=== PATIENT | male | born 1960 | race Caucasian/White ===

== ENCOUNTER → 2017-12-24 11:09 | Outpatient (CLI) | payer OTHER, SELFPAY ==
[2017-12-24 15:48] LABS: ALB/GLOB Ratio 0.9 RATIO (0.9-2.4); AST(SGOT) 39 U/L (15-37); Alanine Aminotransfer ALT/SGPT 42 U/L (16-61); Albumin, Serum 3.6 g/dL (3.2-5.0); Alkaline Phosphatase 76 U/L (45-117); Anion Gap 11 (5-15); BUN 11 mg/dL (7-18); BUN/Creat Ratio 10.6 RATIO (10-20); Chloride 104 mmol/L (98-107); Cholesterol 101 mg/dL (200); Creatinine, Serum 1.04 mg/dL (0.70-1.30); EST Glomerular Filtration Rate 78 mL/min (>60); Est Glom Filt Rate - Afr Amer 95 mL/min (>60); Globulin 4.1 g/dL (2.2-4.2); Glucose 52 mg/dL (74-106); High Density Lipoprotein 30 mg/dL; Potassium 4.1 mmol/L (3.5-5.1); Protein, Total 7.7 g/dL (6.4-8.2); Sodium Level 141 mmol/L (136-145); Thyroid Stim Hormone (TSH) 1.99 uIU/mL (0.358-3.74); Triglycerides 139 mg/dL; Very Low Density Lipoprotein 28 mg/dL (5-40)
== END ==
PROVIDERS: Family Provider Family Medicine; PCP Family Medicine; Visit Provider Family Medicine
DX: E11.8 Type 2 diabetes mellitus with unspecified complications (principal)
CPT/HCPCS: 36415; 80053; 80061; 84443

== ENCOUNTER 2018-03-19 08:58 | Day surgery (SDC) | payer OTHER, SELFPAY ==
[2018-03-19] VITALS (8 sets, daily range): BP systolic 121–147; BP diastolic 60–63; PULSE 75–79; RESP 16–18; TEMP 36.3–36.6; O2SAT 94–97; BMI 43.9
[2018-03-19 09:40] LABS: Bedside Glucose 178 mg/dL (70-110)
[2018-03-19] MEDS: Bupivacaine Mpf 0.5% 30 ML VIAL (11:24)
[2018-03-19] MEDS: Cefazolin 2 GM in 0.9% Normal Saline 100 ML IV (11:26)
--- NOTE | 2018-03-19 12:11 | DCINST_ITS ---
Discharge Diet: No Restrictions - leave dressing on until seen in postop clinic , do not get incision wet- if it does, remove and replace, call with concerns Discharge Activity: May Not Drive May shower in (days): 1 Ice area for (Minutes): 20 - Every hour while awake. Weight Bearing Status: Weight bearing as tolerated Keep extremity elevated above heart level: Operative Extremity Call your doctor if your incision/area has: Continuous Slow Oozing, Sudden Increased Bleeding, Increased Pain/ Swelling, Increased Redness, Foul Smelling Discharge Call your doctor if you observe: Fever of 101 or Higher, Coldness, Increased Pain, Numbness or Tingling, Change in Color, Calf discomfort Allergies/Adverse Reactions: Allergies No Known Allergies Allergy (Verified 03/12/18 11:27) Medications to take at Discharge Colchicine 0.6 mg PO TID 12/17/16 Gabapentin 400 mg PO BID 12/17/16 Liraglutide [Victoza] 1.8 mg SQ DAILY 12/17/16 Metoprolol Tartrate 25 mg PO BID 12/17/16 Insulin Aspart [Novolog Flexpen] 22 units SQ TIDCM 03/12/18 Insulin Glargine [Lantus SoloStar Pen] 80 units SQ BID 03/12/18 Metformin HCl [Glucophage] 850 mg PO BIDCM 03/12/18 Acetaminophen/Codeine #3 [Tylenol #3 Tablet] 1 - 2 tablet PO Q6H PRN PRN #30 tablet 03/19/18 Cilostazol [Pletal] 100 mg PO BIDAC 03/19/18 Indomethacin [Indocin] 50 mg PO TIDCM 03/19/18 Tadalafil [Cialis] 20 mg PO DAILY PRN 03/19/18 The following prescriptions were given: Acetaminophen/Codeine #3 [Tylenol #3 Tablet] 1 - 2 tablet PO Q6H PRN PRN #30 tablet PRN Reason: Pain Primary Care Physician: Dennis Schwartz MD [Primary Care Provider] - Test Results: Test results from this visit will be discussed in further detail at your follow- up appointment, if applicable. Please Follow Up With: Mellisa Hernandez, - [phone]
--- NOTE | 2018-03-19 12:13 | OP.PCM_ITS ---
Report of Operation Date of Procedure: 03/19/18 Pre-Operative Diagnosis: right carpal tunnel syndrome Post-Operative Diagnosis: same Surgery/Procedure Performed:: right carpal tunnel release Type of Anesthesia:: Susan Tatum Anesthesiologist: Kingston Lyons Estimated Blood Loss (mL): none Fluids Replaced: 600cc Description of Procedure: Preoperative note Patient is a 58 year old patient with nerve conduction study confirming carpal tunnel syndrome. Patient failed conservative treatment for his carpal tunnel elected proceed with right carpal tunnel release. Risks benefits and alternatives surgery discussed with patient. Risks including but not limited to blood loss, blood clot, infection, neurovascular injury, failure procedure, loss of life and loss of limb. Patient is aware like proceed with right carpal tunnel release. Operative note Patient seen and examined preoperative holding area. right hand was marked. History and physical and consent reviewed. Patient was brought to the operating room placed supine on the operating table. Sign in, anesthesia, antibiotics were administered. right upper extremity was prepped and draped after Susan block was initiated. All bony prominences well-padded SCDs placed on bilateral lower extremities. We marked out our incisions for our carpal tunnel release at the intersection of Jose's line in the fourth ray flexed. We extended about a centimeter and a half. Timeout was performed. We then checked ensure that the Susan block was working with pickups which it was not so we performed a local block of 15cc 1% lidocaine. We then used a 15 blade to make a skin incision. We then dissected down tenotomies to the level of the transverse carpal ligament. We then used a new 15 blade cut through the transverse carpal ligament down to the level of the median nerve. We then further released the median nerve the combination of the 15 blade and tenotomies protecting the nerve at all times. The nerve was grayish in color and adherent to the transverse carpal ligament volarly. We released the transverse carpal ligament distally to the fat pad and then proximally under standard technique. We then palpated to ensure that we released all of the transverse carpal ligament which we did. We irrigated the incision with copious amounts of sterile saline. All bleeders were coagulated. The incision was closed with interrupted 4-0 nylon stitches. Tourniquet was deflated for total working time of 14 minutes. Patient tolerated procedure well there were no complications. Patient transferred to recovery room in stable condition. Postoperative note Hospital pharmacy has prescription Leave dressing clean dry and intact Follow-up in 2 weeks Call with concerns This note was generated with [employer] dictation software. It may contain incorrect words, spelling, and punctuation that were not noted in checking the note before signing
== END 2018-03-19 13:28 | disposition home or self-care (01) ==
LOC: SDC 08:58 → AC 09:00
PROVIDERS: Family Provider Family Medicine; PCP Family Medicine; Visit Provider Orthopaedic Surgery
PROC: (CPT 64721; principal; 2018-03-19 10:15)
DX: G56.01 Carpal tunnel syndrome, right upper limb (principal); E11.9 Type 2 diabetes mellitus without complications; E78.00 Pure hypercholesterolemia, unspecified; G47.30 Sleep apnea, unspecified; K21.9 Gastro-esophageal reflux disease without esophagitis; Z79.82 Long term (current) use of aspirin; Z79.4 Long term (current) use of insulin; Z79.899 Other long term (current) drug therapy
CPT/HCPCS: 64721; 82962; J7120

== ENCOUNTER 2018-06-25 07:51 | Day surgery (SDC) | payer OTHER, SELFPAY ==
[2018-06-25 08:10] VITALS: BP 128/61; PULSE 82; RESP 16; TEMP 36.1; O2SAT 96; BMI 45.1
[2018-06-25 09:10] LABS: Bedside Glucose 188 mg/dL (70-110)
[2018-06-25] MEDS: Cefazolin 2 GM in 0.9% Normal Saline 100 ML IV (09:35)
--- NOTE | 2018-06-25 09:49 | OP.PCM_ITS ---
Report of Operation Date of Procedure: 06/25/18 Pre-Operative Diagnosis: left carpal tunnel syndrome, left 4th trigger finger Post-Operative Diagnosis: same Surgery/Procedure Performed:: left carpal tunnel release, left fourth finger trigger finger release Type of Anesthesia:: Susan Tatum, Local Anesthesiologist: Tiomthy Cain Estimated Blood Loss (mL): none Fluids Replaced: 700cc Description of Procedure: Preoperative note Patient is a 58 year old patient with nerve conduction study confirming carpal tunnel syndrome. Patient failed conservative treatment for her carpal tunnel elected proceed with left carpal tunnel release. Risks benefits and alternatives surgery discussed with patient. Risks including but not limited to blood loss, blood clot, infection, neurovascular injury, failure procedure, loss of life and loss of limb. Patient is aware like proceed with left carpal tunnel release. Operative note Patient seen and examined preoperative holding area. Left hand was marked. History and physical and consent reviewed. Patient was brought to the operating room placed supine on the operating table. Sign in, anesthesia, antibiotics were administered. Left upper extremity was prepped and draped after Abrams block was initiated. All bony prominences well-padded SCDs placed on bilateral lower extremities. We marked out our incisions for our carpal tunnel release at the intersection of Jose's line in the fourth ray flexed. We extended about a centimeter and a half. Timeout was performed. We then checked ensure that the Abrams block was working with pickups which it was not so we had to insufflate both the carpal tunnel incision and the trigger finger release sites with combination of about 25 cc of combined mixture of ropivacaine and lidocaine. We then used a 15 blade to make a skin incision. We then dissected down tenotomy syllable of the transverse carpal ligament. We then used a new 15 blade cut through the transverse carpal ligament down to the level of the median nerve. We then further released the median nerve the combination of the 15 blade and tenotomies. The nerve was grayish in color and adherent to the transverse carpal ligament volarly. We released the transverse carpal ligament distally to the fat pad and then proximally under standard technique. We then palpated to ensure that we released all of the transverse carpal ligament which we did. We then moved to our trigger release of the left fourth. Incision was about a centimeter over top of the A1 rodo we dissected down with first manner and skin incision with a 15 blade dissect down to 9 to the level of the A1 rodo with a release A1 rodo with a combination of a 15 blade and tenotomies. We then brought the tendon out of the incision were able to flex and extend with no further catching. We then irrigated both incisions closed with no with the skin with 4-0 nylon sterile dressings were applied. We irrigated the incision with copious amounts of sterile saline. All bleeders were coagulated. The incision was closed with interrupted 4-0 nylon stitches. Tourniquet was deflated for total working time of 14 minutes. Patient tolerated procedure well there were no complications. Patient transferred to recovery room in stable condition. Postoperative note Hospital pharmacy has prescription Leave dressing clean dry and intact Follow-up in 2 weeks Call with concerns This note was generated with [employer] dictation software. It may contain incorrect words, spelling, and punctuation that were not noted in checking the note before signing.
--- NOTE | 2018-06-25 09:49 | DCINST_ITS ---
Discharge Diet: No Restrictions - leave dressings in place, keep incision clean and dry but if get dirty/soiled my change dressing, follow up in 2 weeks for dressing removal and suture removal, call with concerns Discharge Activity: May Not Drive May shower in (days): 1 Ice area for (Minutes): 20 - Every hour while awake. Weight Bearing Status: Weight bearing as tolerated Keep extremity elevated above heart level: Operative Extremity Call your doctor if your incision/area has: Continuous Slow Oozing, Sudden Increased Bleeding, Increased Pain/ Swelling, Increased Redness, Foul Smelling Discharge Call your doctor if you observe: Fever of 101 or Higher, Coldness, Increased Pain, Numbness or Tingling, Change in Color, Calf discomfort Allergies/Adverse Reactions: Allergies No Known Allergies Allergy (Verified 06/18/18 09:23) Medications to take at Discharge Colchicine 0.6 mg PO TID 12/17/16 Gabapentin 400 mg PO BID 12/17/16 Liraglutide [Victoza] 1.8 mg SQ DAILY 12/17/16 Metoprolol Tartrate 25 mg PO BID 12/17/16 Insulin Aspart [Novolog Flexpen] 18 units SQ TIDCM 03/12/18 Insulin Glargine [Lantus SoloStar Pen] 85 units SQ BID 03/12/18 Metformin HCl [Glucophage] 850 mg PO BIDCM 03/12/18 Cilostazol [Pletal] 100 mg PO BIDAC 03/19/18 Tadalafil [Cialis] 20 mg PO DAILY PRN 03/19/18 Indomethacin [Indocin] 50 mg PO TIDCM 06/18/18 Acetaminophen/Codeine #3 [Tylenol #3 Tablet] 1 - 2 tablet PO Q6H PRN PRN #30 tablet 06/25/18 The following prescriptions were given: Acetaminophen/Codeine #3 [Tylenol #3 Tablet] 1 - 2 tablet PO Q6H PRN PRN #30 tablet PRN Reason: Pain Primary Care Physician: Dennis Schwartz MD [Primary Care Provider] - Test Results: Test results from this visit will be discussed in further detail at your follow- up appointment, if applicable. Please Follow Up With: Mellisa Hernandez, - [phone]
[2018-06-25] MEDS: Ropivacaine 0.5% 30 ML Vial (10:15)
[2018-06-25] MEDS: Mupirocin Ointment 22gm Tube 1 APPLIC (10:34)
[2018-06-25 10:48] VITALS: BP 115/51; BP 128/61; PULSE 80; RESP 16; TEMP 35.9; O2SAT 97
[2018-06-25 10:53] VITALS: BP 104/82; BP 128/61; PULSE 83; RESP 16; O2SAT 96
[2018-06-25 10:58] VITALS: BP 100/53; BP 128/61; PULSE 78; RESP 16; O2SAT 96
[2018-06-25 11:01] VITALS: BP 100/78; BP 128/61; PULSE 80; RESP 16; TEMP 36.1; O2SAT 97
[2018-06-25 11:25] VITALS: BP 128/61
== END 2018-06-25 11:47 | disposition home or self-care (01) ==
LOC: SDC 07:52 → AC 07:53
PROVIDERS: Family Provider Family Medicine; PCP Family Medicine; Referring Provider Orthopaedic Surgery; Visit Provider Orthopaedic Surgery
PROC: (CPT 64721; principal; 2018-06-25 09:15)
DX: G56.02 Carpal tunnel syndrome, left upper limb (principal); M65.342 Trigger finger, left ring finger; E11.9 Type 2 diabetes mellitus without complications; E78.00 Pure hypercholesterolemia, unspecified; G25.81 Restless legs syndrome; G47.30 Sleep apnea, unspecified; K21.9 Gastro-esophageal reflux disease without esophagitis; Z79.4 Long term (current) use of insulin; Z79.899 Other long term (current) drug therapy
CPT/HCPCS: 26055; 64721; 82962; J7120; J2405

== ENCOUNTER → 2018-06-26 11:06 | Outpatient (CLI) | payer OTHER, SELFPAY ==
[2018-06-26 13:27] LABS: AST(SGOT) 22 U/L (15-37); Alanine Aminotransfer ALT/SGPT 40 U/L (16-61); Albumin, Serum 3.3 g/dL (3.2-5.0); Alkaline Phosphatase 78 U/L (45-117); Anion Gap 9 (5-15); BUN 12 mg/dL (7-18); BUN/Creat Ratio 12.5 RATIO (10-20); Calcium,Total 8.2 mg/dL (8.5-10.1); Chloride 102 mmol/L (98-107); Cholesterol 99 mg/dL (200); Creatinine, Serum 0.96 mg/dL (0.70-1.30); EST Glomerular Filtration Rate 86 mL/min (>60); Est Glom Filt Rate - Afr Amer 104 mL/min (>60); Globulin 3.4 g/dL (2.2-4.2); Glucose 200 mg/dL (74-106); High Density Lipoprotein 29 mg/dL; Potassium 4.6 mmol/L (3.5-5.1); Protein, Total 6.7 g/dL (6.4-8.2); Sodium Level 140 mmol/L (136-145); Triglycerides 122 mg/dL; Uric Acid 5.8 mg/dL (3.5-7.2); Very Low Density Lipoprotein 24 mg/dL (5-40)
== END ==
PROVIDERS: Family Provider Family Medicine; PCP Family Medicine; Visit Provider Family Medicine
DX: E11.8 Type 2 diabetes mellitus with unspecified complications (principal); M10.9 Gout, unspecified
CPT/HCPCS: 36415; 80053; 80061; 84550

== ENCOUNTER → 2018-10-20 15:07 | Outpatient (CLI) | payer OTHER, SELFPAY ==
--- NOTE | 2018-10-20 08:15 | LES_PTH ---
PATIENT: RAJESH FLORES [facility] U#:[id number] AGE/SX: 65/M ROOM: RE10/20/[address]: Dr. Drew Schwartz MD : 1960 BED: DIS: SPEC #: [id number] RECD: 10/20/18 13:48 STATUS: XANDER ANAND #: [id number] ELLE: 10/20/18 08:[address]: Drew Schwartz DEPT: SURGICAL PATHOLOGY RECD BY: Matilde Nazario Tissues: Skin of forearm, NOS Procedures: Surgery Specimen Level IV HEADER OPERATION: Shave biopsy PRE-OP DIAGNOSIS: Left forearm, rule out melanoma TISSUE SUBMITTED: Shave biopsy MICROSCOPIC DIAGNOSIS Left forearm lesion, shave biopsy: Actinic keratosis, hypertrophic type with focal verrucous features. Negative for melanocytic lesion. SJ:damien 10/21/18 COMMENT Clinical correlation and appropriate follow up are necessary. MICROSCOPIC DESCRIPTION Slides are reviewed. GROSS DESCRIPTION Received in fixative is one container labeled with the patient's name and designated shave biopsy. The specimen consists of a shave biopsy of ryan-white skin measuring 0.6 x 0.6 x 0.1 cm. The specimen is inked and submitted entirely in one cassette. It will be serially sectioned at the time of embedding. / SJ:rg 10/20/18 TC:5 [facility]: [id number]
== END ==
PROVIDERS: Family Provider Family Medicine; PCP Family Medicine; Referring Provider Family Medicine; Visit Provider Family Medicine
DX: L57.0 Actinic keratosis (principal)
CPT/HCPCS: 88305

== ENCOUNTER 2019-02-13 10:23 | Day surgery (SDC) | payer OTHER, SELFPAY ==
[2019-02-02 11:20] VITALS: BMI 45.1
--- NOTE | 2019-02-02 12:42 | HP_ITS ---
Intake Vital Signs 02/02/19 Body Mass Index (BMI) 45.1 02/02/19 Height 6 ft 3 in 02/02/19 Weight: 350 lb 6 oz 02/02/19 Body Mass Index (BMI) 43.7 02/02/19 Blood Pressure 172/93 H 02/02/19 Blood Pressure Location Rt brachial 02/02/19 Blood Pressure Position Sitting 02/02/19 Respiratory Rate 20 H 02/02/19 Pulse Rate 98 02/02/19 Pulse Ox 97 Intake Visit Reasons: Cscope Consult Chief Complaint: discuss colonoscopy Counter Waitress/Waiter Required: No Is patient in pain?: No Allergies No Known Allergies Allergy (Verified 02/02/19 11:14) Medications Colchicine 0.6 mg PO TID 12/17/16 [History Confirmed 02/02/19] Gabapentin 400 mg PO BID 12/17/16 [History Confirmed 02/02/19] Liraglutide [Victoza] 1.8 mg SQ DAILY 12/17/16 [History Confirmed 02/02/19] Metoprolol Tartrate 25 mg PO BID 12/17/16 [History Confirmed 02/02/19] Insulin Aspart [Novolog Flexpen] 18 units SQ TIDCM 03/12/18 [History Confirmed 02/02/19] Insulin Glargine [Lantus SoloStar Pen] 85 units SQ BID 03/12/18 [History Confirmed 02/02/19] metFORMIN HCl [Glucophage] 850 mg PO BIDCM 03/12/18 [History Confirmed 02/02/19] Cilostazol [Pletal] 100 mg PO BIDAC 03/19/18 [History Confirmed 02/02/19] Acetaminophen/Codeine #3 [Tylenol #3 Tablet] 1 - 2 tab PO Q6H PRN PRN #30 tab 06/25/18 [Rx Confirmed 02/02/19] aspirin 81 mg tablet,delayed release 81 mg PO DAILY 02/02/19 [History Confirmed 02/02/19] bupropion HCl XL 150 mg 24 hr tablet, extended release 150 mg PO QAM 02/02/19 [History Confirmed 02/02/19] cilostazol 100 mg tablet 100 mg PO BID 02/02/19 [History Confirmed 02/02/19] lisinopril 10 mg tablet 10 mg PO DAILY 02/02/19 [History Confirmed 02/02/19] pravastatin 40 mg tablet 40 mg PO DAILY 02/02/19 [History Confirmed 02/02/19] [facility] Medical History Hyperglycemia (Acute) MARK ANTHONY (obstructive sleep apnea) (Chronic) DM type 1 (diabetes mellitus, type 1) (Chronic) Morbid obesity (Chronic) Hyperlipidemia (Chronic) Benign essential hypertension (Chronic) Diabetes (Acute) Surgical History History of amputation of right great toe (Acute) History of carpal tunnel surgery (Acute) History of cholecystectomy (Acute) History of colonoscopy (Acute ~2011) Family History Father High cholesterol Sister High cholesterol Sister High cholesterol Social History Smoking Status: Never smoker HPI HPI HPI: RAJESH FLORES, is a 59 M who presents to the office today for HPI HPI Surgical H&P: Yes HPI: RAJESH FLORES, is a 59 M who presents to the office today for evaluation for colonoscopy. Patient had a colonoscopy in 2011 and at that time the endoscopist reported that he saw a small polyp with them was unable to locate and remove it. There were no recommendations when to repeat colonoscopy. He is not having any blood in his stool. He has no abdominal pain or family history of colon cancer. ROS General General: Yes weight change; no appetite, fatigue, colon cancer, breast cancer or weakness HEENT HEENT: No difficulty swallowing, eye injury, eye surgery, swollen glands or hoarseness Endo Endocrine: Yes diabetes mellitus; no thyroid disease, thyroid cancer, Hair loss, heat intolerance or cold intolerance Cardio Cardiovascular: No murmur, pacemaker, heart disease, atrial fibrillation, high blood pressure, heart attack, heart stent, palpitations, shortness of breat with exertion or chest pain Psych Psychiatric: No depression, anxiety or hearing voices Resp Respiratory: No shortness of breath, Yes sleep apnea, No cough, No COPD, No asthma, No emphysema, No wheezing Gastro Gastrointestinal: No abdominal pain, No nausea or vomiting, No diarrhea, No constipation, No blood in stool, No acid reflux, No hemorrhoids, No ulcers, Yes gallbladder problem, No black,tarry stools Dickson Hematologic: No blood thinners, No blood disorders, No bleeding, No anemia, No blood clots Neuro Neurologic: No weakness Exam Const General: cooperative Orientation: alert, oriented x3 Resp Effort & Inspection: normal respiratory effort Auscultation: clear to auscultation bilaterally Cardio Rate: regular rate Rhythm: regular rhythm Heart Sounds: no murmurs GI Inspection: non-distended Palpation: soft, nontender Assessment & Plan Problems 1. missed polyp Plan Patient had colonoscopy 2011 but a polyp was missed at that time. It was left behind and unable to be relocated and removed. Normal recommendations in this situation would you repeat a colonoscopy in 1 year. Patient has not had a colonoscopy since then. I recommend repeating colonoscopy. I explained endoscopy in detail to the patient. I explained the risks including but not limited to stroke or heart attack with anesthesia, perforation of the GI tract, bleeding, infection. I explained that any of these could necessitate further emergency surgery. The patient understands and all questions were answered sufficiently. The patient wishes to proceed with procedure. Ralph Casarez MD Pager: [facility] [address] [place] [address], [address] [place] [address] Office: Coding Level of Care Code Off vis,new,level 3 Diagnoses missed polyp 02/02/19 1242 <Electronically signed by Ralph coats MD> Date _ Ralph Casarez MD I have re-examined the patient. There are no clinical changes since date of exam.
[2019-02-13 10:37] VITALS: BP 136/66; PULSE 74; RESP 16; TEMP 35.5; O2SAT 99; BMI 42.9
[2019-02-13 10:51] LABS: Bedside Glucose 116 mg/dL (70-110)
--- NOTE | 2019-02-13 11:30 | COLBX_PTH ---
PATIENT: RAJESH FLORES LOC: [facility] U#:[id number] AGE/SX: 59/M ROOM: RE02/13/[address]: Dr. Ralph Casarez MD : 1960 BED: DIS: 02/13/2019 SPEC #: [id number] RECD: 02/13/19 12:20 STATUS: XANDER ANAND #: [id number] ELLE: 02/13/19 11:[address]: Ralph Casarez DEPT: SURGICAL PATHOLOGY RECD BY: Jael Padron ENTERED: 02/13/19 13:27 SP TYPE: COLON BX OTHR DR: Dr. Drew Schwartz MD Tissues: Transverse colon Procedures: Surgery Specimen Level IV HEADER OPERATION: Colonoscopy (MAC) PRE-OP DIAGNOSIS: Missed polyp from 2012 TISSUE SUBMITTED: Transverse colon polyp MICROSCOPIC DIAGNOSIS Transverse colon polyp, biopsy: Fragments of tubular adenoma. Fragments of fecal material. SJ:damien 02/16/19 MICROSCOPIC DESCRIPTION Slides are reviewed. GROSS DESCRIPTION Received in fixative is one container labeled with the patient's name and designated transverse colon polyp. The specimen consists of multiple irregular fragments of reddish-brown fecal material and possible scant soft tissue that in aggregate measure 1.5 x 0.8 x 0.3 cm. The specimen is totally submitted in one cassette. / CE:damien 02/13/19 TC:1 CPT: 33293
[2019-02-13 12:06] VITALS: BP 115/63; BP 136/66; PULSE 78; RESP 18; TEMP 36.2; O2SAT 97
[2019-02-13 12:10] VITALS: BP 112/50; BP 136/66; PULSE 75; RESP 18; O2SAT 98
[2019-02-13 12:15] VITALS: BP 121/53; BP 136/66; PULSE 75; RESP 18; O2SAT 97
[2019-02-13 12:20] VITALS: BP 129/61; BP 136/66; PULSE 75; RESP 20; TEMP 37.1; O2SAT 96
[2019-02-13 12:40] VITALS: BP 136/66
--- NOTE | 2019-02-18 10:44 | OP.ENDO_ITS ---
02/18/2019 Dennis Schwartz [address] [place] [address] Re : Colonoscopy procedure for Toni Cano Dear Dr. Schwartz This procedure was performed on Wednesday, February 13, 2019. My impressions and recommendations are as follows: Impressions : - One polyp in the transverse colon, removed with a hot snare. Resected and retrieved. Clip was placed. - The examination was otherwise normal on direct and retroflexion views. Recommendations : - Discharge patient to home. - Resume previous diet. - Continue present medications. - Await pathology results. - Repeat colonoscopy in 1 year because the bowel preparation was poor. My findings are described in the full procedure note, which is enclosed. If I can be of further assistance, please feel free to contact me at Doctor phone number(s): , Work: . Sincerely, Ralph Casarez MD 02/13/2019 12:03:11 PM This report has been signed electronically.
== END 2019-02-13 12:42 | disposition home or self-care (01) ==
LOC: EN 10:23 → AC 10:25
PROVIDERS: Family Provider Family Medicine; PCP Family Medicine; Referring Provider Family Medicine; Visit Provider Surgery
PROC: 0DJD8ZZ Inspection of Lower Intestinal Tract, Via Natural or Artificial Opening Endoscopic (ICD-10-PCS; CPT 45378; principal; 2019-02-13 11:25)
DX: Z12.11 Encounter for screening for malignant neoplasm of colon (principal); D12.3 Benign neoplasm of transverse colon; E10.9 Type 1 diabetes mellitus without complications; I10 Essential (primary) hypertension; E78.5 Hyperlipidemia, unspecified; G47.33 Obstructive sleep apnea (adult) (pediatric); E66.01 Morbid (severe) obesity due to excess calories; F32.9 Major depressive disorder, single episode, unspecified; Z79.82 Long term (current) use of aspirin; Z79.4 Long term (current) use of insulin; Z79.899 Other long term (current) drug therapy; Z89.411 Acquired absence of right great toe; Z90.49 Acquired absence of other specified parts of digestive tract
CPT/HCPCS: 45385; 82962; 88305; J7120

== ENCOUNTER → 2019-04-16 10:25 | Outpatient (CLI) | payer OTHER, SELFPAY ==
[2019-04-16 12:26] LABS: Hemoglobin 12.3 g/dL (13.0-16.5); Mean Corp Hgb Conc 33.2 g/dL (32-36); Mean Corpuscular Hgb 29.9 pg (27.0-32.0); Mean Platelet Vol. 9.9 fl (6.2-12.0); Platelet Count 262 K/mm3 (150-450); RBC Distribution Width CV 13.8 % (11.6-14.6); Red Blood Count 4.11 M/mm3 (4.6-6.2)
[2019-04-16 12:29] LABS: Erythrocyte Sedimentation Rate 33 mm/hr (0-20)
[2019-04-16 12:51] LABS: ALB/GLOB Ratio 0.9 RATIO (0.9-2.4); AST(SGOT) 24 U/L (15-37); Alanine Aminotransfer ALT/SGPT 35 U/L (16-61); Albumin, Serum 3.4 g/dL (3.2-5.0); Alkaline Phosphatase 74 U/L (45-117); Anion Gap 8 (5-15); BUN 13 mg/dL (7-18); BUN/Creat Ratio 11.8 RATIO (10-20); Calcium,Total 8.9 mg/dL (8.5-10.1); Chloride 103 mmol/L (98-107); Cholesterol 117 mg/dL (200); EST Glomerular Filtration Rate 73 mL/min (>60); Est Glom Filt Rate - Afr Amer 88 mL/min (>60); Globulin 3.9 g/dL (2.2-4.2); Glucose 246 mg/dL (74-106); High Density Lipoprotein 25 mg/dL; Magnesium 1.6 mg/dL (1.6-2.6); Potassium 4.4 mmol/L (3.5-5.1); Protein, Total 7.3 g/dL (6.4-8.2); Sodium Level 137 mmol/L (136-145); Thyroid Stim Hormone (TSH) 2.27 uIU/mL (0.358-3.74); Triglycerides 320 mg/dL; Very Low Density Lipoprotein 64 mg/dL (5-40)
== END ==
LOC: MFPLAB 10:25
PROVIDERS: Family Provider Family Medicine; PCP Family Medicine; Referring Provider Family Medicine; Visit Provider Family Medicine
DX: Z00.00 Encounter for general adult medical examination without abnormal findings (principal); E11.8 Type 2 diabetes mellitus with unspecified complications; R42 Dizziness and giddiness
CPT/HCPCS: 36415; 80053; 80061; 83735; 84403; 84443; 85027; 85652

== ENCOUNTER → 2020-03-08 11:00 | Outpatient (CLI) | payer OTHER, SELFPAY ==
--- NOTE | 2020-03-08 | LES_PTH ---
PATIENT: RAJESH FLORES [facility] U#:[id number] AGE/SX: 65/M ROOM: RE03/08/[address]: Dr. Drew Schwartz MD : 1960 BED: DIS: SPEC #: [id number] RECD: 03/09/20 17:48 STATUS: XANDER ANAND #: [id number] ELLE: 03/08/20 00:[address]: Drew Schwartz DEPT: SURGICAL PATHOLOGY RECD BY: Terry Patton Tissues: Skin of leg, NOS Procedures: Surgery Specimen Level IV HEADER OPERATION: Excision PRE-OP DIAGNOSIS: Right leg, rule out SCC TISSUE SUBMITTED: Excision right leg MICROSCOPIC DIAGNOSIS Skin lesion of right leg, biopsy: Consistent with dermatofibroma. See comment. AM:damien 03/11/20 COMMENT Immunohistochemistry ([id number]) supports the above diagnosis. Case has been reviewed in consultation with Dr. Rene who concurs with the above diagnosis. IDC:SJ MICROSCOPIC DESCRIPTION Slides are reviewed. GROSS DESCRIPTION Received in fixative is one container labeled with the patient's name and designated right leg. The specimen consists of an ellipse of light ryan excised skin measuring 1.5 x 1 x 0.3 cm. The specimen is inked, serially sectioned and totally submitted in one cassette. / AM:damien 03/10/20 TC:1 CPT: 58133
--- NOTE | 2020-03-08 | IMM_PTH ---
PATIENT: RAJESH FLORES [facility] U#:[id number] AGE/SX: 65/M ROOM: RE03/08/[address]: Dr. Drew Schwartz MD : 1960 BED: DIS: SPEC #: [id number] RECD: 03/11/20 12:23 STATUS: XANDER REQ #: [id number] ELLE: 03/08/20 00:[address]: Drew Schwartz DEPT: IMMUNOHISTOCHEMISTRY RECD BY: Matilde Nazario Tissues: Skin of leg, NOS Procedures: CD34 (add) CK5-6 (add) Vimentin (add) SMM (add) Pankeratin (initial) MELAN-A (add) P40 (add) S-100 (add) PHYSICIAN & INSTITUTION [place] [id number] SPECIMEN INFORMATION: Tissue Source: Right leg Clinical Info: Rule out SCC Specimen Number: [id number] CPT code: 63306, 28764 x7 METHODOLOGY: Deparaffinized sections of prefer/formalin-fixed tissue or PAP/DQ stained slides are incubated with monoclonal/polyclonal antibodies/oligonucleotide probes. Localization is made via biotin free immunoperoxidase method. Appropriate controls are performed and reacted as expected. Results on target cell population are indicated in the following table: RESULTS: ANTIBODY / CLONE RESULT AE1-3 (AE1/AE3/PCK26) negative Vimentin (V9) positive CD34 (QBEnd-10) negative Myosin (simms1) negative Melan A (A103) negative S-100 (4C4.9) negative CK5-6 (D5 & 1684) negative P40 (BC28) negative These tests were developed and their performance characteristics determined by [facility]. They may not have been cleared or approved by the U.S. Food and Drug Administration. The FDA has determined that such clearance or approval is not necessary. The above immunohistochemical/dualISH markers are ordered and reviewed by the Pathologist. INTERPRETATION: Right leg, excision: Consistent with dermatofibroma. AM:damien 03/14/20
== END ==
PROVIDERS: PCP Family Medicine; Referring Provider Family Medicine; Visit Provider Family Medicine
DX: L98.8 Other specified disorders of the skin and subcutaneous tissue (principal)
CPT/HCPCS: 88305; 88341; 88342

== ENCOUNTER 2020-05-12 22:14 | Emergency (ER) | payer OTHER, SELFPAY ==
[2020-05-12 22:14] VITALS: BP 133/71; PULSE 86; RESP 22; TEMP 36.4; O2SAT 95; BMI 43.7
[2020-05-12 22:30] VITALS: BP 136/56; PULSE 80; RESP 15; O2SAT 96
--- NOTE | 2020-05-12 22:59 | US_ITS ---
STUDY: VENOUS DOPPLER ULTRASOUND - RIGHT LOWER EXTREMITY REASON FOR EXAM: Male, 60 years old. RT FOOT SWELLING/ PAIN TECHNIQUE: Ultrasound evaluation of the deep vein system to include cortes-scale imaging and compression was performed. Cortes-scale imaging and Doppler sonographic evaluation, including duplex spectral analysis and qualitative color flow sonography, was performed. COMPARISON: None. FINDINGS: Common Femoral Vein: Normal compression, spontaneity and augmentation. Normal color Doppler. Common Femoral Vein/Greater Saphenous Junction: Normal compression. Femoral Proximal: Normal compression. Femoral Middle: Normal compression, spontaneity and augmentation. Normal color Doppler. Femoral Distal: Normal compression. Popliteal Vein: Normal compression, spontaneity and augmentation. Normal color Doppler. Posterior Tibial Vein: Normal compression. Peroneal Vein: Normal compression. US/Venous Duplex Imag/Limited/Uni IMPRESSION: Normal venous Doppler ultrasound of the lower extremity as on submitted images. Electronically Signed: Donna Stephenson MD at 23:52 EDT , Service support ,
--- NOTE | 2020-05-12 23:05 | ED.VIS.GEN ---
History of Present Illness Chief Complaint: Cellulitis Informant: Patient Narrative: Patient is a 60-year-old male with a past medical history of diabetes who presents to the emergency department for right foot swelling and leg pain. Initially noticed the swelling 1 week ago. The third and fourth toe have started to turn red which he just noticed today. He denies any systemic symptoms including any fever/chills or nausea/vomiting. The pain goes all the way up to his knee. He feels like it is more swollen. Denies any history of DVT/PE. 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 He denies any chest pain or shortness of breath. He does have a history of right great toe amputation previously from an infection due to his diabetes. States he has not been following his blood sugars over the past couple of days. He is supposed to be on insulin for this. States he has been compliant at least with his insulin. No abdominal pain or nausea/vomiting. Past Medical History - Allergies and Home Meds Allergies/Adverse Reactions: Allergies No Known Allergies Allergy (Verified 05/12/20 22:17) Primary Care Physician: Dennis Schwartz MD [Primary Care Provider] - 2 Days for wound check Isaak Alegria DPM [STAFF PHYSICIAN] - As soon as possible Prior records reviewed: Yes Past Medical History: - - Diabetes Surgical History: mentioned that he had a stress test at heart catheter he then, time but he thinks Smoking Status: Never smoker - Family History Maternal Family History: Family History (Last Reviewed 02/02/19 @ 11:14 by Alberta Phillips) Father High cholesterol Sister High cholesterol Sister High cholesterol Family History: Reports: No pertinent history Review of Systems All systems negative except as indicated General: Denies: Chills, Fever, Sweats Eyes: Denies: Visual changes - bilaterally, Diplopia ENT: Denies: Rhinorrhea, Sore throat Cardiovascular: Denies: Chest pain, Palpitations Respiratory: Denies: Dyspnea, Cough, Dyspnea on exertion Gastrointestinal: Denies: Abdominal pain, Nausea, Vomiting, Diarrhea Genitourinary: Denies: Dysuria, Hematuria, Frequency Musculoskeletal: Reports: Swelling, Extremity Pain. Denies: Back pain Skin: Reports: Rash. Denies: Abscess, Wounds Neurological: Denies: Headache, Weakness, Numbness Physical Exam Vital Signs/Narrative: Vital Signs Temp Pulse Resp BP Pulse Ox 09/24/20 22:30 80 15 136/56 H 96 05/12/20 22:14 97.6 F L 86 22 H 133/71 H 95 General: Well nourished, Well developed, No Acute Distress Head: Normocephalic, Atraumatic Eyes: Perrl, EOMI ENT: Moist mucous membranes, No rhinorrhea Neck: Supple, Nontender Cardiovascular: Regular rate, Regular rhythm, No murmurs Respiratory: No distress, CTA bilaterally, Chest nontender Abdomen: Soft, Nontender, Nondistended, Normal bowel sounds Back: Nontender, Normal Inspection Extremities: Nontender, No edema, Edema - Nonpitting edema from right foot up to the knee. Previous right great toe amputation., Calf Tenderness - Right-sided Skin: - - Right third and fourth toe are swollen, erythematous and mildly tender to palpation. Neurovascularly intact. Small ulceration between toes. No crepitus. . Negative for: Trauma Neurological: Alert, Oriented x3, Cranial nerves II-XII grossly intact, Normal Strength, Normal Sensation Psychological: Normal affect, Normal Mood Diagnostic/Tx/Re-eval - Medical Decision Making Patient presents to the emerge department for right leg swelling and pain. He is concerned about infection of the toes. He did previously require amputation. He has not been following his blood sugar lately. Will check a [id number] glucose. Will obtain a Doppler of the right lower extremity to evaluate for DVT. Fortunately patient's ultrasound did not show any evidence of DVT. We will treat this as a cellulitis. He is not septic. Vital signs within normal limits. Does not appear in any acute distress. Patient given first dose of antibiotic here in the ED. Will send home with a prescription for Bactrim and Keflex. I did give him a referral for podiatry for close follow-up. The small ulceration between toes was dressed with antibiotic ointment and gauze. Warning signs and symptoms for which to return to the ED are reviewed with him including develop any systemic symptoms or streaking up the leg. Patient understands and is agreeable this plan. He is discharged home in stable condition. ED Disposition - Plan for ED Patient: Disposition: Home or Assisted Living Diagnosis: Cellulitis of foot Instructions: Cellulitis Prescriptions: Smz/Tmp Ds [Bactrim Ds] 2 tab PO BID 10 Days #40 tab Transmission Status: Pending to [facility] Cephalexin [Keflex] 500 mg PO 4X/DAY 10 Days #40 cap Transmission Status: Pending to [facility] Referrals: Isaak Alegria DPM [STAFF PHYSICIAN] - As soon as possible Dennis Schwartz MD [Primary Care Provider] - 2 Days for wound check
[2020-05-12 23:40] LABS: Bedside Glucose 149 mg/dL (70-110)
[2020-05-12] MEDS: Smz/Tmp Ds Tablet 2 TABLET PO (23:48)
[2020-05-12] MEDS: Cephalexin 250 MG Capsule 500 MG PO (23:48)
[2020-05-12 23:53] VITALS: BP 130/60; PULSE 87; RESP 16; O2SAT 97
--- NOTE | 2020-05-13 00:26 | ED.VIS.GEN ---
History of Present Illness Chief Complaint: Cellulitis Informant: Patient Past Medical History - Allergies and Home Meds Allergies/Adverse Reactions: Allergies No Known Allergies Allergy (Verified 05/12/20 22:17) Primary Care Physician: Dennis Schwartz MD [Primary Care Provider] - 2 Days for wound check Isaak Alegria DPM [STAFF PHYSICIAN] - As soon as possible Surgical History: mentioned that he had a stress test at heart catheter he then, time but he thinks Smoking Status: Never smoker - Family History Maternal Family History: Family History (Last Reviewed 02/02/19 @ 11:14 by Alberta Phillips) Father High cholesterol Sister High cholesterol Sister High cholesterol Family History: Reports: No pertinent history Physical Exam Vital Signs/Narrative: Vital Signs Temp Pulse Resp BP Pulse Ox 05/12/20 23:53 87 16 130/60 H 97 05/12/20 22:30 80 15 136/56 H 96 05/12/20 22:14 97.6 F L 86 22 H 133/71 H 95 ED Disposition - Plan for ED Patient: Disposition: Home or Assisted Living Diagnosis: Cellulitis of foot Instructions: Cellulitis Prescriptions: Smz/Tmp Ds [Bactrim Ds] 2 tab PO BID 10 Days #40 tab Transmission Status: Received by [facility] Smz/Tmp Ds [Bactrim Ds] 2 tab PO BID 10 Days #40 tab Prescription Printed Cephalexin [Keflex] 500 mg PO 4X/DAY 10 Days #40 cap Transmission Status: Received by [facility] Cephalexin [Keflex] 500 mg PO Q6 #40 cap Prescription Printed Referrals: Dennis Schwartz MD [Primary Care Provider] - 2 Days for wound check Isaak Alegria DPM [STAFF PHYSICIAN] - As soon as possible
== END 2020-05-13 00:30 | disposition home or self-care (01) ==
LOC: ED 05-13 00:18
PROVIDERS: Emergency Provider Emergency Medicine; PCP Family Medicine
DX: L03.115 Cellulitis of right lower limb (principal); E11.621 Type 2 diabetes mellitus with foot ulcer; L97.519 Non-pressure chronic ulcer of other part of right foot with unspecified severity; M79.89 Other specified soft tissue disorders; M79.604 Pain in right leg; Z79.4 Long term (current) use of insulin; Z79.82 Long term (current) use of aspirin; Z79.899 Other long term (current) drug therapy; Z89.411 Acquired absence of right great toe
CPT/HCPCS: 82962; 93971; 99283

== ENCOUNTER → 2020-06-14 15:53 | Outpatient (CLI) | payer OTHER, SELFPAY ==
--- NOTE | 2020-06-14 15:57 | RAD_ITS ---
HISTORY: 4th digit redness and ulcer ADDITIONAL HISTORY: None provided. EXAMINATION/TECHNIQUE: XR Foot Min 3 Views Right Number of images including paperwork: 3 COMPARISON: None FINDINGS: BONES: Amputation of the first ray at the MTP joint level. Hammertoe deformities. Lucencies are noted involving the head of the proximal phalanx of the fourth toe and base of the middle phalanx. On the lateral view, there is the suggestion of some dorsal displacement, evaluation limited by overlapping. Calcaneal enthesophyte. JOINTS: No subluxation. SOFT TISSUES: No distinct foreign body. Soft tissue swelling. Vascular calcifications. RAD/Foot min 3 Views IMPRESSION: Lucencies involving the fourth toe proximal phalanx and middle phalanx concerning for osteomyelitis given the clinical history. Possible displaced fracture of the fourth toe proximal phalanx. Correlation with clinical findings is needed. MRI could further evaluate if clinically warranted. at 2328 Reported and signed by: Carina Luque MD Electronically Signed: Carina Luque MD at 23:28 EDT Tel , Service support ,
[2020-06-14 17:58] LABS: Absolute Lymphocyte Count 3.12 X10^3/uL (0.83-4.51); Absolute Neutrophil Count 4.6 X10^3/uL (2.0-7.7); Basophil# 0.06 X10^3/uL; Basophil% 0.7 % (0-1); Eosinophil# 0.68 X10^3/uL; Eosinophils% 7.4 % (0-5); Hematocrit 37.3 % (40-54); Lymphocyte # 3.12 X10^3/ul (4.0); Lymphocyte % 34.1 % (19-41); Mean Corp Hgb Conc 32.2 g/dL (32-36); Mean Corpuscular Hgb 29.1 pg (27.0-32.0); Mean Corpuscular Volume 90.3 fL (80-94); Mean Platelet Vol. 10.4 fl (6.2-12.0); Monocyte% 7.7 % (0-10); NRBC Flagged by Analyzer 0 % (0-5); Neutrophil # 4.55 X10^3/uL (2.7-7.7); Neutrophil % 49.7 % (47-70); Platelet Count 266 K/mm3 (150-450); RBC Distribution Width CV 14.6 % (11.6-14.6); RBC Distribution Width SD 47.7 fl (35.1-43.9); Red Blood Count 4.13 M/mm3 (4.6-6.2); White Blood Count 9.2 K/mm3 (4.4-11.0)
[2020-06-14 18:08] LABS: Erythrocyte Sedimentation Rate 30 mm/hr (0-20)
[2020-06-14 18:12] LABS: Vitamin B12 430 pg/mL (211-911)
[2020-06-14 18:26] LABS: ALB/GLOB Ratio 0.8 RATIO (0.9-2.4); AST(SGOT) 27 U/L (15-37); Alanine Aminotransfer ALT/SGPT 40 U/L (16-61); Albumin, Serum 3.4 g/dL (3.2-5.0); Alkaline Phosphatase 75 U/L (45-117); Anion Gap 8 (5-15); BUN 12 mg/dL (7-18); BUN/Creat Ratio 12.6 RATIO (10-20); Calcium,Total 8.8 mg/dL (8.5-10.1); Chloride 102 mmol/L (98-107); Cholesterol 122 mg/dL (200); Creatinine, Serum 0.95 mg/dL (0.70-1.30); EST Glomerular Filtration Rate 86 mL/min (>60); Est Glom Filt Rate - Afr Amer 104 mL/min (>60); Globulin 4.2 g/dL (2.2-4.2); Glucose 174 mg/dL (74-106); High Density Lipoprotein 35 mg/dL; PSA,Total - Annual Screen 0.22 ng/mL (0.00-4.00); Potassium 4.1 mmol/L (3.5-5.1); Protein, Total 7.6 g/dL (6.4-8.2); Sodium Level 137 mmol/L (136-145); Thyroid Stim Hormone (TSH) 3.03 uIU/mL (0.358-3.74); Triglycerides 189 mg/dL; Very Low Density Lipoprotein 38 mg/dL (5-40)
== END ==
LOC: MTLAB 15:56
PROVIDERS: PCP Family Medicine; Referring Provider Family Medicine; Visit Provider Family Medicine
DX: E11.621 Type 2 diabetes mellitus with foot ulcer (principal); E11.8 Type 2 diabetes mellitus with unspecified complications; D53.9 Nutritional anemia, unspecified; Z12.5 Encounter for screening for malignant neoplasm of prostate
CPT/HCPCS: 36415; 73630; 80053; 80061; 82607; 84153; 84403; 84443; 85025; 85652; 86140; G0103

== ENCOUNTER 2020-06-16 11:02 | Inpatient (IN) | payer OTHER, SELFPAY ==
[2020-06-16] VITALS (8 sets, daily range): BP systolic 132–169; BP diastolic 49–71; PULSE 68–80; RESP 16–18; TEMP 36.2–36.7; O2SAT 95–97; BMI 44.9; BMI 44.3; BMI 44.0
--- NOTE | 2020-06-16 11:31 | ED.DCSUM_ITS ---
History of Present Illness Chief Complaint: Wound Informant: Patient Onset: Month(s) - 1 Narrative: Patient sent in here by PCP with outpatient x-ray concerning for osteomyelitis of the right fourth toe. He states he had infection started about a month ago, stated was seen in the ED for right leg pain. Ultrasound was negative he was placed on antibiotics for 10 days reports pain and redness improved however within 24 hours symptoms return. He follow-up with his PCP with outpatient imagings 2 days ago. Denies fevers. States lab work also was drawn. Due to x- ray findings he was sent to the ED. He states he had a right great toe amputation in 2011, however the surgeon currently does not come here. 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 States there has been intermittent drainage with ulceration to the toe. He states his glucose normally around 140 with his di abetes history, he has neuropathy. He is on insulin. Denies any allergies. Review of x-ray imaging from 2 days ago of the foot noted concerns for osteomyelitis of the fourth toe with possible fracture. Prior similar symptoms: Yes Past Medical History - Allergies and Home Meds Allergies/Adverse Reactions: Allergies No Known Allergies Allergy (Verified 06/16/20 11:03) Primary Care Physician: Dennis Schwartz MD [Primary Care Provider] - Surgical History: mentioned that he had a stress test at heart catheter he then, time but he thinks Smoking Status: Never smoker - Family History Maternal Family History: Family History (Last Reviewed 02/02/19 @ 11:14 by Alberta Phillips) Father High cholesterol Sister High cholesterol Sister High cholesterol Family History: Reports: No pertinent history Review of Systems General: Denies: Chills, Fever, Sweats Eyes: Denies: Visual changes - bilaterally, Diplopia ENT: Denies: Rhinorrhea, Sore throat Cardiovascular: Denies: Chest pain, Palpitations Respiratory: Denies: Dyspnea, Cough, Dyspnea on exertion Gastrointestinal: Denies: Abdominal pain, Nausea, Vomiting, Diarrhea, Melena, Hematochezia Genitourinary: Denies: Dysuria, Hematuria, Frequency Musculoskeletal: Denies: Back pain, Extremity Pain Skin: Reports: Wounds. Denies: Rash Neurological: Denies: Headache, Weakness, Numbness Physical Exam Vital Signs/Narrative: Vital Signs Temp Pulse Resp BP Pulse Ox 06/16/20 11:06 97.1 F L 80 17 169/71 H 97 06/16/20 11:03 97.1 F L 78 16 169/71 H 97 Inital Vital Signs reviewed: Yes General: Well nourished, Well developed, No Acute Distress Head: Normocephalic, Atraumatic Eyes: Perrl, EOMI ENT: Moist mucous membranes, No rhinorrhea Neck: Supple, Nontender Cardiovascular: Regular rate, Regular rhythm, No murmurs Respiratory: No distress, CTA bilaterally, Chest nontender Abdomen: Soft, Nontender, Nondistended, Normal bowel sounds Back: Nontender, Normal Inspection Extremities: - - Right lower extremity: Swelling of the distal foot and fourth toe with erythema there is a 2 cm ulceration lateral aspect of the proximal toe with clear drainage. There is redness to the distal aspect of the dorsal foot, there is no streaking. Skin: - - See above Neurological: Alert, Oriented x3, Cranial nerves II-XII grossly intact, Normal Strength Psychological: Normal affect, Normal Mood Diagnostic/Tx/Re-eval Abnormal Lab Results 06/16/20 06/16/20 11:40 11:40 WBC 7.4 RBC 4.01 L Hgb 11.6 L Hct 36.0 L MCV 89.8 MCH 28.9 MCHC 32.2 RDW Std Deviation 46.9 H RDW Coeff of Eyal 14.5 Plt Count 253 MPV 10.1 Immature Gran % (Auto) 0.400 Neut % (Auto) 56.3 Lymph % (Auto) 27.9 [place] % (Auto) 7.0 Eos % (Auto) 7.7 H Baso % (Auto) 0.7 Absolute Neuts (auto) 4.2 Absolute Lymphs (auto) 2.06 Nucleated RBC % 0 ESR 33 H Sodium 137 Potassium 4.3 Chloride 103 Carbon Dioxide 28.0 Anion Gap 6 BUN 14 Creatinine 1.04 Estim Creat Clear Calc 91.41 Est GFR (MDRD) Af Amer 94 Est GFR (MDRD) Non-Af 78 BUN/Creatinine Ratio 13.5 Glucose 210 H Calcium 8.6 C-React Prot Ext Range 14.10 H - Medical Decision Making Patient with osteomyelitis concerns of his right fourth toe from x-ray. Labs and cultures obtained. Elevated inflammatory markers. Started on Zosyn and vancomycin. Discussed with hospitalist Dr. Mesa for admission. ED Disposition - Plan for ED Patient: Disposition: Acute Care Hospital [facility] Diagnosis: Osteomyelitis of fourth toe of right foot, History of diabetes mellitus Referrals: Dennis Schwartz MD [Primary Care Provider] -
[2020-06-16 12:09] LABS: Erythrocyte Sedimentation Rate 33 mm/hr (0-20)
[2020-06-16 12:10] LABS: Absolute Lymphocyte Count 2.06 X10^3/uL (0.83-4.51); Absolute Neutrophil Count 4.2 X10^3/uL (2.0-7.7); Basophil# 0.05 X10^3/uL; Basophil% 0.7 % (0-1); Eosinophil# 0.57 X10^3/uL; Eosinophils% 7.7 % (0-5); Hemoglobin 11.6 g/dL (13.0-16.5); Lymphocyte # 2.06 X10^3/ul (4.0); Lymphocyte % 27.9 % (19-41); Mean Corp Hgb Conc 32.2 g/dL (32-36); Mean Corpuscular Hgb 28.9 pg (27.0-32.0); Mean Corpuscular Volume 89.8 fL (80-94); Mean Platelet Vol. 10.1 fl (6.2-12.0); Monocyte# 0.52 X10^3/uL; NRBC Flagged by Analyzer 0 % (0-5); Neutrophil # 4.15 X10^3/uL (2.7-7.7); Neutrophil % 56.3 % (47-70); Platelet Count 253 K/mm3 (150-450); RBC Distribution Width CV 14.5 % (11.6-14.6); RBC Distribution Width SD 46.9 fl (35.1-43.9); Red Blood Count 4.01 M/mm3 (4.6-6.2); White Blood Count 7.4 K/mm3 (4.4-11.0)
[2020-06-16 12:12] LABS: Anion Gap 6 (5-15); BUN 14 mg/dL (7-18); BUN/Creat Ratio 13.5 RATIO (10-20); Calcium,Total 8.6 mg/dL (8.5-10.1); Chloride 103 mmol/L (98-107); Creatinine, Serum 1.04 mg/dL (0.70-1.30); EST Glomerular Filtration Rate 78 mL/min (>60); Est Glom Filt Rate - Afr Amer 94 mL/min (>60); Estimated Creatinine Clearance 91.41 ml/min; Glucose 210 mg/dL (74-106); Potassium 4.3 mmol/L (3.5-5.1); Sodium Level 137 mmol/L (136-145)
--- NOTE | 2020-06-16 13:03 | ED.RN ---
rt foot area of redness outlined
--- NOTE | 2020-06-16 14:48 | HP.PCM_ITS ---
Problem List (1) Osteomyelitis of fourth toe of right foot Status: Acute (2) History of diabetes mellitus Status: Chronic (3) missed polyp Status: Chronic (4) Hyperglycemia Status: Chronic (5) Hyponatremia Status: Chronic (6) Headache Status: Chronic Qualifiers: Headache type: unspecified Headache chronicity pattern: acute headache Intractability: intractable (7) MARK ANTHONY (obstructive sleep apnea) Status: Chronic (8) DM type 1 (diabetes mellitus, type 1) Status: Chronic (9) Morbid obesity Status: Chronic (10) Hyperlipidemia Status: Chronic (11) Benign essential hypertension Status: Chronic History of Present Illness Date of Admission: 06/16/20 Chief Complaint: foot infection. The patient is a 60 year old M presents with a wound on his her right fourth toe. Is been present for about a month and just progressively getting bigger. Patient is also had redness in the the distal part of his foot as well. Has been on antibiotics which seemed to help but then got worse when there was or discontinued. An x-ray of his foot that showed osteomyelitis of the left fourth toe advised to come to the emergency room. In the emergency room, patient had elevated CRP. Patient received vancomycin and Pipracil and/tazobactam and the hospital service was contacted for admission. Patient has had a history of amputation of his right great toe back in 2012. [] Past Medical History Past Medical History (Chronic Problems): Chronic Problems (Last Updated 04/01/18 @ 13:12 by Johnny Davis) History of diabetes mellitus (Chronic) missed polyp (Chronic) Hyperglycemia (Chronic) Hyponatremia (Chronic) Headache (Chronic) MARK ANTHONY (obstructive sleep apnea) (Chronic) DM type 1 (diabetes mellitus, type 1) (Chronic) Morbid obesity (Chronic) Hyperlipidemia (Chronic) Benign essential hypertension (Chronic) Medical History: Medical History (Last Reviewed 06/16/20 @ 14:[address] Kingston Mesa, DO) Hyperglycemia (Acute) R73.9 MARK ANTHONY (obstructive sleep apnea) (Chronic) G47.33 DM type 1 (diabetes mellitus, type 1) (Chronic) Morbid obesity (Chronic) E66.01 Hyperlipidemia (Chronic) E78.5 Benign essential hypertension (Chronic) I10 Diabetes E11.9 Allergies No Known Allergies Allergy (Verified 06/16/20 11:03) Home Medications: Ambulatory Orders Medication Instructions Recorded Gabapentin 400 mg PO BID 12/17/16 Metoprolol Tartrate 25 mg PO BID 12/17/16 Insulin Aspart [Novolog Flexpen] 18 units SQ TIDCM 03/12/18 Insulin Glargine [Lantus SoloStar 85 units SQ BID 03/12/18 Pen] metFORMIN HCl [Glucophage] 850 mg PO BIDCM 03/12/18 aspirin 81 mg tablet,delayed 81 mg PO DAILY 02/02/19 release cilostazol 100 mg tablet 100 mg PO BID 02/02/19 lisinopril 10 mg tablet 10 mg PO DAILY 02/02/19 pravastatin 40 mg tablet 40 mg PO DAILY 02/02/19 Dulaglutide [Trulicity] 1.5 mg SQ QWEEK 05/12/20 Surgical History: Surgical History (Last Reviewed 06/16/20 @ 14:[address] Kingston Mesa DO) History of amputation of right great toe Z89.411 History of carpal tunnel surgery Z98.890 History of cholecystectomy Z90.49 History of colonoscopy Onset Date: ~2011 Z98.890 Surgical History: mentioned that he had a stress test at heart catheter he then, time but he thinks Smoking Status: Never smoker - *Family History Maternal Family History: Family History (Last Reviewed 06/16/20 @ 14:[address] Kingston Mesa DO) Father High cholesterol Sister High cholesterol Sister High cholesterol History Items: No pertinent history Review of Systems Constitutional: Denies: Anorexia, Chills, Fever, Night Sweats Eyes: Denies: Blurred vision, Double vision HEENT: Denies: Head Aches, Sinus Congestion, Sinus Drainage Cardiovascular: Denies: Chest Pain, Palpitations Respiratory: Denies: Cough, Shortness of breath at rest, Sputum production Gastrointestinal: Denies: Abdominal Pain, Nausea, Vomiting Genitourinary: Denies: Dysuria Musculoskeletal: Denies: Joint Pain, Joint Tenderness Skin: Reports: Rash, Wounds Psychiatric: Denies: Anxiety, Depression Hematologic/ Lymphatic: Denies: Easy Bruising, Easy Bleeding, Hx of blood clot Comment: All review of systems were negative except as mentioned above in the history of present illness and the other review of systems. VTE Information - Inpt Only VTE Present on Admission: No VTE Mechan Device Prophylaxis: None VTE Pharm Prophylaxis ordered?: Yes Patient Problems: Active and Suspected Problems (Last Updated 04/01/18 @ 13:12 by Johnny Ignacio Osteomyelitis of fourth toe of right foot (Acute) - Physical Exam Vitals/I&O's: Vital Signs Temp Pulse Resp BP Pulse Ox 36.6 C 68 18 141/61 H 95 06/16/20 12:23 06/16/20 13:38 06/16/20 13:38 06/16/20 13:38 06/16/20 13:38 Oxygen Delivery Method Room Air Weight: 163.2 kg Body Mass Index (BMI) 44.9 Finger Stick Blood Glucose 149 General: Alert, Cooperative, No apparent distress HEENT: Atraumatic, Normocephalic Oral: Moist Mucosa, No Gingival or Mucosal Lesions/ Ulcerations Neck: No Nodes, Thyroid Normal Size and Texture Lungs: Clear to auscultation, Normal air movement, No rhonchi, No wheeze, No rales Cardiovascular: Regular rate, Regular Rhythm, Normal S1, Normal S2, No murmurs Abdomen: Bowel Sounds Present, Soft, Non Tender, Non-Distended, No Hepato- splenomegaly Extremities: No edema, No Calf Tenderness Skin: - - ulcer on lateral side of right 4th toe Psych/Mental Status: Normal Affect, Appropriate Laboratory Results 06/16/20 11:40: WBC 7.4, RBC 4.01 L, Hgb 11.6 L, Hct 36.0 L, MCV 89.8, MCH 28.9, MCHC 32.2, RDW Std Deviation 46.9 H, RDW Coeff of Eyal 14.5, Plt Count 253, MPV 10.1, Immature Gran % (Auto) 0.400, Neut % (Auto) 56.3, Lymph % (Auto) 27.9, [place] % (Auto) 7.0, Eos % (Auto) 7.7 H, Baso % (Auto) 0.7, Absolute Neuts (auto) 4.2, Absolute Lymphs (auto) 2.06, Nucleated RBC % 0, ESR 33 H 06/16/20 11:40: Sodium 137, Potassium 4.3, Chloride 103, Carbon Dioxide 28.0, Anion Gap 6, BUN 14, Creatinine 1.04, Estim Creat Clear Calc 91.41, Est GFR (MDRD) Af Amer 94, Est GFR (MDRD) Non-Af 78, BUN/Creatinine Ratio 13.5, Glucose 210 H, Calcium 8.6, C-React Prot Ext Range 14.10 H 06/16/20 11:40: Blood Type A POSITIVE, Antibody Screen NEGATIVE Assessment/Plan All Active Problems (Last Updated 04/01/18 @ 13:12 by Johnny Davis) Osteomyelitis of fourth toe of right foot (Acute) 1. right 4th toe osteomyelitis * Type II diabetic with neuropathy. This is been a ongoing infection for least past month. Patient has ulceration on the lateral aspect of his right fourth toe but also visualization of osteomyelitis. Also mentioned possibility of a displaced fracture of the fourth toe the proximal phalanx. * Continue with prospective antibiotics and de-escalate based on culture results. * Will consult podiatry and have discussed with Dr. Salcedo who will see the patient on the floor and make determination if any other imaging, such as an MRI, would be necessary. * Eventually will need to consult infectious disease for long-term antibiotics but will hold off on for now until we have further clarification in regards to surgical measures and final culture results. 2. Diabetes mellitus type 2 * Continue with home medications but also had sliding scale insulin. May need to cut back to be a basal insulin on day of surgery. 3. HTN: * stable * continue with lisinopril 4. VTE prophylaxis: LMWH 5. ACP: patient wishes to be full code. Inpatient E&M: 15695 Init Hosp L2
--- NOTE | 2020-06-16 15:32 | CON.PCM_ITS ---
Problem List (1) Ulcer of right foot with necrosis of bone Status: Acute (2) Osteomyelitis of fourth toe of right foot Status: Suspected (3) Hammertoe of right foot Status: Acute (4) Cellulitis of right foot Status: Acute (5) DM type 1 (diabetes mellitus, type 1) Status: Chronic Reason for Consult Date of Consultation: 06/16/20 Reason for Consultation: right foot infection History of Present Illness: The patient is a 60 year old diabetic pleasant male was seen bedside this afternoon for right foot ulcer with infection. He reports the onset has been present for at least 1 month. He admits he is difficulty seeing his foot and it may have been there for an extended period of time. He noticed drainage. He was initially seen by his primary care physician who started him on oral antibiotics which was not successful in eradicating his infection he was advised to go to the emergency room. He denies fever, chill, nausea, vomiting, loss of appetite. He has mild foot pain. He has red streaking to the top of his foot and he denies recent injuries. He relates he does have occasional cramps in his legs however it is not on a consistent basis while walking. He has blood flow studies of the lower extremities on file at [facility] from 2011 when he denies updating it since that time. He relates he has altered sensation which she does not fully feel his feet or toes. He has a prior hallux amputation on the right foot. Past Medical History Past Medical History (Chronic Problems): Chronic Problems (Last Reviewed 06/16/20 @ 14:[address] Kingston Mesa DO) History of diabetes mellitus (Chronic) missed polyp (Chronic) Hyperglycemia (Chronic) Hyponatremia (Chronic) Headache (Chronic) MARK ANTHONY (obstructive sleep apnea) (Chronic) DM type 1 (diabetes mellitus, type 1) (Chronic) Morbid obesity (Chronic) Hyperlipidemia (Chronic) Benign essential hypertension (Chronic) Medical History: Medical History (Last Reviewed 06/16/20 @ 14:[address] Kingston Mesa DO) Hyperglycemia (Chronic) R73.9 MARK ANTHONY (obstructive sleep apnea) (Chronic) G47.33 DM type 1 (diabetes mellitus, type 1) (Chronic) Morbid obesity (Chronic) E66.01 Hyperlipidemia (Chronic) E78.5 Benign essential hypertension (Chronic) I10 Diabetes E11.9 Allergies No Known Allergies Allergy (Verified 06/16/20 11:03) Home Medications: Ambulatory Orders Medication Instructions Recorded Gabapentin 400 mg PO BID 12/17/16 Metoprolol Tartrate 25 mg PO BID 12/17/16 Insulin Aspart [Novolog Flexpen] 18 units SQ TIDCM 03/12/18 Insulin Glargine [Lantus SoloStar 85 units SQ BID 03/12/18 Pen] metFORMIN HCl [Glucophage] 850 mg PO BIDCM 03/12/18 aspirin 81 mg tablet,delayed 81 mg PO DAILY 02/02/19 release cilostazol 100 mg tablet 100 mg PO BID 02/02/19 lisinopril 10 mg tablet 10 mg PO DAILY 02/02/19 pravastatin 40 mg tablet 40 mg PO DAILY 02/02/19 Dulaglutide [Trulicity] 1.5 mg SQ QWEEK 05/12/20 Surgical History: Surgical History (Last Reviewed 06/16/20 @ 14:[address] Kingston Mesa DO) History of amputation of right great toe Z89.411 History of carpal tunnel surgery Z98.890 History of cholecystectomy Z90.49 History of colonoscopy Onset Date: ~2011 Z98.890 Surgical History: mentioned that he had a stress test at heart catheter he then, time but he thinks Smoking Status: Never smoker - *Family History Maternal Family History: Family History (Last Reviewed 06/16/20 @ 14:[address] Kingston Mesa DO) Father High cholesterol Sister High cholesterol Sister High cholesterol History Items: No pertinent history Review of Systems Constitutional: Denies: Chills, Fever, Fatigue HEENT: Denies: Sore Throat Respiratory: Denies: Cough Gastrointestinal: Denies: Nausea, Vomiting Musculoskeletal: Reports: Foot Pain. Denies: Leg Pain Skin: Reports: Skin Changes, Wounds Neurological: Reports: Numbness Hematologic/ Lymphatic: Denies: Easy Bruising, Easy Bleeding, Hx of blood clot Patient Problems: Active and Suspected Problems (Last Reviewed 06/16/20 @ 14:[address] Kingston Mesa DO) Osteomyelitis of fourth toe of right foot (Suspected) Ulcer of right foot with necrosis of bone (Acute) Hammertoe of right foot (Acute) Cellulitis of right foot (Acute) - Physical Exam Vitals/I&O's: Vital Signs Temp Pulse Resp BP Pulse Ox 98.1 F 71 18 150/67 H 97 06/16/20 14:50 06/16/20 14:50 06/16/20 14:50 06/16/20 14:50 06/16/20 14:50 Oxygen Delivery Method Room Air Weight: 160.798 kg Body Mass Index (BMI) 44.3 Finger Stick Blood Glucose 149 General: Alert, Oriented x3, Cooperative HEENT: Atraumatic Extremities: No cyanosis, Capillary Refill Less than 3 Seconds - all digits bilateral, No Calf Tenderness, Diminished Peripheral Pulses - 1/4 right dp and left dp, non palpable pt bilateral, Edema - mild bilateral lower extremities, Tenderness - Tenderness with ulcer manipulation right fourth toe. No crepitus, bogginess or fluctuance on palpation to the right foot or toes. The compartments of the right lower extremity remain soft. There is no laxity to the digits, metatarsophalangeal joints or midfoot of the right lower extremity. Skin: Ulcer/ Wound - Ulcer to lateral fourth right toe measures 0.8 x 0.8 x 0.3 cm with granular base and centrally exposed firm proximal phalanx bone. No purulence on expression or odor. There is edema to this toe and adjacent erythema that extends to the dorsal midfoot (Marked), - - His skin is atrophic and hairless bilateral lower extremities. There is no open lesion or signs of infection or necrosis on the left foot. Musculoskeletal: Muscle Wasting, - - Intrinsic minus foot bilateral. Dorsal contraction of lesser toes are noticed and reducible. There is also varus rotation of the fifth toe and this abuts the fourth toe, right lower extremity. Neurological: - - Lack of normal epicritic sensation consistent with neuropathy status. Psych/Mental Status: Normal Affect, Appropriate Laboratory Results 06/16/20 11:40: WBC 7.4, RBC 4.01 L, Hgb 11.6 L, Hct 36.0 L, MCV 89.8, MCH 28.9, MCHC 32.2, RDW Std Deviation 46.9 H, RDW Coeff of Eyal 14.5, Plt Count 253, MPV 10.1, Immature Gran % (Auto) 0.400, Neut % (Auto) 56.3, Lymph % (Auto) 27.9, [place] % (Auto) 7.0, Eos % (Auto) 7.7 H, Baso % (Auto) 0.7, Absolute Neuts (auto) 4.2, Absolute Lymphs (auto) 2.06, Nucleated RBC % 0, ESR 33 H 06/16/20 11:40: Sodium 137, Potassium 4.3, Chloride 103, Carbon Dioxide 28.0, Anion Gap 6, BUN 14, Creatinine 1.04, Estim Creat Clear Calc 91.41, Est GFR (MDRD) Af Amer 94, Est GFR (MDRD) Non-Af 78, BUN/Creatinine Ratio 13.5, Glucose 210 H, Calcium 8.6, C-React Prot Ext Range 14.10 H 06/16/20 11:40: Blood Type A POSITIVE, Antibody Screen NEGATIVE Current Medications Acetaminophen (Acetaminophen 325 Mg Tablet) 650 mg PO Q6H PRN PRN PRN Reason: Pain Score 1-10/Temp > 100.7 F Aspirin (Aspirin E.C. 81 Mg Tablet) [facility] Dextrose (Dextrose 50%-Water 25 Gm/50 Ml Disp.Syrin) 0 gm IV X1 PRN; Protocol PRN Reason: Hypoglycemia Enoxaparin Sodium (Enoxaparin 40 Mg/0.4 Ml Syringe) 40 mg SC DAILY [facility] Gabapentin (Gab[facility] 400 Mg Capsule) [facility] Glucagon (Glucagon 1 Mg/Ml Syringe) 1 mg IM .X1 PRN PRN Reason: Hypoglycemia Sodium Chloride () 250 mls @ 15 mls/hr IV .[id number] PRN PRN Reason: Saline Flush Sodium Chloride () 250 mls @ 15 mls/hr IV .[id number] PRN PRN Reason: Additional IVPB Infusion Piperacillin Sod/Tazobactam (Sod 3.375 gm/ Sodium Chloride) 50 mls @ 12.5 mls/hr IV Q8 [facility] Vancomycin IV Pharmacy to Dose (1 ea/ Sodium Chloride) 500 mls @ 250 mls/hr IV X1 PRN; Protocol PRN Reason: Rx to Dose Insulin Glargine (Insulin Glargine 100 Units/Ml Pen) 85 units SC BID [facility] Insulin Human Lispro (Insulin Lispro 100 Unit/Ml Insuln.Pen) 0 unit SC TIDAC [facility]; Protocol Lisinopril (Lisinopril 10 Mg Tablet) 10 mg PO DAILY [facility] Metformin HCl (Metformin Hcl 850 Mg Tablet) [facility] Metoprolol Tartrate (Metoprolol Tartrate 25 Mg Tablet) 25 mg PO BID [facility] Non-Formulary Medication (Cilostazol) 100 mg PO BID [facility] Non-Formulary Medication (Dulaglutide) 1.5 mg SQ QWEEK [facility] Non-Formulary Medication (Insulin Aspart [Novolog Flexpen]) 18 units SQ TIDCM [facility] Ondansetron HCl (Ondansetron 4 Mg/2 Ml Vial) 4 mg IV Q8H PRN PRN PRN Reason: NAUSEA/VOMITING Oxycodone HCl (Oxycodone 5 Mg Tablet) 5 mg PO Q4H PRN PRN PRN Reason: Pain Score 4-5 Oxycodone HCl (Oxycodone 5 Mg Tablet) 10 mg PO Q4H PRN PRN PRN Reason: Pain Score 6-10 Pravastatin Sodium (Pravastatin 40 Mg Tablet) 40 mg PO HS [facility] Sodium Chloride (0.9% Saline Lock 10 Ml Syringe) 10 - 40 ml IV UD PRN PRN Reason: SALINE FLUSH Assessment/Plan All Active Problems (Last Reviewed 06/16/20 @ 14:[address] Kingston Mesa, ) Ulcer of right foot with necrosis of bone (Acute) Hammertoe of right foot (Acute) Cellulitis of right foot (Acute) osteomyelitis of 4th right toe suspected hammer toes, right cellulitis right lower extremity diabetes I reviewed and discussed his case. Vitals are stable and he is afebrile. Labs reviewed with white blood cell count 7.4, ESR 33, C-reactive protein 14.1, normal kidney function. Blood cultures are pending. Aerobic and anaerobic wound culture was obtained and the results are pending. It appears his ulcer has exposed bone and I suspect osteomyelitis due to the rarefraction of the adjacent bones (proximal and middle phalanges) noted on plain radiographic films. Discussed medical versus surgical management for potential toe osteomyelitis pending MRI response. We discussed amputation of the toe versus arthroplasty if the MRI is negative or localized just adjacent to the ulcer site. Prior noninvasive vascular study is compared fairly normal in 2011. Given his current ulcer status, vascular calcifications are seen on plain x-rays, and intermittent cramping, I do recommend an updated noninvasive vascular study. This was ordered. Pending these results surgery will be considered this Saturday or Saturday. Infectious disease consultation is planned once there is additional information noted. He continues on vancomycin and Zosyn at this time for broad-spectrum initial coverage. I will confirm the time of his MRI and vascular studies to see if it is appropriate to make him prophylactically n.p.o. this evening. He understands he is at risk for continued limb loss and we discussed the benefits and risks of oral versus IV antibiotics, arthroplasty, amputation in combination with his comorbidities. Additionally, subcutaneous excisional debridement was performed with a 15 blade scalpel after verbal consent was obtained to excise devitalized cutaneous tissue, biofilm, slough, and fibrous tissue. Pressure was applied to maintain hemostasis. A Betadine wet-to-dry dressing with gauze and Kerlix was applied. Surgical shoe was ordered and he was advised to maintain a heel weightbearing status to the right lower extremity. Thank you for the consultation and please not hesitate to call if you have any questions. Annabelle Salcedo DPM, [facility] [phone]
--- NOTE | 2020-06-16 15:57 | ART_ITS ---
Reason For Study: Ulcer Procedure A bilateral lower extremity continuous wave Doppler with analog waveform analysis,segmental pressures,and ankle brachial indexes without exercise. Left Segmental Pressures Left brachial= 141mmHg. Left posterior tibial artery = >254mmHg. Left dorsalis pedis artery = >254mmHg. Left digit = 102 mmHg. The left dorsalis pedis waveforms are triphasic. The left posterior tibial artery waveforms are triphasic. Right Segmental Pressures Right brachial= 138mmHg. Right posterior tibial artery = >254mmHg. Right dorsalis pedis artery = >254mmHg. Right digit = 95 mmHg. The right dorsalis pedis waveforms are triphasic. The right posterior tibial artery waveforms are triphasic. Indices The right ankle brachial index by the dorsalis pedis is NC. The right ankle brachial index by the posterior tibial artery is NC. The right digital-brachial index is 0.67. The left ankle brachial index by the dorsalis pedis is NC. The left ankle brachial index by the posterior tibial artery is NC. The left digital-brachial index is 0.72. Interpretation Summary Triphasic Doppler waveforms are noted at ankle level bilaterally. Pulse-volume recordings are satisfactory at all levels bilaterally, including low-thigh, calf, ankle, and digital levels. Resting ankle-brachial indices could not be determined on either side due to the non-compressibility of the vasculature at ankle level. The right digital-brachial index is mildly diminished. The left digital-brachial index is normal. There is evidence of arterial calcification at ankle level bilaterally. Arterial flow appears normal at ankle level bilaterally, as well as at digital level on the left. There is evidence of mild impairment of arterial flow at digital level on the right. Ordering Physician: Annabelle Salcedo Referring Physician: Drew Schwartz MD Performed By: Kendra Medley RVT and Student
--- NOTE | 2020-06-16 15:58 | MRI_ITS ---
STUDY: MRI RIGHT FOREFOOT REASON FOR EXAM: Male, 60 years old. osteomyelitis right foot, attn rt 4th toe TECHNIQUE: Standardized fat and water weighted pulse sequences were obtained in all 3 orthogonal planes. Incomplete fat suppression is seen in several of the bony structures of the foot. COMPARISON: Right foot x-ray dated May 20172019 MRI of the right foot dated April 02, 2012. FINDINGS: Stable amputation site distal to the first metatarsal head. A displaced pathologic fracture of the head neck junction of the fourth proximal phalanx is present secondary to abnormal marrow infiltration and cortical erosion from osteomyelitis. Some nonenhancing soft tissue is present at the site of fracture and infection compatible with hematoma. No abscesses are present. No significant enhancement is seen in the fourth proximal phalanx fracture fragments the surrounding soft tissues mildly enhance due to infection/cellulitis. Diffuse edema is also present in the middle phalanx of the fourth digit compatible with osteomyelitis. Minimal cortical edema is seen at the plantar surface of the distal phalanges of the fourth toe. Otherwise no demonstrated focal or suspicious enhancement in the remaining osseous structures. Mild subcutaneous edema is present over the dorsum of the foot. Normal talonavicular articulation. Normal calcaneocuboid articulation. Normal navicular-cuneiform articulations. Normal intercuneiform articulations. Normal tibialis anterior tendon. Normal extensor hallucis longus tendon. Normal extensor digitorum longus tendons. Normal peroneus longus tendon and distal insertion. Normal peroneus brevis tendon and distal insertion. There is diffuse atrophy of the intrinsic muscles of the foot consistent with a peripheral neuropathy. MRI/Lower Ext No Joint W/WO Cont IMPRESSION: 1. Osteomyelitis of the fourth proximal and middle phalanges 2. Pathologic fracture of the head neck junction of the fourth proximal phalanx due to osteomyelitis 3. Cortical edema on the plantar surface of the distal phalanx of the fourth toe. 4. No visualized soft tissue abscess Electronically Signed: Simone Baeza MD at 19:29 EDT , Service support ,
--- NOTE | 2020-06-16 16:06 | PCM.RX.CS ---
Consult Pharmacy has been consulted to manage selected antiobiotic: Vancomycin Type of Consult: New start Suspected Infection: Osteomyelitis Prior Doses of Antibiotics Received/Current Regimen: 1, 2 GRAM IN ED 06/16/20 AT 1300 Labs: Sodium 137 mmol/L (136-145) 06/16/20 11:40 Potassium 4.3 mmol/L (3.5-5.1) 06/16/20 11:40 Chloride 103 mmol/L (98-107) 06/16/20 11:40 Carbon Dioxide 28.0 mmol/L (21.0-32.0) 06/16/20 11:40 Anion Gap 6 (5-15) 06/16/20 11:40 BUN 14 mg/dL (7-18) 06/16/20 11:40 Creatinine 1.04 mg/dL (0.70-1.30) 06/16/20 11:40 Est GFR (MDRD) Af Amer 94 mL/min (>60) 06/16/20 11:40 Est GFR (MDRD) Non-Af 78 mL/min (>60) 06/16/20 11:40 BUN/Creatinine Ratio 13.5 RATIO (-) 06/16/20 11:40 Glucose 210 mg/dL (74-106) H 06/16/20 11:40 Weight used for dosin kg Estimated Creatinine Clearance: 91.4 Goal Trough: 15-20 mcg/mL - 1250MG IVPB Q8H TO START 06/16/20 AT 2100. TROUGH LEVEL ORDERED PRIOR TO 4TH TOTAL DOSE Pharmacy Plan for Drug Dosing: Pharmacy Service will continue to monitor and adjust dosing as required. Follow-Up Labs: Trough Vancomycin - PRIOR TO 4TH DOSE = 06/07/20 AT 1230
[2020-06-16] MEDS: Gabapentin 400 MG Capsule PO (16:29)
[2020-06-16] MEDS: oxyCODONE 5 MG Tablet PO (16:29)
[2020-06-16 17:16] LABS: Bedside Glucose 95 mg/dL (70-110)
[2020-06-16 18:46] LABS: Bedside Glucose 95 mg/dL (70-110)
[2020-06-16] MEDS: Pravastatin 40 MG Tablet PO (22:15)
[2020-06-16] MEDS: Cilostazol 50 MG Tablet 100 MG PO (22:15)
[2020-06-16] MEDS: Metoprolol Tartrate 25 MG Tablet PO (22:19)
[2020-06-17] VITALS (14 sets, daily range): BP systolic 107–160; BP diastolic 48–90; PULSE 66–79; RESP 12–18; TEMP 36.4–37.2; O2SAT 93–97; BMI 44.0
[2020-06-17 00:20] LABS: Bedside Glucose 195 mg/dL (70-110)
[2020-06-17] MEDS: oxyCODONE 5 MG Tablet PO (02:39)
[2020-06-17 06:55] LABS: Bedside Glucose 126 mg/dL (70-110)
[2020-06-17 07:19] LABS: Absolute Lymphocyte Count 1.91 X10^3/uL (0.83-4.51); Absolute Neutrophil Count 4.8 X10^3/uL (2.0-7.7); Basophil# 0.05 X10^3/uL; Basophil% 0.6 % (0-1); Eosinophil# 0.61 X10^3/uL; Eosinophils% 7.6 % (0-5); Hematocrit 34.3 % (40-54); Lymphocyte # 1.91 X10^3/ul (4.0); Lymphocyte % 23.8 % (19-41); Mean Corp Hgb Conc 32.1 g/dL (32-36); Mean Corpuscular Hgb 29.3 pg (27.0-32.0); Mean Corpuscular Volume 91.2 fL (80-94); Mean Platelet Vol. 9.5 fl (6.2-12.0); Monocyte# 0.62 X10^3/uL; Monocyte% 7.7 % (0-10); NRBC Flagged by Analyzer 0 % (0-5); Neutrophil # 4.79 X10^3/uL (2.7-7.7); Neutrophil % 59.8 % (47-70); Platelet Count 238 K/mm3 (150-450); RBC Distribution Width SD 49.5 fl (35.1-43.9); Red Blood Count 3.76 M/mm3 (4.6-6.2)
[2020-06-17 07:22] LABS: Partial Thromboplast Time 27.4 Seconds (24.1-36.2)
[2020-06-17 07:26] LABS: International Normalized Ratio 1.1; Prothrombin Time (Protime)PT. 13.3 SECONDS (11.7-14.9)
[2020-06-17 07:32] LABS: Anion Gap 6 (5-15); BUN 13 mg/dL (7-18); BUN/Creat Ratio 13.3 RATIO (10-20); Calcium,Total 8.3 mg/dL (8.5-10.1); Chloride 105 mmol/L (98-107); Creatinine, Serum 0.98 mg/dL (0.70-1.30); EST Glomerular Filtration Rate 83 mL/min (>60); Est Glom Filt Rate - Afr Amer 100 mL/min (>60); Glucose 138 mg/dL (74-106); Potassium 3.9 mmol/L (3.5-5.1); Sodium Level 139 mmol/L (136-145)
[2020-06-17 09:22] LABS: Vancomycin, Trough Level 12.7 ug/mL (5.0-15.0)
--- NOTE | 2020-06-17 09:23 | PN_ITS ---
Patient Problems: Active and Suspected Problems (Last Reviewed 06/16/20 @ 14:[address] Kingston Mesa, DO) Osteomyelitis of fourth toe of right foot (Suspected) Ulcer of right foot with necrosis of bone (Acute) Hammertoe of right foot (Acute) Cellulitis of right foot (Acute) Reason for Visit: osteomyelitis Subjective: No new events. Right foot wrapped. Vitals/I&O's: Vital Signs Temp Pulse Resp BP Pulse Ox 36.4 C L 66 18 131/53 H 97 06/17/20 02:15 06/17/20 02:15 06/17/20 02:15 06/17/20 02:15 06/17/20 02:15 Oxygen Delivery Method CPAP Weight: 160.79 kg Body Mass Index (BMI) 44.0 Finger Stick Blood Glucose 149 Intake and Output for Last 24 Hours 06/15/20 06/16/20 06/17/20 23:59 23:59 23:59 Intake Total 915 / 915 325 / 325 Balance 915 / 915 325 / 325 General: Alert, No apparent distress HEENT: Atraumatic, Normocephalic Oral: Moist Mucosa, No Gingival or Mucosal Lesions/ Ulcerations Neck: No Nodes, Thyroid Normal Size and Texture Lungs: Clear to auscultation, Normal air movement, No rhonchi, No wheeze, No rales Cardiovascular: Regular rate, Regular Rhythm, Normal S1, Normal S2, No murmurs Abdomen: Bowel Sounds Present, Soft, Non Tender, Non-Distended, Obese Extremities: No edema, No Calf Tenderness Skin: No rashes, No breakdown Psych/Mental Status: Normal Affect, Appropriate Microbiology Past 72 Hours 06/16/20 22:47 Interface Orders - Final Laboratory Results 06/16/20 11:40: WBC 7.4, RBC 4.01 L, Hgb 11.6 L, Hct 36.0 L, MCV 89.8, MCH 28.9, MCHC 32.2, RDW Std Deviation 46.9 H, RDW Coeff of Eyal 14.5, Plt Count 253, MPV 10.1, Immature Gran % (Auto) 0.400, Neut % (Auto) 56.3, Lymph % (Auto) 27.9, Josephine % (Auto) 7.0, Eos % (Auto) 7.7 H, Baso % (Auto) 0.7, Absolute Neuts (auto) 4.2, Absolute Lymphs (auto) 2.06, Nucleated RBC % 0, ESR 33 H 06/16/20 11:40: Sodium 137, Potassium 4.3, Chloride 103, Carbon Dioxide 28.0, Anion Gap 6, BUN 14, Creatinine 1.04, Estim Creat Clear Calc 91.41, Est GFR (MDRD) Af Amer 94, Est GFR (MDRD) Non-Af 78, BUN/Creatinine Ratio 13.5, Glucose 210 H, Calcium 8.6, C-React Prot Ext Range 14.10 H 06/16/20 11:40: Blood Type A POSITIVE, Antibody Screen NEGATIVE 06/16/20 16:19: POC Glucose 95 06/16/20 18:38: POC Glucose 95 06/16/20 22:24: POC Glucose 195 H 06/17/20 06:45: WBC 8.0, RBC 3.76 L, Hgb 11.0 L, Hct 34.3 L, MCV 91.2, MCH 29.3, MCHC 32.1, RDW Std Deviation 49.5 H, RDW Coeff of Eyal 15.0 H, Plt Count 238, MPV 9.5, Immature Gran % (Auto) 0.500, Neut % (Auto) 59.8, Lymph % (Auto) 23.8, Josephine % (Auto) 7.7, Eos % (Auto) 7.6 H, Baso % (Auto) 0.6, Absolute Neuts (auto) 4.8, Absolute Lymphs (auto) 1.91, Nucleated RBC % 0 06/17/20 06:45: Sodium 139, Potassium 3.9, Chloride 105, Carbon Dioxide 28.0, Anion Gap 6, BUN 13, Creatinine 0.98, Estim Creat Clear Calc 97.00, Est GFR (MDRD) Af Amer 100, Est GFR (MDRD) Non-Af 83, BUN/Creatinine Ratio 13.3, Glucose 138 H, Calcium 8.3 L 06/17/20 06:45: Vancomycin Trough 12.7 06/17/20 06:45: PT 13.3, INR 1.1, APTT 27.4 06/17/20 06:50: POC Glucose 126 H Current Medications Acetaminophen (Acetaminophen 325 Mg Tablet) 650 mg PO Q6H PRN PRN PRN Reason: Pain Score 1-10/Temp > 100.7 F Aspirin (Aspirin E.C. 81 Mg Tablet) [facility] Cilostazol (Cilostazol 50 Mg Tablet) 100 mg PO BID [facility] Last Admin: 06/16/20 22:15 Dose: 100 mg Documented by: Dextrose (Dextrose 50%-Water 25 Gm/50 Ml Disp.Syrin) 0 gm IV X1 PRN; Protocol PRN Reason: Hypoglycemia Enoxaparin Sodium (Enoxaparin 40 Mg/0.4 Ml Syringe) 40 mg SC DAILY [facility] Gabapentin (Gabapentin 400 Mg Capsule) [facility] Last Admin: 06/16/20 16:29 Dose: 400 mg Documented by: Glucagon (Glucagon 1 Mg/Ml Syringe) 1 mg IM .X1 PRN PRN Reason: Hypoglycemia Sodium Chloride () 250 mls @ 15 mls/hr IV .[id number] PRN PRN Reason: Saline Flush Sodium Chloride () 250 mls @ 15 mls/hr IV .[id number] PRN PRN Reason: Additional IVPB Infusion Piperacillin Sod/Tazobactam (Sod 3.375 gm/ Sodium Chloride) 50 mls @ 12.5 mls/hr IV Q8 [facility] Last Admin: 06/17/20 06:43 Dose: 12.5 mls/hr Documented by: Vancomycin IV Pharmacy to Dose (1 ea/ Sodium Chloride) 500 mls @ 250 mls/hr IV PRN PRN; Protocol PRN Reason: Rx to Dose Vancomycin HCl 1,250 mg/ (Sodium Chloride) 275 mls @ 167 mls/hr IV Q8H [facility] Last Infusion: 06/17/20 06:22 Dose: Infused Documented by: Insulin Glargine (Insulin Glargine 100 Units/Ml Pen) 50 units SC DAILY [facility] Last Admin: 06/16/20 22:26 Dose: 50 u Documented by: Insulin Human Lispro (Insulin Lispro 100 Unit/Ml Insuln.Pen) 18 unit SC TIDCM [facility] Last Admin: 06/16/20 18:39 Dose: Not Given Documented by: Insulin Human Lispro (Insulin Lispro 100 Unit/Ml Insuln.Pen) 0 unit SC TIDAC [facility]; Protocol Last Admin: 06/17/20 06:50 Dose: Not Given Documented by: Lisinopril (Lisinopril 10 Mg Tablet) 10 mg PO DAILY [facility] Metoprolol Tartrate (Metoprolol Tartrate 25 Mg Tablet) 25 mg PO BID [facility] Last Admin: 06/16/20 22:19 Dose: 25 mg Documented by: Nutritional Formula (Lactose Free) (Glucerna Shake 120 Ml Liquid) 120 ml PO 4X/DAY [facility] Last Admin: 06/16/20 22:14 Dose: Not Given Documented by: Ondansetron HCl (Ondansetron 4 Mg/2 Ml Vial) 4 mg IV Q8H PRN PRN PRN Reason: NAUSEA/VOMITING Oxycodone HCl (Oxycodone 5 Mg Tablet) 5 mg PO Q4H PRN PRN PRN Reason: Pain Score 4-5 Last Admin: 06/17/20 02:39 Dose: 5 mg Documented by: Oxycodone HCl (Oxycodone 5 Mg Tablet) 10 mg PO Q4H PRN PRN PRN Reason: Pain Score 6-10 Pravastatin Sodium (Pravastatin 40 Mg Tablet) 40 mg PO HS [facility] Last Admin: 06/16/20 22:15 Dose: 40 mg Documented by: Sodium Chloride (0.9% Saline Lock 10 Ml Syringe) 10 - 40 ml IV UD PRN PRN Reason: SALINE FLUSH Medical Necessity - Tobacco Use Smoking Status: Never smoker Assessment/Plan All Active Problems (Last Reviewed 06/16/20 @ 14:[address] Kingston Mesa, DO) Ulcer of right foot with necrosis of bone (Acute) Hammertoe of right foot (Acute) Cellulitis of right foot (Acute) 1. right 4th toe osteomyelitis * Type II diabetic with neuropathy. This is been a ongoing infection for least past month. Patient has ulceration on the lateral aspect of his right fourth toe but also visualization of osteomyelitis. Also mentioned possibility of a displaced fracture of the fourth toe the proximal phalanx. * Continue with prospective antibiotics and de-escalate based on culture results. * MRI confirms osteomyelitis with a pathologic fxr * DW Dr. Dickinson, plan is for surgery this afternoon. 2. Diabetes mellitus type 2 * Continue with home medications but also had sliding scale insulin. Agree with cutting dose of insulin glargine for surgery today. Likely can resume regular dosing on . 3. HTN: * stable * continue with lisinopril 4. VTE prophylaxis: LMWH 5. ACP: patient wishes to be full code. Inpatient E&M: 42855 Subs Hosp L2
--- NOTE | 2020-06-17 10:25 | CASEMGMT ---
RN CM Face to Face with patient for initial transition planning/care coordination assessment. RN CM introduced self and role at [facility]. Patient lying in bed, alert and oriented. Patient willing to participate in assessment and is able to answer all questions appropriately. Care providers, pharmacy, and demographics verified. Patient wishes to discharge home, denies need for home health at this time, will monitor for need for HHC and IV ATBs. Patient states he has no further needs or concerns at this time. CM to follow for discharge planning needs that may arise. PCP: Efren Specialists: none Preferred Pharmacy: [facility] Insurance: [employer] Prescription Benefit: yes Living Will/HPOA: yes LNOK: , currently ; children Living Arrangements: Patient lives alone in a first floor apartment with no steps to enter. Patient states he is independent at home. Patient think he can complete own wound care to foot but also has 11 children that could help. Transportation:self, family DME/HHC: patient states he has cpap machine. No previous HHC. Disposition Plan: Patient to discharge home with family support and follow-up plans in place. Kendra VITAL, RN, CM
[2020-06-17] MEDS: Aspirin E.C. 81 MG Tablet PO (10:46)
[2020-06-17] MEDS: Gabapentin 400 MG Capsule PO ×2 (10:47→19:30)
[2020-06-17] MEDS: Lisinopril 10 MG Tablet PO (10:49)
[2020-06-17] MEDS: Metoprolol Tartrate 25 MG Tablet PO ×2 (11:03→21:30)
[2020-06-17 12:36] LABS: Bedside Glucose 143 mg/dL (70-110)
[2020-06-17 14:00] LABS: Bedside Glucose 150 mg/dL (70-110)
--- NOTE | 2020-06-17 16:08 | RAD_ITS ---
STUDY: X-RAY - RIGHT FOOT CLINICAL: Male, 60 years old. AMPUTATION 4TH TOE TECHNIQUE: AP and lateral view(s) of the foot. Dose area product: 0.32 cGycm2 COMPARISON: 06/14/2020 FINDINGS: Fluoroscopic guidance for amputation of the fourth digit. Surgically absent first digit noted. RAD/Foot 2 Views IMPRESSION: Fluoroscopic guidance for fourth digit amputation. Electronically Signed: Frandy Sarmiento MD (Brooks) at 16:40 EDT , Service support ,
[2020-06-17] MEDS: 0.9% Normal Saline 1,000 ML 100 ML IV (16:15)
--- NOTE | 2020-06-17 16:15 | AMP_PTH ---
PATIENT: RAJESH FLORES LOC: [facility] U#:[id number] AGE/SX: 60/M ROOM: [facility]320 RE06/16/[address]: Dr. Levar Jimenez MD : 1960 BED: 1 DIS: 06/21/2020 SPEC #: [id number] RECD: 06/19/20 10:31 STATUS: XANDER REHarman #: [id number] ELLE: 06/17/20 16:[address]: Annabelle Salcedo DEPT: SURGICAL PATHOLOGY RECD BY: Jael Padron ENTERED: 06/20/20 08:22 SP TYPE: Amputation OTHR DR: MD Dr. Levar Dennis MD Dr. Eric Jopperi, DO Dr. Robert Leininger, MD Tissues: Toe, NOS Procedures: Decalcification bone/plaque Surgery Specimen Level IV HEADER OPERATION: Amputation fourth toe PRE-OP DIAGNOSIS: Ulcer of right foot with necrosis of bone; osteomyelitis of fourth toe of right foot TISSUE SUBMITTED: Right foot fourth toe MICROSCOPIC DIAGNOSIS Right fourth toe, amputation: Skin and soft tissue with ulceration and associated acute and chronic inflammation, granulation and hyperkeratosis. Bone with acute and chronic osteomyelitis. AM:damien 06/23/20 COMMENT Case has been reviewed in consultation with Dr. Rene who concurs with the above diagnosis. IDC:RUBI MICROSCOPIC DESCRIPTION Slides are reviewed. GROSS DESCRIPTION Received in fixative is one container labeled with the patient's name and designated right fourth toe. The specimen consists of a portion of toe measuring 3.9 x 2 x 2 cm. A focal hemorrhagic, ulcerated area noted close to the resection margin of the skin. The nail appears to be unremarkable. Chemical Etch Operator sections are submitted in two cassettes as follows: 1 - ulcerated area, 2 - bone after decalcification. / RUBI:damien 06/20/20 TC:2 More section of the toe with underlying bone is submitted in cassette #3. AM:damien 06/23/20 CPT: 62113, 60439
[2020-06-17] MEDS: Bupivacaine Mpf 0.5% 30 ML VIAL (16:40)
--- NOTE | 2020-06-17 17:33 | PCM.OPRPT ---
Problem List (1) Ulcer of right foot with necrosis of bone Status: Acute (2) Osteomyelitis of fourth toe of right foot Status: Suspected (3) Hammertoe of right foot Status: Acute (4) Cellulitis of right foot Status: Acute (5) DM type 1 (diabetes mellitus, type 1) Status: Chronic Report of Operation Date of Procedure: 06/17/20 Pre-Operative Diagnosis: Osteomyelitis with chronic ulcer to right fourth toe Post-Operative Diagnosis: Osteomyelitis with chronic ulcer to right fourth toe Surgery/Procedure Performed:: Fourth toe amputation, right foot Description of Surgical Findings:: Hemostasis: Well-padded pneumatic right ankle tourniquet, 250 mmHg Materials: 2-0 nylon Complications: None Specimens were sent The patient tolerated the procedure anesthesia well. He was transported to the PACU with vital signs stable vascular status intact to his foot of the right lower extremity. Intraoperative x-rays were obtained prior to leaving demonstrating adequate amputation performed. No acute injuries were noted. Postoperative orders were entered electronically. I will continue to follow him closely while in house. 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 Right fourth toe sent to microbiology for aerobic, anaerobic, acid-fast, fungal Estimated Blood Loss (mL): 150 mL Description of Procedure: Indications: This 60-year-old male with significant past medical history of diabetes, hypertension, obesity, sleep apnea has been treated for right fourth toe ulcer with an onset estimated at about 1 month. Recently it has progressed with increased swelling, discomfort, and redness in which he was admitted for this condition. He was admitted for IV antibiotics and his x-rays demonstrated some osteolysis and rarefraction of the middle and proximal phalanges of the right fourth toe. There is no soft tissue emphysema, foreign body, or other acute injuries seen radiographically. His dorsal contraction varus rotation of the fifth toe firmly abuts the fourth toe creating pressure. There is exposed bone in the ulcer site. MRI confirms pathological fractures and destruction of the proximal and middle phalanges of this toe consistent with osteomyelitis. He does have a full-thickness skin discontinuity to the proximal right fourth toe that does probe to bone and there was serous and purulence on expression upon initial examination. The erythema and soft tissue envelope have streaking extending to the dorsal midfoot. He is afebrile and does not have leukocytosis. Infectious disease will be asked to be in consultation with additional information is present. He was started on vancomycin and Zosyn for empiric coverage. We discussed conservative versus surgical options for treatment of this condition. The amputation will fully remove the nidus of infection and address his toe deformity. He elects to proceed with this at this time. Noninvasive vascular studies were reviewed with triphasic waveforms to the ankle level and his arterial calcifications are noted. It is noted he does have noncompressible vessels. I recommend an outpatient follow-up with vascular specialist. He continues on aspirin and pletal at this time. Given he has infected status and there are no signs of critical acute limb ischemia, I recommend proceeding forward with this nonelective surgery. The indications, planned procedure, possible benefits, risk, complications, and anticipated healing time management were discussed in detail the patient. He understands and elects to proceed with surgery. He understands risks and complications include but are not limited to following: pain, swelling, scarring, continued infection, continued delayed or nonhealing, deformity progression, transfer lesions or ulcers, blood clot, allergic reaction, chronic pain, need for revisional surgery, need for further surgery, loss of additional limb, function, or life. He also understands he is seeking care and surgical intervention during time of coronavirus pandemic and there is an inherent risk with being in a medical facility. He understands the benefits of proceeding forward with medical and surgical management outweigh the risks at this time and all of the recommended precautions are being followed very closely at this facility. No guarantees were made. I answered all his questions. The surgical consent and limb were signed. Procedure in detail: The patient was transported to the operating room via cart and placed on the operating table in supine position. Final verification of patient, surgery, and limb designation was performed via the time out procedure. It is noted he was already on IV antibiotics prior to surgery while on the medical floor; to continue. A well-padded pneumatic right ankle tourniquet was placed. I administered the preoperative injection as noted. MAC anesthesia was initiated by the anesthesia team. The right lower extremity was prepped and draped in the usual aseptic manner. Local anesthesia was administered by the podiatry team. [place]ell exsanguination was performed and the tourniquet was inflated at this time. Attention was first directed to the fourth toe and surgery began in the following manner: A fishmouth incision was made over the right fourth dorsal toe down to bone and the remaining distal toe was disarticulated at the proximal interphalangeal joint level. Copious saline irrigation was performed. Additional dissection was performed to disarticulate this toe at the fourth metatarsophalangeal joint level. This was performed and additional tissue was removed from the table. All of the soft tissue and bone was sent to both microbiology and pathology for further testing. the removed tissue included all abnormal tissue as identified on the MRI. Irrigation was performed again with normal saline. At this time new clean instrumentation, gloves, and immediate adjacent draping was switched to avoid contamination. It is noted there was no purulence, necrosis, or odor at this time. The tissues appeared vital at this level. The fourth metatarsal head articular surface was also firm and intact. The soft tissue was remodeled and debulked to allow a non tension closure. The skin was reapproximated utilizing vertical mattress and simple suture technique with no touch technique to gently jenny the skin edges with 2-0 nylon. The tourniquet was deflated and no pulsatile bleeding was noted. Electrocauterization was performed and pressure was applied to maintain hemostasis. Capillary fill time was brisk to both the amputaion flaps and all other toes of the right foot. Intraoperative fluoroscopy was utilized to confirm adequate amputation resection was performed. There were no acute injuries or foreign bodies identified. A postoperative dressing was applied including Betadine soaked Adaptic, gauze, Kerlix, and a 4 inch Alli wrap to his right leg in a gentle manner. After procedure: The patient tolerated the procedure and anesthesia well. He was transported to the PACU with vital signs stable and vascular status intact to the right lower extremity. He will continue on IV antibiotics until additional cultures are processed. Intraoperative microbiology and pathology specimens were sent including the fourth toe specimen. To keep the dressing clean, dry, and intact. To elevate and ice for pain and inflammation management. I was advised to try to maintain a non weightbearing status however it is ok to heel weight-bear for transfers. To use assistive device only if needed. I will continue to monitor him closely while in house. Infectious disease is also on consultation and input is appreciated. Medical management per primary team is greatly appreciated. He will be transported back to the PACU upon continued stability. Annabelle Salcedo DPM, [facility] [place] Grafts/Implants Used: none - Complications none - Admit VTE Documentation VTE Present on Admission: No VTE Mechan Device Prophylaxis: SCD's VTE Pharm Prophylaxis ordered?: Yes
[2020-06-17 19:30] LABS: Bedside Glucose 91 mg/dL (70-110)
[2020-06-17 21:12] LABS: Vancomycin, Trough Level 15.4 ug/mL (5.0-15.0)
--- NOTE | 2020-06-17 21:26 | PCM.RX.CS ---
Consult Pharmacy has been consulted to manage selected antiobiotic: Vancomycin Type of Consult: Follow-up Suspected Infection: Osteomyelitis Prior Doses of Antibiotics Received/Current Regimen: Medications Vancomycin HCl 1,250 mg/ (Sodium Chloride) 275 mls @ 167 mls/hr IV Q8H NABILA Last Admin: 06/17/20 16:15 Dose: Infused Labs: Sodium 139 mmol/L (136-145) 06/17/20 06:45 Potassium 3.9 mmol/L (3.5-5.1) 06/17/20 06:45 Chloride 105 mmol/L (98-107) 06/17/20 06:45 Carbon Dioxide 28.0 mmol/L (21.0-32.0) 06/17/20 06:45 Anion Gap 6 (5-15) 06/17/20 06:45 BUN 13 mg/dL (7-18) 06/17/20 06:45 Creatinine 0.98 mg/dL (0.70-1.30) 06/17/20 06:45 Est GFR (MDRD) Af Amer 100 mL/min (>60) 06/17/20 06:45 Est GFR (MDRD) Non-Af 83 mL/min (>60) 06/17/20 06:45 BUN/Creatinine Ratio 13.3 RATIO (-20) 06/17/20 06:45 Glucose 138 mg/dL (74-106) H 06/17/20 06:45 Vancomycin Trough 15.4 ug/mL (5.0-15.0) H 06/17/20 20:24 Microbiology: Microbiology 06/16/20 16:35 Wound - Toe Gram Stain - Final 06/16/20 16:35 Wound - Toe Wound Culture - Preliminary Gram positive organism 06/17/20 10:15 Mucosa - Nose - Final 06/16/20 22:47 Interface Orders - Final Weight used for dosin kg Estimated Creatinine Clearance: 97 Goal Trough: 15-20 mcg/mL Pharmacy Plan for Drug Dosing: Trough level of 15.4 was within target range of 15-20. Will continue same dosing and repeat trough draw 06/19/20. Pharmacy Service will continue to monitor and adjust dosing as required. Follow-Up Labs: Trough Vancomycin Labs to be done on [date and time ordered]: 06/19/20 @2030
[2020-06-17] MEDS: Pravastatin 40 MG Tablet PO (21:30)
[2020-06-17] MEDS: Cilostazol 50 MG Tablet 100 MG PO (21:31)
[2020-06-17] MEDS: oxyCODONE 5 MG Tablet 10 MG PO (21:39)
[2020-06-17 21:40] LABS: Bedside Glucose 169 mg/dL (70-110)
[2020-06-18] VITALS (7 sets, daily range): BP systolic 115–151; BP diastolic 54–63; PULSE 75–82; RESP 17–18; TEMP 36.4–37.3; O2SAT 93–95
[2020-06-18 08:05] LABS: Bedside Glucose 210 mg/dL (70-110)
[2020-06-18 09:09] LABS: Absolute Lymphocyte Count 1.86 X10^3/uL (0.83-4.51); Absolute Neutrophil Count 4.3 X10^3/uL (2.0-7.7); Basophil# 0.05 X10^3/uL; Basophil% 0.7 % (0-1); Eosinophil# 0.43 X10^3/uL; Eosinophils% 5.9 % (0-5); Hematocrit 33.2 % (40-54); Hemoglobin 10.4 g/dL (13.0-16.5); Lymphocyte # 1.86 X10^3/ul (4.0); Lymphocyte % 25.6 % (19-41); Mean Corp Hgb Conc 31.3 g/dL (32-36); Mean Corpuscular Hgb 28.7 pg (27.0-32.0); Mean Corpuscular Volume 91.7 fL (80-94); Mean Platelet Vol. 9.6 fl (6.2-12.0); Monocyte# 0.62 X10^3/uL; Monocyte% 8.5 % (0-10); NRBC Flagged by Analyzer 0 % (0-5); Neutrophil # 4.28 X10^3/uL (2.7-7.7); Platelet Count 213 K/mm3 (150-450); RBC Distribution Width CV 14.9 % (11.6-14.6); RBC Distribution Width SD 50.4 fl (35.1-43.9); Red Blood Count 3.62 M/mm3 (4.6-6.2); White Blood Count 7.3 K/mm3 (4.4-11.0)
[2020-06-18] MEDS: Gabapentin 400 MG Capsule PO ×2 (09:16→17:31)
[2020-06-18] MEDS: Aspirin E.C. 81 MG Tablet PO (09:16)
[2020-06-18] MEDS: Insulin Lispro 100 UNIT/ML INSULN.PEN 18 UNIT SC ×3 (09:17→17:30)
[2020-06-18] MEDS: Insulin Lispro 100 UNIT/ML INSULN.PEN SC ×3 (09:17→17:31)
[2020-06-18] MEDS: Cilostazol 50 MG Tablet 100 MG PO ×2 (09:20→21:28)
[2020-06-18] MEDS: Metoprolol Tartrate 25 MG Tablet PO ×2 (09:20→21:26)
[2020-06-18] MEDS: Lisinopril 10 MG Tablet PO (09:20)
--- NOTE | 2020-06-18 09:29 | PCM.PROGNOTE ---
Patient Problems: Active and Suspected Problems (Last Reviewed 06/16/20 @ 14:[address] Kingston Mesa, DO) Osteomyelitis of fourth toe of right foot (Suspected) Ulcer of right foot with necrosis of bone (Acute) Hammertoe of right foot (Acute) Cellulitis of right foot (Acute) Subjective: This 60-year-old male with comorbidities was seen bedside postoperative day #1 right fourth toe amputation for treatment of osteomyelitis with ulceration. He denies fever, chills, nausea, vomiting, chest pain, shortness of breath, calf pain. He has mild intermittent pain to the surgical site only. - Physical Exam Vitals/I&O's: Vital Signs Temp Pulse Resp BP Pulse Ox 97.7 F L 76 18 128/59 H 95 06/18/20 09:07 06/18/20 09:20 06/18/20 09:07 06/18/20 09:07 06/18/20 09:07 Oxygen Delivery Method Room Air Weight: 160.79 kg Body Mass Index (BMI) 44.0 Finger Stick Blood Glucose 149 Intake and Output for Last 24 Hours 06/16/20 06/17/20 06/18/20 23:59 23:59 23:59 Intake Total 915 / 915 1600 / 1600 325 / 325 Output Total 1300 / 1300 Balance 915 / 915 1600 / 1050 -975 / -975 General: Alert, Oriented x3, Cooperative HEENT: Atraumatic Extremities: No cyanosis, Capillary Refill Less than 3 Seconds, No Calf Tenderness - Negative Miky and James sign bilateral lower extremities, Diminished Peripheral Pulses, - - Active range of motion remaining digits right foot Skin: Incision - Well aligned and coapted with nylon suture. Only mild hematogenous drainage noted on the dressing. His erythema and edema have completely resolved to his forefoot. There is no purulence, necrosis eschar or infection residing. Musculoskeletal: No Tenderness to Palpation of Joints or Extremities, Muscle Wasting, - - Healed hallux amputation, right. Recent fourth toe amputation, stable right Neurological: - - Lack of normal epicritic sensation to light touch is consistent with neuropathy status Psych/Mental Status: Normal Affect, Appropriate Microbiology Past 72 Hours 06/16/20 16:35 Wound - Toe Gram Stain - Final 06/16/20 16:35 Wound - Toe Wound Culture - Preliminary Staphylococcus epidermidis Gram positive organism 06/17/20 10:15 Mucosa - Nose - Final 06/16/20 22:47 Interface Orders - Final Laboratory Results 06/17/20 12:20: POC Glucose 143 H 06/17/20 13:56: POC Glucose 150 H 06/17/20 19:18: POC Glucose 91 06/17/20 20:24: Vancomycin Trough 15.4 H 06/17/20 21:33: POC Glucose 169 H 06/18/20 07:59: POC Glucose 210 H 06/18/20 08:40: WBC 7.3, RBC 3.62 L, Hgb 10.4 L, Hct 33.2 L, MCV 91.7, MCH 28.7, MCHC 31.3 L, RDW Std Deviation 50.4 H, RDW Coeff of Eyal 14.9 H, Plt Count 213, MPV 9.6, Immature Gran % (Auto) 0.300, Neut % (Auto) 59.0, Lymph % (Auto) 25.6, Williams % (Auto) 8.5, Eos % (Auto) 5.9 H, Baso % (Auto) 0.7, Absolute Neuts (auto) 4.3, Absolute Lymphs (auto) 1.86, Nucleated RBC % 0 06/18/20 08:40: Sodium Pending, Potassium Pending, Chloride Pending, Carbon Dioxide Pending, Anion Gap Pending, BUN Pending, Creatinine Pending, Est GFR (MDRD) Af Amer Pending, Est GFR (MDRD) Non-Af Pending, BUN/Creatinine Ratio Pending, Glucose Pending, Calcium Pending Current Medications Acetaminophen (Acetaminophen 325 Mg Tablet) 650 mg PO Q6H PRN PRN PRN Reason: Pain Score 1-10/Temp > 100.7 F Aspirin (Aspirin E.C. 81 Mg Tablet) [facility] Last Admin: 06/18/20 09:16 Dose: 81 mg Documented by: Cilostazol (Cilostazol 50 Mg Tablet) 100 mg PO BID [facility] Last Admin: 06/18/20 09:20 Dose: 100 mg Documented by: Dextrose (Dextrose 50%-Water 25 Gm/50 Ml Disp.Syrin) 0 gm IV X1 PRN; Protocol PRN Reason: Hypoglycemia Gabapentin (Gabapentin 400 Mg Capsule) [facility] Last Admin: 06/18/20 09:16 Dose: 400 mg Documented by: Glucagon (Glucagon 1 Mg/Ml Syringe) 1 mg IM .X1 PRN PRN Reason: Hypoglycemia Sodium Chloride () 250 mls @ 15 mls/hr IV .[id number] PRN PRN Reason: Saline Flush Sodium Chloride () 250 mls @ 15 mls/hr IV .[id number] PRN PRN Reason: Additional IVPB Infusion Piperacillin Sod/Tazobactam (Sod 3.375 gm/ Sodium Chloride) 50 mls @ 12.5 mls/hr IV Q8 [facility] Last Admin: 06/18/20 06:49 Dose: 12.5 mls/hr Documented by: Vancomycin IV Pharmacy to Dose (1 ea/ Sodium Chloride) 500 mls @ 250 mls/hr IV PRN PRN; Protocol PRN Reason: Rx to Dose Vancomycin HCl 1,250 mg/ (Sodium Chloride) 275 mls @ 167 mls/hr IV Q8H [facility] Last Infusion: 06/18/20 06:36 Dose: Infused Documented by: Insulin Glargine (Insulin Glargine 100 Units/Ml Pen) 50 units SC DAILY [facility] Last Admin: 06/18/20 09:18 Dose: 50 u Documented by: Insulin Human Lispro (Insulin Lispro 100 Unit/Ml Insuln.Pen) 18 unit SC TIDCM [facility] Last Admin: 06/18/20 09:17 Dose: 18 u Documented by: Insulin Human Lispro (Insulin Lispro 100 Unit/Ml Insuln.Pen) 0 unit SC TIDAC [facility]; Protocol Last Admin: 06/18/20 09:17 Dose: 2 u Documented by: Lisinopril (Lisinopril 10 Mg Tablet) 10 mg PO DAILY [facility] Last Admin: 06/18/20 09:20 Dose: 10 mg Documented by: Metoprolol Tartrate (Metoprolol Tartrate 25 Mg Tablet) 25 mg PO BID [facility] Last Admin: 06/18/20 09:20 Dose: 25 mg Documented by: Nutritional Formula (Nutritional Supplement (Rei) Packet) [facility] Last Admin: 06/18/20 09:16 Dose: 1 packet Documented by: Ondansetron HCl (Ondansetron 4 Mg/2 Ml Vial) 4 mg IV Q8H PRN PRN PRN Reason: NAUSEA/VOMITING Oxycodone HCl (Oxycodone 5 Mg Tablet) 5 mg PO Q4H PRN PRN PRN Reason: Pain Score 4-5 Last Admin: 06/17/20 02:39 Dose: 5 mg Documented by: Oxycodone HCl (Oxycodone 5 Mg Tablet) 10 mg PO Q4H PRN PRN PRN Reason: Pain Score 6-10 Last Admin: 06/17/20 21:39 Dose: 10 mg Documented by: Pravastatin Sodium (Pravastatin 40 Mg Tablet) 40 mg PO HS NABILA Last Admin: 06/17/20 21:30 Dose: 40 mg Documented by: Sodium Chloride (0.9% Saline Lock 10 Ml Syringe) 10 - 40 ml IV UD PRN PRN Reason: SALINE FLUSH Medical Necessity - Tobacco Use Smoking Status: Never smoker Assessment/Plan All Active Problems (Last Reviewed 06/16/20 @ 14:[address] Kingston Mesa, DO) Ulcer of right foot with necrosis of bone (Acute) Hammertoe of right foot (Acute) Cellulitis of right foot (Acute) POD #1 right fourth toe amputation secondary to osteomyelitis hammer toes, right cellulitis right lower extremity resolved diabetes I reviewed and discussed his case. Vitals are stable and he is afebrile. Labs reviewed with white blood cell count 7.3 Blood cultures are pending without growth so far. Aerobic and anaerobic wound culture was obtained and the results are pending from preop operative and intraoperative. He no longer has erythema or edema and his cellulitis is resolving very well since surgery. Infectious disease consultation is planned once there is additional information noted. He continues on vancomycin and Zosyn at this time for broad-spectrum initial coverage. His dressing changes morning with reapplication of Betadine soaked gauze, Kerlix, and Alli wrap gently applied. Keep clean and intact. To continue nonweightbearing right lower extremity with surgical shoe in place. To heel weight-bear for transfers. I recommend PT and to use assistive device if needed. To follow-up with vascular specialist referral in the outpatient setting. Once we get some preliminary culture results that are still pending and note continued clinical resolution of infection signs it would be appropriate to consider soft tissue antibiotic coverage for 10 to 14 days unless recommended otherwise by the medicine team. At that time it is okay to discharge from podiatry standpoint. Please do not hesitate to call if you have any questions. Annabelle Salcedo DPM, FACFAS [facility] [phone]
[2020-06-18 09:34] LABS: Anion Gap 4 (5-15); BUN 16 mg/dL (7-18); BUN/Creat Ratio 14.7 RATIO (10-20); Calcium,Total 8.3 mg/dL (8.5-10.1); Chloride 106 mmol/L (98-107); Creatinine, Serum 1.09 mg/dL (0.70-1.30); EST Glomerular Filtration Rate 74 mL/min (>60); Est Glom Filt Rate - Afr Amer 89 mL/min (>60); Estimated Creatinine Clearance 87.21 ml/min; Glucose 221 mg/dL (74-106); Potassium 4.2 mmol/L (3.5-5.1); Sodium Level 137 mmol/L (136-145)
[2020-06-18] MEDS: Enoxaparin 40 MG/0.4 ML Syringe SC (11:30)
[2020-06-18 12:50] LABS: Bedside Glucose 240 mg/dL (70-110)
--- NOTE | 2020-06-18 15:30 | PN_ITS ---
Patient Problems: Active and Suspected Problems (Last Reviewed 06/16/20 @ 14:[address] Kingston Mesa, DO) Osteomyelitis of fourth toe of right foot (Suspected) Ulcer of right foot with necrosis of bone (Acute) Hammertoe of right foot (Acute) Cellulitis of right foot (Acute) Reason for Visit: OM Subjective: No pain currently. Vitals/I&O's: Vital Signs Temp Pulse Resp BP Pulse Ox 37.3 C 79 18 115/54 L 95 06/18/20 14:07 06/18/20 14:07 06/18/20 14:07 06/18/20 14:07 06/18/20 14:07 Oxygen Delivery Method Room Air Weight: 160.79 kg Body Mass Index (BMI) 44.0 Finger Stick Blood Glucose 149 Intake and Output for Last 24 Hours 06/16/20 06/17/20 06/18/20 23:59 23:59 23:59 Intake Total 915 / 915 1600 / 1600 395 / 395 Output Total 1300 / 1300 Balance 915 / 915 1600 / 1050 -905 / -905 General: Alert, No apparent distress HEENT: Atraumatic, Normocephalic Extremities: - - right foot bandaged, did not remove. Microbiology Past 72 Hours 06/17/20 17:00 Amputation - Toe Gram Stain - Final 06/17/20 17:00 Amputation - Toe Wound Culture - Preliminary No growth-Final to follow 06/16/20 16:35 Wound - Toe Gram Stain - Final 06/16/20 16:35 Wound - Toe Wound Culture - Preliminary Staphylococcus epidermidis Yeast Like Organism 06/16/20 11:45 Blood Culture (Wb) - Right Forearm Blood Culture - Preliminary No growth in 48 hours. 06/16/20 11:40 Blood Culture (Wb) - Left Forearm Blood Culture - Preliminary No growth in 48 hours. 06/17/20 10:15 Mucosa - Nose - Final 06/16/20 22:47 Interface Orders - Final Laboratory Results 06/17/20 19:18: POC Glucose 91 06/17/20 20:24: Vancomycin Trough 15.4 H 06/17/20 21:33: POC Glucose 169 H 06/18/20 07:59: POC Glucose 210 H 06/18/20 08:40: WBC 7.3, RBC 3.62 L, Hgb 10.4 L, Hct 33.2 L, MCV 91.7, MCH 28.7, MCHC 31.3 L, RDW Std Deviation 50.4 H, RDW Coeff of Eyal 14.9 H, Plt Count 213, MPV 9.6, Immature Gran % (Auto) 0.300, Neut % (Auto) 59.0, Lymph % (Auto) 25.6, [place] % (Auto) 8.5, Eos % (Auto) 5.9 H, Baso % (Auto) 0.7, Absolute Neuts (auto) 4.3, Absolute Lymphs (auto) 1.86, Nucleated RBC % 0 06/18/20 08:40: Sodium 137, Potassium 4.2, Chloride 106, Carbon Dioxide 27.0, Anion Gap 4 L, BUN 16, Creatinine 1.09, Estim Creat Clear Calc 87.21, Est GFR (MDRD) Af Amer 89, Est GFR (MDRD) Non-Af 74, BUN/Creatinine Ratio 14.7, Glucose 221 H, Calcium 8.3 L 06/18/20 12:43: POC Glucose 240 H Current Medications Acetaminophen (Acetaminophen 325 Mg Tablet) 650 mg PO Q6H PRN PRN PRN Reason: Pain Score 1-10/Temp > 100.7 F Aspirin (Aspirin E.C. 81 Mg Tablet) [facility] Last Admin: 06/18/20 09:16 Dose: 81 mg Documented by: Cilostazol (Cilostazol 50 Mg Tablet) 100 mg PO BID [facility] Last Admin: 06/18/20 09:20 Dose: 100 mg Documented by: Dextrose (Dextrose 50%-Water 25 Gm/50 Ml Disp.Syrin) 0 gm IV X1 PRN; Protocol PRN Reason: Hypoglycemia Enoxaparin Sodium (Enoxaparin 40 Mg/0.4 Ml Syringe) 40 mg SC DAILY [facility] Last Admin: 06/18/20 11:30 Dose: 40 mg Documented by: Gabapentin (Gabapentin 400 Mg Capsule) [facility] Last Admin: 06/18/20 09:16 Dose: 400 mg Documented by: Glucagon (Glucagon 1 Mg/Ml Syringe) 1 mg IM .X1 PRN PRN Reason: Hypoglycemia Sodium Chloride () 250 mls @ 15 mls/hr IV .[id number] PRN PRN Reason: Saline Flush Last Infusion: 06/18/20 12:48 Dose: 0 mls/hr Documented by: Sodium Chloride () 250 mls @ 15 mls/hr IV .[id number] PRN PRN Reason: Additional IVPB Infusion Piperacillin Sod/Tazobactam (Sod 3.375 gm/ Sodium Chloride) 50 mls @ 12.5 mls/hr IV Q8 [facility] Last Infusion: 06/18/20 10:49 Dose: Infused Documented by: Vancomycin IV Pharmacy to Dose (1 ea/ Sodium Chloride) 500 mls @ 250 mls/hr IV PRN PRN; Protocol PRN Reason: Rx to Dose Vancomycin HCl 1,250 mg/ (Sodium Chloride) 275 mls @ 167 mls/hr IV Q8H [facility] Last Admin: 06/18/20 12:47 Dose: 167 mls/hr Documented by: Insulin Glargine (Insulin Glargine 100 Units/Ml Pen) 50 units SC DAILY [facility] Last Admin: 06/18/20 09:18 Dose: 50 u Documented by: Insulin Human Lispro (Insulin Lispro 100 Unit/Ml Insuln.Pen) 18 unit SC TIDCM [facility] Last Admin: 06/18/20 12:45 Dose: 18 u Documented by: Insulin Human Lispro (Insulin Lispro 100 Unit/Ml Insuln.Pen) 0 unit SC TIDAC [facility]; Protocol Last Admin: 06/18/20 12:45 Dose: 3 u Documented by: Lisinopril (Lisinopril 10 Mg Tablet) 10 mg PO DAILY [facility] Last Admin: 06/18/20 09:20 Dose: 10 mg Documented by: Metoprolol Tartrate (Metoprolol Tartrate 25 Mg Tablet) 25 mg PO BID [facility] Last Admin: 06/18/20 09:20 Dose: 25 mg Documented by: Nutritional Formula (Nutritional Supplement (Rei) Packet) 1 packet PO BIDCM [facility] Last Admin: 06/18/20 09:16 Dose: 1 packet Documented by: Ondansetron HCl (Ondansetron 4 Mg/2 Ml Vial) 4 mg IV Q8H PRN PRN PRN Reason: NAUSEA/VOMITING Oxycodone HCl (Oxycodone 5 Mg Tablet) 5 mg PO Q4H PRN PRN PRN Reason: Pain Score 4-5 Last Admin: 06/17/20 02:39 Dose: 5 mg Documented by: Oxycodone HCl (Oxycodone 5 Mg Tablet) 10 mg PO Q4H PRN PRN PRN Reason: Pain Score 6-10 Last Admin: 06/17/20 21:39 Dose: 10 mg Documented by: Pravastatin Sodium (Pravastatin 40 Mg Tablet) 40 mg PO HS [facility] Last Admin: 06/17/20 21:30 Dose: 40 mg Documented by: Sodium Chloride (0.9% Saline Lock 10 Ml Syringe) 10 - 40 ml IV UD PRN PRN Reason: SALINE FLUSH STROKE Vital Signs/Narrative: Vital Signs Temp Pulse Resp BP Pulse Ox 06/18/20 14:07 37.3 C 79 18 115/54 L 95 Medical Necessity - Tobacco Use Smoking Status: Never smoker Assessment/Plan All Active Problems (Last Reviewed 06/16/20 @ 14:[address] Kingston Mesa, DO) Ulcer of right foot with necrosis of bone (Acute) Hammertoe of right foot (Acute) Cellulitis of right foot (Acute) 1. right 4th toe osteomyelitis * Type II diabetic with neuropathy. This is been a ongoing infection for least past month. Patient has ulceration on the lateral aspect of his right fourth toe but also visualization of osteomyelitis. Also mentioned possibility of a displaced fracture of the fourth toe the proximal phalanx. * Continue with prospective antibiotics and de-escalate based on culture results. * MRI confirms osteomyelitis with a pathologic fxr * s/p amputation on 06/17 * await on final culture results and then consult ID for long-term recommendations. 2. Diabetes mellitus type 2 * Resume normal glargine dosing. 3. HTN: * stable * continue with lisinopril 4. VTE prophylaxis: LMWH 5. ACP: patient wishes to be full code. Inpatient E&M: 37874 Subs Hosp L1
[2020-06-18] MEDS: oxyCODONE 5 MG Tablet PO ×2 (17:39→23:27)
[2020-06-18 21:11] LABS: Bedside Glucose 199 mg/dL (70-110)
[2020-06-18] MEDS: Pravastatin 40 MG Tablet PO (21:29)
[2020-06-18 21:55] LABS: Bedside Glucose 186 mg/dL (70-110)
[2020-06-19] VITALS (7 sets, daily range): BP systolic 136–160; BP diastolic 48–78; PULSE 61–90; RESP 16–18; TEMP 36.4–36.7; O2SAT 96–97
[2020-06-19] MEDS: Insulin Lispro 100 UNIT/ML INSULN.PEN SC ×3 (06:51→16:53)
[2020-06-19 07:01] LABS: Bedside Glucose 241 mg/dL (70-110)
[2020-06-19] MEDS: Gabapentin 400 MG Capsule PO ×2 (08:47→16:54)
[2020-06-19] MEDS: Insulin Lispro 100 UNIT/ML INSULN.PEN 18 UNIT SC ×3 (08:47→16:52)
[2020-06-19] MEDS: Aspirin E.C. 81 MG Tablet PO (08:47)
--- NOTE | 2020-06-19 09:32 | PN_ITS ---
Patient Problems: Active and Suspected Problems (Last Reviewed 06/16/20 @ 14:[address] Kingston Mesa, DO) Osteomyelitis of fourth toe of right foot (Suspected) Ulcer of right foot with necrosis of bone (Acute) Hammertoe of right foot (Acute) Cellulitis of right foot (Acute) Reason for Visit: osteomyelitis Subjective: No events. Feeling well. Vitals/I&O's: Vital Signs Temp Pulse Resp BP Pulse Ox 36.4 C L 90 18 140/57 H 96 06/19/20 08:44 06/19/20 08:45 06/19/20 08:44 06/19/20 08:44 06/19/20 08:44 Oxygen Delivery Method Room Air Weight: 160.79 kg Body Mass Index (BMI) 44.0 Finger Stick Blood Glucose 149 Intake and Output for Last 24 Hours 06/17/20 06/18/20 06/19/20 23:59 23:59 22:59 Intake Total 1600 / 1600 1883.50 / 1883.50 1388.00 / 1388.00 Output Total 1300 / 1300 Balance 1600 / 1050 583.50 / 583.50 1388.00 / 1388.00 General: Alert, No apparent distress HEENT: Atraumatic, Normocephalic Oral: Moist Mucosa, No Gingival or Mucosal Lesions/ Ulcerations Lungs: Clear to auscultation, Normal air movement, No rhonchi, No wheeze, No rales Cardiovascular: Regular rate, Regular Rhythm, Normal S1, Normal S2, No murmurs Abdomen: Bowel Sounds Present, Soft, Non Tender, Non-Distended, No Hepato- splenomegaly Extremities: No edema, No Calf Tenderness Microbiology Past 72 Hours 06/17/20 17:00 Amputation - Toe Gram Stain - Final 06/17/20 17:00 Amputation - Toe Wound Culture - Preliminary No growth-Final to follow 06/16/20 16:35 Wound - Toe Gram Stain - Final 06/16/20 16:35 Wound - Toe Wound Culture - Preliminary Staphylococcus epidermidis Yeast Like Organism 06/16/20 11:45 Blood Culture (Wb) - Right Forearm Blood Culture - Preliminary No growth in 48 hours. 06/16/20 11:40 Blood Culture (Wb) - Left Forearm Blood Culture - Preliminary No growth in 48 hours. 06/17/20 10:15 Mucosa - Nose - Final 06/16/20 22:47 Interface Orders - Final Laboratory Results 06/18/20 12:43: POC Glucose 240 H 06/18/20 17:28: POC Glucose 199 H 06/18/20 21:15: POC Glucose 186 H 06/19/20 06:49: POC Glucose 241 H Current Medications Acetaminophen (Acetaminophen 325 Mg Tablet) 650 mg PO Q6H PRN PRN PRN Reason: Pain Score 1-10/Temp > 100.7 F Aspirin (Aspirin E.C. 81 Mg Tablet) [facility] Last Admin: 06/19/20 08:47 Dose: 81 mg Documented by: Cilostazol (Cilostazol 50 Mg Tablet) 100 mg PO BID [facility] Last Admin: 06/18/20 21:28 Dose: 100 mg Documented by: Dextrose (Dextrose 50%-Water 25 Gm/50 Ml Disp.Syrin) 0 gm IV X1 PRN; Protocol PRN Reason: Hypoglycemia Enoxaparin Sodium (Enoxaparin 40 Mg/0.4 Ml Syringe) 40 mg SC DAILY [facility] Last Admin: 06/18/20 11:30 Dose: 40 mg Documented by: Gabapentin (Gabapentin 400 Mg Capsule) [facility] Last Admin: 06/19/20 08:47 Dose: 400 mg Documented by: Glucagon (Glucagon 1 Mg/Ml Syringe) 1 mg IM .X1 PRN PRN Reason: Hypoglycemia Sodium Chloride () 250 mls @ 15 mls/hr IV .[id number] PRN PRN Reason: Saline Flush Last Infusion: 06/19/20 06:50 Dose: 0 mls/hr Documented by: Sodium Chloride () 250 mls @ 15 mls/hr IV .[id number] PRN PRN Reason: Additional IVPB Infusion Piperacillin Sod/Tazobactam (Sod 3.375 gm/ Sodium Chloride) 50 mls @ 12.5 mls/hr IV Q8 [facility] Last Admin: 06/19/20 06:50 Dose: 12.5 mls/hr Documented by: Vancomycin IV Pharmacy to Dose (1 ea/ Sodium Chloride) 500 mls @ 250 mls/hr IV PRN PRN; Protocol PRN Reason: Rx to Dose Vancomycin HCl 1,250 mg/ (Sodium Chloride) 275 mls @ 167 mls/hr IV Q8H [facility] Last Infusion: 11/01/20 06:41 Dose: Infused Documented by: Insulin Glargine (Insulin Glargine 100 Units/Ml Pen) 85 units SC 1100,2200 [facility] Last Admin: 06/18/20 21:25 Dose: 85 u Documented by: Insulin Human Lispro (Insulin Lispro 100 Unit/Ml Insuln.Pen) 18 unit SC TIDCM [facility] Last Admin: 06/19/20 08:47 Dose: 18 u Documented by: Insulin Human Lispro (Insulin Lispro 100 Unit/Ml Insuln.Pen) 0 unit SC TIDAC [facility]; Protocol Last Admin: 06/19/20 06:51 Dose: 3 u Documented by: Lisinopril (Lisinopril 10 Mg Tablet) 10 mg PO DAILY [facility] Last Admin: 06/18/20 09:20 Dose: 10 mg Documented by: Metoprolol Tartrate (Metoprolol Tartrate 25 Mg Tablet) 25 mg PO BID [facility] Last Admin: 06/18/20 21:26 Dose: 25 mg Documented by: Nutritional Formula (Nutritional Supplement (Rei) Packet) [facility] Last Admin: 06/19/20 08:47 Dose: 1 packet Documented by: Ondansetron HCl (Ondansetron 4 Mg/2 Ml Vial) 4 mg IV Q8H PRN PRN PRN Reason: NAUSEA/VOMITING Oxycodone HCl (Oxycodone 5 Mg Tablet) 5 mg PO Q4H PRN PRN PRN Reason: Pain Score 4-5 Last Admin: 06/18/20 23:27 Dose: 5 mg Documented by: Oxycodone HCl (Oxycodone 5 Mg Tablet) 10 mg PO Q4H PRN PRN PRN Reason: Pain Score 6-10 Last Admin: 06/17/20 21:39 Dose: 10 mg Documented by: Pravastatin Sodium (Pravastatin 40 Mg Tablet) 40 mg PO [facility] Last Admin: 06/18/20 21:29 Dose: 40 mg Documented by: Sodium Chloride (0.9% Saline Lock 10 Ml Syringe) 10 - 40 ml IV UD PRN PRN Reason: SALINE FLUSH STROKE Vital Signs/Narrative: Vital Signs Temp Pulse Resp BP Pulse Ox 06/19/20 08:45 90 06/19/20 08:44 36.4 C L 79 18 140/57 H 96 Medical Necessity - Tobacco Use Smoking Status: Never smoker Assessment/Plan All Active Problems (Last Reviewed 06/16/20 @ 14:[address] Kingston Mesa, DO) Ulcer of right foot with necrosis of bone (Acute) Hammertoe of right foot (Acute) Cellulitis of right foot (Acute) 1. right 4th toe osteomyelitis * Type II diabetic with neuropathy. This is been a ongoing infection for least past month. Patient has ulceration on the lateral aspect of his right fourth toe but also visualization of osteomyelitis. Also mentioned possibility of a displaced fracture of the fourth toe the proximal phalanx. * Continue with prospective antibiotics and de-escalate based on culture results. * MRI confirms osteomyelitis with a pathologic fxr * s/p amputation on 06/17 and margins appeared clean * initial wound culture should S. epidermidis. Still awaiting on additional wound cultues * continue with vanc and pip/tazo 2. Diabetes mellitus type 2 * Resume normal glargine dosing. 3. HTN: * stable * continue with lisinopril 4. VTE prophylaxis: LMWH 5. ACP: patient wishes to be full code. Inpatient E&M: 10472 Subs Hosp L2
--- NOTE | 2020-06-19 09:55 | PN_ITS ---
Patient Problems: Active and Suspected Problems (Last Reviewed 06/16/20 @ 14:[address] Kingston Mesa, DO) Osteomyelitis of fourth toe of right foot (Suspected) Ulcer of right foot with necrosis of bone (Acute) Hammertoe of right foot (Acute) Cellulitis of right foot (Acute) Subjective: This 60-year-old male with comorbidities was seen bedside postoperative day #2 right fourth toe amputation for treatment of osteomyelitis with ulceration. He denies fever, chills, nausea, vomiting, chest pain, shortness of breath, calf pain. He denies foot pain. - Physical Exam Vitals/I&O's: Vital Signs Temp Pulse Resp BP Pulse Ox 97.5 F L 90 18 140/57 H 96 06/19/20 08:44 06/19/20 08:45 06/19/20 08:44 06/19/20 08:44 06/19/20 08:44 Oxygen Delivery Method Room Air Weight: 160.79 kg Body Mass Index (BMI) 44.0 Finger Stick Blood Glucose 149 Intake and Output for Last 24 Hours 06/17/20 06/18/20 06/19/20 23:59 23:59 22:59 Intake Total 1600 / 1600 1883.50 / 1883.50 1388.00 / 1388.00 Output Total 1300 / 1300 Balance 1600 / 1050 583.50 / 583.50 1388.00 / 1388.00 General: Alert, Oriented x3, Cooperative HEENT: Atraumatic Extremities: No cyanosis, Capillary Refill Less than 3 Seconds - remaining digits right foot, No Calf Tenderness - negative garfield and parry signs, Diminished Peripheral Pulses, Edema - mild right foot and leg Skin: Incision - well aligned and coapted 4th toe amputation site without purulence or necrosis. erythema is resolved. there is some moisutre/maceration to distal 1/3 of the incision site at the location of the 5th digit contact point. no bogginess or fluctuance on palpation Musculoskeletal: No Tenderness to Palpation of Joints or Extremities, Muscle Wasting, - - 4th toe amputation Neurological: - - lack of normal epicritic sensation via light touch Psych/Mental Status: Normal Affect, Appropriate Microbiology Past 72 Hours 06/17/20 17:00 Amputation - Toe Gram Stain - Final 06/17/20 17:00 Amputation - Toe Wound Culture - Preliminary No growth-Final to follow 06/16/20 16:35 Wound - Toe Gram Stain - Final 06/16/20 16:35 Wound - Toe Wound Culture - Preliminary Staphylococcus epidermidis Yeast Like Organism 06/16/20 11:45 Blood Culture (Wb) - Right Forearm Blood Culture - Preliminary No growth in 48 hours. 06/16/20 11:40 Blood Culture (Wb) - Left Forearm Blood Culture - Preliminary No growth in 48 hours. 06/17/20 10:15 Mucosa - Nose - Final 06/16/20 22:47 Interface Orders - Final Laboratory Results 06/18/20 12:43: POC Glucose 240 H 06/18/20 17:28: POC Glucose 199 H 06/18/20 21:15: POC Glucose 186 H 06/19/20 06:49: POC Glucose 241 H Current Medications Acetaminophen (Acetaminophen 325 Mg Tablet) 650 mg PO Q6H PRN PRN PRN Reason: Pain Score 1-10/Temp > 100.7 F Aspirin (Aspirin E.C. 81 Mg Tablet) [facility] Admin: 06/19/20 08:47 Dose: 81 mg Documented by: Cilostazol (Cilostazol 50 Mg Tablet) 100 mg PO BID [facility] Last Admin: 06/18/20 21:28 Dose: 100 mg Documented by: Dextrose (Dextrose 50%-Water 25 Gm/50 Ml Disp.Syrin) 0 gm IV X1 PRN; Protocol PRN Reason: Hypoglycemia Enoxaparin Sodium (Enoxaparin 40 Mg/0.4 Ml Syringe) 40 mg SC DAILY [facility] Last Admin: 06/18/20 11:30 Dose: 40 mg Documented by: Gabapentin (Gabapentin 400 Mg Capsule) [facility] Last Admin: 06/19/20 08:47 Dose: 400 mg Documented by: Glucagon (Glucagon 1 Mg/Ml Syringe) 1 mg IM .X1 PRN PRN Reason: Hypoglycemia Sodium Chloride () 250 mls @ 15 mls/hr IV .[id number] PRN PRN Reason: Saline Flush Last Infusion: 06/19/20 06:50 Dose: 0 mls/hr Documented by: Sodium Chloride () 250 mls @ 15 mls/hr IV .[id number] PRN PRN Reason: Additional IVPB Infusion Piperacillin Sod/Tazobactam (Sod 3.375 gm/ Sodium Chloride) 50 mls @ 12.5 mls/hr IV Q8 [facility] Last Admin: 06/19/20 06:50 Dose: 12.5 mls/hr Documented by: Vancomycin IV Pharmacy to Dose (1 ea/ Sodium Chloride) 500 mls @ 250 mls/hr IV PRN PRN; Protocol PRN Reason: Rx to Dose Vancomycin HCl 1,250 mg/ (Sodium Chloride) 275 mls @ 167 mls/hr IV Q8H [facility] Last Infusion: 06/19/20 06:41 Dose: Infused Documented by: Insulin Glargine (Insulin Glargine 100 Units/Ml Pen) 85 units SC 1100,2200 [facility] Last Admin: 06/18/20 21:25 Dose: 85 u Documented by: Insulin Human Lispro (Insulin Lispro 100 Unit/Ml Insuln.Pen) 18 unit SC TIDCM [facility] Last Admin: 06/19/20 08:47 Dose: 18 u Documented by: Insulin Human Lispro (Insulin Lispro 100 Unit/Ml Insuln.Pen) 0 unit SC TIDAC [facility]; Protocol Last Admin: 06/19/20 06:51 Dose: 3 u Documented by: Lisinopril (Lisinopril 10 Mg Tablet) 10 mg PO DAILY [facility] Last Admin: 06/18/20 09:20 Dose: 10 mg Documented by: Metoprolol Tartrate (Metoprolol Tartrate 25 Mg Tablet) 25 mg PO BID [facility] Last Admin: 06/18/20 21:26 Dose: 25 mg Documented by: Nutritional Formula (Nutritional Supplement (Rei) Packet) [facility] Last Admin: 06/19/20 08:47 Dose: 1 packet Documented by: Ondansetron HCl (Ondansetron 4 Mg/2 Ml Vial) 4 mg IV Q8H PRN PRN PRN Reason: NAUSEA/VOMITING Oxycodone HCl (Oxycodone 5 Mg Tablet) 5 mg PO Q4H PRN PRN PRN Reason: Pain Score 4-5 Last Admin: 06/18/20 23:27 Dose: 5 mg Documented by: Oxycodone HCl (Oxycodone 5 Mg Tablet) 10 mg PO Q4H PRN PRN PRN Reason: Pain Score 6-10 Last Admin: 06/17/20 21:39 Dose: 10 mg Documented by: Pravastatin Sodium (Pravastatin 40 Mg Tablet) 40 mg PO [facility] Last Admin: 06/18/20 21:29 Dose: 40 mg Documented by: Sodium Chloride (0.9% Saline Lock 10 Ml Syringe) 10 - 40 ml IV UD PRN PRN Reason: SALINE FLUSH Medical Necessity - Tobacco Use Smoking Status: Never smoker Assessment/Plan All Active Problems (Last Reviewed 06/16/20 @ 14:[address] Kingston Mesa, DO) Ulcer of right foot with necrosis of bone (Acute) Hammertoe of right foot (Acute) Cellulitis of right foot (Acute) POD #2 right fourth toe amputation secondary to osteomyelitis hammer toes, right cellulitis right lower extremity resolved diabetes I reviewed and discussed his case. Vitals are stable and he is afebrile. Blood cultures no growth. Aerobic and anaerobic wound culture was obtained and the results are pending from preop; so far with staph epidermidis and yeast. Intra operative cultures pending including micro and path. The resection was performed at the metatarsal phalangeal joint level and was clinically clean without purulence or necrosis. He no longer has erythema or edema and his cellulitis is resolving very well since surgery. He is on vanco/zosyn at this time. I recommend soft tissue envelope coverage. He will see ID tomorrow as well for antibiotic recommendations. His dressing changes morning with reapplication of Betadine soaked gauze, Kerlix, and Alli wrap gently applied. Keep clean and intact. To continue nonweightbearing right lower extremity with surgical shoe in place. To heel weight-bear for transfers. I recommend PT and to use assistive device if needed. To follow-up with vascular specialist referral in the outpatient setting. He appears stable and d/c can be considered from a surgical standpoint. Follow up with Dr. Salcedo at [facility] within 2 to 3 days of discharge. Please do not hesitate to call if you have any questions. Annabelle Salcedo DPM, [facility] [phone]
[2020-06-19] MEDS: Enoxaparin 40 MG/0.4 ML Syringe SC (10:09)
[2020-06-19] MEDS: Metoprolol Tartrate 25 MG Tablet PO ×2 (10:09→21:25)
[2020-06-19] MEDS: Cilostazol 50 MG Tablet 100 MG PO ×2 (10:09→21:25)
[2020-06-19] MEDS: Lisinopril 10 MG Tablet PO (10:09)
--- NOTE | 2020-06-19 10:38 | DCINST_ITS ---
Discharge Activity: May Shower - with shower bag Weight Bearing Status: No weight bearing - Keep weight off of surgical right foot. Ok to heel weightbear for transfers. Use assistive device. Keep extremity elevated above heart level: Right Leg Call your doctor if your incision/area has: Continuous Slow Oozing, Sudden Increased Bleeding, Increased Pain/ Swelling, Increased Redness, Foul Smelling Discharge, Swelling at the incision site Call your doctor if you observe: Fever of 101 or Higher, Calf discomfort, Uncontrolled pain Cleanse incision/area with: Keep Dressing Clean & Dry Allergies/Adverse Reactions: Allergies No Known Allergies Allergy (Verified 06/16/20 11:03) Medications to take at Discharge Gabapentin 400 mg PO BID 12/17/16 Metoprolol Tartrate 25 mg PO BID 12/17/16 Insulin Aspart [Novolog Flexpen] 18 units SQ TIDCM 03/12/18 Insulin Glargine [Lantus SoloStar Pen] 85 units SQ BID 03/12/18 metFORMIN HCl [Glucophage] 850 mg PO BIDCM 03/12/18 aspirin 81 mg tablet,delayed release 81 mg PO DAILY 02/02/19 cilostazol 100 mg tablet 100 mg PO BID 02/02/19 lisinopril 10 mg tablet 10 mg PO DAILY 02/02/19 pravastatin 40 mg tablet 40 mg PO DAILY 02/02/19 Dulaglutide [Trulicity] 1.5 mg SQ QWEEK 05/12/20 Primary Care Physician: Dennis Schwartz MD [Primary Care Provider] - Test Results: Test results from this visit will be discussed in further detail at your follow- up appointment, if applicable. Please Follow Up With: Annabelle Salcedo DPM When: [facility] 2-3 days. Call [phone]. Please Follow Up With: Tylor Knott MD - vascular specialist When: 2 weeks, . A referral will also be sent. Proposed Discharge Date: 06/20/20
[2020-06-19 12:56] LABS: Bedside Glucose 272 mg/dL (70-110)
[2020-06-19 17:10] LABS: Bedside Glucose 195 mg/dL (70-110)
[2020-06-19] MEDS: 0.9% Saline Lock 10 ML Syringe IV (21:16)
[2020-06-19] MEDS: Pravastatin 40 MG Tablet PO (21:25)
[2020-06-19 21:44] LABS: Vancomycin, Trough Level 17.6 ug/mL (5.0-15.0)
[2020-06-19 21:56] LABS: Bedside Glucose 270 mg/dL (70-110)
--- NOTE | 2020-06-19 22:11 | PCM.RX.CS ---
Consult Pharmacy has been consulted to manage selected antiobiotic: Vancomycin Type of Consult: Follow-up Suspected Infection: Osteomyelitis Prior Doses of Antibiotics Received/Current Regimen: Medications Vancomycin HCl 1,250 mg/ (Sodium Chloride) 275 mls @ 167 mls/hr IV Q8H [facility]ABILA Last Admin: 06/19/20 21:15 Dose: 167 mls/hr Labs: Sodium 137 mmol/L (136-145) 06/18/20 08:40 Potassium 4.2 mmol/L (3.5-5.1) 06/18/20 08:40 Chloride 106 mmol/L (98-107) 06/18/20 08:40 Carbon Dioxide 27.0 mmol/L (21.0-32.0) 06/18/20 08:40 Anion Gap 4 (5-15) L 06/18/20 08:40 BUN 16 mg/dL (7-18) 06/18/20 08:40 Creatinine 1.09 mg/dL (0.70-1.30) 06/18/20 08:40 Est GFR (MDRD) Af Amer 89 mL/min (>60) 06/18/20 08:40 Est GFR (MDRD) Non-Af 74 mL/min (>60) 06/18/20 08:40 BUN/Creatinine Ratio 14.7 RATIO (-20) 06/18/20 08:40 Glucose 221 mg/dL (74-106) H 06/18/20 08:40 Vancomycin Trough 17.6 ug/mL (5.0-15.0) H 06/19/20 20:34 Microbiology: Microbiology 06/17/20 17:00 Amputation - Toe Gram Stain - Final 06/17/20 17:00 Amputation - Toe Wound Culture - Preliminary No growth-Final to follow 06/16/20 16:35 Wound - Toe Gram Stain - Final 06/16/20 16:35 Wound - Toe Wound Culture - Preliminary Staphylococcus epidermidis Yeast Like Organism Gram Positive Cocci 06/16/20 11:45 Blood Culture (Wb) - Right Forearm Blood Culture - Preliminary No growth in 48 hours. 06/16/20 11:40 Blood Culture (Wb) - Left Forearm Blood Culture - Preliminary No growth in 48 hours. 06/17/20 10:15 Mucosa - Nose - Final 06/16/20 22:47 Interface Orders - Final Weight used for dosin kg Estimated Creatinine Clearance: 87 Goal Trough: 15-20 mcg/mL Pharmacy Plan for Drug Dosing: Vancomycin trough level was 17.6, within target range. Will continue current dosing and re-draw trough in four days. Pharmacy Service will continue to monitor and adjust dosing as required. Follow-Up Labs: Trough Vancomycin Labs to be done on [date and time ordered]: 06/23/20 @4671
[2020-06-19] MEDS: oxyCODONE 5 MG Tablet PO (23:11)
[2020-06-20] VITALS (7 sets, daily range): BP systolic 125–154; BP diastolic 46–62; PULSE 77–81; RESP 17–18; TEMP 36.3–36.6; O2SAT 95–96
[2020-06-20 07:10] LABS: Bedside Glucose 245 mg/dL (70-110)
--- NOTE | 2020-06-20 08:37 | PCM.PN.HOSP ---
Patient Problems: Active and Suspected Problems (Last Reviewed 06/16/20 @ 14:[address] Kingston Mesa, DO) Osteomyelitis of fourth toe of right foot (Suspected) Ulcer of right foot with necrosis of bone (Acute) Hammertoe of right foot (Acute) Cellulitis of right foot (Acute) Reason for Visit: Right fourth toe osteomyelitis Subjective: Patient is a 60-year-old male with past medical history is known for diabetes mellitus type 2, hypertension admitted with right fourth toe osteomyelitis Objective: GENERAL: cooperative HEENT: Atraumatic; EYES; Anicteric, Normal Conjunctiva NECK; supple, normal thyroid, RESPIRATORY: Diminished to auscultation CARDIOVASCULAR: Regular S1 S2, GI: soft, normoactive bowel sounds, : No Renal angle tenderness; EXTREMITIES: Right foot in surgical dressing MUSCULOSKELETAL: no muscle waisting NEURO: Awake; no lateralizing signs. SKIN: No Rash PSYCH; Flat affect Vitals/I&O's: Vital Signs Temp Pulse Resp BP Pulse Ox 97.4 F L 80 18 141/48 H 96 06/20/20 08:32 06/20/20 08:32 06/20/20 08:32 06/20/20 08:32 06/20/20 08:32 Oxygen Delivery Method Room Air Weight: 160.79 kg Body Mass Index (BMI) 44.0 Finger Stick Blood Glucose 149 Intake and Output for Last 24 Hours 06/19/20 06/19/20 06/20/20 00:59 23:59 23:59 Intake Total 1025 / 1025 Output Total Balance 1025 / 1025 Microbiology Past 72 Hours 06/17/20 17:00 Amputation - Toe Gram Stain - Final 06/17/20 17:00 Amputation - Toe Wound Culture - Preliminary No growth-Final to follow 06/16/20 16:35 Wound - Toe Gram Stain - Final 06/16/20 16:35 Wound - Toe Wound Culture - Preliminary Staphylococcus epidermidis Yeast Like Organism Gram Positive Cocci 06/16/20 11:45 Blood Culture (Wb) - Right Forearm Blood Culture - Preliminary No growth in 48 hours. 06/16/20 11:40 Blood Culture (Wb) - Left Forearm Blood Culture - Preliminary No growth in 48 hours. 06/17/20 10:15 Mucosa - Nose - Final Laboratory Results 06/19/20 12:40: POC Glucose 272 H 06/19/20 16:50: POC Glucose 195 H 06/19/20 20:34: Vancomycin Trough 17.6 H 06/19/20 21:23: POC Glucose 270 H 06/20/20 07:07: POC Glucose 245 H Current Medications Acetaminophen (Acetaminophen 325 Mg Tablet) 650 mg PO Q6H PRN PRN PRN Reason: Pain Score 1-10/Temp > 100.7 F Aspirin (Aspirin E.C. 81 Mg Tablet) [facility] Last Admin: 06/19/20 08:47 Dose: 81 mg Documented by: Cilostazol (Cilostazol 50 Mg Tablet) 100 mg PO BID [facility] Last Admin: 06/19/20 21:25 Dose: 100 mg Documented by: Dextrose (Dextrose 50%-Water 25 Gm/50 Ml Disp.Syrin) 0 gm IV X1 PRN; Protocol PRN Reason: Hypoglycemia Enoxaparin Sodium (Enoxaparin 40 Mg/0.4 Ml Syringe) 40 mg SC DAILY [facility] Last Admin: 06/19/20 10:09 Dose: 40 mg Documented by: Gabapentin (Gabapentin 400 Mg Capsule) [facility] Last Admin: 06/19/20 16:54 Dose: 400 mg Documented by: Glucagon (Glucagon 1 Mg/Ml Syringe) 1 mg IM .X1 PRN PRN Reason: Hypoglycemia Sodium Chloride () 250 mls @ 15 mls/hr IV .[id number] PRN PRN Reason: Saline Flush Last Infusion: 06/19/20 14:45 Dose: 0 mls/hr Documented by: Sodium Chloride () 250 mls @ 15 mls/hr IV .[id number] PRN PRN Reason: Additional IVPB Infusion Piperacillin Sod/Tazobactam (Sod 3.375 gm/ Sodium Chloride) 50 mls @ 12.5 mls/hr IV Q8 [facility] Last Admin: 06/20/20 06:52 Dose: 12.5 mls/hr Documented by: Vancomycin IV Pharmacy to Dose (1 ea/ Sodium Chloride) 500 mls @ 250 mls/hr IV PRN PRN; Protocol PRN Reason: Rx to Dose Vancomycin HCl 1,250 mg/ (Sodium Chloride) 275 mls @ 167 mls/hr IV Q8H [facility] Last Infusion: 06/20/20 06:30 Dose: Infused Documented by: Insulin Glargine (Insulin Glargine 100 Units/Ml Pen) 85 units SC 1100,2200 [facility] Last Admin: 06/19/20 21:24 Dose: 85 u Documented by: Insulin Human Lispro (Insulin Lispro 100 Unit/Ml Insuln.Pen) 18 unit SC TIDCM [facility] Last Admin: 06/19/20 16:52 Dose: 18 u Documented by: Insulin Human Lispro (Insulin Lispro 100 Unit/Ml Insuln.Pen) 0 unit SC TIDAC [facility]; Protocol Last Admin: 06/19/20 16:53 Dose: 2 u Documented by: Lisinopril (Lisinopril 10 Mg Tablet) 10 mg PO DAILY [facility] Last Admin: 06/19/20 10:09 Dose: 10 mg Documented by: Metoprolol Tartrate (Metoprolol Tartrate 25 Mg Tablet) 25 mg PO BID [facility] Last Admin: 06/19/20 21:25 Dose: 25 mg Documented by: Nutritional Formula (Nutritional Supplement (Rei) Packet) [facility] Last Admin: 06/19/20 16:53 Dose: 1 packet Documented by: Ondansetron HCl (Ondansetron 4 Mg/2 Ml Vial) 4 mg IV Q8H PRN PRN PRN Reason: NAUSEA/VOMITING Oxycodone HCl (Oxycodone 5 Mg Tablet) 5 mg PO Q4H PRN PRN PRN Reason: Pain Score 4-5 Last Admin: 06/19/20 23:11 Dose: 5 mg Documented by: Oxycodone HCl (Oxycodone 5 Mg Tablet) 10 mg PO Q4H PRN PRN PRN Reason: Pain Score 6-10 Last Admin: 06/17/20 21:39 Dose: 10 mg Documented by: Pravastatin Sodium (Pravastatin 40 Mg Tablet) 40 mg PO [facility] Last Admin: 06/19/20 21:25 Dose: 40 mg Documented by: Sodium Chloride (0.9% Saline Lock 10 Ml Syringe) 10 - 40 ml IV UD PRN PRN Reason: SALINE FLUSH Last Admin: 06/19/20 21:16 Dose: 10 ml Documented by: STROKE Vital Signs/Narrative: Vital Signs Temp Pulse Resp BP Pulse Ox 06/20/20 08:32 97.4 F L 80 18 141/48 H 96 Medical Necessity - Tobacco Use Smoking Status: Never smoker Assessment/Plan All Active Problems (Last Reviewed 06/16/20 @ 14:[address] Kingston Mesa, DO) Other specified peripheral vascular diseases (Acute) Type 2 diabetes mellitus with diabetic polyneuropathy (Acute) Ulcer of right foot with necrosis of bone (Acute) Hammertoe of right foot (Acute) Cellulitis of right foot (Acute) Patient is a 60-year-old male with past medical history is known for diabetes mellitus type 2, hypertension admitted with right fourth toe osteomyelitis 1. Right fourth toe osteomyelitis -patient underwent amputation on 06/17/2020. Wound cultures prior to surgery positive for staph epididymis. Cultures obtained from surgery results still pending. Patient remains on Vanco and Zosyn consult placed infectious disease -Patient wound cultures positive for coagulase negative staph aureus. Patient on Zosyn and vancomycin. Vancomycin discontinued. Final antibiotic therapy deferred to infectious disease 2. Diabetes mellitus type 2 ?With complications including diabetic neuropathy. Did continue home regimen in addition to Accu-Cheks before meals and at bedtime with sliding scale coverage 3. Hypertension - Blood pressure controlled, home medications continued with dose adjustment as needed 4. Morbid obesity with BMI of 44.1 ?Weight loss advised 5. Diabetic polyneuropathy ?Patient is on gabapentin did continue 6. Dyslipidemia -Patient is on statin therapy, continued at home dose 7. DVT prophylaxis ?Lovenox Inpatient E&M: 75162 Subs Hosp L2
[2020-06-20] MEDS: Gabapentin 400 MG Capsule PO ×2 (08:41→17:58)
[2020-06-20] MEDS: Aspirin E.C. 81 MG Tablet PO (08:41)
[2020-06-20] MEDS: Insulin Lispro 100 UNIT/ML INSULN.PEN SC ×3 (08:56→16:32)
[2020-06-20] MEDS: Insulin Lispro 100 UNIT/ML INSULN.PEN 18 UNIT SC ×3 (08:56→16:31)
[2020-06-20] MEDS: Cilostazol 50 MG Tablet 100 MG PO ×2 (10:06→21:46)
[2020-06-20] MEDS: Metoprolol Tartrate 25 MG Tablet PO ×2 (10:06→21:47)
[2020-06-20] MEDS: Enoxaparin 40 MG/0.4 ML Syringe SC (10:06)
[2020-06-20] MEDS: Lisinopril 10 MG Tablet PO (10:06)
[2020-06-20 11:45] LABS: Bedside Glucose 295 mg/dL (70-110)
--- NOTE | 2020-06-20 13:24 | PCM.HP.ID ---
Problem List (1) Osteomyelitis of fourth toe of right foot Status: Suspected Reason for Consult: osteo Consulted by: Dr. Mesa History of Present Illness: The patient is a 60 year old M with DM neuropathy, presented with one month of progressive R 4th toe pain, redness, swelling, and purulent drainage. No fever or chills. Came here, had MRI done, taken to OR for toe amputation 06/[address] Salcedo. On vanc/zosyn, feeling better. Full ROS performed and neg except as noted above. - Medical History Past Medical History (Chronic Problems): Chronic Problems (Last Reviewed 06/16/20 @ 14:[address] Kingston Mesa, DO) History of diabetes mellitus (Chronic) missed polyp (Chronic) Hyperglycemia (Chronic) Hyponatremia (Chronic) Headache (Chronic) MARK ANTHONY (obstructive sleep apnea) (Chronic) DM type 1 (diabetes mellitus, type 1) (Chronic) Morbid obesity (Chronic) Hyperlipidemia (Chronic) Benign essential hypertension (Chronic) Allergies/Adverse Reactions: Allergies No Known Allergies Allergy (Verified 06/16/20 11:03) Home Medications: Ambulatory Orders Medication Instructions Recorded Gabapentin 400 mg PO BID 12/17/16 Metoprolol Tartrate 25 mg PO BID 12/17/16 Insulin Aspart [Novolog Flexpen] 18 units SQ TIDCM 03/12/18 Insulin Glargine [Lantus SoloStar 85 units SQ BID 03/12/18 Pen] metFORMIN HCl [Glucophage] 850 mg PO BIDCM 03/12/18 aspirin 81 mg tablet,delayed 81 mg PO DAILY 02/02/19 release cilostazol 100 mg tablet 100 mg PO BID 02/02/19 lisinopril 10 mg tablet 10 mg PO DAILY 02/02/19 pravastatin 40 mg tablet 40 mg PO DAILY 02/02/19 Dulaglutide [Trulicity] 1.5 mg SQ QWEEK 05/12/20 Amoxicillin/Potassium Clav 1 ea PO BID #20 tab 06/20/20 [Augmentin 875-125 Tablet] Linezolid 600 mg PO BID #20 tab 06/20/20 Vital Signs Temp Pulse Resp BP Pulse Ox 97.4 F L 79 18 150/46 H 96 06/20/20 08:32 06/20/20 10:06 06/20/20 08:32 06/20/20 10:06 06/20/20 08:32 Oxygen Delivery Method Room Air Weight: 160.79 kg Body Mass Index (BMI) 44.0 Finger Stick Blood Glucose 149 Microbiology Past 72 Hours 06/16/20 16:35 Gram Stain - Final Wound - Toe Wound Culture - Preliminary Staphylococcus epidermidis Yeast Like Organism Gram Positive Cocci 06/17/20 17:00 Gram Stain - Final Amputation - Toe Wound Culture - Preliminary Coag Negative Staph 06/16/20 11:45 Blood Culture - Preliminary Blood Culture (Wb) - Right Forearm No growth in 48 hours. 06/16/20 11:40 Blood Culture - Preliminary Blood Culture (Wb) - Left Forearm No growth in 48 hours. 06/17/20 10:15 - Final Mucosa - Nose Laboratory Tests Past 24 Hrs 06/19/20 20:34 Vancomycin Trough 17.6 H - Other Studies Radiology: [] reviewed Other Studies: [] Route of nutrition/ use of supplements: [] Nutritional Intake: [] IV Site: [] Mcgee Catheter: [] - Physical Exam General: Alert, Oriented x3, Cooperative, No apparent distress HEENT: Atraumatic, PERRLA, EOMI Neck: Supple, No Nodes Lungs: Clear to auscultation, Normal air movement Cardiovascular: Regular rate, Regular Rhythm Abdomen: Soft, Non Tender, Non-Distended, Obese Extremities: No edema Skin: Incision - R foot wrapped IV Site: Peripheral, without redness Musculoskeletal: No Tenderness to Palpation of Joints or Extremities Neurological: Cranial nerves II-XII grossly intact - Assessment/Plan Antibiotics: [] Assessment/Plan: [] Active and Suspected Problems (Last Reviewed 06/16/20 @ 14:[address] Kingston Mesa, DO) Osteomyelitis of fourth toe of right foot (Suspected) Ulcer of right foot with necrosis of bone (Acute) Hammertoe of right foot (Acute) Cellulitis of right foot (Acute) R 4th toe osteo with DM neuropathy - now s/p toe amp by Dr. Salcedo 06/17/20. Clearance cx with very rare CoNS. Wound cx with MRSE, GPC, and yeast. Ok for d/c home on 10 more days of linezolid and augmentin, wrote rx, will follow path results. Will follow, thank you, d/w case management assistant
[2020-06-20 16:40] LABS: Bedside Glucose 173 mg/dL (70-110)
--- NOTE | 2020-06-20 17:34 | PCM.PROGNOTE ---
Patient Problems: Active and Suspected Problems (Last Reviewed 06/16/20 @ 14:[address] Kingston Mesa, DO) Osteomyelitis of fourth toe of right foot (Suspected) Ulcer of right foot with necrosis of bone (Acute) Hammertoe of right foot (Acute) Cellulitis of right foot (Acute) Subjective: Patient seen and examined bedside. No new complaints. Patient is postoperative day #3 right fourth toe amputation for treatment of osteomyelitis with ulceration. He denies fever, chills, nausea, vomiting, chest pain, shortness of breath, calf pain. He denies foot pain. - Physical Exam Vitals/I&O's: Vital Signs Temp Pulse Resp BP Pulse Ox 97.9 F 81 18 125/62 H 96 06/20/20 14:35 06/20/20 14:35 06/20/20 14:35 06/20/20 14:35 06/20/20 14:35 Oxygen Delivery Method Room Air Weight: 160.79 kg Body Mass Index (BMI) 44.0 Finger Stick Blood Glucose 149 Intake and Output for Last 24 Hours 06/19/20 06/19/20 06/20/20 00:59 23:59 23:59 Intake Total 1350 / 1350 Output Total Balance 1350 / 1350 General: Alert, Oriented x3 HEENT: Atraumatic Extremities: No clubbing, No cyanosis, Capillary Refill Less than 3 Seconds - to remaining right digits, No Calf Tenderness, Diminished Peripheral Pulses, Edema - right lower extremity Skin: Incision - well aligned and coapted 4th toe amputation site without purulence or necrosis. mild erythema dorsal incision. there is some moisutre/maceration to distal 1/3 of the incision site at the location of the 5th digit contact point. no bogginess or fluctuance on palpation Musculoskeletal: No Tenderness to Palpation of Joints or Extremities, Muscle Wasting, - - right 4th toe amputation Neurological: - - lack of normal epicritic sensation via light touch Psych/Mental Status: Normal Affect, Appropriate, Alert and oriented to time, place, person, mood and affect Microbiology Past 72 Hours 06/16/20 16:35 Wound - Toe Gram Stain - Final 06/16/20 16:35 Wound - Toe Wound Culture - Preliminary Staphylococcus epidermidis Yeast, not Mel albicans Gram Positive Cocci 06/16/20 16:35 Wound - Toe Anaerobic Culture - Preliminary Checking for anaerobes, further studies to follow. 06/17/20 17:00 Amputation - Toe Gram Stain - Final 06/17/20 17:00 Amputation - Toe Wound Culture - Preliminary Coag Negative Staph 06/17/20 17:00 Amputation - Toe Anaerobic Culture - Final No anaerobic bacteria isolated. 06/16/20 11:45 Blood Culture (Wb) - Right Forearm Blood Culture - Preliminary No growth in 48 hours. 06/16/20 11:40 Blood Culture (Wb) - Left Forearm Blood Culture - Preliminary No growth in 48 hours. Laboratory Results 06/19/20 20:34: Vancomycin Trough 17.6 H 06/19/20 21:23: POC Glucose 270 H 06/20/20 07:07: POC Glucose 245 H 06/20/20 10:53: POC Glucose 295 H 06/20/20 16:26: POC Glucose 173 H Current Medications Acetaminophen (Acetaminophen 325 Mg Tablet) 650 mg PO Q6H PRN PRN PRN Reason: Pain Score 1-10/Temp > 100.7 F Aspirin (Aspirin E.C. 81 Mg Tablet) [facility] Last Admin: 06/20/20 08:41 Dose: 81 mg Documented by: Cilostazol (Cilostazol 50 Mg Tablet) 100 mg PO BID [facility] Last Admin: 06/20/20 10:06 Dose: 100 mg Documented by: Dextrose (Dextrose 50%-Water 25 Gm/50 Ml Disp.Syrin) 0 gm IV X1 PRN; Protocol PRN Reason: Hypoglycemia Enoxaparin Sodium (Enoxaparin 40 Mg/0.4 Ml Syringe) 40 mg SC DAILY [facility] Last Admin: 06/20/20 10:06 Dose: 40 mg Documented by: Gabapentin (Gabapentin 400 Mg Capsule) [facility] Last Admin: 06/20/20 08:41 Dose: 400 mg Documented by: Glucagon (Glucagon 1 Mg/Ml Syringe) 1 mg IM .X1 PRN PRN Reason: Hypoglycemia Sodium Chloride () 250 mls @ 15 mls/hr IV .[id number] PRN PRN Reason: Saline Flush Last Infusion: 06/19/20 14:45 Dose: 0 mls/hr Documented by: Sodium Chloride () 250 mls @ 15 mls/hr IV .[id number] PRN PRN Reason: Additional IVPB Infusion Piperacillin Sod/Tazobactam (Sod 3.375 gm/ Sodium Chloride) 50 mls @ 12.5 mls/hr IV Q8 [facility] Last Admin: 06/20/20 14:31 Dose: 12.5 mls/hr Documented by: Insulin Glargine (Insulin Glargine 100 Units/Ml Pen) 85 units SC 1100,2200 [facility] Last Admin: 06/20/20 11:36 Dose: 85 u Documented by: Insulin Human Lispro (Insulin Lispro 100 Unit/Ml Insuln.Pen) 18 unit SC TIDCM [facility] Last Admin: 06/20/20 16:31 Dose: 18 u Documented by: Insulin Human Lispro (Insulin Lispro 100 Unit/Ml Insuln.Pen) 0 unit SC TIDAC [facility]; Protocol Last Admin: 06/20/20 16:32 Dose: 1 u Documented by: Lisinopril (Lisinopril 10 Mg Tablet) 10 mg PO DAILY [facility] Last Admin: 06/20/20 10:06 Dose: 10 mg Documented by: Metoprolol Tartrate (Metoprolol Tartrate 25 Mg Tablet) 25 mg PO BID [facility] Last Admin: 06/20/20 10:06 Dose: 25 mg Documented by: Nutritional Formula (Nutritional Supplement (Rei) Packet) [facility] Last Admin: 06/20/20 16:31 Dose: 1 packet Documented by: Ondansetron HCl (Ondansetron 4 Mg/2 Ml Vial) 4 mg IV Q8H PRN PRN PRN Reason: NAUSEA/VOMITING Oxycodone HCl (Oxycodone 5 Mg Tablet) 5 mg PO Q4H PRN PRN PRN Reason: Pain Score 4-5 Last Admin: 06/19/20 23:11 Dose: 5 mg Documented by: Oxycodone HCl (Oxycodone 5 Mg Tablet) 10 mg PO Q4H PRN PRN PRN Reason: Pain Score 6-10 Last Admin: 06/17/20 21:39 Dose: 10 mg Documented by: Pravastatin Sodium (Pravastatin 40 Mg Tablet) 40 mg PO [facility] Last Admin: 06/19/20 21:25 Dose: 40 mg Documented by: Sodium Chloride (0.9% Saline Lock 10 Ml Syringe) 10 - 40 ml IV UD PRN PRN Reason: SALINE FLUSH Last Admin: 06/19/20 21:16 Dose: 10 ml Documented by: Medical Necessity - Tobacco Use Smoking Status: Never smoker Assessment/Plan All Active Problems (Last Reviewed 06/16/20 @ 14:[address] Kingston Mesa, DO) Other specified peripheral vascular diseases (Acute) Type 2 diabetes mellitus with diabetic polyneuropathy (Acute) Ulcer of right foot with necrosis of bone (Acute) Hammertoe of right foot (Acute) Cellulitis of right foot (Acute) POD #3 right fourth toe amputation secondary to osteomyelitis hammer toes, right cellulitis right lower extremity resolved diabetes I reviewed and discussed his case. Vitals are stable and he is afebrile. Blood cultures no growth. Aerobic and anaerobic wound culture was obtained and the results are pending from preop; so far with staph epidermidis and yeast and gram pos cocci. Intra operative cultures pending including micro and path but coag neg staph growing so far. The resection was performed at the metatarsal phalangeal joint level and was clinically clean without purulence or necrosis. Follow ID recs for abx His dressing changed with reapplication of gauze, Kerlix, and Alli wrap gently applied. Keep clean and intact. To continue nonweightbearing right lower extremity with surgical shoe in place. To heel weight-bear for transfers. I recommend PT and to use assistive device if needed. To follow-up with vascular specialist referral in the outpatient setting. He appears stable and d/c can be considered from a surgical standpoint. Follow up with Dr. Salcedo at [facility] within 2 to 3 days of discharge. Please do not hesitate to call if you have any questions.
[2020-06-20 21:45] LABS: Bedside Glucose 219 mg/dL (70-110)
[2020-06-20] MEDS: oxyCODONE 5 MG Tablet PO (21:45)
[2020-06-20] MEDS: Pravastatin 40 MG Tablet PO (21:47)
[2020-06-21 02:28] VITALS: BP 143/61; PULSE 77; RESP 17; TEMP 36.6; O2SAT 97
[2020-06-21 07:31] LABS: Bedside Glucose 211 mg/dL (70-110)
--- NOTE | 2020-06-21 07:37 | DCINST_ITS ---
- Discharge Diagnoses Current Active Problems: Current Active and Chronic Problems (Last Reviewed 06/16/20 @ 14:[address] Kingston Mesa, DO) History of diabetes mellitus (Chronic) Ulcer of right foot with necrosis of bone (Acute) Hammertoe of right foot (Acute) Cellulitis of right foot (Acute) missed polyp (Chronic) Hyperglycemia (Chronic) Hyponatremia (Chronic) Headache (Chronic) MARK ANTHONY (obstructive sleep apnea) (Chronic) DM type 1 (diabetes mellitus, type 1) (Chronic) Morbid obesity (Chronic) Hyperlipidemia (Chronic) Benign essential hypertension (Chronic) You will use the following diet at home:: Calorie/Carbohydrate Controlled (specify 1200, 1400, etc) - 1800 Discharge Activity: May Shower - with shower bag Weight Bearing Status: No weight bearing - Keep weight off of surgical right foot. Ok to heel weightbear for transfers. Use assistive device. Keep extremity elevated above heart level: Right Leg Call your doctor if your incision/area has: Continuous Slow Oozing, Sudden Increased Bleeding, Increased Pain/ Swelling, Increased Redness, Foul Smelling Discharge, Swelling at the incision site Call your doctor if you observe: Fever of 101 or Higher, Calf discomfort, Uncontrolled pain Cleanse incision/area with: Keep Dressing Clean & Dry Allergies/Adverse Reactions: Allergies No Known Allergies Allergy (Verified 06/16/20 11:03) Medications to take at Discharge Gabapentin 400 mg PO BID 12/17/16 Metoprolol Tartrate 25 mg PO BID 12/17/16 Insulin Aspart [Novolog Flexpen] 18 units SQ TIDCM 03/12/18 Insulin Glargine [Lantus SoloStar Pen] 85 units SQ BID 03/12/18 metFORMIN HCl [Glucophage] 850 mg PO BIDCM 03/12/18 aspirin 81 mg tablet,delayed release 81 mg PO DAILY 02/02/19 cilostazol 100 mg tablet 100 mg PO BID 02/02/19 lisinopril 10 mg tablet 10 mg PO DAILY 02/02/19 pravastatin 40 mg tablet 40 mg PO DAILY 02/02/19 Dulaglutide [Trulicity] 1.5 mg SQ QWEEK 05/12/20 Amoxicillin/Potassium Clav [Augmentin 875-125 Tablet] 1 ea PO BID #20 tab 06/20/20 Linezolid 600 mg PO BID #20 tab 06/20/20 The following prescriptions were given: Amoxicillin/Potassium Clav [Augmentin 875-125 Tablet] 1 ea PO BID #20 tab Transmission Status: Received by [facility] Linezolid 600 mg PO BID #20 tab Transmission Status: Received by [facility] Primary Care Physician: Dennis Schwartz MD [Primary Care Provider] - Please follow up with your Primary Care Physician in: in 1-2 weeks Test Results: Test results from this visit will be discussed in further detail at your follow- up appointment, if applicable. Please Follow Up With: Annabelle Salcedo DPM When: [facility] 2-3 days. Call [phone]. Please Follow Up With: Tylor Knott MD - vascular specialist When: 2 weeks, . A referral will also be sent. Please Follow Up With: Dave Dorman MD When: in 2 weeks Proposed Discharge Date: 06/21/20
--- NOTE | 2020-06-21 07:38 | DS.PCM_ITS ---
Discharge Date and Diagnosis - Problem List Patient Problems: Active and Suspected Problems (Last Reviewed 06/16/20 @ 14:[address] Kingston Mesa DO) Osteomyelitis of fourth toe of right foot (Suspected) Ulcer of right foot with necrosis of bone (Acute) Hammertoe of right foot (Acute) Cellulitis of right foot (Acute) Date of Admission: 06/16/20 Date of Discharge: 06/21/20 - Primary Discharge Diagnosis Acute Problems: Active Problems (Last Reviewed 06/16/20 @ 14:[address] Kingston Mesa DO) Ulcer of right foot with necrosis of bone (Acute) Hammertoe of right foot (Acute) Cellulitis of right foot (Acute) Suspected Problems: Suspected Problems (Last Reviewed 06/16/20 @ 14:[address] Kingston Mesa DO) Osteomyelitis of fourth toe of right foot (Suspected) - Secondary Discharge Diagnosis Chronic Problems: Chronic Problems (Last Reviewed 06/16/20 @ 14:[address] Kingston Mesa DO) History of diabetes mellitus (Chronic) missed polyp (Chronic) Hyperglycemia (Chronic) Hyponatremia (Chronic) Headache (Chronic) MARK ANTHONY (obstructive sleep apnea) (Chronic) DM type 1 (diabetes mellitus, type 1) (Chronic) Morbid obesity (Chronic) Hyperlipidemia (Chronic) Benign essential hypertension (Chronic) Hospital Course and Treatment Imaging Results: Clinical Impression(s) from Imaging Studies Lower Extremity MRI 06/16/20 15:58 IMPRESSION: 1. Osteomyelitis of the fourth proximal and middle phalanges 2. Pathologic fracture of the head neck junction of the fourth proximal phalanx due to osteomyelitis 3. Cortical edema on the plantar surface of the distal phalanx of the fourth toe. 4. No visualized soft tissue abscess Electronically Signed: Simone Baeza MD at 19:29 EDT , Service support , Foot X-Ray 06/17/20 16:08 IMPRESSION: Fluoroscopic guidance for fourth digit amputation. Electronically Signed: Frandy Sarmiento MD ([place]) at 16:40 EDT , Service support , Microbiology 06/16/20 16:35 Wound - Toe Gram Stain - Final 06/16/20 16:35 Wound - Toe Wound Culture - Preliminary Staphylococcus epidermidis Yeast, not Mel albicans Gram Positive Cocci 06/16/20 16:35 Wound - Toe Anaerobic Culture - Preliminary Checking for anaerobes, further studies to follow. 06/17/20 17:00 Amputation - Toe Gram Stain - Final 06/17/20 17:00 Amputation - Toe Wound Culture - Preliminary Coag Negative Staph 06/17/20 17:00 Amputation - Toe Anaerobic Culture - Final No anaerobic bacteria isolated. 06/16/20 11:45 Blood Culture (Wb) - Right Forearm Blood Culture - Preliminary No growth in 48 hours. 06/16/20 11:40 Blood Culture (Wb) - Left Forearm Blood Culture - Preliminary No growth in 48 hours. 06/17/20 10:15 Mucosa - Nose - Final 06/16/20 22:47 Interface Orders - Final Operations: None Summary of Care Provided: Patient is a 60-year-old male with past medical history is known for diabetes mellitus type 2, hypertension admitted with right fourth toe osteomyelitis 1. Right fourth toe osteomyelitis -patient underwent amputation on 06/17/2020. Wound cultures prior to surgery positive for staph epididymis. Cultures obtained from surgery results still pending. Patient remains on Vanco and Zosyn consult placed infectious disease -Patient wound cultures positive for coagulase negative staph aureus. Patient on Zosyn and vancomycin. Vancomycin discontinued. Final antibiotic therapy deferred to infectious disease -06/21/2020. Patient was discharged home with 10 more days of linezolid and Au gmentin as recommended by infectious disease Dr. Dorman 2. Diabetes mellitus type 2 ?With complications including diabetic neuropathy. Did continue home regimen in addition to Accu-Cheks before meals and at bedtime with sliding scale coverage 3. Hypertension - Blood pressure controlled, home medications continued with dose adjustment as needed 4. Morbid obesity with BMI of 44.1 ?Weight loss advised 5. Diabetic polyneuropathy ?Patient is on gabapentin did continue 6. Dyslipidemia -Patient is on statin therapy, continued at home dose 7. DVT prophylaxis ?Lovenox Patient Problems: Active and Suspected Problems (Last Reviewed 06/16/20 @ 14:[address] Kingston Mesa, DO) Osteomyelitis of fourth toe of right foot (Suspected) Ulcer of right foot with necrosis of bone (Acute) Hammertoe of right foot (Acute) Cellulitis of right foot (Acute) Objective: GENERAL: cooperative HEENT: Atraumatic; EYES; Anicteric, Normal Conjunctiva NECK; supple, normal thyroid, RESPIRATORY: Diminished to auscultation CARDIOVASCULAR: Regular S1 S2, GI: soft, normoactive bowel sounds, : No Renal angle tenderness; EXTREMITIES: Right foot in surgical dressing MUSCULOSKELETAL: no muscle waisting NEURO: Awake; no lateralizing signs. SKIN: No Rash PSYCH; Flat affect - Physical Exam Vitals/I&O's: Vital Signs Temp Pulse Resp BP Pulse Ox 97.8 F 77 17 143/61 H 97 06/21/20 02:28 06/21/20 02:28 06/21/20 02:28 06/21/20 02:28 06/21/20 02:28 Oxygen Delivery Method Room Air Weight: 160.79 kg Body Mass Index (BMI) 44.0 Finger Stick Blood Glucose 149 Intake and Output for Last 24 Hours 06/19/20 06/20/20 06/21/20 23:59 23:59 23:59 Intake Total 1849 602.75 / 602.75 Balance 1849 602.75 / 602.75 Microbiology Past 72 Hours 06/16/20 16:35 Wound - Toe Gram Stain - Final 06/16/20 16:35 Wound - Toe Wound Culture - Preliminary Staphylococcus epidermidis Yeast, not Mel albicans Gram Positive Cocci 06/16/20 16:35 Wound - Toe Anaerobic Culture - Preliminary Checking for anaerobes, further studies to follow. 06/17/20 17:00 Amputation - Toe Gram Stain - Final 06/17/20 17:00 Amputation - Toe Wound Culture - Preliminary Coag Negative Staph 06/17/20 17:00 Amputation - Toe Anaerobic Culture - Final No anaerobic bacteria isolated. 06/16/20 11:45 Blood Culture (Wb) - Right Forearm Blood Culture - Preliminary No growth in 48 hours. 06/16/20 11:40 Blood Culture (Wb) - Left Forearm Blood Culture - Preliminary No growth in 48 hours. Laboratory Results 06/20/20 10:53: POC Glucose 295 H 06/20/20 16:26: POC Glucose 173 H 06/20/20 21:42: POC Glucose 219 H 06/21/20 07:27: POC Glucose 211 H Current Medications Acetaminophen (Acetaminophen 325 Mg Tablet) 650 mg PO Q6H PRN PRN PRN Reason: Pain Score 1-10/Temp > 100.7 F Aspirin (Aspirin E.C. 81 Mg Tablet) [facility] Last Admin: 06/20/20 08:41 Dose: 81 mg Documented by: Cilostazol (Cilostazol 50 Mg Tablet) 100 mg PO BID [facility] Last Admin: 06/20/20 21:46 Dose: 100 mg Documented by: Dextrose (Dextrose 50%-Water 25 Gm/50 Ml Disp.Syrin) 0 gm IV X1 PRN; Protocol PRN Reason: Hypoglycemia Enoxaparin Sodium (Enoxaparin 40 Mg/0.4 Ml Syringe) 40 mg SC DAILY [facility] Last Admin: 06/20/20 10:06 Dose: 40 mg Documented by: Gabapentin (Gabapentin 400 Mg Capsule) [facility] Last Admin: 06/20/20 17:58 Dose: 400 mg Documented by: Glucagon (Glucagon 1 Mg/Ml Syringe) 1 mg IM .X1 PRN PRN Reason: Hypoglycemia Sodium Chloride () 250 mls @ 15 mls/hr IV .[id number] PRN PRN Reason: Saline Flush Last Infusion: 06/21/20 05:18 Dose: 0 mls/hr Documented by: Sodium Chloride () 250 mls @ 15 mls/hr IV .[id number] PRN PRN Reason: Additional IVPB Infusion Piperacillin Sod/Tazobactam (Sod 3.375 gm/ Sodium Chloride) 50 mls @ 12.5 ml s/hr IV Q8 [facility] Last Admin: 06/21/20 05:18 Dose: 12.5 mls/hr Documented by: Insulin Glargine (Insulin Glargine 100 Units/Ml Pen) 85 units SC 1100,2200 [facility] Last Admin: 06/20/20 21:46 Dose: 85 u Documented by: Insulin Human Lispro (Insulin Lispro 100 Unit/Ml Insuln.Pen) 18 unit SC TIDCM [facility] Last Admin: 06/20/20 16:31 Dose: 18 u Documented by: Insulin Human Lispro (Insulin Lispro 100 Unit/Ml Insuln.Pen) 0 unit SC TIDAC [facility]; Protocol Last Admin: 06/20/20 16:32 Dose: 1 u Documented by: Lisinopril (Lisinopril 10 Mg Tablet) 10 mg PO DAILY [facility] Last Admin: 06/20/20 10:06 Dose: 10 mg Documented by: Metoprolol Tartrate (Metoprolol Tartrate 25 Mg Tablet) 25 mg PO BID [facility] Last Admin: 06/20/20 21:47 Dose: 25 mg Documented by: Nutritional Formula (Nutritional Supplement (Rei) Packet) [facility] Last Admin: 06/20/20 16:31 Dose: 1 packet Documented by: Ondansetron HCl (Ondansetron 4 Mg/2 Ml Vial) 4 mg IV Q8H PRN PRN PRN Reason: NAUSEA/VOMITING Oxycodone HCl (Oxycodone 5 Mg Tablet) 5 mg PO Q4H PRN PRN PRN Reason: Pain Score 4-5 Last Admin: 06/20/20 21:45 Dose: 5 mg Documented by: Oxycodone HCl (Oxycodone 5 Mg Tablet) 10 mg PO Q4H PRN PRN PRN Reason: Pain Score 6-10 Last Admin: 06/17/20 21:39 Dose: 10 mg Documented by: Pravastatin Sodium (Pravastatin 40 Mg Tablet) 40 mg PO [facility] Last Admin: 06/20/20 21:47 Dose: 40 mg Documented by: Sodium Chloride (0.9% Saline Lock 10 Ml Syringe) 10 - 40 ml IV UD PRN PRN Reason: SALINE FLUSH Last Admin: 06/19/20 21:16 Dose: 10 ml Documented by: Discharge Diet: 1800 Calorie Control Diet Discharge Activity: May Shower - with shower bag Weight Bearing Status: No weight bearing - Keep weight off of surgical right foot. Ok to heel weightbear for transfers. Use assistive device. Keep extremity elevated above heart level: Right Leg Call your doctor if your incision/area has: Continuous Slow Oozing, Sudden Increased Bleeding, Increased Pain/ Swelling, Increased Redness, Foul Smelling Discharge, Swelling at the incision site Call your doctor if you observe: Fever of 101 or Higher, Calf discomfort, Uncontrolled pain Cleanse incision/area with: Keep Dressing Clean & Dry Home Medications: Medications to take at Discharge Gabapentin 400 mg PO BID 12/17/16 Metoprolol Tartrate 25 mg PO BID 12/17/16 Insulin Aspart [Novolog Flexpen] 18 units SQ TIDCM 03/12/18 Insulin Glargine [Lantus SoloStar Pen] 85 units SQ BID 03/12/18 metFORMIN HCl [Glucophage] 850 mg PO BIDCM 03/12/18 aspirin 81 mg tablet,delayed release 81 mg PO DAILY 02/02/19 cilostazol 100 mg tablet 100 mg PO BID 02/02/19 lisinopril 10 mg tablet 10 mg PO DAILY 02/02/19 pravastatin 40 mg tablet 40 mg PO DAILY 02/02/19 Dulaglutide [Trulicity] 1.5 mg SQ QWEEK 05/12/20 Amoxicillin/Potassium Clav [Augmentin 875-125 Tablet] 1 ea PO BID #20 tab 06/20/20 Linezolid 600 mg PO BID #20 tab 06/20/20 Following Prescriptions Were Given to Patient: Amoxicillin/Potassium Clav [Augmentin 875-125 Tablet] 1 ea PO BID #20 tab Transmission Status: Received by [facility] Linezolid 600 mg PO BID #20 tab Transmission Status: Received by [facility] Primary Care Physician: Dennis Schwartz MD [Primary Care Provider] - Please follow up with your Primary Care Physician in: in 1-2 weeks Please Follow Up With: Annabelle Salcedo DPM When: [facility] 2-3 days. Call [phone]. Please Follow Up With: Tylor Knott MD - vascular specialist When: 2 weeks, . A referral will also be sent. Please Follow Up With: Dave Dorman MD When: in 2 weeks Disposition: Home Minutes spent on discharge:: 45 Patient Condition:: Stable Medical Necessity - Tobacco Use Smoking Status: Never smoker Meaningful Use Info Meaningful Use Diagnoses (Choose all that apply): None applicable Inpatient E&M: 21776 Disch Hosp
[2020-06-21 07:56] VITALS: BP 139/61; PULSE 71; RESP 18; TEMP 36.7; O2SAT 95
[2020-06-21] MEDS: Insulin Lispro 100 UNIT/ML INSULN.PEN 18 UNIT SC (07:59)
[2020-06-21] MEDS: Insulin Lispro 100 UNIT/ML INSULN.PEN SC (08:00)
[2020-06-21] MEDS: Gabapentin 400 MG Capsule PO (08:01)
[2020-06-21] MEDS: Enoxaparin 40 MG/0.4 ML Syringe SC (08:01)
[2020-06-21 08:02] VITALS: PULSE 71
[2020-06-21] MEDS: Aspirin E.C. 81 MG Tablet PO (08:02)
[2020-06-21] MEDS: Metoprolol Tartrate 25 MG Tablet PO (08:02)
[2020-06-21] MEDS: Lisinopril 10 MG Tablet PO (08:02)
[2020-06-21] MEDS: Cilostazol 50 MG Tablet 100 MG PO (08:03)
--- NOTE | 2020-06-22 13:55 | CASEMGMT ---
DENG CLEVELAND Discharge Follow-up Phone Call: RONNY: Dk Strata: 3 Call Date: 06/22/20 Discharge Date: 06/21/20 Time of Call: [id number] Duration: Admitting Diagnosis: Right 4th toe osteomyelitis DENG CLEVELAND completed follow-up phone call after recent hospitalization. Patient states he is doing well. Patient had no questions or concerns regarding discharge instructions. Patient was able to fill prescriptions without any issues. Patient had follow-up appts scheduled prior to discharge. Patient had no further questions or concerns at this time.
== END 2020-06-21 11:26 | disposition home or self-care (01) | DRG 504 ==
LOC: ED 12:25 → MS3 15:06
PROVIDERS: Anesthesiology; Hospitalist; Podiatrist; Emergency Provider Emergency Medicine; PCP Family Medicine; Visit Provider Internal Medicine
PROC: 0Y6V0Z0 Detachment at Right 4th Toe, Complete, Open Approach (ICD-10-PCS; principal; 2020-06-17 16:00)
DX: M86.171 Other acute osteomyelitis, right ankle and foot (principal); E87.1 Hypo-osmolality and hyponatremia; Z68.41 Body mass index [BMI] 40.0-44.9, adult; M84.40XA Pathological fracture, unspecified site, initial encounter for fracture; B95.7 Other staphylococcus as the cause of diseases classified elsewhere; L03.115 Cellulitis of right lower limb; L97.514 Non-pressure chronic ulcer of other part of right foot with necrosis of bone; E66.01 Morbid (severe) obesity due to excess calories; E10.42 Type 1 diabetes mellitus with diabetic polyneuropathy; E10.621 Type 1 diabetes mellitus with foot ulcer; E10.65 Type 1 diabetes mellitus with hyperglycemia; E10.69 Type 1 diabetes mellitus with other specified complication; E78.5 Hyperlipidemia, unspecified; I10 Essential (primary) hypertension; G47.33 Obstructive sleep apnea (adult) (pediatric); Z89.411 Acquired absence of right great toe; Z79.4 Long term (current) use of insulin; Z79.02 Long term (current) use of antithrombotics/antiplatelets; Z79.82 Long term (current) use of aspirin; Z90.49 Acquired absence of other specified parts of digestive tract
CPT/HCPCS: 36415; 73620; 73720; 76000; 80048; 80202; 82962; 85025; 85610; 85652; 85730; 86140; 86850; 86900; 86901; 87015; 87040; 87070; 87075; 87077; 87102; 87116; 87186; 87205; 87206; 87426; 88305; 88311; 93005; 93923; 97161; 97802; 99284; A9575; J7030; J7040; J7050; A4216; J2405

== ENCOUNTER → 2021-03-15 12:18 | Outpatient (CLI) | payer OTHER, SELFPAY ==
[2020-06-17 13:51] VITALS: BMI 44.0
[2021-03-15 15:24] LABS: Vitamin B12 306 pg/mL (211-911)
[2021-03-15 15:31] LABS: ALB/GLOB Ratio 0.8 RATIO (0.9-2.4); AST(SGOT) 30 U/L (15-37); Alanine Aminotransfer ALT/SGPT 36 U/L (16-61); Albumin, Serum 3.2 g/dL (3.2-5.0); Alkaline Phosphatase 72 U/L (45-117); Anion Gap 5 (5-15); BUN 13 mg/dL (7-18); BUN/Creat Ratio 12.7 RATIO (10-20); Calcium,Total 8.2 mg/dL (8.5-10.1); Chloride 102 mmol/L (98-107); Cholesterol 105 mg/dL (200); Creatinine, Serum 1.02 mg/dL (0.70-1.30); EST Glomerular Filtration Rate 79 mL/min (>60); Est Glom Filt Rate - Afr Amer 96 mL/min (>60); Globulin 3.8 g/dL (2.2-4.2); Glucose 227 mg/dL (74-106); High Density Lipoprotein 29 mg/dL; Potassium 4.6 mmol/L (3.5-5.1); Sodium Level 135 mmol/L (136-145); Thyroid Stim Hormone (TSH) 2.34 uIU/mL (0.358-3.74); Triglycerides 119 mg/dL; Very Low Density Lipoprotein 24 mg/dL (5-40)
== END ==
PROVIDERS: PCP Family Medicine; Referring Provider Family Medicine; Visit Provider Family Medicine
DX: E11.8 Type 2 diabetes mellitus with unspecified complications (principal)
CPT/HCPCS: 36415; 80053; 80061; 82607; 84443

== ENCOUNTER → 2022-01-30 | Outpatient (CLI) | payer OTHER, SELFPAY ==
[2022-01-30 13:07] LABS: Vitamin B12 356 pg/mL (211-911)
[2022-01-30 13:27] LABS: ALB/GLOB Ratio 0.8 RATIO (0.9-2.4); AST(SGOT) 20 U/L (15-37); Alanine Aminotransfer ALT/SGPT 29 U/L (16-61); Albumin, Serum 3.2 g/dL (3.2-5.0); Alkaline Phosphatase 77 U/L (45-117); Anion Gap 7 (5-15); BUN 10 mg/dL (7-18); BUN/Creat Ratio 9.8 RATIO (10-20); Calcium,Total 8.6 mg/dL (8.5-10.1); Chloride 102 mmol/L (98-107); Cholesterol 109 mg/dL (200); Creatinine, Serum 1.02 mg/dL (0.70-1.30); EST Glomerular Filtration Rate 79 mL/min (>60); Est Glom Filt Rate - Afr Amer 96 mL/min (>60); Globulin 3.9 g/dL (2.2-4.2); Glucose 249 mg/dL (74-106); High Density Lipoprotein 33 mg/dL; Potassium 3.8 mmol/L (3.5-5.1); Protein, Total 7.1 g/dL (6.4-8.2); Sodium Level 137 mmol/L (136-145); Thyroid Stim Hormone (TSH) 1.67 uIU/mL (0.358-3.74); Triglycerides 106 mg/dL; Very Low Density Lipoprotein 21 mg/dL (5-40)
== END | disposition home or self-care (01) ==
LOC: MFPLAB 11:00
PROVIDERS: PCP Family Medicine; Referring Provider Family Medicine; Visit Provider Family Medicine
DX: E11.8 Type 2 diabetes mellitus with unspecified complications (principal)
CPT/HCPCS: 36415; 80053; 80061; 82607; 84403; 84443

== ENCOUNTER → 2023-02-26 | Outpatient (CLI) | payer OTHER, SELFPAY ==
[2023-02-26 17:47] LABS: Vitamin B12 722 pg/mL (211-911)
[2023-02-26 18:07] LABS: ALB/GLOB Ratio 0.8 RATIO (0.9-2.4); AST(SGOT) 19 U/L (15-37); Alanine Aminotransfer ALT/SGPT 25 U/L (16-61); Albumin, Serum 3.3 g/dL (3.2-5.0); Alkaline Phosphatase 72 U/L (45-117); Anion Gap 5 (5-15); BUN 12 mg/dL (7-18); BUN/Creat Ratio 12.4 RATIO (10-20); Calcium,Total 8.5 mg/dL (8.5-10.1); Chloride 105 mmol/L (98-107); Cholesterol 105 mg/dL (200); Creatinine, Serum 0.97 mg/dL (0.70-1.30); EST Glomerular Filtration Rate 83 mL/min (>60); Est Glom Filt Rate - Afr Amer 101 mL/min (>60); Globulin 4.2 g/dL (2.2-4.2); Glucose 99 mg/dL (74-106); High Density Lipoprotein 33 mg/dL; Potassium 4.4 mmol/L (3.5-5.1); Protein, Total 7.5 g/dL (6.4-8.2); Sodium Level 138 mmol/L (136-145); Thyroid Stim Hormone (TSH) 2.44 uIU/mL (0.358-3.74); Triglycerides 110 mg/dL; Very Low Density Lipoprotein 22 mg/dL (5-40)
== END | disposition home or self-care (01) ==
PROVIDERS: PCP Family Medicine; Visit Provider Family Medicine
DX: E11.8 Type 2 diabetes mellitus with unspecified complications (principal)
CPT/HCPCS: 36415; 80053; 80061; 82607; 84403; 84443

== ENCOUNTER 2023-10-09 14:23 | Emergency (ER) | payer OTHER, SELFPAY ==
[2023-10-09 14:24] VITALS: BP 201/90; PULSE 77; RESP 26; TEMP 36.7; O2SAT 97; BMI 46.3
--- NOTE | 2023-10-09 14:55 | RAD_ITS ---
STUDY: X-RAY - RIGHT SHOULDER REASON FOR EXAM: Male, 63 years old. pain TECHNIQUE: 2 view(s) of the shoulder. COMPARISON: None. FINDINGS: There is complete anterior inferior dislocation of the humeral head relative to the glenoid. Normal acromioclavicular joint. Normal acromion. Normal humeral head and visualized proximal humerus. The soft tissue structures are unremarkable. There is no demonstrated fracture. Normal visualized pulmonary apex. RAD/Shoulder min 2 Views IMPRESSION: Complete anterior inferior dislocation of the humeral head with no displaced fracture seen. Electronically Signed: Gerard Su MD at 16:48 EST ,
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
[2023-10-09] MEDS: HYDROcodone Bitartrate/Apap 5/325 Tablet PO (15:09)
[2023-10-09] MEDS: Ketorolac 15 MG/ML Vial IM (15:09)
--- NOTE | 2023-10-09 15:25 | RAD_ITS ---
STUDY: X-RAY - RIGHT ELBOW REASON FOR EXAM: Male, 63 years old. Pain following injury. TECHNIQUE: 2 view(s) of the elbow. COMPARISON: None. FINDINGS: Comminuted oblique fracture of the distal humeral metaphysis. Normal radiocapitellar and ulnotrochlear articulations. Soft tissue swelling. RAD/Elbow min 3 Views IMPRESSION: Comminuted fracture of the distal humeral metaphysis with overlying soft tissue swelling. Electronically Signed: Pepe Dong MD at 15:49 EST ,
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
[2023-10-09] MEDS: Ondansetron 4 MG/2 ML Vial IV (16:07)
[2023-10-09] MEDS: Morphine 4 MG/ML Syringe IV ×2 (16:08→17:31)
[2023-10-09 16:18] LABS: Absolute Lymphocyte Count 2.19 X10^3/uL (0.83-4.51); Absolute Neutrophil Count 11.8 X10^3/uL (2.0-7.7); Basophil# 0.07 X10^3/uL; Basophil% 0.4 % (0-1); Eosinophil# 0.73 X10^3/uL; Eosinophils% 4.6 % (0-5); Hematocrit 35.9 % (40-54); Hemoglobin 11.7 g/dL (13.0-16.5); Lymphocyte # 2.19 X10^3/ul (0.83-4.51); Lymphocyte % 13.8 % (19-41); Mean Corp Hgb Conc 32.6 g/dL (32-36); Mean Corpuscular Hgb 28.7 pg (27.0-32.0); Mean Corpuscular Volume 88.2 fL (80-94); Mean Platelet Vol. 9.1 fl (6.2-12.0); Monocyte# 0.93 X10^3/uL; Monocyte% 5.9 % (0-10); NRBC Flagged by Analyzer 0 % (0-5); Neutrophil # 11.78 X10^3/uL (2.7-7.7); Neutrophil % 74.1 % (47-70); Platelet Count 264 K/mm3 (150-450); RBC Distribution Width CV 14.5 % (11.6-14.6); RBC Distribution Width SD 46.4 fl (35.1-43.9); Red Blood Count 4.07 M/mm3 (4.6-6.2); White Blood Count 15.9 K/mm3 (4.4-11.0)
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
[2023-10-09 16:34] LABS: ALB/GLOB Ratio 0.8 RATIO (0.9-2.4); AST(SGOT) 42 U/L (15-37); Alanine Aminotransfer ALT/SGPT 43 U/L (16-61); Albumin, Serum 3.3 g/dL (3.2-5.0); Alkaline Phosphatase 83 U/L (45-117); Anion Gap 6 (5-15); BUN 14 mg/dL (7-18); BUN/Creat Ratio 13.2 RATIO (10-20); Chloride 105 mmol/L (98-107); Creatinine, Serum 1.06 mg/dL (0.70-1.30); EST Glomerular Filtration Rate 75 mL/min (>60); Est Glom Filt Rate - Afr Amer 91 mL/min (>60); Estimated Creatinine Clearance 117.29 ml/min; Globulin 3.9 g/dL (2.2-4.2); Glucose 134 mg/dL (74-106); Protein, Total 7.2 g/dL (6.4-8.2); Sodium Level 137 mmol/L (136-145)
--- NOTE | 2023-10-09 16:38 | RAD_ITS ---
STUDY: X-RAY - RIGHT HUMERUS REASON FOR EXAM: Male, 63 years old. pain TECHNIQUE: 2 view(s) of the humerus. COMPARISON: None. FINDINGS: Limited by patient size. Comminuted markedly displaced spiral fractures of the distal humerus. Dislocation of the glenohumeral joint. Proximal shaft is unremarkable. No gross dislocations of the elbow articulations. RAD/Humerus min 2 Views IMPRESSION: Limited by patient''s size. Comminuted displaced fractures of the distal humerus. Glenohumeral dislocation. Electronically Signed: Gerard Su MD at 17:20 EST ,
[2023-10-09] MEDS: 0.9% Normal Saline (1000mL) 1,000 ML 999 ML IV (17:09)
[2023-10-09 18:23] VITALS: BP 156/67; PULSE 85; RESP 21; O2SAT 100
[2023-10-09] MEDS: HYDROmorphone 0.5 MG/0.5 ML SYRINGE IV ×2 (18:31→19:50)
--- NOTE | 2023-10-09 19:23 | ED.RN ---
PT ACCEPTED AT [facility] ED TO ED DR. LARKIN ETA 60-14 @[id number].
[2023-10-09 20:18] VITALS: PULSE 77; RESP 19; O2SAT 100
[2023-10-09 20:19] VITALS: BP 156/67; PULSE 77; RESP 21; TEMP 36.3; O2SAT 97
== END 2023-10-09 20:11 | disposition short-term general hospital (02) ==
PROVIDERS: Emergency Provider Student in an Organized Health Care Education/Training Program; PCP Family Medicine; Visit Provider Student in an Organized Health Care Education/Training Program
DX: S42.421A Displaced comminuted supracondylar fracture without intercondylar fracture of right humerus, initial encounter for closed fracture (principal); S43.014A Anterior dislocation of right humerus, initial encounter; S09.90XA Unspecified injury of head, initial encounter; S16.1XXA Strain of muscle, fascia and tendon at neck level, initial encounter; V43.62XA Car passenger injured in collision with other type car in traffic accident, initial encounter
CPT/HCPCS: 29105; 70450; 71260; 72125; 73030; 73060; 73080; 74177; 80053; 85025; 96361; 96372; 96374; 96375; 96376; 99285; J7030; Q9967; A4216; J2405

== ENCOUNTER 2023-11-29 19:54 | Inpatient (IN) | payer OTHER, SELFPAY ==
[2023-11-29 19:59] VITALS: BP 121/46; PULSE 114; PULSE 115; RESP 15; RESP 16; TEMP 37.6; O2SAT 83; O2SAT 96; BMI 45.4
--- NOTE | 2023-11-29 20:16 | EKG12_ITS ---
Test Reason : DYSRHYTHMIA Blood Pressure : / mmHG Vent. Rate : 114 BPM Atrial Rate : 114 BPM P-R Int : 148 ms QRS Dur : 068 ms QT Int : 318 ms P-R-T Axes : 051 024 065 degrees QTc Int : 438 ms Sinus tachycardia Otherwise normal ECG Confirmed by Jethro Weaver ([id number]), fan mail editor JUS TERRAZAS ([id number]) on 12/02/2023 6:38:00 AM Referred By: Confirmed By:Jethro Weaver
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
[2023-11-29] MEDS: 0.9% Normal Saline (1000mL) 1,000 ML 1000 ML IV (21:04)
[2023-11-29] MEDS: Ondansetron 4 MG/2 ML Vial IV (21:04)
[2023-11-29 21:13] VITALS: BP 118/70; PULSE 111; RESP 20; TEMP 38.7; O2SAT 96
[2023-11-29 21:30] LABS: Absolute Lymphocyte Count 0.69 X10^3/uL (0.83-4.51); Absolute Neutrophil Count 7.4 X10^3/uL (2.0-7.7); Basophil# 0.01 X10^3/uL; Basophil% 0.1 % (0-1); Eosinophil# 0.01 X10^3/uL; Eosinophils% 0.1 % (0-5); Hemoglobin 8.7 g/dL (13.0-16.5); Lymphocyte # 0.69 X10^3/ul (0.83-4.51); Lymphocyte % 7.8 % (19-41); Mean Corp Hgb Conc 31.1 g/dL (32-36); Mean Corpuscular Hgb 27.4 pg (27.0-32.0); Mean Corpuscular Volume 88.3 fL (80-94); Mean Platelet Vol. 9.1 fl (6.2-12.0); Monocyte# 0.79 X10^3/uL; Monocyte% 8.9 % (0-10); NRBC Flagged by Analyzer 0 % (0-5); Neutrophil # 7.36 X10^3/uL (2.7-7.7); Neutrophil % 82.7 % (47-70); Platelet Count 268 K/mm3 (150-450); RBC Distribution Width CV 15.2 % (11.6-14.6); RBC Distribution Width SD 49.3 fl (35.1-43.9); Red Blood Count 3.17 M/mm3 (4.6-6.2); White Blood Count 8.9 K/mm3 (4.4-11.0)
--- NOTE | 2023-11-29 21:40 | RAD_ITS ---
STUDY: X-RAY - RIGHT SHOULDER REASON FOR EXAM: Male, 63 years old. pain TECHNIQUE: 3 view(s) of the shoulder. COMPARISON: 10/09/2023 FINDINGS: There is mild degenerative arthrosis of the glenohumeral articulation. There is degenerative arthrosis of the acromioclavicular joint without inferior osseous spur formation. Normal acromion. Normal humeral head and visualized proximal humerus. The soft tissue structures are unremarkable. Normal visualized pulmonary apex. RAD/Shoulder min 2 Views IMPRESSION: No acute fracture or dislocation. Mild glenohumeral and acromioclavicular joint arthrosis. Electronically Signed: Calvin Saenz MD at 22:20 EDT ,
--- NOTE | 2023-11-29 21:40 | RAD_ITS ---
STUDY: X-RAY - RIGHT HUMERUS REASON FOR EXAM: Male, 63 years old. pain TECHNIQUE: 2 view(s) of the humerus. COMPARISON: 10/09/2023 FINDINGS: Interval open reduction internal fixation of comminuted fracture of the distal shaft and metaphysis of the humerus with medial and lateral plates and screws. There is no demonstrated fracture or osseous destructive process. There is no demonstrated soft tissue abnormality. RAD/Humerus min 2 Views IMPRESSION: Interval open reduction internal fixation of fracture of the distal humerus with plates and screws. No new fracture. Electronically Signed: Calvin Saenz MD at 22:19 EDT ,
--- NOTE | 2023-11-29 21:40 | RAD_ITS ---
STUDY: X-RAY CHEST REASON FOR EXAM: Male, 63 years old. hypoxia TECHNIQUE: Single AP portable view of the chest. COMPARISON: 12/17/2016 FINDINGS: The lungs are clear and expanded. There is no demonstrated pleural abnormality. Normal size heart. Normal mediastinum and john. Normal visualized pulmonary arteries. Normal visualized aortic arch and descending thoracic aorta. Normal visualized thoracic spine. Normal visualized ribs, clavicles, and shoulders. There is no demonstrated abnormality of the visualized soft tissue structures of the upper abdomen. RAD/Chest 1 View (Portable) IMPRESSION: Normal x-ray examination of the chest. Electronically Signed: Calvin Saenz MD at 22:16 EDT ,
[2023-11-29 21:46] LABS: Anion Gap 5 (5-15); BUN 17 mg/dL (7-18); BUN/Creat Ratio 13.9 RATIO (10-20); Calcium,Total 8.4 mg/dL (8.5-10.1); Chloride 104 mmol/L (98-107); Creatinine, Serum 1.22 mg/dL (0.70-1.30); EST Glomerular Filtration Rate 64 mL/min (>60); Est Glom Filt Rate - Afr Amer 77 mL/min (>60); Glucose 107 mg/dL (74-106); Potassium 4.6 mmol/L (3.5-5.1); Sodium Level 135 mmol/L (136-145); Troponin-I HS 30 pg/mL (3.0-78.0)
[2023-11-29 22:00] VITALS: BP 115/62; PULSE 112; RESP 17; TEMP 38.8; O2SAT 96
[2023-11-29] MEDS: Acetaminophen 500 MG Tablet 1000 MG PO (22:03)
--- NOTE | 2023-11-29 22:48 | CT_ITS ---
EXAM: CT ANGIOGRAPHY CHEST WITHOUT AND WITH INTRAVENOUS CONTRAST CLINICAL INDICATION: hypoxia, fever TECHNIQUE: Helically acquired angiography images were obtained of the chest without and with intravenous contrast. This CT exam was performed using one or more of the following dose reduction techniques: automated exposure control, adjustment of the mA and/or kV according to patient size, and/or use of iterative reconstruction technique. MIP reconstructed images were created and reviewed. CONTRAST: IV 100mL [id number] RADIATION DOSE: CTDIvol = 16.22 mGy, DLP = 600.41 mGy-cm COMPARISON: CT chest abdomen and pelvis 10/09/2023 FINDINGS: PULMONARY ARTERIES: Unremarkable. Normal in caliber. No evidence of pulmonary embolism. AORTA: Unremarkable. Normal in caliber. No evidence of dissection. GREAT VESSELS OF AORTIC ARCH: Unremarkable. Normal in caliber. No evidence of dissection. LUNGS AND PLEURAL SPACES: Bibasilar dependent atelectasis. No mass. No pleural effusion or thickening. No pneumothorax. HEART: Coronary artery calcifications. Heart size is normal. No pericardial effusion. MEDIASTINUM: Unremarkable. No mediastinal or hilar adenopathy. Esophagus is unremarkable. No hiatal hernia. THYROID: Unremarkable. No thyroid lesions. BONES/JOINTS: Degenerative changes of the spine. No suspicious lytic or blastic abnormality. LIVER: Hepatomegaly. CT/CTA Chest W/WO Contrast IMPRESSION: 1. No pulmonary embolism or other acute abnormality identified. 2. Coronary artery calcifications. Electronically Signed: Santiago Hampton MD at 0:09 EDT ,
[2023-11-29 23:00] VITALS: BP 115/62; PULSE 112; RESP 18; TEMP 38.3; O2SAT 97
[2023-11-29] MEDS: Ibuprofen 600 MG Tablet PO (23:09)
[2023-11-29 23:13] LABS: Lactic Acid 1.2 mmol/L (0.4-1.9)
[2023-11-30] VITALS (14 sets, daily range): BP systolic 110–190; BP diastolic 49–69; PULSE 101–129; RESP 16–23; TEMP 36.7–39.3; O2SAT 86–99; BMI 43.2
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
--- NOTE | 2023-11-30 01:48 | ECHOCS_ITS ---
Reason For Study: SYNCOPE/ POSITIVE BLOOD CULTURES Procedure This was a 2D Doppler, Color Flow transthoracic echocardiogram. The study was technically difficult. Patient was scanned in supine position during reflux assessment. Contrast injection was performed. Exam performed portable in patient room. Left Ventricle Normal LV size. Moderate concentric left ventricular hypertrophy. Left ventricular systolic function is normal. The estimated ejection fraction is 55 %. No regional wall motion abnormalities noted. Right Ventricle Normal RV size. Normal systolic function. Atria Normal left atrium. Normal right atrium. Mitral Valve Normal mitral valve. Tricuspid Valve Normal tricuspid valve. Aortic Valve Trisinus/trileaflet aortic valve. Pulmonic Valve Normal pulmonic valve. Great Vessels Normal aortic root. The pulmonary artery is normal size. Normal inferior vena cava. Pericardium/Pleural No pericardial effusion. Medication Diluted definity 2ml given slow IV push to enhance endocardial definition. MMode/2D Measurements & Calculations LVIDd: 5.4 cm IVSd: 1.4 cm LVOT diam: 2.0 cm LVIDs: 2.5 cm LVPWd: 1.3 cm RVDd: 4.3 cm FS: 52.6 % LVOT area: 3.1 cm2 Ao root diam: 2.9 cm LAV(MOD-bp): 81.3 ml LVAd ap4: 33.3 cm2 LAV(MOD-bp) Indexed: 29.4 ml/m2 LVLd ap4: 8.4 cm LAV(MOD-sp2): 85.7 ml EDV(MOD-sp4): 105.3 ml LAV(MOD-sp4): 72.2 ml EDV(sp4-el): 111.5 ml LVAs ap4: 20.1 cm2 LVLs ap4: 6.7 cm ESV(MOD-sp4): 46.9 ml ESV(sp4-el): 51.0 ml EF(MOD-sp4): 55.5 % EF(sp4-el): 54.3 % LVAd ap2: 31.0 cm2 SV(MOD-sp4): 58.4 ml SV(MOD-sp2): 53.5 ml LVLd ap2: 7.9 cm EDV(MOD-sp2): 96.4 ml EDV(sp2-el): 102.8 ml LVAs ap2: 19.0 cm2 LVLs ap2: 6.7 cm ESV(MOD-sp2): 42.9 ml ESV(sp2-el): 45.5 ml EF(MOD-sp2): 55.5 % SV(sp4-el): 60.6 ml LA dimension(2D): 4.7 cm LA A4 area: 24.6 cm2 RA A4 area: 18.5 cm2 TAPSE: 2.0 cm Time Measurements MV dec time: 0.28 sec Doppler Measurements & Calculations MV E max elias: 128.0 cm/sec Lat Peak E' Elias: 9.8 cm/sec Med Peak E' Elias: 9.0 cm/sec MV A max elias: 114.5 cm/sec E/E' lat: 13.1 E/E' med: 14.3 MV E/A: 1.1 Ao V2 max: 136.8 cm/sec LV V1 max: 115.0 cm/sec MV dec slope: 465.5 cm/sec2 Ao max P.5 mmHg LV V1 max P.3 mmHg Ao V2 mean: 104.2 cm/sec LV V1 mean P.3 mmHg Ao mean P.7 mmHg LV V1 mean: 86.8 cm/sec Ao V2 VTI: 28.6 cm LV V1 VTI: 25.8 cm AV (velocity ratio): 0.90 ENRIKE(I,D): 2.8 cm2 ENRIKE(V,D): 2.6 cm2 SV(LVOT): 80.7 ml PA V2 max: 101.5 cm/sec PA max PG (full): 2.3 mmHg ECHO/Echo Complete W/ Contrast Interpretation Summary Normal LV size. Left ventricular systolic function is normal. Moderate concentric left ventricular hypertrophy. The estimated ejection fraction is 55 %. Contrast injection was performed. Ordering Physician: Levar Huff Referring Physician: Drew Schwartz MD Performed By: Tammy Reilly RDCS
[2023-11-30] MEDS: 0.9% Normal Saline (1000mL) 1,000 ML 125 ML IV (02:19)
[2023-11-30] MEDS: Morphine 2 MG/ML Syringe IV ×2 (02:20→21:13)
[2023-11-30] MEDS: 0.9% Saline Lock 10 ML Syringe IV (02:20)
[2023-11-30] MEDS: Pantoprazole Sodium 40 MG in 0.9% Normal Saline (100mL MB+) 100 ML 330 MG IV ×2 (02:27→09:23)
[2023-11-30] MEDS: proMETHazine 25 MG/ML Syringe IM ×3 (03:27→20:06)
[2023-11-30 05:00] LABS: Absolute Lymphocyte Count 0.62 X10^3/uL (0.83-4.51); Absolute Neutrophil Count 7.4 X10^3/uL (2.0-7.7); Basophil# 0.02 X10^3/uL; Basophil% 0.2 % (0-1); Hematocrit 26.9 % (40-54); Hemoglobin 8.3 g/dL (13.0-16.5); Lymphocyte # 0.62 X10^3/ul (0.83-4.51); Mean Corp Hgb Conc 30.9 g/dL (32-36); Mean Corpuscular Hgb 27.4 pg (27.0-32.0); Mean Corpuscular Volume 88.8 fL (80-94); Monocyte# 0.88 X10^3/uL; Monocyte% 9.9 % (0-10); NRBC Flagged by Analyzer 0 % (0-5); Neutrophil # 7.35 X10^3/uL (2.7-7.7); Neutrophil % 82.3 % (47-70); Platelet Count 230 K/mm3 (150-450); RBC Distribution Width CV 15.5 % (11.6-14.6); RBC Distribution Width SD 50.3 fl (35.1-43.9); Red Blood Count 3.03 M/mm3 (4.6-6.2); White Blood Count 8.9 K/mm3 (4.4-11.0)
[2023-11-30 05:37] LABS: ALB/GLOB Ratio 0.7 RATIO (0.9-2.4); AST(SGOT) 15 U/L (15-37); Alanine Aminotransfer ALT/SGPT 16 U/L (16-61); Albumin, Serum 2.6 g/dL (3.2-5.0); Alkaline Phosphatase 71 U/L (45-117); Anion Gap 7 (5-15); BUN 18 mg/dL (7-18); Calcium,Total 7.8 mg/dL (8.5-10.1); Chloride 105 mmol/L (98-107); EST Glomerular Filtration Rate 65 mL/min (>60); Est Glom Filt Rate - Afr Amer 79 mL/min (>60); Estimated Creatinine Clearance 102.39 ml/min; Globulin 3.9 g/dL (2.2-4.2); Glucose 88 mg/dL (74-106); Magnesium 1.7 mg/dL (1.6-2.6); Phosphorus 3.4 mg/dL (2.5-4.9); Potassium 4.2 mmol/L (3.5-5.1); Protein, Total 6.5 g/dL (6.4-8.2); Sodium Level 135 mmol/L (136-145)
[2023-11-30 06:35] LABS: Bedside Glucose 80 mg/dL (74-106)
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
[2023-11-30 08:06] LABS: Hemoglobin A1c 6.6 % (3.8-5.6)
--- NOTE | 2023-11-30 08:06 | CPS ---
Pt remains on own CPAP with 2 lpm bleed in. SMI held at this time
[2023-11-30] MEDS: Dextrose 50%-Water 25 GM/50 ML DISP.SYRIN IV (09:34)
[2023-11-30 10:00] LABS: Prealbumin 13.6 mg/dL (20.0-40.0)
--- NOTE | 2023-11-30 11:10 | CPS ---
Attempted to do SMI and Pep with pt but, pt was nauseated. Rx held
[2023-11-30] MEDS: Ondansetron 4 MG/2 ML Vial 8 MG IV (13:22)
[2023-11-30] MEDS: Metoprolol Tartrate 5 MG/5 ML Vial IV (13:23)
[2023-11-30] MEDS: Enoxaparin 40 MG/0.4 ML Syringe SC ×2 (13:28→21:13)
--- NOTE | 2023-11-30 14:05 | CASEMGMT ---
RN CM Assessment: Face to Face with pt for initial transition planning/care coordination assessment. RN CM introduced self and role at [facility], pt voices understanding and consents to assessment. Pt is A&O x4, resting in bed, and answers all questions appropriately at this time. Care providers, pharmacy, and demographics verified/updated. Admitting Dx: viral gastroenteritis with SIRS, hypoxia PCP: Tiffany Ly Specialists: None Preferred Pharmacy: [facility] Insurance: [employer] Prescription Benefit: yes LNOK: Spouse Pat Living Arrangements: Pt lives at home with spouse. Home is single story with 2 steps to enter. Pt is independent with IADLs and ADLs at baseline. Employed. Transportation: Pt drives self and denies concerns with transportation. DME: CPAP, cane. Pt reports he does not have oxygen at home. HHC/SNF: No history Pt states no concerns with going home at time of dc. Pt states no further concerns/needs. CM to follow. Advised pt to ask CM if any further question/concerns/needs arise, voices understanding. Pt Goal: Home Plan: Home with no needs Rhona WITT, RN, CCM
[2023-11-30] MEDS: Acetaminophen 325 MG Tablet 650 MG PO ×2 (14:27→22:44)
[2023-11-30] MEDS: traMADol 50 MG Tablet PO (14:28)
--- NOTE | 2023-11-30 15:13 | CPS ---
Attempted to do smi with pt but, pt was unavailable after multiple attempts
[2023-11-30 17:02] LABS: Bedside Glucose 109 mg/dL (74-106)
[2023-11-30 17:02] LABS: Bedside Glucose 66 mg/dL (74-106)
[2023-11-30 17:02] LABS: Bedside Glucose 119 mg/dL (74-106)
[2023-11-30 17:02] LABS: Bedside Glucose 105 mg/dL (74-106)
[2023-11-30] MEDS: Pramipexole Di-HCl 0.5 MG Tablet PO (21:12)
[2023-11-30] MEDS: Pravastatin 40 MG Tablet PO (21:12)
[2023-11-30] MEDS: Gabapentin 400 MG Capsule PO (21:13)
[2023-11-30] MEDS: Metoprolol Tartrate 25 MG Tablet PO (21:13)
[2023-11-30 21:57] LABS: Bedside Glucose 141 mg/dL (74-106)
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
--- NOTE | 2023-11-30 23:13 | CT_ITS ---
STUDY: CT RIGHT SHOULDER WITHOUT CONTRAST REASON FOR EXAM: Male, 63 years old. Right shoulder pain. Swelling RADIATION DOSAGE (If Supplied By Facility): CTDIvol = ( 60.22 ) mGy, DLP = ( 1704.29 ) mGycm TECHNIQUE: Thin section transaxial imaging of the right shoulder was obtained, with sagittal and coronal reconstructed images. Individualized dose optimization techniques were used for this CT. COMPARISON: None. FINDINGS: Chip fractures of the anterior inferior aspect of the limited process and of the coracoid process are noted. There is Hill-Sachs deformity of the humerus head suggesting prior anterior dislocation. There is no abnormal bone erosion to suggest osteomyelitis or septic arthritis . CT/Extremity Upper WITH Contrast IMPRESSION: Reduced dislocation of the right shoulder. Chip fractures of the anterior inferior glenoid fossa and of the coracoid process of the scapula. Hill-Sachs deformity of the humerus head Electronically Signed: Ricco Raza MD at 6:12 EDT ,
--- NOTE | 2023-11-30 23:18 | CT_ITS ---
INDICATION: Sepsis of unknown origin. EXAMINATION: CT ABDOMEN AND PELVIS WITHOUT CONTRAST - CT Abdomen And Pelvis W/O Contrast Injection TECHNIQUE: Helically acquired images were obtained of the abdomen and pelvis without oral or IV contrast. A radiation dose optimization technique was used for this scan. IV Contrast dosage and agent: None. Oral contrast: None. RADIATION DOSAGE (If Supplied By Facility): CTDIvol = ( 24.18 ) mGy, DLP = ( 2206.10 ) mGycm COMPARISON: CT Abdomen/PelvisNov 2011 4:29pm FINDINGS: LOWER CHEST: Lung bases are clear. No cardiomegaly or pericardial effusion. LIVER: Homogeneous. No focal mass. No intra- or extrahepatic biliary ductal dilation. PANCREAS: No focal cystic or solid mass. SPLEEN: Normal size without focal cystic or solid mass. ADRENAL GLANDS: No nodules. KIDNEYS AND URETERS: Normal renal size and position. No hydronephrosis. PERITONEUM: No ascites or free air. No other fluid collection. BOWEL: No evidence of acute appendicitis. No stomach or bowel distension. No focal inflammatory change. LYMPH NODES: No enlarged mesenteric or retroperitoneal lymph nodes. VESSELS: Aorta is non-dilated. URINARY BLADDER: Unremarkable. REPRODUCTIVE ORGANS: No pelvic masses. ABDOMINAL WALL: No discrete abdominal or pelvic wall hernia. BONES: There is acute/subacute compression fracture of T12 with 20% decreased height of vertebral body. There is no retropulsion of the posterior wall. CT/Abdomen/Pelvis without Cont IMPRESSION: There is acute/subacute compression fracture of T12 with 20% decreased height of vertebral body. There is no retropulsion of the posterior wall. Electronically Signed: Ricco Raza MD at 6:36 EDT ,
[2023-11-30] MEDS: Piperacil/Tazobactam 3.375 GM in 0.9% Normal Saline (50mL MB+) 50 ML IV (23:59)
[2023-12-01] VITALS (16 sets, daily range): BP systolic 116–170; BP diastolic 49–76; PULSE 93–125; RESP 16–20; TEMP 36.8–38.8; O2SAT 72–96; BMI 43.0
[2023-12-01] MEDS: Insulin Lispro 100 UNIT/ML INSULN.PEN SC ×4 (00:29→21:40)
[2023-12-01 00:45] LABS: Mucous, Urine 0 SEEN /hpf (<or=2+); Squamous Epithelial Cells - UA 0 SEEN /hpf (0-5)
[2023-12-01 00:52] LABS: Color, Urine Yellow (Yellow); Glucose, Dipstick Normal (Normal); Ketone-Dipstick 50 mg/dl (Negative); Leukocyte Esterase-Dipstick 500 /ul (Negative); Nitrite-Dipstick Positive (Negative); Occult Blood-Urine 150 /ul (Negative); Protein-Dipstick 100 mg/dl (Negative); Specific Gravity, Urine 1.015 (1.002-1.030); Urine Bilirubin Dipstick Negative (Negative); Urine Clarity Clear (Clear); Urine Urobilinogen Normal (Normal)
[2023-12-01 01:03] LABS: Bacteria 3+ /hpf (None Seen); Red Blood Cells-Urine 0-5 SEEN /hpf (0-5); Renal Epithelial Cells 0-5 SEEN /hpf (0-5); White Blood Cells 25-50 SEEN /hpf (0-5)
[2023-12-01] MEDS: Piperacil/Tazobactam 3.375 GM in 0.9% Normal Saline (50mL MB+) 50 ML IV ×3 (04:55→21:40)
[2023-12-01 05:21] LABS: Bedside Glucose 153 mg/dL (74-106)
[2023-12-01] MEDS: Ondansetron 4 MG/2 ML Vial 8 MG IV (05:56)
[2023-12-01 06:45] LABS: Absolute Lymphocyte Count 1.12 X10^3/uL (0.83-4.51); Absolute Neutrophil Count 7.7 X10^3/uL (2.0-7.7); Basophil# 0.04 X10^3/uL; Basophil% 0.4 % (0-1); Eosinophil# 0.05 X10^3/uL; Eosinophils% 0.5 % (0-5); Hematocrit 32.6 % (40-54); Hemoglobin 9.7 g/dL (13.0-16.5); Lymphocyte # 1.12 X10^3/ul (0.83-4.51); Lymphocyte % 11.3 % (19-41); Mean Corp Hgb Conc 29.8 g/dL (32-36); Mean Corpuscular Hgb 26.9 pg (27.0-32.0); Mean Corpuscular Volume 90.6 fL (80-94); Mean Platelet Vol. 8.9 fl (6.2-12.0); Monocyte# 0.95 X10^3/uL; Monocyte% 9.6 % (0-10); NRBC Flagged by Analyzer 0 % (0-5); Neutrophil % 77.6 % (47-70); Platelet Count 239 K/mm3 (150-450); RBC Distribution Width CV 15.9 % (11.6-14.6); RBC Distribution Width SD 52.9 fl (35.1-43.9); White Blood Count 9.9 K/mm3 (4.4-11.0)
--- NOTE | 2023-12-01 06:47 | PN.HOSP_ITS ---
Hospitalist Note [facility] [address] [place] [address] Extremity Upper WITH Contrast MR#: [id number] Acct: [id number] Name: RAJESH FLORES Rep #: [id number] : 1960 M 63 From: Ricco Raza MD PCP: Dr. Drew Schwartz MD Status: ADM JOHN Study: Extremity Upper WITH Contrast Date of Exam: 11/30/23 Exam# [id number] Ordering Dr: Levar Huff DO STUDY: CT RIGHT SHOULDER WITHOUT CONTRAST REASON FOR EXAM: Male, 63 years old. Right shoulder pain. Swelling RADIATION DOSAGE (If Supplied By Facility): CTDIvol = ( 60.22 ) mGy, DLP = ( 1704.29 ) mGycm TECHNIQUE: Thin section transaxial imaging of the right shoulder was obtained, with sagittal and coronal reconstructed images. Individualized dose optimization techniques were used for this CT. COMPARISON: None. FINDINGS: Chip fractures of the anterior inferior aspect of the limited process and of the coracoid process are noted. There is Hill-Sachs deformity of the humerus head suggesting prior anterior dislocation. There is no abnormal bone erosion to suggest osteomyelitis or septic arthritis . CT/Extremity Upper WITH Contrast IMPRESSION: Reduced dislocation of the right shoulder. Chip fractures of the anterior inferior glenoid fossa and of the coracoid process of the scapula. Hill-Sachs deformity of the humerus head Electronically Signed: Ricco Raza MD at 6:12 EDT Reading Location ID and State: [address] [place] [address] Tel , Service support , CC: Dr. Drew Schwartz MD; Dr. Levar Huff DO ~ Content Management Specialist: Signed -- [facility] [address] [place] [id number] Abdomen/Pelvis without Cont MR#: [id number] Acct: [id number] Name: RAJESH FLORES Rep #: [id number] : 1960 63 From: Ricco Raza MD PCP: Dr. Drew Schwartz MD Status: ADM JOHN Study: Abdomen/Pelvis without Cont Date of Exam: 11/30/23 Exam# [id number] Ordering Dr: Levar Huff DO INDICATION: Sepsis of unknown origin. EXAMINATION: CT ABDOMEN AND PELVIS WITHOUT CONTRAST - CT Abdomen And Pelvis W/O Contrast Injection TECHNIQUE: Helically acquired images were obtained of the abdomen and pelvis without oral or IV contrast. A radiation dose optimization technique was used for this scan. IV Contrast dosage and agent: None. Oral contrast: None. RADIATION DOSAGE (If Supplied By Facility): CTDIvol = ( 24.18 ) mGy, DLP = ( 2206.10 ) mGycm COMPARISON: CT Abdomen/PelvisNov 2011 4:29pm FINDINGS: LOWER CHEST: Lung bases are clear. No cardiomegaly or pericardial effusion. LIVER: Homogeneous. No focal mass. No intra- or extrahepatic biliary ductal dilation. PANCREAS: No focal cystic or solid mass. SPLEEN: Normal size without focal cystic or solid mass. ADRENAL GLANDS: No nodules. KIDNEYS AND URETERS: Normal renal size and position. No hydronephrosis. PERITONEUM: No ascites or free air. No other fluid collection. BOWEL: No evidence of acute appendicitis. No stomach or bowel distension. No focal inflammatory change. LYMPH NODES: No enlarged mesenteric or retroperitoneal lymph nodes. VESSELS: Aorta is non-dilated. URINARY BLADDER: Unremarkable. REPRODUCTIVE ORGANS: No pelvic masses. ABDOMINAL WALL: No discrete abdominal or pelvic wall hernia. BONES: There is acute/subacute compression fracture of T12 with 20% decreased height of vertebral body. There is no retropulsion of the posterior wall. CT/Abdomen/Pelvis without Cont IMPRESSION: There is acute/subacute compression fracture of T12 with 20% decreased height of vertebral body. There is no retropulsion of the posterior wall. Electronically Signed: Ricco Raza MD at 6:36 EDT Reading Location ID and State: [facility] / [place] Tel , Service support , CC: Dr. Drew Schwartz MD; Dr. Levar Huff DO ~ Content Management Specialist: Signed
[2023-12-01 07:17] LABS: Anion Gap 7 (5-15); BUN 22 mg/dL (7-18); BUN/Creat Ratio 14.7 RATIO (10-20); Calcium,Total 8.2 mg/dL (8.5-10.1); Chloride 102 mmol/L (98-107); EST Glomerular Filtration Rate 50 mL/min (>60); Est Glom Filt Rate - Afr Amer 61 mL/min (>60); Estimated Creatinine Clearance 81.74 ml/min; Glucose 198 mg/dL (74-106); Potassium 4.4 mmol/L (3.5-5.1); Sodium Level 134 mmol/L (136-145)
--- NOTE | 2023-12-01 08:05 | CPS ---
SMI and Pep held due to nausea
[2023-12-01] MEDS: Enoxaparin 40 MG/0.4 ML Syringe SC ×2 (08:40→21:40)
[2023-12-01] MEDS: proMETHazine 25 MG/ML Syringe IM (08:40)
[2023-12-01] MEDS: Insulin Glargine-YFGN 100 UNIT/ML Pen 40 UNIT SC ×2 (08:43→21:40)
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
[2023-12-01] MEDS: Pantoprazole Sodium 40 MG in 0.9% Normal Saline (100mL MB+) 100 ML 330 MG IV (09:36)
[2023-12-01] MEDS: Metoprolol Tartrate 25 MG Tablet PO ×2 (09:40→21:45)
[2023-12-01] MEDS: Aspirin E.C. 81 MG Tablet PO (09:40)
[2023-12-01 09:41] LABS: Bedside Glucose 198 mg/dL (74-106)
[2023-12-01] MEDS: Gabapentin 400 MG Capsule PO ×2 (09:43→21:39)
--- NOTE | 2023-12-01 10:22 | RAD_ITS ---
STUDY: X-RAY CHEST REASON FOR EXAM: Male, 63 years old. Hypoxia TECHNIQUE: PA and lateral views of the chest. COMPARISON: 11/29/2023 FINDINGS: Poor inspiration with some bibasilar atelectasis. There is no demonstrated pleural abnormality. Normal size heart. Normal mediastinum and john. Normal visualized pulmonary arteries. Normal visualized aortic arch and descending thoracic aorta. Normal visualized thoracic spine. Normal visualized ribs, clavicles, and shoulders. There is no demonstrated abnormality of the visualized soft tissue structures of the upper abdomen. RAD/Chest PA and Lateral IMPRESSION: Poor inspiration with some bibasilar atelectasis. Electronically Signed: Calvin Saenz MD at 11:23 EDT ,
--- NOTE | 2023-12-01 11:12 | CPS ---
Attempted to do SMI and PEP with pt but, pt was on own cpap machine and sleeping
[2023-12-01] MEDS: Insulin Lispro 100 UNIT/ML INSULN.PEN 10 UNIT SC ×2 (13:25→16:26)
[2023-12-01] MEDS: Acetaminophen 325 MG Tablet 650 MG PO ×2 (16:25→22:17)
[2023-12-01 16:32] LABS: Bedside Glucose 247 mg/dL (74-106)
[2023-12-01 16:32] LABS: Bedside Glucose 309 mg/dL (74-106)
[2023-12-01] MEDS: Vancomycin HCl 2,000 MG in 0.9% Normal Saline (500mL Bag) 500 ML 250 MG IV (17:41)
--- NOTE | 2023-12-01 18:02 | PCM.RX.CS ---
Consult Antibiotic Management Pharmacy has been consulted to manage selected antibiotic: Vancomycin Type of Intervention Type of Consult: New start Suspected Infection Suspected Infection: Other (INFECTED SHOULDER) Prior Doses of Antibiotics Prior Doses of Antibiotics Received/Current Regimen: Vancomycin 2000 mg IV x 2 given 12/01/23 @ 1741, patient is also on piperacillin/tazobactam 3.375 grams Q8H Labs Labs: Sodium 134 mmol/L (136-145) L 12/01/23 06:26 Potassium 4.4 mmol/L (3.5-5.1) 12/01/23 06:26 Chloride 102 mmol/L (98-107) 12/01/23 06:26 Carbon Dioxide 25.0 mmol/L (21.0-32.0) 12/01/23 06:26 Anion Gap 7 (5-15) 12/01/23 06:26 BUN 22 mg/dL (7-18) H 12/01/23 06:26 Creatinine 1.50 mg/dL (0.70-1.30) H 12/01/23 06:26 Est GFR (MDRD) Af Amer 61 mL/min (>60) 12/01/23 06:26 Est GFR (MDRD) Non-Af 50 mL/min (>60) L 12/01/23 06:26 BUN/Creatinine Ratio 14.7 RATIO (10-20) 12/01/23 06:26 Glucose 198 mg/dL (74-106) H 12/01/23 06:26 Microbiology Microbiology: Microbiology 11/30/23 15:00 Blood Culture (Wb) - Right Forearm Blood Culture - Preliminary Gram negative miroslava 11/29/23 22:40 Blood Culture (Wb) - No Site/Description Given Blood Culture - Preliminary GNR lactose gizzard skin remover 11/29/23 22:00 Stool Stool Occult Blood (ALFREDO) - Final 11/29/23 21:15 Mucosa - Nose SARS-CoV-2, Influenza & RSV (PCR) - Final Dosing Weight Weight used for dosin kg Estimated Creatinine Clearance Estimated Creatinine Clearance: ~82 Goal Trough Goal Trough: 15-20 mcg/mL Pharmacy Plan for Drug Dosing Pharmacy Plan for Drug Dosin mg IV x 1 followed by 2000 mg IV Q12H Pharmacy Service will continue to monitor and adjust dosing as required. Follow-Up Labs Follow-Up Labs: Trough: Vancomycin Date/Time Labs Ordered Labs to be done on [date and time ordered]: 12/03/23 @ 9347
[2023-12-01] MEDS: Pravastatin 40 MG Tablet PO (21:39)
[2023-12-01] MEDS: Pramipexole Di-HCl 0.5 MG Tablet PO (21:41)
[2023-12-01 22:44] LABS: Bedside Glucose 261 mg/dL (74-106)
[2023-12-01 23:14] LABS: Allen Test Positive; Base Excess -3 mmol/L (-2 to +2); Bicarbonate 19.7 mmol/L (22-26); Blood Gas Specimen Type ART; Comment 19/15 bipap; Mode Not entered; O2 Delivery Device BiPAP; PO2 62 mmHG (75-100); SITE R Radial; SO2 94 % (95-99); Total Carbon Dioxide 21 mmol/L; pCO2 24.9 mmHg (35-45); pH 7.51 (7.35-7.45)
[2023-12-01 23:40] LABS: BNP,B-Type NATRIURETIC PEPTIDE 94.9 pg/mL (0-100)
[2023-12-01 23:57] LABS: Troponin-I HS 173 pg/mL (3.0-78.0)
[2023-12-02] VITALS (11 sets, daily range): BP systolic 100–135; BP diastolic 51–68; PULSE 71–109; RESP 16–27; TEMP 36.4–39.4; O2SAT 94–100; BMI 44.1
[2023-12-02] MEDS: Ketorolac 15 MG/ML Vial IV (00:36)
[2023-12-02] MEDS: Aspirin 81 MG TAB.CHEW PO (00:57)
[2023-12-02] MEDS: Clopidogrel Bisulfate 75 MG Tablet PO (00:57)
[2023-12-02] MEDS: Meropenem 1 GM in 0.9% Normal Saline (100mL MB+) 100 ML IV ×2 (00:58→06:59)
[2023-12-02 01:45] LABS: Troponin-I HS 259 pg/mL (3.0-78.0)
[2023-12-02 02:00] LABS: International Normalized Ratio 1.3
[2023-12-02 02:01] LABS: Partial Thromboplast Time 40.9 Seconds (24.1-36.2)
[2023-12-02] MEDS: Heparin Injection (Vial) 5,000 UNIT/ML VIAL 4000 UNIT IV (02:08)
[2023-12-02] MEDS: HEPARIN/D5w 25,000 UNITS 25,000 UNITS/250 ML IV.SOLN. 10 UNITS CONT INF (02:09)
[2023-12-02] MEDS: Vancomycin HCl 2,000 MG in 0.9% Normal Saline (500mL Bag) 500 ML 250 MG IV (04:29)
[2023-12-02 05:32] LABS: Bedside Glucose 224 mg/dL (74-106)
[2023-12-02 05:55] LABS: Absolute Neutrophil Count 5.5 X10^3/uL (2.0-7.7); Basophil# 0.02 X10^3/uL; Basophil% 0.3 % (0-1); Hematocrit 25.5 % (40-54); Hemoglobin 7.9 g/dL (13.0-16.5); Lymphocyte % 11.2 % (19-41); Mean Corpuscular Hgb 27.5 pg (27.0-32.0); Mean Corpuscular Volume 88.9 fL (80-94); Mean Platelet Vol. 9.4 fl (6.2-12.0); Monocyte# 0.78 X10^3/uL; NRBC Flagged by Analyzer 0 % (0-5); Neutrophil # 5.48 X10^3/uL (2.7-7.7); Neutrophil % 76.9 % (47-70); Platelet Count 192 K/mm3 (150-450); RBC Distribution Width CV 15.8 % (11.6-14.6); RBC Distribution Width SD 51.3 fl (35.1-43.9); Red Blood Count 2.87 M/mm3 (4.6-6.2); White Blood Count 7.1 K/mm3 (4.4-11.0)
[2023-12-02 06:26] LABS: Anion Gap 6 (5-15); BUN 29 mg/dL (7-18); BUN/Creat Ratio 15.9 RATIO (10-20); Calcium,Total 8.1 mg/dL (8.5-10.1); Chloride 102 mmol/L (98-107); Creatinine, Serum 1.82 mg/dL (0.70-1.30); EST Glomerular Filtration Rate 40 mL/min (>60); Est Glom Filt Rate - Afr Amer 49 mL/min (>60); Glucose 258 mg/dL (74-106); Sodium Level 134 mmol/L (136-145)
[2023-12-02 06:40] LABS: Troponin-I HS 215 pg/mL (3.0-78.0)
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
[2023-12-02] MEDS: traMADol 50 MG Tablet PO ×3 (08:07→21:28)
[2023-12-02] MEDS: Acetaminophen 325 MG Tablet 650 MG PO ×3 (08:08→21:27)
[2023-12-02] MEDS: Insulin Glargine-YFGN 100 UNIT/ML Pen 40 UNIT SC ×2 (10:01→21:23)
[2023-12-02] MEDS: Pantoprazole Sodium 40 MG in 0.9% Normal Saline (100mL MB+) 100 ML 330 MG IV (10:02)
[2023-12-02] MEDS: Metoprolol Tartrate 25 MG Tablet PO ×2 (10:02→21:16)
[2023-12-02] MEDS: Gabapentin 400 MG Capsule PO ×2 (10:02→21:20)
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
[2023-12-02] MEDS: Insulin Lispro 100 UNIT/ML INSULN.PEN 10 UNIT SC ×2 (12:02→16:29)
[2023-12-02] MEDS: Insulin Lispro 100 UNIT/ML INSULN.PEN SC ×3 (12:03→21:23)
[2023-12-02] MEDS: Ceftriaxone 1 GM/50 ML BAG IV (12:16)
[2023-12-02 12:24] LABS: Bedside Glucose 239 mg/dL (74-106)
--- NOTE | 2023-12-02 13:46 | CON.PCM.ID_ITS ---
Assessment & Plan Assessment/Plan (1) Bacteremia due to Escherichia coli: PLAN: Likely urinary source. Agree with narrowing to ceftriaxone, will continue. Plan on short course po abx at discharge. CT done, no stone or abscess seen. Will follow, thank you HPI Consult Data Date of Consult: 12/02/23 HPI Narrative Reason for Consultation: bacteremia HPI Narrative: RAJESH FLORES, is a 63 M who presented 11/28 to ED with 2-3 days progressive dizziness, weakness, chest/abd pain, n/v, not feeling well, fever. Recent R shoulder surgery. No dysuria, no flank pain. Came to ED, admitted on vanc/zosyn, now abx narrowed to ceftriaxone. Found to have ecoli uti and bacteremia. Feeling better today, fever improved, no abd pain. Full ROS performed and neg except as noted above. [facility] Medical History Benign essential hypertension Diabetes Hyperglycemia Hyperlipidemia Morbid obesity MARK ANTHONY (obstructive sleep apnea) Home Medications gabapentin 400 mg capsule 400 mg PO BID NEUROPATHY 12/17/16 [History Last Taken 12/17/16] metoprolol tartrate 25 mg tablet 25 mg PO BID HTN 12/17/16 [History Last Taken 12/17/16] insulin aspart U-100 100 unit/mL (3 mL) subcutaneous pen 26 units SQ TIDCM DIABETES 03/12/18 [History Last Taken Unknown] insulin glargine 100 unit/mL (3 mL) subcutaneous pen 85 units SQ BID DIABETES 03/12/18 [History Last Taken 02/13/19 09:30] metformin 850 mg tablet 850 mg PO BIDCM DIABETES 03/12/18 [History Last Taken Unknown] aspirin 81 mg tablet,delayed release (Adult Aspirin Regimen) 81 mg PO DAILY heart health 02/02/19 [History Last Taken 02/09/19] cilostazol 100 mg tablet 100 mg PO BID heart health 02/02/19 [History Last Taken Unknown] lisinopril 10 mg tablet 10 mg PO DAILY HTN 02/02/19 [History Last Taken Unknown] pravastatin 40 mg tablet 40 mg PO DAILY cholesterol 02/02/19 [History Last Taken Unknown] dulaglutide 1.5 mg/0.5 mL subcutaneous pen injector 1.5 mg SQ QWEEK diabetes 05/12/20 [History Last Taken Unknown] linezolid 600 mg tablet 600 mg PO BID #20 tabs 06/20/20 [Rx Last Taken Unknown] ropinirole 1 mg tablet 1 mg PO QHS 11/29/23 [History Last Taken Unknown] tramadol 50 mg tablet 50 mg PO Q6H PRN PRN pain 11/29/23 [History Last Taken Unknown] Allergy/AdvReac Type Severity Reaction Status Date / Time No Known Allergies Allergy Verified 11/30/23 02:14 Family History Father High cholesterol Sister High cholesterol Sister High cholesterol Surgical History History of amputation of right great toe History of carpal tunnel surgery History of cholecystectomy History of colonoscopy (~2011) Social History Smoking Status: Never smoker Physical Exam Const alert, oriented x3 and no apparent distress General Appearance: cooperative HEENT normocephalic and head/scalp atraumatic Eyes PERRL and EOMs intact bilaterally Neck supple and No nodes Resp normal air movement and clear to auscultation bilaterally Cardio regular rate and regular rhythm GI soft to palpation, non-tender and non-distended Extremity General Extremity: edema Skin no rashes or lesions noted Neuro CN's II-XII intact bilaterally Lab / Micro Data Attestation: I reviewed the patient's lab results. 12/02/23 05:31 12/02/23 05:31 Labs: Laboratory Results - last 24 hr 12/01/23 11:38: POC Glucose 247 H 12/01/23 15:52: POC Glucose 309 H 12/01/23 21:38: POC Glucose 261 H 12/01/23 23:17: PT 16.0 H, INR 1.3, APTT 40.9 H, Troponin I High Sens 173 H*, B- Natriuretic Peptide 94.9 12/02/23 01:11: Troponin I High Sens 259 H* 12/02/23 05:13: POC Glucose 224 H 12/02/23 05:31: WBC 7.1, RBC 2.87 L, Hgb 7.9 L, Hct 25.5 L, MCV 88.9, MCH 27.5, MCHC 31.0 L, RDW Std Deviation 51.3 H, RDW Coeff of Eyal 15.8 H, Plt Count 192, MPV 9.4, Immature Gran % (Auto) 0.600, Neut % (Auto) 76.9 H, Lymph % (Auto) 11.2 L, [place] % (Auto) 11.0 H, Eos % (Auto) 0.0, Baso % (Auto) 0.3, Absolute Neuts (auto) 5.5, Absolute Lymphs (auto) 0.80 L, Nucleated RBC % 0, Sodium 134 L, Potassium 4.0, Chloride 102, Carbon Dioxide 26.0, Anion Gap 6, BUN 29 H, Creatinine 1.82 H, Estim Creat Clear Calc 68.30, Est GFR (MDRD) Af Amer 49 L, Est GFR (MDRD) Non-Af 40 L, BUN/Creatinine Ratio 15.9, Glucose 258 H, Calcium 8.1 L, Troponin I High Sens 215 H* 12/02/23 12:00: POC Glucose 239 H Micro: Microbiology 12/01/23 00:35 Urine, Clean Catch Urine Culture - Preliminary Presumptive E. coli 11/30/23 15:00 Blood Culture (Wb) - Right Forearm Blood Culture - Final Gram negative miroslava 11/29/23 22:40 Blood Culture (Wb) - No Site/Description Given Blood Culture - Preliminary Escherichia coli ABG Data ABG results: ABG 12/01/23 23:11 Specimen Type ART Sample Site R Radial pH 7.51 H Bicarbonate Actual 19.7 L Total CO2 21 Base Excess -3 L O2 Saturation 94 L O2 % 8.0 ABG pCO2 24.9 L ABG pO2 62 L Evaristo Test Positive O2 Delivery Device BiPAP Vent Mode Not entered Clinical Comments bipap Imaging Radiology Impression Echocardiogram 11/30/23 01:48 Interpretation Summary Normal LV size. Left ventricular systolic function is normal. Moderate concentric left ventricular hypertrophy. The estimated ejection fraction is 55 %. Contrast injection was performed. Ordering Physician: Levar Huff Referring Physician: Drew Schwartz MD Performed By: Tammy Reilly RDCS
[2023-12-02 16:48] LABS: Bedside Glucose 254 mg/dL (74-106)
[2023-12-02] MEDS: Pramipexole Di-HCl 0.5 MG Tablet PO (21:17)
[2023-12-02] MEDS: Pravastatin 40 MG Tablet PO (21:17)
[2023-12-02 22:42] LABS: Bedside Glucose 277 mg/dL (74-106)
[2023-12-03] VITALS (10 sets, daily range): BP systolic 111–156; BP diastolic 49–64; PULSE 76–92; RESP 16; TEMP 32.1–37.3; O2SAT 94–98; BMI 44.1
[2023-12-03] MEDS: Insulin Lispro 100 UNIT/ML INSULN.PEN SC ×4 (06:32→21:49)
[2023-12-03 06:55] LABS: Bedside Glucose 204 mg/dL (74-106)
[2023-12-03 07:27] LABS: Absolute Lymphocyte Count 1.08 X10^3/uL (0.83-4.51); Absolute Neutrophil Count 5.5 X10^3/uL (2.0-7.7); Basophil# 0.03 X10^3/uL; Basophil% 0.4 % (0-1); Eosinophil# 0.12 X10^3/uL; Eosinophils% 1.6 % (0-5); Hematocrit 26.3 % (40-54); Lymphocyte # 1.08 X10^3/ul (0.83-4.51); Lymphocyte % 14.5 % (19-41); Mean Corp Hgb Conc 30.4 g/dL (32-36); Mean Corpuscular Hgb 26.4 pg (27.0-32.0); Mean Corpuscular Volume 86.8 fL (80-94); Mean Platelet Vol. 9.8 fl (6.2-12.0); Monocyte# 0.69 X10^3/uL; Monocyte% 9.3 % (0-10); NRBC Flagged by Analyzer 0 % (0-5); Neutrophil % 73.8 % (47-70); Platelet Count 183 K/mm3 (150-450); RBC Distribution Width CV 15.9 % (11.6-14.6); RBC Distribution Width SD 50.5 fl (35.1-43.9); Red Blood Count 3.03 M/mm3 (4.6-6.2); White Blood Count 7.5 K/mm3 (4.4-11.0)
[2023-12-03 07:54] LABS: Anion Gap 5 (5-15); BUN 29 mg/dL (7-18); BUN/Creat Ratio 22.5 RATIO (10-20); Chloride 103 mmol/L (98-107); Creatinine, Serum 1.29 mg/dL (0.70-1.30); EST Glomerular Filtration Rate 60 mL/min (>60); Est Glom Filt Rate - Afr Amer 72 mL/min (>60); Estimated Creatinine Clearance 96.32 ml/min; Glucose 214 mg/dL (74-106); Magnesium 2.2 mg/dL (1.6-2.6); Sodium Level 134 mmol/L (136-145)
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
[2023-12-03] MEDS: Insulin Glargine-YFGN 100 UNIT/ML Pen 40 UNIT SC ×2 (08:39→21:52)
[2023-12-03] MEDS: Aspirin 81 MG TAB.CHEW PO (08:39)
[2023-12-03] MEDS: Insulin Lispro 100 UNIT/ML INSULN.PEN 10 UNIT SC ×3 (08:39→16:07)
[2023-12-03] MEDS: Metoprolol Tartrate 25 MG Tablet PO ×2 (08:40→21:44)
[2023-12-03] MEDS: Gabapentin 400 MG Capsule PO ×2 (08:48→21:44)
[2023-12-03] MEDS: Pantoprazole Sodium 40 MG in 0.9% Normal Saline (100mL MB+) 100 ML 330 MG IV (08:48)
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
[2023-12-03] MEDS: Acetaminophen 325 MG Tablet 650 MG PO ×2 (10:05→19:44)
[2023-12-03 10:31] LABS: Vitamin B12 1290 pg/mL (211-911)
[2023-12-03 10:32] LABS: Ferritin 186 ng/mL (26-388); Iron 14 ug/dL (65-175); Iron Binding Capacity,Total 189 ug/dL (250-450); PERCENT IRON SATURATION 7.4 % (15.0-55.0)
[2023-12-03] MEDS: Ceftriaxone 1 GM/50 ML BAG IV (11:08)
--- NOTE | 2023-12-03 11:10 | PCM.PN.ID ---
Physical Exam Narrative Feeling better, no fever, no abd pain Const alert and no apparent distress General Appearance: cooperative Resp normal air movement and clear to auscultation bilaterally Cardio regular rate and regular rhythm GI soft to palpation, non-tender and non-distended Skin no rashes or lesions noted ID ID: Route of nutrition/ use of supplements: [] Nutritional Intake: [] IV Site: [] Mcgee Catheter: []
[2023-12-03] MEDS: traMADol 50 MG Tablet PO ×2 (11:15→19:44)
--- NOTE | 2023-12-03 11:38 | CASEMGMT ---
Therapy notified SW that patient will need long-term facility placement for rehab. SW met with patient. Introduced self and role at [facility]. SW provided patient with a list of long-term facility providers including quality and resource use data and consistent with patient?s preferred geographic region, medical needs, and insurance network were provided from the [employer] Guide. SW explained to patient that he would just need to pick several facilities he would be okay with and SW will take care of contacting the facilities. Patient was hoping to go to [facility] TCU. SW let patient know TCU is full. Patient will review the list and SW will check back. Sandra Hendrix SCALE MECHANIC MORRIS
[2023-12-03 12:17] LABS: Bedside Glucose 230 mg/dL (74-106)
--- NOTE | 2023-12-03 13:22 | CASEMGMT ---
KARON checked back with patient and he reviewed the list, but he would like his to also look at it to help him decide. Patient's is working and will be in after work. Sandra CACERES
--- NOTE | 2023-12-03 14:40 | CASEMGMT ---
Patient's requested KARON. KARON met with patient and his . Their choices are: 1. [facility] 2. [facility] 3. [facility] 4. [facility]. Patient would prefer a private room. Patient and his would also like to know how much out of pocket cost they would incur. KARON called patient's insurance and patient's senior living facility coverage is: Patient has a 30% co-pay. KARON sent a referral to [facility]. KARON also asked [facility] if they had private rooms and if they had any idea how much a 30% co-pay would be for patient. Zenaida at [facility] responded they have a private room tomorrow. Zenaida will also check with insurance. KARON let patient and his know this information. Sandra CACERES
--- NOTE | 2023-12-03 16:02 | CASEMGMT ---
SW has not heard back from [facility] yet. SW updated patient and his letting them know SW will touch base with them tomorrow. Plan: SNF pending accepting facility and pre-cert. Sandra CACERES
[2023-12-03 16:53] LABS: Bedside Glucose 268 mg/dL (74-106)
--- NOTE | 2023-12-03 20:31 | CPS ---
Patient set up with own PAP machine for the night with 5L bleed on CPOX.
[2023-12-03] MEDS: Pramipexole Di-HCl 0.5 MG Tablet PO (21:44)
[2023-12-03] MEDS: Pravastatin 40 MG Tablet PO (21:45)
[2023-12-03 22:30] LABS: Bedside Glucose 260 mg/dL (74-106)
[2023-12-04] VITALS (9 sets, daily range): BP systolic 138–144; BP diastolic 58–75; PULSE 78–90; RESP 16–18; TEMP 36.3–36.6; O2SAT 94–98; BMI 44.1
[2023-12-04] MEDS: Insulin Lispro 100 UNIT/ML INSULN.PEN SC ×4 (06:33→21:28)
[2023-12-04 06:53] LABS: Bedside Glucose 203 mg/dL (74-106)
[2023-12-04 07:40] LABS: Absolute Lymphocyte Count 1.14 X10^3/uL (0.83-4.51); Absolute Neutrophil Count 4.9 X10^3/uL (2.0-7.7); Basophil# 0.04 X10^3/uL; Basophil% 0.6 % (0-1); Eosinophil# 0.37 X10^3/uL; Eosinophils% 5.3 % (0-5); Hematocrit 26.7 % (40-54); Hemoglobin 8.1 g/dL (13.0-16.5); Lymphocyte # 1.14 X10^3/ul (0.83-4.51); Lymphocyte % 16.3 % (19-41); Mean Corp Hgb Conc 30.3 g/dL (32-36); Mean Corpuscular Hgb 26.6 pg (27.0-32.0); Mean Corpuscular Volume 87.5 fL (80-94); Mean Platelet Vol. 9.8 fl (6.2-12.0); Monocyte# 0.55 X10^3/uL; Monocyte% 7.9 % (0-10); NRBC Flagged by Analyzer 0 % (0-5); Neutrophil # 4.85 X10^3/uL (2.7-7.7); Neutrophil % 69.5 % (47-70); Platelet Count 207 K/mm3 (150-450); RBC Distribution Width CV 15.4 % (11.6-14.6); RBC Distribution Width SD 49.5 fl (35.1-43.9); Red Blood Count 3.05 M/mm3 (4.6-6.2)
[2023-12-04 08:02] LABS: Anion Gap 4 (5-15); BUN 24 mg/dL (7-18); BUN/Creat Ratio 22.4 RATIO (10-20); Calcium,Total 8.1 mg/dL (8.5-10.1); Chloride 105 mmol/L (98-107); Creatinine, Serum 1.07 mg/dL (0.70-1.30); EST Glomerular Filtration Rate 74 mL/min (>60); Est Glom Filt Rate - Afr Amer 90 mL/min (>60); Estimated Creatinine Clearance 116.13 ml/min; Glucose 211 mg/dL (74-106); Sodium Level 137 mmol/L (136-145)
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
[2023-12-04] MEDS: Aspirin 81 MG TAB.CHEW PO (09:27)
[2023-12-04] MEDS: Insulin Glargine-YFGN 100 UNIT/ML Pen 40 UNIT SC ×2 (09:28→22:42)
[2023-12-04] MEDS: Insulin Lispro 100 UNIT/ML INSULN.PEN 10 UNIT SC ×3 (09:28→17:03)
[2023-12-04] MEDS: 0.9% Saline Lock 10 ML Syringe IV ×2 (09:32→17:39)
[2023-12-04] MEDS: Metoprolol Tartrate 25 MG Tablet PO ×2 (09:32→21:25)
[2023-12-04] MEDS: Pantoprazole Sodium 40 MG Tablet PO (09:35)
[2023-12-04] MEDS: Gabapentin 400 MG Capsule PO ×2 (09:35→21:25)
[2023-12-04] MEDS: Ceftriaxone 1 GM/50 ML BAG IV (09:37)
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
[2023-12-04 11:55] LABS: Bedside Glucose 227 mg/dL (74-106)
--- NOTE | 2023-12-04 13:25 | CASEMGMT ---
[facility] Acute Rehab does not have any availability. [facility] said no as they are not in network with patient's particular plan (they did show up on insurance website), [facility] and both also said no. KARON spoke with patient's Krystle via phone an let her know that all of the facilities have said no. SW also reviewed patient's therapy notes. Patient is doing better, but still a min assist of 2 and several losses of balance. Krystle asked what to do. KARON reviewed the [facility] list of nursing homes and there are still 3 facilities on the list that have 4 stars [place], [facility], and [facility]. (Pat expressed before she will not send patient to a facility that only gets 2 stars) Krystle was in agreement with KARON sending referrals to those 3 facilities. Krystle said she will talk with SW tomorrow. Sandra Hendrix EQUIPMENT RECORDS SUPERVISOR MORRIS
--- NOTE | 2023-12-04 13:35 | CASEMGMT ---
KARON sent referrals to [facility], [facility], and [facility] via [facility]. Await responses. Sandra Hendrix SECTION LABORER MORRIS
--- NOTE | 2023-12-04 13:55 | CASEMGMT ---
[facility] declined patient. [facility] is reviewing referral. Sandra Hendrix RECREATION SPECIALIST MORRIS
--- NOTE | 2023-12-04 14:40 | CASEMGMT ---
TCU had a bed open up. KARON asked [facility] to review patient. TCU is able to take patient and [facility] will start the pre-cert. KARON called patient's Pat and let her know TCU can take patient pending insurance approval. Pat was ecstatic that patient gets to go to TCU. KARON notified patient as well. Plan: d/c to TCU pending insurance approval. Sandra Hendrix PHOTOGRAPHER HELPER [place]ORRIS
[2023-12-04 17:24] LABS: Bedside Glucose 218 mg/dL (74-106)
[2023-12-04] MEDS: Sodium Ferric Gluconat/Sucrose 250 MG in 0.9% Normal Saline (250mL Bag) 250 ML 135 MG IV (17:50)
[2023-12-04] MEDS: Pravastatin 40 MG Tablet PO (21:25)
[2023-12-04] MEDS: Acetaminophen 325 MG Tablet 650 MG PO (21:25)
[2023-12-04] MEDS: Pramipexole Di-HCl 0.5 MG Tablet PO (21:25)
[2023-12-04 22:20] LABS: Bedside Glucose 286 mg/dL (74-106)
[2023-12-04] MEDS: Temazepam 15 MG Capsule 30 MG PO (22:42)
[2023-12-05 03:37] VITALS: BP 123/62; PULSE 83; RESP 20; TEMP 36.3; O2SAT 97
[2023-12-05 05:41] VITALS: BMI 43.9
[2023-12-05] MEDS: Senna/Docusate Sodium 1 Tablet PO (06:44)
[2023-12-05 08:28] LABS: Absolute Lymphocyte Count 1.55 X10^3/uL (0.83-4.51); Absolute Neutrophil Count 5.7 X10^3/uL (2.0-7.7); Basophil# 0.04 X10^3/uL; Basophil% 0.5 % (0-1); Eosinophil# 0.66 X10^3/uL; Eosinophils% 7.8 % (0-5); Hematocrit 25.7 % (40-54); Hemoglobin 8.3 g/dL (13.0-16.5); Lymphocyte # 1.55 X10^3/ul (0.83-4.51); Lymphocyte % 18.2 % (19-41); Mean Corp Hgb Conc 32.3 g/dL (32-36); Mean Corpuscular Hgb 27.9 pg (27.0-32.0); Mean Corpuscular Volume 86.5 fL (80-94); Mean Platelet Vol. 9.7 fl (6.2-12.0); Monocyte# 0.54 X10^3/uL; Monocyte% 6.3 % (0-10); NRBC Flagged by Analyzer 0 % (0-5); Neutrophil # 5.66 X10^3/uL (2.7-7.7); Neutrophil % 66.5 % (47-70); POSITIVE MORPHOLOGY YES; Platelet Count 230 K/mm3 (150-450); RBC Distribution Width CV 15.6 % (11.6-14.6); RBC Distribution Width SD 49.3 fl (35.1-43.9); Red Blood Count 2.97 M/mm3 (4.6-6.2); White Blood Count 8.5 K/mm3 (4.4-11.0)
[2023-12-05 08:37] LABS: Differential Indicated SCAN CRITERIA MET
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
[2023-12-05 09:04] VITALS: BP 125/62; PULSE 87; RESP 16; TEMP 36.3; O2SAT 95
[2023-12-05 09:05] LABS: Differential Comment SCANNED; Reactive Lymphocyte 1+
[2023-12-05] MEDS: Insulin Lispro 100 UNIT/ML INSULN.PEN 10 UNIT SC ×3 (09:07→16:34)
[2023-12-05] MEDS: Insulin Lispro 100 UNIT/ML INSULN.PEN SC ×3 (09:07→16:34)
[2023-12-05 09:08] VITALS: BP 125/62; PULSE 87
[2023-12-05] MEDS: Aspirin 81 MG TAB.CHEW PO (09:08)
[2023-12-05] MEDS: Metoprolol Tartrate 25 MG Tablet PO (09:08)
[2023-12-05] MEDS: Insulin Glargine-YFGN 100 UNIT/ML Pen 40 UNIT SC (09:08)
[2023-12-05] MEDS: Pantoprazole Sodium 40 MG Tablet PO (09:09)
[2023-12-05] MEDS: Ceftriaxone 1 GM/50 ML BAG IV (09:09)
[2023-12-05] MEDS: Gabapentin 400 MG Capsule PO (09:14)
[2023-12-05 09:32] LABS: Anion Gap 7 (5-15); BUN 18 mg/dL (7-18); BUN/Creat Ratio 17.3 RATIO (10-20); Calcium,Total 8.3 mg/dL (8.5-10.1); Chloride 105 mmol/L (98-107); Creatinine, Serum 1.04 mg/dL (0.70-1.30); EST Glomerular Filtration Rate 77 mL/min (>60); Est Glom Filt Rate - Afr Amer 93 mL/min (>60); Estimated Creatinine Clearance 119.31 ml/min; Glucose 261 mg/dL (74-106); Potassium 3.8 mmol/L (3.5-5.1); Sodium Level 137 mmol/L (136-145)
[2023-12-05] MEDS: Iron Sucrose Complex 200 MG in 0.9% Normal Saline (100mL Bag) 100 ML 220 MG IV (11:50)
[2023-12-05] MEDS: traMADol 50 MG Tablet PO (11:50)
--- NOTE | 2023-12-05 12:24 | CASEMGMT ---
Addendum entered by Sandra Hendrix 12/05/23 13:57: SW spoke with [facility] and it is still a possibility for patient to go to TCU. KARON is also waiting on [facility]. Sandra CACERES Original Note: [facility] has received insurance approval for patient, however there is an issue with insurance not accepting the correct NPI. Insurance is stating they will deny patient's stay if he is not discharged as the hospital is delaying the process. SW reached out to [facility] to see if they would be able to take patient. They will review his referral. KARON called patient's Krystle and let her know this information. KARON explained SW does have a referral out to [facility] and also asked therapy to see patient today to see if he is well enough to go home. SW will be in touch with her. SW notified patient as well. Sandra CACERES
[2023-12-05 13:51] LABS: Bedside Glucose 249 mg/dL (74-106)
[2023-12-05 13:51] LABS: Bedside Glucose 346 mg/dL (74-106)
[2023-12-05 14:26] VITALS: BP 156/65; PULSE 84; RESP 16; TEMP 36.4; O2SAT 97
[2023-12-05 14:27] VITALS: BP 156/65; PULSE 84; RESP 16; TEMP 36.4; O2SAT 97
--- NOTE | 2023-12-05 15:21 | CASEMGMT ---
[facility] accepted patient. However, TCU is still waiting on the official okay to take patient. KARON called patient's Pat and let her know that it is still a possibility that patient can go to TCU. KARON explained the issue seems to have been mostly resolved and TCU is waiting on the official okay from insurance. KARON also let Pat know that [facility] accepted patient if it does not work out with TCU. Pat will be out of town all day tomorrow from 6a to about 6 or 7 in the evening. Sandra Hendrix PROCESS IM[employer]OVEMENT CONSULTANT OFFICE ADMINISTRATION
--- NOTE | 2023-12-05 16:04 | CASEMGMT ---
Patient was approved to go to [facility]. KARON notified physician, RN, patient, and patient's Pat. [facility]ON let [facility] know as well. All in agreement with d/c plan. Plan: d/c to [facility] under skilled level of care. Sandra CACERES
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
[2023-12-05 16:53] LABS: Bedside Glucose 290 mg/dL (74-106)
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
== END 2023-12-05 20:25 | DRG 392 ==
LOC: ED 22:48 → PCU 11-30 01:17
PROVIDERS: Internal Medicine; Physician Assistant; Admitting Provider Internal Medicine; Emergency Provider Emergency Medicine; PCP Family Medicine; Visit Provider Internal Medicine
DX: A08.4 Viral intestinal infection, unspecified (principal); N30.00 Acute cystitis without hematuria; Z68.42 Body mass index [BMI] 45.0-49.9, adult; S42.291A Other displaced fracture of upper end of right humerus, initial encounter for closed fracture; I27.29 Other secondary pulmonary hypertension; D63.8 Anemia in other chronic diseases classified elsewhere; E11.51 Type 2 diabetes mellitus with diabetic peripheral angiopathy without gangrene; D50.9 Iron deficiency anemia, unspecified; B96.20 Unspecified Escherichia coli [E. coli] as the cause of diseases classified elsewhere; E66.01 Morbid (severe) obesity due to excess calories; Z79.4 Long term (current) use of insulin; I10 Essential (primary) hypertension; G25.81 Restless legs syndrome; S40.011A Contusion of right shoulder, initial encounter; M19.90 Unspecified osteoarthritis, unspecified site; E78.5 Hyperlipidemia, unspecified; K58.9 Irritable bowel syndrome, unspecified; S42.131A Displaced fracture of coracoid process, right shoulder, initial encounter for closed fracture; G47.33 Obstructive sleep apnea (adult) (pediatric); W19.XXXA Unspecified fall, initial encounter; S42.141A Displaced fracture of glenoid cavity of scapula, right shoulder, initial encounter for closed fracture; Z79.82 Long term (current) use of aspirin; Z79.84 Long term (current) use of oral hypoglycemic drugs; Z79.899 Other long term (current) drug therapy; Z86.16 Personal history of COVID-19
CPT/HCPCS: 36415; 36600; 71045; 71046; 71275; 73030; 73060; 73201; 74176; 80048; 80053; 81001; 82274; 82607; 82728; 82803; 82962; 83036; 83540; 83550; 83605; 83735; 83880; 84100; 84134; 84443; 84484; 85025; 85610; 85730; 87040; 87077; 87086; 87088; 87186; 87631; 93005; 93306; 94668; 97116; 97162; 97166; 97530; 97535; 97802; 97803; 99285; J1756; J2185; J7030; J7040; J7050; Q9957; Q9967; A4216; C8929; J2405; J2916

== ENCOUNTER 2023-12-05 20:42 | Inpatient (IN) | payer OTHER, SELFPAY ==
[2023-12-05 20:45] VITALS: BP 159/72; PULSE 84; RESP 18; O2SAT 94
--- NOTE | 2023-12-05 21:22 | NURSING ---
per discontinue sliding scale insulin lispro per discharge med list. Order not added to current med list per Dr. Peña
[2023-12-05 21:26] VITALS: PULSE 62; RESP 18; O2SAT 98
[2023-12-05 22:15] VITALS: O2SAT 94
[2023-12-05 22:25] VITALS: BMI 43.5
[2023-12-05 22:26] LABS: Bedside Glucose 282 mg/dL (74-106)
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
--- NOTE | 2023-12-05 22:36 | CPS ---
[2215] Pt.'s home CPAP unit set up in his room at this time. 2L oxygen bleed-in included.
[2023-12-05 22:41] VITALS: BP 153/69; PULSE 86
[2023-12-05] MEDS: Pravastatin 40 MG Tablet PO (22:41)
[2023-12-05] MEDS: Pramipexole Di-HCl 0.5 MG Tablet PO (22:41)
[2023-12-05] MEDS: Metoprolol Tartrate 25 MG Tablet PO (22:41)
[2023-12-05] MEDS: Gabapentin 400 MG Capsule PO (22:42)
[2023-12-05] MEDS: Cilostazol 50 MG Tablet 100 MG PO (22:42)
[2023-12-05] MEDS: Insulin Glargine-YFGN 100 UNIT/ML Pen 85 UNIT SC (22:55)
[2023-12-05] MEDS: Cephalexin 500 MG Capsule PO (23:21)
[2023-12-06] MEDS: traMADol 50 MG Tablet PO (04:33)
[2023-12-06] MEDS: Cephalexin 500 MG Capsule PO ×3 (05:51→17:28)
[2023-12-06 05:52] LABS: Absolute Lymphocyte Count 1.85 X10^3/uL (0.83-4.51); Absolute Neutrophil Count 7.4 X10^3/uL (2.0-7.7); Basophil# 0.05 X10^3/uL; Basophil% 0.5 % (0-1); Eosinophil# 0.83 X10^3/uL; Eosinophils% 7.5 % (0-5); Hematocrit 26.4 % (40-54); Hemoglobin 8.2 g/dL (13.0-16.5); Lymphocyte # 1.85 X10^3/ul (0.83-4.51); Lymphocyte % 16.8 % (19-41); Mean Corp Hgb Conc 31.1 g/dL (32-36); Mean Corpuscular Volume 86.8 fL (80-94); Mean Platelet Vol. 9.8 fl (6.2-12.0); Monocyte# 0.74 X10^3/uL; Monocyte% 6.7 % (0-10); NRBC Flagged by Analyzer 0 % (0-5); Neutrophil # 7.36 X10^3/uL (2.7-7.7); Neutrophil % 66.8 % (47-70); POSITIVE MORPHOLOGY YES; Platelet Count 301 K/mm3 (150-450); RBC Distribution Width CV 15.8 % (11.6-14.6); RBC Distribution Width SD 50.4 fl (35.1-43.9); Red Blood Count 3.04 M/mm3 (4.6-6.2)
[2023-12-06 06:11] LABS: Differential Indicated SCAN CRITERIA MET
[2023-12-06 06:18] LABS: Anion Gap 5 (5-15); BUN 14 mg/dL (7-18); BUN/Creat Ratio 14.9 RATIO (10-20); Calcium,Total 8.5 mg/dL (8.5-10.1); Chloride 105 mmol/L (98-107); Creatinine, Serum 0.94 mg/dL (0.70-1.30); EST Glomerular Filtration Rate 86 mL/min (>60); Est Glom Filt Rate - Afr Amer 105 mL/min (>60); Glucose 268 mg/dL (74-106); Sodium Level 137 mmol/L (136-145)
[2023-12-06 07:19] LABS: Bedside Glucose 227 mg/dL (74-106)
[2023-12-06 07:19] LABS: Atypical Lymphocyte 1+ %; Toxic Granulation 1+
[2023-12-06 09:22] VITALS: BP 129/61; PULSE 87; RESP 16; TEMP 36.3; O2SAT 97
[2023-12-06 09:26] VITALS: PULSE 87
[2023-12-06] MEDS: Aspirin E.C. 81 MG Tablet PO (09:26)
[2023-12-06] MEDS: metFORMIN HCl 850 MG Tablet PO ×2 (09:26→17:28)
[2023-12-06] MEDS: Insulin Lispro 100 UNIT/ML INSULN.PEN 26 UNIT SC ×3 (09:26→17:31)
[2023-12-06] MEDS: Metoprolol Tartrate 25 MG Tablet PO ×2 (09:26→22:07)
[2023-12-06] MEDS: Cilostazol 50 MG Tablet 100 MG PO ×2 (09:27→22:06)
[2023-12-06] MEDS: Menthol/Lanolin/Calamine/Znox 113 GM Tube 1 APPLIC TOPICAL ×2 (09:27→22:11)
[2023-12-06] MEDS: Lisinopril 10 MG Tablet PO (09:27)
[2023-12-06] MEDS: Pantoprazole Sodium 40 MG Tablet PO (09:27)
[2023-12-06] MEDS: Senna/Docusate Sodium 1 Tablet PO ×2 (09:27→22:07)
[2023-12-06] MEDS: Insulin Glargine-YFGN 100 UNIT/ML Pen 85 UNIT SC ×2 (09:29→22:07)
[2023-12-06] MEDS: Ascorbic Acid 500 MG Tablet PO (09:32)
[2023-12-06] MEDS: Iron Polysaccharide Complex 150 MG CAPSULE PO (09:32)
[2023-12-06] MEDS: Gabapentin 400 MG Capsule PO ×2 (09:32→22:06)
[2023-12-06] MEDS: Tuberculin,Purif.prot.deriv. 50 TU/ML Vial 0.1 ML ID (09:33)
--- NOTE | 2023-12-06 09:58 | NURSING ---
pt does not use trulicity, he uses ozempic 1 unit every saturday. will update inpt pharmacy. pt is now on humalog and glargine, along with metformin.
[2023-12-06 10:10] VITALS: O2SAT 94
--- NOTE | 2023-12-06 11:11 | NURSING ---
Hi Lift Operator Note; Activity Asset: Kirstie Muñoz is independent in his choice of daily activities. He will read, watch tv, visit w/family and they will bring items he may need. Welcomes visits from can carrier and therapy dog when available. Staff will remind him of daily activities and respect his right to say no.
[2023-12-06] MEDS: Nystatin Powder 15gm Bottle 1 APPLIC TOPICAL ×2 (11:38→22:11)
[2023-12-06 11:39] LABS: Bedside Glucose 222 mg/dL (74-106)
--- NOTE | 2023-12-06 15:24 | PCM.PN.DRR ---
Documented by User: Susi Lira 12/06/23 15:49 TCU RX Drug Regimen Review Subjective/Objective Subjective/Objective: Subjective: TCU Admission. 63 YOM presented to the ER with dizziness. Hospitalized for urinary tract infection, E. Coli bacteremia, complicated by acute respiratory failure with hypoxia, iron deficiency anemia, NSTEMI, left shoulder pain. Admitted to TCU with debility for strengthening and rehabilitation. Objective: Allergies No Known Allergies Allergy (Verified 11/30/23 02:14) Current Medications Generic Name Dose Route Start Last Admin Trade Name Freq PRN Reason Stop Dose Admin Acetaminophen 1,000 mg 12/05/23 23:10 Acetaminophen 500 Mg Tablet PO Q6H PRN PRN Pain Score 1-5 Albuterol Sulfate 2.5 mg 12/05/23 21:04 Albuterol 2.5 Mg/3 Ml Vial.Neb. INHALATION Q2H PRN PRN SOB &/OR WHEEZING Ascorbic Acid 500 mg 12/06/23 10:00 12/06/23 09:32 Ascorbic Acid 500 Mg Tablet PO 500 mg 1000 NABILA Administration Aspirin 81 mg 12/06/23 10:00 12/06/23 09:26 Aspirin E.C. 81 Mg Tablet PO 81 mg DAILY NABILA Administration Calamine/Phenol 1 applic 12/06/23 10:00 12/06/23 09:27 Menthol/Lanolin/Calamine/Znox 113 Gm Tube TOPICAL 1 applic BID NABILA Administration Protocol Cephalexin 500 mg 12/06/23 00:00 12/06/23 11:37 Cephalexin 500 Mg Capsule PO 12/11/23 00:01 500 mg Q6 NABILA Administration Cilostazol 100 mg 12/05/23 22:00 12/06/23 09:27 Cilostazol 50 Mg Tablet PO 100 mg BID NABILA Administration Gabapentin 400 mg 12/05/23 22:00 12/06/23 09:32 Gabapentin 400 Mg Capsule PO 400 mg BID NABILA Administration Insulin Glargine 85 unit 12/05/23 22:00 12/06/23 09:29 Insulin Glargine-Yfgn 100 Unit/Ml Pen SC 85 unit BID NABILA Administration Insulin Human Lispro 26 unit 12/06/23 08:00 12/06/23 09:27 Insulin Lispro 100 Unit/Ml Insuln.Pen SC 26 units 0800,1200,1700 NABILA Administration Lisinopril 10 mg 12/06/23 10:00 12/06/23 09:27 Lisinopril 10 Mg Tablet PO 10 mg DAILY NABILA Administration Protocol Magnesium Citrate 300 ml 12/05/23 22:59 Magnesium Citrate 300 Ml PO DAILY PRN PRN CONSTIPATION Metformin HCl 850 mg 12/06/23 08:00 12/06/23 09:26 Metformin Hcl 850 Mg Tablet PO 850 mg BIDCM [facility] Administration Metoprolol Tartrate 25 mg 12/05/23 22:00 12/06/23 09:26 Metoprolol Tartrate 25 Mg Tablet PO 25 mg BID [facility] Administration Protocol Nystatin 1 applic 12/06/23 10:00 12/06/23 11:38 Nystatin Powder 15gm Bottle TOPICAL 1 applic BID [facility] Administration Protocol Pantoprazole Sodium 40 mg 12/06/23 10:00 12/06/23 09:27 Pantoprazole Sodium 40 Mg Tablet PO 40 mg DAILY NABILA Administration Polysaccharide Iron Complex 150 mg 12/06/23 10:00 12/06/23 09:32 Iron Polysaccharide Complex 150 Mg Capsule PO 150 mg DAILY NABILA Administration Pramipexole Dihydrochloride 0.5 mg 12/05/23 22:00 12/05/23 22:41 Pramipexole Di-Hcl 0.5 Mg Tablet PO 0.5 mg QHS [facility] Administration Pravastatin Sodium 40 mg 12/06/23 22:00 Pravastatin 40 Mg Tablet PO [facility] Senna/Docusate Sodium 1 tablet 12/06/23 10:00 12/06/23 09:27 Senna/Docusate Sodium 1 Tablet PO 1 tablet BID [facility] Administration Sodium Chloride 10 - 40 ml 12/05/23 22:21 0.9% Saline Lock 10 Ml Syringe IV UD PRN SALINE FLUSH Temazepam 30 mg 12/05/23 21:09 Temazepam 15 Mg Capsule PO QHS PRN PRN Insomnia Tramadol HCl 50 mg 12/05/23 21:09 12/06/23 04:33 Tramadol 50 Mg Tablet PO 50 mg Q6H PRN PRN Administration Pain Score 6-10 Tuberculin PPD 0.1 ml 12/13/23 10:00 Tuberculin,Purif.Prot.Deriv. 50 Tu/Ml Vial ID 12/13/23 10:01 X1 ONE Problem List (Updated 12/05/23 @ 22:[address] Joseph Peña MD) PAOD (peripheral arterial occlusive disease) (Acute) Diabetic polyneuropathy (Acute) Essential (primary) hypertension (Acute) Diabetes (Acute) Iron deficiency anemia (Acute) Urinary tract infection (Acute) Acute respiratory failure with hypoxia (Acute) Debility (Acute) Bacteremia due to Escherichia coli (Acute) Near syncope (Acute) MARK ANTHONY (obstructive sleep apnea) (Chronic) Morbid obesity (Chronic) Hyperlipidemia (Chronic) Vital Signs Temp Pulse Resp BP Pulse Ox O2 Del Method O2 Flow Rate 97.4 F L 87 16 129/61 H 94 Room Air 2 12/06/23 09:22 12/06/23 09:26 12/06/23 09:22 12/06/23 09:22 12/06/23 10:10 12/06/23 10:10 12/05/23 22:15 Oxygen Flow Rate (L/min) 2 Oxygen Delivery Method Room Air Weight: 158.077 kg Body Mass Index (BMI) 43.5 Sodium 137 mmol/L (136-145) 12/06/23 05:19 Potassium 4.0 mmol/L (3.5-5.1) 12/06/23 05:19 Chloride 105 mmol/L (98-107) 12/06/23 05:19 Carbon Dioxide 27.0 mmol/L (21.0-32.0) 12/06/23 05:19 Anion Gap 5 (5-15) 12/06/23 05:19 BUN 14 mg/dL (7-18) 12/06/23 05:19 Creatinine 0.94 mg/dL (0.70-1.30) 12/06/23 05:19 Est GFR (MDRD) Af Amer 105 mL/min (>60) 12/06/23 05:19 Est GFR (MDRD) Non-Af 86 mL/min (>60) 12/06/23 05:19 BUN/Creatinine Ratio 14.9 RATIO (10-20) 12/06/23 05:19 Glucose 268 mg/dL (74-106) H 12/06/23 05:19 Assessment/Plan: 1. Pain: acetaminophen 1000mgPO Q6H PRN pain 1-5 and tramadol 50mg PO Q6H PRN pain 6-10. Resident has had 1 dose of tramadol for pain of 8 in the shoulder. Please continue to monitor for increased pain, PRN usage, constipation, respiratory depression and renal function. 2. Bowel: senna/docusate 1T PO BID and magnesium citrate 300mL PO daily PRN constipation. No PRN doses have been given. Please continue to monitor for constipation and PRN usage. No documented bowel movements at this time. 3. UTI/E coli bacteremia: cephalexin 500mg PO Q6 thru 12/11/23. Please continue to monitor for S/S of infection, diarrhea and renal function. 4. Hypertension: metoprolol tartrate 25mg PO BID and lisinopril 10mg PO daily. Please continue to monitor BP (last 129/61), HR (last 87), potassium (last 4mmol/L), cough and SCtr (last 0.94mg/dL). 5. PAOD: cilostazol 100mg PO BID and aspirin 81mg PO daily. Please continue to monitor hemoglobin (last 8.2g/dL) and S/S of bleeding. 6. Diabetes mellitus II: metformin 850mg PO BIDCM, insulin glargine 85units SC BID and insulin lispro 26units SC TID. Please continue to monitor hemoglobin A1c (last 6.6% 11/30/23), glucose (last 222mg/dL), S/S of hypoglycemia, diarrhea and GFR (last 86mL/min). 7. GERD: pantoprazole 40mg PO daily. Please continue to monitor for S/S of GERD and diarrhea (BEERs medication). 8. Restless leg syndrome: pramipexole 0.5mg PO QHS. Please continue to monitor for S/S of restless syndrome, dizziness and dyskinesia. 9. Hyperlipidemia: pravastatin 40mg PO QHS. Please continue to monitor lipid panel (last 02/16/23), LFTs (last 11/30/23) and muscle pain. 10. Shortness of breath: albuterol nebs 2.5mg inhalation Q2H PRN shortness of breath/wheezing. Please continue to monitor for SOB, wheezing and PRN usage. Resident has not used any doses so far. 11. Iron deficiency anemia: Ferrex 150mg PO DAILYCM and ascorbic acid 500mg PO daily. Please continue to monitor hemoglobin (last 8.2g/dL), constipation, dark stools and iron study (last 12/03/23). Assessment/Plan for indications treated with psychotropic medications: 1. Insomnia: temazepam 30mg PO QHS PRN insomnia. Please see physician note regarding GDR. Resident has not had any PRN doses. Please continue to monitor for confusion, PRN usage and insomnia. 2. Diabetic neuropathy: gabapentin 400mg PO BID. GDR not appropriate at this time as this is being used for neuropathy. Please continue to monitor renal function (dose appropriate), falls/fracures (BEERs medication) and confusion. Medical chart and medication regimen reviewed. The following medication irregularities or issues were identified: None Date Date of Note:: 12/06/23 Documented by User: Dr. Joseph Peña MD 12/06/23 18:32 TCU RX Drug Regimen Review Provider Comments Provider responsibility Provider Comments to Recommendations by Pharmacy: Agree
[2023-12-06 17:30] LABS: Bedside Glucose 155 mg/dL (74-106)
[2023-12-06] MEDS: Acetaminophen 500 MG Tablet 1000 MG PO (17:31)
[2023-12-06 21:42] LABS: Bedside Glucose 179 mg/dL (74-106)
[2023-12-06 22:07] VITALS: BP 153/58; PULSE 85
[2023-12-06] MEDS: Pravastatin 40 MG Tablet PO (22:07)
[2023-12-06] MEDS: Pramipexole Di-HCl 0.5 MG Tablet PO (22:07)
[2023-12-06 22:15] VITALS: O2SAT 97
--- NOTE | 2023-12-06 23:58 | NURSING ---
Resident verbalized during hs med pass he would like [facility] tomorrow am. Denies any abdominal pain, nausea, or vomiting. Reports he is passing flatus.
--- NOTE | 2023-12-07 | NURSING ---
Resident reports his will bring Ozempic in when she visits tomorrow. Order for Ozempic noted under nursing cvommunication. Will report to oncoming nurse.
[2023-12-07] MEDS: Cephalexin 500 MG Capsule PO ×4 (00:35→17:59)
[2023-12-07] MEDS: Acetaminophen 500 MG Tablet 1000 MG PO ×2 (00:36→12:03)
[2023-12-07 05:26] LABS: Hematocrit 25.5 % (40-54); Hemoglobin 7.7 g/dL (13.0-16.5)
[2023-12-07] MEDS: Electrolyte Solution/Peg's 4000 ML 1000 ML PO (05:48)
[2023-12-07 06:51] LABS: Bedside Glucose 138 mg/dL (74-106)
[2023-12-07] MEDS: Insulin Lispro 100 UNIT/ML INSULN.PEN 26 UNIT SC ×2 (08:07→11:56)
[2023-12-07] MEDS: Insulin Glargine-YFGN 100 UNIT/ML Pen 85 UNIT SC ×2 (08:08→22:08)
[2023-12-07] MEDS: Pantoprazole Sodium 40 MG Tablet PO (08:11)
[2023-12-07 08:12] VITALS: BP 124/55; PULSE 72
[2023-12-07] MEDS: Lisinopril 10 MG Tablet PO (08:12)
[2023-12-07] MEDS: Aspirin E.C. 81 MG Tablet PO (08:12)
[2023-12-07] MEDS: Metoprolol Tartrate 25 MG Tablet PO ×2 (08:12→20:33)
[2023-12-07] MEDS: metFORMIN HCl 850 MG Tablet PO ×2 (08:12→17:59)
[2023-12-07] MEDS: Senna/Docusate Sodium 1 Tablet PO ×2 (08:12→20:31)
[2023-12-07] MEDS: Iron Polysaccharide Complex 150 MG CAPSULE PO (08:12)
[2023-12-07] MEDS: Cilostazol 50 MG Tablet 100 MG PO ×2 (08:12→20:31)
[2023-12-07] MEDS: Ascorbic Acid 500 MG Tablet PO (08:13)
[2023-12-07] MEDS: Gabapentin 400 MG Capsule PO ×2 (10:06→20:31)
[2023-12-07] MEDS: SEMAGLUTIDE 1 MG/0.75 ML PEN.INJCTR SQ (10:07)
[2023-12-07] MEDS: Nystatin Powder 15gm Bottle 1 APPLIC TOPICAL ×2 (10:12→20:31)
[2023-12-07] MEDS: Menthol/Lanolin/Calamine/Znox 113 GM Tube 1 APPLIC TOPICAL ×2 (10:13→20:34)
[2023-12-07 11:27] LABS: Bedside Glucose 164 mg/dL (74-106)
--- NOTE | 2023-12-07 13:18 | NURSING ---
Order received from Dr. Peña for Overnight pulse Ox. Pt does not use O2 bleed in with CPAP. Order read back.
[2023-12-07 14:59] VITALS: BP 150/61; PULSE 92; RESP 18; TEMP 35.9; O2SAT 95
[2023-12-07 16:35] LABS: Bedside Glucose 103 mg/dL (74-106)
[2023-12-07] MEDS: 0.9% Saline Lock 10 ML Syringe IV (18:51)
[2023-12-07] MEDS: Sodium Ferric Gluconat 250 MG in 0.9% Normal Saline 250 ML 135 MG IV (18:52)
[2023-12-07] MEDS: Pravastatin 40 MG Tablet PO (20:31)
[2023-12-07] MEDS: Pramipexole Di-HCl 0.5 MG Tablet PO (20:32)
[2023-12-07 20:33] VITALS: BP 148/59; PULSE 87
[2023-12-07 21:21] LABS: Bedside Glucose 108 mg/dL (74-106)
[2023-12-07] MEDS: traMADol 50 MG Tablet PO (22:08)
[2023-12-07 22:23] VITALS: PULSE 88; O2SAT 96
--- NOTE | 2023-12-07 22:28 | CPS ---
[2223] Pt. on home BiPAP unit. 19/15 pressures with no oxygen bleed.
[2023-12-08] MEDS: Cephalexin 500 MG Capsule PO ×4 (00:36→17:50)
[2023-12-08 06:19] LABS: Bedside Glucose 81 mg/dL (74-106)
[2023-12-08 07:21] LABS: Hematocrit 25.7 % (40-54); Hemoglobin 7.9 g/dL (13.0-16.5)
[2023-12-08 08:05] VITALS: O2SAT 93
[2023-12-08 10:11] VITALS: BP 122/57; PULSE 91
[2023-12-08] MEDS: Metoprolol Tartrate 25 MG Tablet PO ×2 (10:11→22:12)
[2023-12-08] MEDS: Senna/Docusate Sodium 1 Tablet PO ×2 (10:11→22:14)
[2023-12-08] MEDS: Pantoprazole Sodium 40 MG Tablet PO (10:11)
[2023-12-08] MEDS: Lisinopril 10 MG Tablet PO (10:11)
[2023-12-08] MEDS: Ascorbic Acid 500 MG Tablet PO (10:11)
[2023-12-08] MEDS: Aspirin E.C. 81 MG Tablet PO (10:11)
[2023-12-08] MEDS: Iron Polysaccharide Complex 150 MG CAPSULE PO (10:11)
[2023-12-08] MEDS: Insulin Glargine-YFGN 100 UNIT/ML Pen 65 UNIT SC ×2 (10:12→22:08)
[2023-12-08] MEDS: Acetaminophen 500 MG Tablet 1000 MG PO ×2 (10:13→20:41)
[2023-12-08] MEDS: Cilostazol 50 MG Tablet 100 MG PO ×2 (10:13→22:14)
[2023-12-08] MEDS: Gabapentin 400 MG Capsule PO ×2 (10:15→22:17)
[2023-12-08] MEDS: metFORMIN HCl 850 MG Tablet PO ×2 (10:16→17:50)
[2023-12-08] MEDS: Nystatin Powder 15gm Bottle 1 APPLIC TOPICAL ×2 (10:17→22:13)
[2023-12-08] MEDS: Menthol/Lanolin/Calamine/Znox 113 GM Tube 1 APPLIC TOPICAL ×2 (10:17→22:06)
[2023-12-08 11:28] LABS: Bedside Glucose 145 mg/dL (74-106)
[2023-12-08] MEDS: Insulin Lispro 100 UNIT/ML INSULN.PEN 20 UNIT SC ×2 (12:09→17:50)
[2023-12-08] MEDS: 0.9% Saline Lock 10 ML Syringe IV ×2 (13:28→20:40)
[2023-12-08 14:42] VITALS: BP 130/60; PULSE 91; RESP 16; TEMP 36.6; O2SAT 95
[2023-12-08 17:05] LABS: Bedside Glucose 134 mg/dL (74-106)
[2023-12-08 20:30] VITALS: PULSE 92
[2023-12-08 21:36] LABS: Bedside Glucose 129 mg/dL (74-106)
[2023-12-08 22:12] VITALS: BP 124/50; PULSE 92
[2023-12-08] MEDS: Pramipexole Di-HCl 0.5 MG Tablet PO (22:13)
[2023-12-08] MEDS: Pravastatin 40 MG Tablet PO (22:14)
[2023-12-08 22:19] VITALS: BP 124/50; PULSE 92
[2023-12-09] VITALS (7 sets, daily range): BP systolic 113–133; BP diastolic 54–59; PULSE 83–97; RESP 16; TEMP 36.6; O2SAT 93–97
[2023-12-09] MEDS: Cephalexin 500 MG Capsule PO ×5 (00:14→23:36)
[2023-12-09 06:36] LABS: Bedside Glucose 78 mg/dL (74-106)
[2023-12-09] MEDS: Insulin Lispro 100 UNIT/ML INSULN.PEN 10 UNIT SC ×3 (08:52→17:38)
[2023-12-09] MEDS: Aspirin E.C. 81 MG Tablet PO (08:53)
[2023-12-09] MEDS: metFORMIN HCl 850 MG Tablet PO ×2 (08:53→17:38)
[2023-12-09] MEDS: Iron Polysaccharide Complex 150 MG CAPSULE PO (08:53)
[2023-12-09] MEDS: Insulin Glargine-YFGN 100 UNIT/ML Pen 30 UNIT SC ×2 (08:53→21:36)
[2023-12-09] MEDS: Metoprolol Tartrate 25 MG Tablet PO ×2 (08:53→21:40)
[2023-12-09] MEDS: Lisinopril 10 MG Tablet PO (08:54)
[2023-12-09] MEDS: Pantoprazole Sodium 40 MG Tablet PO (08:54)
[2023-12-09] MEDS: Senna/Docusate Sodium 1 Tablet PO (08:54)
[2023-12-09] MEDS: Ascorbic Acid 500 MG Tablet PO (08:54)
[2023-12-09] MEDS: Cilostazol 50 MG Tablet 100 MG PO ×2 (08:54→21:39)
[2023-12-09] MEDS: Gabapentin 400 MG Capsule PO ×2 (08:58→21:36)
[2023-12-09] MEDS: Acetaminophen 500 MG Tablet 1000 MG PO (08:59)
[2023-12-09] MEDS: Menthol/Lanolin/Calamine/Znox 113 GM Tube 1 APPLIC TOPICAL ×2 (09:02→21:42)
[2023-12-09] MEDS: Nystatin Powder 15gm Bottle 1 APPLIC TOPICAL ×2 (09:02→21:39)
[2023-12-09] MEDS: 0.9% Saline Lock 10 ML Syringe IV ×2 (10:51→21:41)
[2023-12-09 11:02] LABS: Bedside Glucose 101 mg/dL (74-106)
--- NOTE | 2023-12-09 11:39 | NURSING ---
Addendum entered by Nell Fraga 12/09/23 17:37: dr ivey spoke with kaden, new orders to DC lisinopril and encourage fluids Original Note: At 1045 pt called out after returning from therapy, c/o lightheaded, seeing black spots. pt states he just finished riding bike and doing steps with therapy. just don't feel right vitals WNL. BS 101. pt asked for jello, given and OJ as well. pt states he has been having liquid stools since getting nulytely on Saturday night. Will update dr ivey. pt denies any more issues since eating jello & taking OJ. pt sitting in recliner chair. call light in reach. denies needs.
[2023-12-09 12:02] LABS: Bedside Glucose 106 mg/dL (74-106)
--- NOTE | 2023-12-09 12:21 | NURSING ---
Offered Covid vaccine, VIS provided. Patient refuses at this time.
[2023-12-09 16:52] LABS: Bedside Glucose 130 mg/dL (74-106)
--- NOTE | 2023-12-09 18:10 | CASEMGMT ---
Social Work SW met with patient and , Pat at bedside to complete initial intake assessment. SW introduced self and role. Patient confirmed demographics and contact information. Patient confirmed code status as Full code. Patient and informed SW that the patient does not have a living will or advanced directive. Patient has information for advanced directive provided by PCP, Dr. Drew Schwartz. Patient declined and further information for AD. SW educated patient of [employer] insurance coverage and next review date of 12/18/2023. Patient and , Pat informed SW that the patient would like to discharge prior to NRD. Patient informed SW that he feels physically improved to return home with goal of outpatient therapy at [facility] for continued PT/OT. Patient has a history of participating in outpatient therapy via [facility]. Patient will need referral to [facility]. SW discussed transportation. Patient's and mother will assist with transportation to outpatient therapy. SW will follow to assist with discharge planning. MORRIS Maurer
[2023-12-09] MEDS: Hydrocortisone 2.5% Crm 1 APPLIC TOPICAL (18:30)
[2023-12-09 21:33] LABS: Bedside Glucose 138 mg/dL (74-106)
[2023-12-09] MEDS: Pramipexole Di-HCl 0.5 MG Tablet PO (21:39)
[2023-12-09] MEDS: Pravastatin 40 MG Tablet PO (21:40)
[2023-12-10] MEDS: Hydrocortisone 2.5% Crm 1 APPLIC TOPICAL (03:08)
[2023-12-10] MEDS: Cephalexin 500 MG Capsule PO ×3 (05:20→17:37)
[2023-12-10 06:36] LABS: Bedside Glucose 122 mg/dL (74-106)
[2023-12-10 08:25] VITALS: O2SAT 94
[2023-12-10] MEDS: Cilostazol 50 MG Tablet 100 MG PO ×2 (08:38→21:16)
[2023-12-10] MEDS: Iron Polysaccharide Complex 150 MG CAPSULE PO (08:39)
[2023-12-10] MEDS: Aspirin E.C. 81 MG Tablet PO (08:39)
[2023-12-10] MEDS: Ascorbic Acid 500 MG Tablet PO (08:39)
[2023-12-10] MEDS: metFORMIN HCl 850 MG Tablet PO ×2 (08:39→17:37)
[2023-12-10] MEDS: Insulin Glargine-YFGN 100 UNIT/ML Pen 15 UNIT SC ×2 (08:39→21:15)
[2023-12-10] MEDS: Pantoprazole Sodium 40 MG Tablet PO (08:39)
[2023-12-10] MEDS: Insulin Lispro 100 UNIT/ML INSULN.PEN 10 UNIT SC ×3 (08:40→17:37)
[2023-12-10 08:41] VITALS: BP 132/63; PULSE 96
[2023-12-10] MEDS: Metoprolol Tartrate 25 MG Tablet PO ×2 (08:41→21:15)
[2023-12-10] MEDS: Nystatin Powder 15gm Bottle 1 APPLIC TOPICAL ×2 (08:46→21:22)
[2023-12-10] MEDS: Menthol/Lanolin/Calamine/Znox 113 GM Tube 1 APPLIC TOPICAL ×2 (08:47→21:22)
[2023-12-10] MEDS: Gabapentin 400 MG Capsule PO ×2 (08:48→21:13)
[2023-12-10 11:31] LABS: Bedside Glucose 124 mg/dL (74-106)
[2023-12-10] MEDS: 0.9% Saline Lock 10 ML Syringe IV (12:00)
[2023-12-10 14:54] VITALS: BP 118/59; PULSE 92; RESP 16; TEMP 36.6; O2SAT 95
[2023-12-10 15:26] VITALS: BMI 43.5
[2023-12-10 17:24] LABS: Bedside Glucose 140 mg/dL (74-106)
[2023-12-10 20:45] VITALS: PULSE 93; RESP 16; O2SAT 98
[2023-12-10] MEDS: Acetaminophen 500 MG Tablet 1000 MG PO (21:14)
[2023-12-10] MEDS: Lactobacillis Acidophilus 1 CAP PO (21:14)
[2023-12-10 21:15] VITALS: BP 142/54; PULSE 96
[2023-12-10] MEDS: Pravastatin 40 MG Tablet PO (21:16)
[2023-12-10] MEDS: Pramipexole Di-HCl 0.5 MG Tablet PO (21:16)
[2023-12-10 21:52] LABS: Bedside Glucose 171 mg/dL (74-106)
[2023-12-11] MEDS: Cephalexin 500 MG Capsule PO (00:18)
[2023-12-11 06:11] LABS: Bedside Glucose 165 mg/dL (74-106)
[2023-12-11 08:34] VITALS: BP 151/68; PULSE 94; RESP 16; TEMP 36.1; O2SAT 97
[2023-12-11] MEDS: metFORMIN HCl 850 MG Tablet PO ×2 (08:36→17:37)
[2023-12-11] MEDS: 0.9% Saline Lock 10 ML Syringe IV (08:36)
[2023-12-11 08:37] VITALS: PULSE 94
[2023-12-11] MEDS: Lactobacillis Acidophilus 1 CAP PO ×2 (08:37→22:28)
[2023-12-11] MEDS: Metoprolol Tartrate 25 MG Tablet PO ×2 (08:37→22:26)
[2023-12-11] MEDS: Pantoprazole Sodium 40 MG Tablet PO (08:37)
[2023-12-11] MEDS: Ascorbic Acid 500 MG Tablet PO (08:37)
[2023-12-11] MEDS: Cilostazol 50 MG Tablet 100 MG PO ×2 (08:37→22:26)
[2023-12-11] MEDS: Iron Polysaccharide Complex 150 MG CAPSULE PO (08:37)
[2023-12-11] MEDS: Aspirin E.C. 81 MG Tablet PO (08:37)
[2023-12-11] MEDS: Menthol/Lanolin/Calamine/Znox 113 GM Tube 1 APPLIC TOPICAL ×2 (08:37→22:32)
[2023-12-11] MEDS: Gabapentin 400 MG Capsule PO ×2 (08:38→22:26)
[2023-12-11] MEDS: Nystatin Powder 15gm Bottle 1 APPLIC TOPICAL ×2 (08:38→22:33)
[2023-12-11] MEDS: Insulin Glargine-YFGN 100 UNIT/ML Pen 15 UNIT SC ×2 (08:38→22:29)
[2023-12-11] MEDS: Insulin Lispro 100 UNIT/ML INSULN.PEN 10 UNIT SC ×3 (08:39→17:37)
[2023-12-11 09:26] LABS: Iron 35 ug/dL (65-175); Iron Binding Capacity,Total 260 ug/dL (250-450); PERCENT IRON SATURATION 13.5 % (15.0-55.0)
--- NOTE | 2023-12-11 10:28 | CASEMGMT ---
Social Work IDT met with patient and , Pat at bedside to complete care planning. Discussed patient's progress with therapy (PT/OT), dietary, activities, and nursing. SW educated patient and of [employer] insurance next review date; 12/17. Patient informed care team that he would like to discharge. Therapy informed patient that discharge is appropriate from therapy standpoint. Patient informed team that he would like to resume outpatient therapy at [facility] for PT/OT. Patient's and mother provides transportation for outpatient therapy. SW discussed potential discharge date with patient and . Patient prefers discharge on 12/12/23. KARON discussed discharge with DENG Hsieh, who informed SW that the patient will require an overnight pulse ox. Patient anticipates discharge on 12/13/2023 due to overnight pulse ox. Physician, Dr. Peña notified via [facility] of request for discharge. KARON submitted referral to [facility] for Outpatient therapy PT/OT Discharge: Outpatient Therapy [facility] PT.OT MORRIS Maurer
[2023-12-11 11:13] LABS: Bedside Glucose 169 mg/dL (74-106)
--- NOTE | 2023-12-11 11:22 | NURSING ---
Addendum entered by Мария Colon 12/12/23 11:17: Repeat sleep study show no desaturation events. Patient will not need 02 at home with his CPAP. Original Note: [facility] results patient should qualify for 02 w/ his CPAP. Will repeat trending pulse ox tonight to have it completed w/i 24hrs of DC.
[2023-12-11 11:50] VITALS: PULSE 92; RESP 16; O2SAT 97
--- NOTE | 2023-12-11 16:22 | PCM.DC.SUM ---
Providers Date of Admission: 12/05/23 Primary Care Physician: Dr. Drew Schwartz MD Reason For Visit: GENERALIZED WEAKNESS, SYNCOPE Diagnosis Discharge Diagnosis (1) Debility: Status: Acute Code(s): R53.81 - Other malaise (2) Near syncope: Status: Acute Code(s): R55 - Syncope and collapse (3) Acute respiratory failure with hypoxia: Status: Acute Code(s): J96.01 - Acute respiratory failure with hypoxia (4) Urinary tract infection: Status: Acute Code(s): N39.0 - Urinary tract infection, site not specified (5) Bacteremia due to Escherichia coli: Status: Acute Code(s): R78.81 - Bacteremia; B96.20 - Unspecified Escherichia coli [E. coli] as the cause of diseases classified elsewhere (6) Iron deficiency anemia: Status: Acute Code(s): D50.9 - Iron deficiency anemia, unspecified (7) Diabetes: Status: Acute Code(s): E11.9 - Type 2 diabetes mellitus without complications (8) Essential (primary) hypertension: Status: Acute Code(s): I10 - Essential (primary) hypertension (9) MARK ANTHONY (obstructive sleep apnea): Status: Chronic Code(s): G47.33 - Obstructive sleep apnea (adult) (pediatric) (10) Diabetic polyneuropathy: Status: Acute Code(s): E11.42 - Type 2 diabetes mellitus with diabetic polyneuropathy (11) PAOD (peripheral arterial occlusive disease): Status: Acute Code(s): I77.9 - Disorder of arteries and arterioles, unspecified (12) Hyperlipidemia: Status: Chronic Code(s): E78.5 - Hyperlipidemia, unspecified (13) Morbid obesity: Status: Chronic Code(s): E66.01 - Morbid (severe) obesity due to excess calories Plan 63 year old male with below past medical history hospitalized for urinary tract infection, E. Coli bacteremia, complicated by acute respiratory failure with hypoxia, iron deficiency anemia, NSTEMI, left shoulder pain, admitted to TCU with debility, here for rehabilitation, strengthening, prior to discharge home with . Debility - PT/OT. Pain - Tylenol 1000mg q6 prn pain (1-5), Tramadol 50mg q6 prn pain (6-10). Bowel - senna/colace 1 tablet bid, Magnesium citrate 300ml daily prn. Adult immunization - Administer pneumonia vaccine, covid vaccine, flu vaccine as appropriate. DVT prophylaxis - Hold, anemia. UTI/E. Coli bacteremia - Keflex 500mg q6 x 5 days. Shortness of breath - Albuterol 2.5mg q2h prn. PAOD - Pletal 100mg bid, aspirin 81mg daily. Diabetes Mellitus II - Metformin 850mg bidcm, Trulicity 1.5mg per week, Glargine 85 units bid, Lispro 26 units tid. Diabetic neuropathy - Gabapentin 400mg bid. Hypertension - Metoprolol 25mg bid, Lisinopril 10mg daily. GERD - Pantoprazole 40mg daily. Restless leg syndrome - Mirapex 0.5mg qhs. Hyperlipidemia - Pravastatin 40mg qhs. Insomnia - Temazepam 30mg qhs prn, stable chronic director long term care use, GDR not recommended. Iron deficiency anemia - Hemoglobin 8.2, Ferrex 150mg daily, Vitamin C 500mg daily. Medications at Discharge Home Medications gabapentin 400 mg capsule 400 mg PO BID NEUROPATHY 12/17/16 metoprolol tartrate 25 mg tablet 25 mg PO BID HTN 12/17/16 insulin aspart U-100 100 unit/mL (3 mL) subcutaneous pen 26 units SQ TIDCM DIABETES 03/12/18 insulin glargine 100 unit/mL (3 mL) subcutaneous pen 85 units SQ BID DIABETES 03/12/18 metformin 850 mg tablet 850 mg PO BIDCM DIABETES 03/12/18 aspirin 81 mg tablet,delayed release (Adult Aspirin Regimen) 81 mg PO DAILY [facility] 02/02/19 cilostazol 100 mg tablet 100 mg PO BID [facility] 02/02/19 pravastatin 40 mg tablet 40 mg PO DAILY cholesterol 02/02/19 ropinirole 1 mg tablet 1 mg PO QHS involuntary movements 11/29/23 tramadol 50 mg tablet 50 mg PO Q6H PRN PRN pain 11/29/23 temazepam 15 mg capsule 30 mg (2 x 15 mg) PO HS PRN Insomnia #0 caps 12/05/23 acetaminophen 500 mg tablet 1,000 mg (2 x 500 mg) PO Q6H PRN PRN Pain Score 1-5 #0 tabs 12/11/23 ascorbic acid (vitamin C) 500 mg tablet 500 mg PO 1000 30 days #30 tabs 12/11/23 pantoprazole 40 mg tablet,delayed release 40 mg PO DAILY 30 days #30 tabs 12/11/23 polysaccharide iron complex 150 mg iron capsule (Ferrex) 150 mg PO DAILY 30 days #30 caps 12/11/23 semaglutide 1 mg/dose (4 mg/3 mL) subcutaneous pen injector (Ozempic) 1 mg (0.75 mL) SQ Sa@1000 #0 mL 12/11/23 Hospital Course Operations None Procedures None Summary of Care Provided Minutes Spent on Discharge: 35 Hospital Course: 63 year old male with below past medical history hospitalized for urinary tract infection, E. Coli bacteremia, complicated by acute respiratory failure with hypoxia, iron deficiency anemia, NSTEMI, left shoulder pain, admitted to TCU with debility, here for rehabilitation, strengthening, prior to discharge home with . 12/12/2023 Overnight pulsox to qualify for oxygen bleed in to CPAP at night ([facility]). Discharge home with 12/13/2023, [email or web address] outpatient PT/OT. Physical Exam Const alert General Appearance: cooperative HEENT normocephalic Eyes PERRL and EOMs intact bilaterally Neck supple, no JVD and no carotid bruits Resp normal respiratory effort, normal air movement and clear to auscultation bilaterally Cardio regular rate and regular rhythm GI normal to inspection, nondistended, normoactive bowel sounds, non-tender and non-distended Extremity normal capillary refill General Extremity: Negative for edema Skin no rashes or lesions noted General Skin Exam: no breakdown Psych affect normal Appearance: appropriate Weight / BMI Weight Weight: 158.032 kg Body Mass Index (BMI) 43.5 ABG / Lab / Microbiology Data 12/11/23 05:30 12/06/23 05:19 Laboratory: Laboratory Results - last 24 hr 12/10/23 16:57: POC Glucose 140 H 12/10/23 21:30: POC Glucose 171 H 12/11/23 05:30: Hgb 8.0 L, Hct 26.0 L, Iron 35 L, TIBC 260, Iron Saturation 13.5 L 12/11/23 05:49: POC Glucose 165 H 12/11/23 10:56: POC Glucose 169 H Microbiology: Microbiology 12/11/23 08:00 Stool Enteric Bacteriology - Final 12/10/23 08:20 Stool Clostridioides difficile (PCR) - Final 12/07/23 14:55 Stool Stool Occult Blood (ALFREDO) - Final D/C Instructions Discharge Diet: No restrictions Discharge Activity: Return to Normal Activity, May Shower and Use Walker Weight Bearing Status: Weight bearing as tolerated Call your doctor if you observe: Fever of 101 or Higher, Inability to urinate, Inability to have a bowel movement, Shortness of breath, Dizziness, Fainting spells, Swelling in the ankles, Chest pain and Uncontrolled pain Additional Instructions: Discharge home with 12/13/2023, [facility] outpatient PT/OT. Meaningful Use Info Meaningful Use Meaningful Use Diagnoses (Choose all that apply): None applicable Ischemic Stroke Statin Dosing Therapy Reference: STATIN DOSE THERAPY REFERENCE: * Patients > 75 years receive moderate or high dose statin therapy. * Patients 75 years or YOUNGER should receive HIGH intensity statin dose unless contraindicated. You will be required to document reason for non-treatment if statin daily dose does not meet guidelines. HIGH DOSE STATIN THERAPY DAILY Atorvastatin > than or = to 40 mg Rosuvastatin > than or = to 20 mg Amlodipine + Atorvastatin > than or = to 2.5/40 mg Ezetimibe + Simvastatin 10/80 mg Simvastatin 80mg Discharge Plan Admission Admit Date/Time: 12/05/23 20:42 Primary Reason for Your Visit: Debility. Attending Provider: Joseph Peña Chi Primary Care Provider: Drew Schwartz Instructions Additional Instructions / Restrictions: Discharge home with 12/13/2023, [facility] outpatient PT/OT. Discharge Orders/Prescriptions Prescriptions: New acetaminophen 500 mg Tablet 1,000 mg PO Q6H PRN PRN (Reason: Pain Score 1-5) Qty: 0 0RF ascorbic acid (vitamin C) 500 mg Tablet 500 mg PO 1000 30 Days Qty: 30 0RF pantoprazole 40 mg Tablet,Delayed Release (Dr/Ec) 40 mg PO DAILY 30 Days Qty: 30 0RF polysaccharide iron complex [Ferrex 150] 150 mg iron Capsule 150 mg PO DAILY 30 Days Qty: 30 0RF Ozempic 1 mg/dose (4 mg/3 mL) Pen Injector 1 mg SQ Sa@1000 Qty: 0 0RF Continued cilostazol 100 mg tablet 100 mg PO BID aspirin [Adult Aspirin Regimen] 81 mg tablet,delayed release (DR/EC) 81 mg PO DAILY pravastatin 40 mg tablet 40 mg PO DAILY metoprolol tartrate 25 MG tablet 25 mg PO BID Patient Comments: BLOOD PRESSURE gabapentin 400 MG capsule 400 mg PO BID Patient Comments: NERVE PAIN metformin 850 MG tablet 850 mg PO BIDCM insulin aspart U-100 100 UNITS/ML insulin pen 26 units SQ TIDCM insulin glargine 100 UNITS/ML insulin pen 85 units SQ BID ropinirole 1 mg tablet 1 mg PO QHS tramadol 50 mg tablet 50 mg PO Q6H PRN PRN (Reason: pain) temazepam 15 mg Capsule 30 mg PO HS PRN (Reason: Insomnia) Qty: 0 0RF Discontinued lisinopril 10 mg tablet 10 mg PO DAILY dulaglutide 1.5 MG/0.5 ML pen injector 1.5 mg SQ QWEEK Rx Instructions: takes on Saturday sennosides-docusate sodium [Stool Softener-Stimulant Laxat] 8.6-50 mg Tablet 1 tab PO BID PRN PRN (Reason: Constipation) Qty: 0 0RF pantoprazole 40 mg Tablet,Delayed Release (Dr/Ec) 40 mg PO DAILY Qty: 0 0RF insulin lispro [Humalog KwikPen Insulin] 100 unit/mL Insulin Pen See Protocol subcut ACHS Qty: 0 0RF Protocol: 1. Sliding Scale Insulin Low Dosing Condition: 150-224 mg/dl = 1 unit Condition: 225-299 mg/dl = 2 units Condition: 300-374 mg/dl = 3 units Condition: 375-449 mg/dl = 4 units Condition: Greater than 449 call physician Protocol Text: - Use for Total Daily Dose of Insulin 15-27 units - Thin, elderly, renal patients LOW DOSING ALGORITHM acetaminophen 325 mg Tablet 650 mg PO Q6H PRN PRN (Reason: Pain Score 1-5/10 or fever) Qty: 0 0RF albuterol sulfate 2.5 mg /3 mL (0.083 %) Solution For Nebulization 2.5 mg inhalation Q2H PRN PRN (Reason: SOB &/OR WHEEZING) Qty: 0 0RF Referrals / Follow Up: Drew Schwartz MD [Primary Care Provider] - (Toni said his will set this appointment up) Disposition Disposition (needs filled in before D/C Order can be placed): Home, Self Care
[2023-12-11] MEDS: Acetaminophen 500 MG Tablet 1000 MG PO (16:32)
[2023-12-11 16:54] LABS: Bedside Glucose 154 mg/dL (74-106)
[2023-12-11 21:18] LABS: Bedside Glucose 192 mg/dL (74-106)
[2023-12-11] MEDS: Hydrocortisone 2.5% Crm 1 APPLIC TOPICAL (22:21)
[2023-12-11] MEDS: traMADol 50 MG Tablet PO (22:25)
[2023-12-11 22:26] VITALS: BP 132/63; PULSE 97
[2023-12-11] MEDS: Pravastatin 40 MG Tablet PO (22:28)
[2023-12-11] MEDS: Pramipexole Di-HCl 0.5 MG Tablet PO (22:29)
[2023-12-11 22:49] VITALS: PULSE 94; O2SAT 95
--- NOTE | 2023-12-11 23:15 | CPS ---
[2249] Pt. started on overnight trend with is home BiPAP unit (). Pt. has no oxygen bled-in to his machine for the night.
[2023-12-12 06:21] LABS: Bedside Glucose 149 mg/dL (74-106)
[2023-12-12 07:35] VITALS: O2SAT 94
[2023-12-12 08:02] VITALS: BP 123/60; PULSE 92; RESP 16; TEMP 36.4; O2SAT 95
[2023-12-12] MEDS: Insulin Lispro 100 UNIT/ML INSULN.PEN 10 UNIT SC ×3 (08:07→17:59)
[2023-12-12 08:08] VITALS: PULSE 92
[2023-12-12] MEDS: Cilostazol 50 MG Tablet 100 MG PO ×2 (08:08→23:08)
[2023-12-12] MEDS: Aspirin E.C. 81 MG Tablet PO (08:08)
[2023-12-12] MEDS: Lactobacillis Acidophilus 1 CAP PO ×2 (08:08→23:00)
[2023-12-12] MEDS: Acetaminophen 500 MG Tablet 1000 MG PO (08:08)
[2023-12-12] MEDS: Metoprolol Tartrate 25 MG Tablet PO ×2 (08:08→23:07)
[2023-12-12] MEDS: Pantoprazole Sodium 40 MG Tablet PO (08:08)
[2023-12-12] MEDS: metFORMIN HCl 850 MG Tablet PO ×2 (08:08→18:00)
[2023-12-12] MEDS: Insulin Glargine-YFGN 100 UNIT/ML Pen 15 UNIT SC ×2 (08:09→23:02)
[2023-12-12] MEDS: Nystatin Powder 15gm Bottle 1 APPLIC TOPICAL ×2 (08:09→23:06)
[2023-12-12] MEDS: Ascorbic Acid 500 MG Tablet PO (08:09)
[2023-12-12] MEDS: Iron Polysaccharide Complex 150 MG CAPSULE PO (08:09)
[2023-12-12] MEDS: Menthol/Lanolin/Calamine/Znox 113 GM Tube 1 APPLIC TOPICAL ×2 (08:10→23:01)
[2023-12-12] MEDS: Gabapentin 400 MG Capsule PO ×2 (08:12→23:11)
--- NOTE | 2023-12-12 09:23 | CASEMGMT ---
Addendum entered by Chaitanya Arevalo 12/12/23 10:00: Patient has an appointment scheduled for locr Physical Therapy on 12/19/2023 at 1230 and Occupational Therapy at 1400 same date. Original Note: Social Work SW contacted locr Outpatient Rehab [phone] to confirm receipt of order. KARON spoke with locr [facility] who informed KARON that the patient is a current participant; resumption of care will be ordered. locr will be scheduling start of care and fax information to KARON. [employer] will provide update regarding appointment for start of care. MORRIS Maurer
[2023-12-12 12:02] LABS: Bedside Glucose 168 mg/dL (74-106)
--- NOTE | 2023-12-12 12:22 | CASEMGMT ---
Social Work SW met with patient at bedside to complete MDS and review discharge disposition. Patient completed MDS. BIM and PhQ-2 (00) Patient was provided schedule for outpatient therapy via [facility]. Patient anticipates discharge on 12/13/2023 with , Pat providing transportation to home around [phone]. MORRIS Maurer
[2023-12-12 16:56] LABS: Bedside Glucose 160 mg/dL (74-106)
--- NOTE | 2023-12-12 18:01 | NURSING ---
Kristel sent home with spouse.
[2023-12-12 21:29] LABS: Bedside Glucose 189 mg/dL (74-106)
[2023-12-12 22:00] VITALS: BP 141/68; PULSE 91; PULSE 94; O2SAT 98
[2023-12-12] MEDS: Pramipexole Di-HCl 0.5 MG Tablet PO (23:06)
[2023-12-12 23:07] VITALS: BP 141/68; PULSE 91
[2023-12-12] MEDS: Pravastatin 40 MG Tablet PO (23:09)
[2023-12-13] MEDS: Acetaminophen 500 MG Tablet 1000 MG PO (05:15)
[2023-12-13 05:52] LABS: Absolute Neutrophil Count 6.1 X10^3/uL (2.0-7.7); Basophil# 0.04 X10^3/uL; Basophil% 0.5 % (0-1); Eosinophil# 0.26 X10^3/uL; Eosinophils% 2.9 % (0-5); Hematocrit 29.6 % (40-54); Hemoglobin 9.1 g/dL (13.0-16.5); Lymphocyte % 20.3 % (19-41); Mean Corp Hgb Conc 30.7 g/dL (32-36); Mean Corpuscular Hgb 27.2 pg (27.0-32.0); Mean Corpuscular Volume 88.4 fL (80-94); Mean Platelet Vol. 9.3 fl (6.2-12.0); Monocyte# 0.59 X10^3/uL; Monocyte% 6.7 % (0-10); NRBC Flagged by Analyzer 0 % (0-5); Neutrophil # 6.14 X10^3/uL (2.7-7.7); Neutrophil % 69.1 % (47-70); Platelet Count 321 K/mm3 (150-450); RBC Distribution Width CV 16.1 % (11.6-14.6); RBC Distribution Width SD 51.4 fl (35.1-43.9); Red Blood Count 3.35 M/mm3 (4.6-6.2); White Blood Count 8.9 K/mm3 (4.4-11.0)
[2023-12-13 06:26] LABS: Bedside Glucose 171 mg/dL (74-106)
[2023-12-13 06:31] LABS: Anion Gap 6 (5-15); BUN 13 mg/dL (7-18); BUN/Creat Ratio 10.4 RATIO (10-20); Calcium,Total 9.2 mg/dL (8.5-10.1); Chloride 101 mmol/L (98-107); Creatinine, Serum 1.25 mg/dL (0.70-1.30); EST Glomerular Filtration Rate 62 mL/min (>60); Est Glom Filt Rate - Afr Amer 75 mL/min (>60); Estimated Creatinine Clearance 98.72 ml/min; Glucose 183 mg/dL (74-106); Potassium 4.8 mmol/L (3.5-5.1); Sodium Level 135 mmol/L (136-145)
[2023-12-13 09:12] VITALS: BP 127/58; PULSE 94; RESP 17; TEMP 36.2; O2SAT 95
[2023-12-13] MEDS: Insulin Lispro 100 UNIT/ML INSULN.PEN 10 UNIT SC (09:14)
[2023-12-13] MEDS: metFORMIN HCl 850 MG Tablet PO (09:14)
[2023-12-13] MEDS: Lactobacillis Acidophilus 1 CAP PO (09:15)
[2023-12-13] MEDS: Menthol/Lanolin/Calamine/Znox 113 GM Tube 1 APPLIC TOPICAL (09:15)
[2023-12-13] MEDS: Aspirin E.C. 81 MG Tablet PO (09:15)
[2023-12-13] MEDS: Iron Polysaccharide Complex 150 MG CAPSULE PO (09:15)
--- NOTE | 2023-12-13 09:15 | NURSING ---
[employer] note; MDS for Complete
[2023-12-13 09:16] VITALS: PULSE 94
[2023-12-13] MEDS: Insulin Glargine-YFGN 100 UNIT/ML Pen 15 UNIT SC (09:16)
[2023-12-13] MEDS: Metoprolol Tartrate 25 MG Tablet PO (09:16)
[2023-12-13] MEDS: Nystatin Powder 15gm Bottle 1 APPLIC TOPICAL (09:16)
[2023-12-13] MEDS: Pantoprazole Sodium 40 MG Tablet PO (09:17)
[2023-12-13] MEDS: Cilostazol 50 MG Tablet 100 MG PO (09:17)
[2023-12-13] MEDS: Ascorbic Acid 500 MG Tablet PO (09:17)
[2023-12-13] MEDS: Gabapentin 400 MG Capsule PO (09:18)
--- NOTE | 2023-12-13 09:45 | CASEMGMT ---
Social Work SW completed discharge MDS with patient. SW met with patient at bedside to review discharge disposition. KARON reviewed discharge plans for resumption of care via [facility] PT/OT; appointment 12/19/2023. Patient has cane at bedside; denies any other DME needs. Patient's will provide transportation to home. Discharge: Home with [facility] PT/OT MORRIS Maurer
--- NOTE | 2023-12-13 11:05 | NURSING ---
Patient exited the unit at 1100. Discharge packet given to patient. Discussed discharge instructions and medication list. Patient and spouse denied questions/concerns.
--- NOTE | 2023-12-17 10:19 | MDS.RN ---
Information for the MDS was obtained from review of the clinical record, interview of resident, staff, and direct observation of resident?s care.
== END 2023-12-13 11:00 | disposition home or self-care (01) | DRG 690 ==
PROVIDERS: Admitting Provider Family Medicine Geriatric Medicine; PCP Family Medicine; Visit Provider Family Medicine Geriatric Medicine
DX: N39.0 Urinary tract infection, site not specified (principal); R78.81 Bacteremia; Z68.41 Body mass index [BMI] 40.0-44.9, adult; E11.42 Type 2 diabetes mellitus with diabetic polyneuropathy; E11.51 Type 2 diabetes mellitus with diabetic peripheral angiopathy without gangrene; D50.9 Iron deficiency anemia, unspecified; B96.20 Unspecified Escherichia coli [E. coli] as the cause of diseases classified elsewhere; E66.01 Morbid (severe) obesity due to excess calories; Z79.4 Long term (current) use of insulin; I10 Essential (primary) hypertension; G25.81 Restless legs syndrome; E78.5 Hyperlipidemia, unspecified; G47.33 Obstructive sleep apnea (adult) (pediatric); K21.9 Gastro-esophageal reflux disease without esophagitis; R55 Syncope and collapse; Z79.02 Long term (current) use of antithrombotics/antiplatelets; Z79.899 Other long term (current) drug therapy; Z79.84 Long term (current) use of oral hypoglycemic drugs; G47.00 Insomnia, unspecified
CPT/HCPCS: 36415; 80048; 82274; 82962; 83540; 83550; 85014; 85018; 85025; 87493; 87506; 94762; 97110; 97116; 97162; 97166; 97530; 97535; 97802; J7050; A4216; J2916

== ENCOUNTER 2024-01-08 17:07 | Emergency (ER) | payer OTHER, SELFPAY ==
[2024-01-08 17:07] VITALS: BP 155/80; PULSE 90; RESP 17; TEMP 36.1; O2SAT 100; BMI 42.8
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
[2024-01-08] MEDS: Cephalexin 500 MG Capsule PO (17:46)
[2024-01-08] MEDS: Lidocaine 1% (20 ml mdv) 20 ML Vial INFILT (17:47)
[2024-01-08] MEDS: Diphth,Pertuss(Acell),Tet Vac 0.5 ML Vial IM (17:47)
--- NOTE | 2024-01-08 17:50 | RAD_ITS ---
INDICATION: Injury/Pain EXAMINATION/TECHNIQUE: X-RAY - LEFT XR Hand Min 3 Views 3 VIEWS COMPARISON: none FINDINGS: SOFT TISSUES: Mild edema dorsal to the metacarpal heads.. No radiopaque foreign body. Diffuse peripheral atherosclerosis. BONES/JOINTS: No acute fracture.. Normal alignment. Mild scattered interphalangeal joint osteoarthritis... No sclerotic or destructive changes observed. RAD/Hand Min 3 Views IMPRESSION: Mild edema dorsal to the metacarpal heads. No acute osseous finding.. Diffuse peripheral atherosclerosis. Electronically Signed: Gerald Tatum MD at 18:12 EDT ,
[2024-01-08 19:09] VITALS: BP 140/89; PULSE 97; RESP 16; O2SAT 100
== END 2024-01-08 21:14 | disposition home or self-care (01) ==
PROVIDERS: Emergency Provider Emergency Medicine; PCP Family Medicine; Visit Provider Emergency Medicine
DX: S66.325A Laceration of extensor muscle, fascia and tendon of left ring finger at wrist and hand level, initial encounter (principal); E11.9 Type 2 diabetes mellitus without complications; Z79.4 Long term (current) use of insulin; S61.412A Laceration without foreign body of left hand, initial encounter; W31.2XXA Contact with powered woodworking and forming machines, initial encounter; Z23 Encounter for immunization; I10 Essential (primary) hypertension; E78.5 Hyperlipidemia, unspecified; G47.33 Obstructive sleep apnea (adult) (pediatric); Z79.84 Long term (current) use of oral hypoglycemic drugs; Z79.899 Other long term (current) drug therapy; Z79.85 Long-term (current) use of injectable non-insulin antidiabetic drugs
CPT/HCPCS: 12002; 73130; 90471; 90715; 99283

== ENCOUNTER → 2024-01-15 | Outpatient (CLI) | payer OTHER, SELFPAY ==
--- NOTE | 2024-01-15 15:10 | RAD_ITS ---
INDICATION: LOW BACK PAIN EXAMINATION/TECHNIQUE: X-RAY - XR Spine Lumbar Comp W/ Bending Min 6 Views COMPARISON: Prior study dated: 06/23/2012 FINDINGS: VERTEBRAE: Preserved vertebral body height. No fracture. No evidence of spondylolisthesis. The alignment is unremarkable and stable on flexion and extension views. Preservation of the normal lumbar lordosis. No substantial scoliosis. DISCS: Minimal narrowing of L4-5 and L5-S1 disc spaces. Endplate spondylosis increased since previous exam. INCLUDED ABDOMEN: Included bowel gas pattern is non-obstructive. RAD/L/S Spine w Bend Min 6 Vw IMPRESSION: Mild degenerative changes. Electronically Signed: oJe Boone MD at 8:33 EDT ,
== END | disposition home or self-care (01) ==
PROVIDERS: PCP Family Medicine; Referring Provider Family Medicine; Visit Provider Family Medicine
DX: R32 Unspecified urinary incontinence (principal)
CPT/HCPCS: 72114; 87086

== ENCOUNTER → 2024-02-07 | Outpatient (CLI) | payer OTHER, SELFPAY ==
[2024-02-07 16:10] LABS: Mucous, Urine 0 SEEN /hpf (<or=2+); Squamous Epithelial Cells - UA 0 SEEN /hpf (0-5)
[2024-02-07 17:42] LABS: Absolute Lymphocyte Count 2.47 X10^3/uL (0.83-4.51); Absolute Neutrophil Count 10.2 X10^3/uL (2.0-7.7); Basophil# 0.05 X10^3/uL; Basophil% 0.3 % (0-1); Eosinophil# 0.25 X10^3/uL; Eosinophils% 1.7 % (0-5); Hematocrit 31.9 % (40-54); Lymphocyte # 2.47 X10^3/ul (0.83-4.51); Lymphocyte % 17.1 % (19-41); Mean Corp Hgb Conc 31.3 g/dL (32-36); Mean Corpuscular Hgb 28.3 pg (27.0-32.0); Mean Corpuscular Volume 90.4 fL (80-94); Mean Platelet Vol. 9.3 fl (6.2-12.0); Monocyte% 9.7 % (0-10); NRBC Flagged by Analyzer 0 % (0-5); Neutrophil # 10.23 X10^3/uL (2.7-7.7); Neutrophil % 70.8 % (47-70); Platelet Count 296 K/mm3 (150-450); RBC Distribution Width CV 17.3 % (11.6-14.6); RBC Distribution Width SD 57.8 fl (35.1-43.9); RET-HE 26.2 pg (30-35); Red Blood Count 3.53 M/mm3 (4.6-6.2); Reticulocyte Count 2.15 % (0.5-1.5); White Blood Count 14.5 K/mm3 (4.4-11.0)
[2024-02-07 17:58] LABS: Lactic Acid 1.3 mmol/L (0.4-1.9)
[2024-02-07 18:18] LABS: ALB/GLOB Ratio 0.7 RATIO (0.9-2.4); AST(SGOT) 16 U/L (15-37); Alanine Aminotransfer ALT/SGPT 24 U/L (16-61); Albumin, Serum 3.4 g/dL (3.2-5.0); Alkaline Phosphatase 87 U/L (45-117); Anion Gap 10 (5-15); BUN 23 mg/dL (7-18); BUN/Creat Ratio 16.1 RATIO (10-20); Calcium,Total 9.2 mg/dL (8.5-10.1); Chloride 102 mmol/L (98-107); Color, Urine Yellow (Yellow); Creatinine, Serum 1.43 mg/dL (0.70-1.30); EST Glomerular Filtration Rate 53 mL/min (>60); Est Glom Filt Rate - Afr Amer 64 mL/min (>60); Ferritin 149 ng/mL (26-388); Globulin 4.9 g/dL (2.2-4.2); Glucose 79 mg/dL (74-106); Glucose, Dipstick Normal (Normal); Iron 19 ug/dL (65-175); Iron Binding Capacity,Total 246 ug/dL (250-450); Ketone-Dipstick Negative (Negative); Leukocyte Esterase-Dipstick 500 /ul (Negative); Nitrite-Dipstick Positive (Negative); Occult Blood-Urine 25 /ul (Negative); PERCENT IRON SATURATION 7.7 % (15.0-55.0); Potassium 4.6 mmol/L (3.5-5.1); Protein, Total 8.3 g/dL (6.4-8.2); Protein-Dipstick 30 mg/dl (Negative); Sodium Level 135 mmol/L (136-145); Urine Bilirubin Dipstick Negative (Negative); Urine Clarity Cloudy (Clear); Urine Urobilinogen Normal (Normal)
[2024-02-07 18:24] LABS: Bacteria 3+ /hpf (None Seen); Red Blood Cells-Urine 0-5 SEEN /hpf (0-5); White Blood Cells >100 SEEN /hpf (0-5)
== END | disposition home or self-care (01) ==
LOC: MFPLAB 16:09
PROVIDERS: PCP Family Medicine; Visit Provider Family Medicine
DX: D53.9 Nutritional anemia, unspecified (principal); R65.10 Systemic inflammatory response syndrome (SIRS) of non-infectious origin without acute organ dysfunction
CPT/HCPCS: 36415; 80053; 81001; 82728; 83540; 83550; 83605; 85025; 85045; 86140; 87040; 87086; 87088; 87186

== ENCOUNTER → 2024-02-12 | Outpatient (CLI) | payer OTHER, SELFPAY ==
[2024-02-12 15:59] LABS: Anion Gap 6 (5-15); BUN 19 mg/dL (7-18); Calcium,Total 9.5 mg/dL (8.5-10.1); Chloride 105 mmol/L (98-107); Creatinine, Serum 1.27 mg/dL (0.70-1.30); EST Glomerular Filtration Rate 61 mL/min (>60); Est Glom Filt Rate - Afr Amer 74 mL/min (>60); Glucose 51 mg/dL (74-106); PSA,Total - Annual Screen 0.58 ng/mL (0.00-4.00); Potassium 4.8 mmol/L (3.5-5.1); Sodium Level 136 mmol/L (136-145)
== END | disposition home or self-care (01) ==
LOC: MFPLAB 13:34
PROVIDERS: PCP Family Medicine; Visit Provider Family Medicine
DX: Z12.5 Encounter for screening for malignant neoplasm of prostate (principal); R65.10 Systemic inflammatory response syndrome (SIRS) of non-infectious origin without acute organ dysfunction; R79.82 Elevated C-reactive protein (CRP)
CPT/HCPCS: 36415; 80048; 84153; 86140; G0103

== ENCOUNTER 2024-02-18 15:00 | Outpatient (RCR) | payer OTHER, SELFPAY ==
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
--- NOTE | 2023-12-19 15:21 | HP.OTREVAL ---
Re-Evaluation Intro: BISHOP SANCHEZ, It has been my pleasure to treat RAJESH FLORES over the last 5 visits for closed bicondylar fx of distal humerus. Please see the progress note below for an update on the occupational therapy plan of care! Subjective Subjective: pt arrives to session: states he was in the hospital for weeks due to weakness and blood infection and low iron. pt states he got out of the hospital on December 12. pt states he wants to continue with his right UE ROM - will see on January 05 and will hopefully get his NWB lifted. Objective Objective/Function: right elbow -15/125 passive elbow flexion 130* (tight) pt can now use right UE to feed himself. right shoulder flexion 100* ( 120*) right shoulder ext -30* left can tester strength 30# right 25# ( pain in biceps region with testing) right lateral pinch 18# left 17# right tripod pinch 16# left 14# Fet2 peak force testing right shoulder flexion 6.8 with pain left 16# right biceps 18# left 26.4# triceps 14# left 25# Plan Plan Frequency: 1x/Week Duration: 4 Weeks Plan: pt has 20 OT visits Max per melissa. year pt will drop down with OT 1x week for 4 weeks. pt demo with weakness of right UE- pain with right shoulder flexion resistance - due to weeks in hospital pt delay of right UE rehab- will transition pt to increase his right shoulder ROM and strengthen to pts alvin and restrictions by his ortho surgeon. Goals Goals Patient Goals: Regain Mobility, Decrease Pain, Decrease Swelling/Stiffness, Improve Fine Motor Skills, Use Hand/Wrist/Arm Normally Again and Be More Independent in ADLS Goal Progress: Progressing Goal:100% adherence to protocol: Yes Goal:Daily scar massage when approriate: Yes Goal Progress: Goal Met Goal:ROM equal to unaffected hand: Yes Goal Progress: Progressing Goal:Accountant Auditor/Pinch strength at least 75% of unaffected hand: Yes Goal Progress: Progressing Goal:No pain with affected hand use: Yes Goal Progress: pain 3-4/10 R.shoulder Goal:Full use of affected hand in daily activities including work: Yes Goal Progress: Progressing Other Goal: pt will demo understanding of NWB precautions by end of 1st session. pt is still NWB at this date- returns to on January 05. Goal Progress: Goal Met Anticipated Interventions Anticipated Interventions Anticipated Interventions: A/AAROM/PROM, Strengthening, Edema Control, Scar Care, Triggerpoint Release, Modalities, Orthoses, Joint Protection/Energy Conservation, Ergonomic Education, Education re assistive Equipment, Education re Diagnosis, Caregiver Training and Home Program Re-Evaluation Ending Re-evaluation ending: Please do not hesitate to contact me at [phone] by phone or if you have questions or concerns regarding this new plan of care! Sincerely, Missy Renee, OTR/L, CHT
--- NOTE | 2024-02-18 15:54 | HP.OTREVAL ---
Re-Evaluation Intro: BISHOP SANCHEZ, It has been my pleasure to treat RAJESH FLORES over the last 18 visits for closed bicondylar fx of distal humerus. Please see the progress note below for an update on the occupational therapy plan of care! Subjective Subjective: pt is doing well had appointment and now able to push pull and lift with RUE as of 01/06/24 Objective Objective/Function: B hand grasp at 50 pounds R 15 pounds L 8 pounds R 12 pounds L 5 pounds R elbow lacking 15 degree extension L elbow lacking 10o degrees extension R elbow flexion 110 degree L elbow flexion 120 degrees L shoulder flexion 16.2 R shoulder flexion 10.9 L tricep extension 18.4 R rtricep extension 15.9 L supination 68 degrees R supination 55 degrees R ER strength 10.3 pounds L ER strength 18.7 pounds Plan Plan Frequency: 1x/Week Duration: 4 Weeks Visits in this POC: 6 weeks (2 x week) Plan: pt has 20 OT visits Max per melissa. year pt will drop down with OT 1x week for 4 weeks. Pt still has 3 visits remaining as of today is . pt demo with weakness of right UE- pain with right shoulder flexion/ABD and palpation at GH joint due to weeks in hospital pt delay of right UE rehab- will transition pt to increase his right shoulder ROM and strengthen to pts alvin to prevent further subluxation Goals Goals Patient Goals: Regain Mobility, Decrease Pain, Decrease Swelling/Stiffness, Improve Fine Motor Skills, Use Hand/Wrist/Arm Normally Again and Be More Independent in ADLS Goal Progress: Progressing Goal:100% adherence to protocol: Yes Goal:Daily scar massage when approriate: Yes Goal Progress: Goal Met Goal:ROM equal to unaffected hand: Yes Goal Progress: Progressing Goal:Chief Customer Officer/Pinch strength at least 75% of unaffected hand: Yes Goal Progress: Progressing Goal:No pain with affected hand use: Yes Goal Progress: today 08/28 comes and goes Goal:Full use of affected hand in daily activities including work: Yes Goal Progress: Progressing Other Goal: pt will demo understanding of NWB precautions by end of 1st session. pt is still NWB at this date- returns to on January 05. as of 01/06/24 pt is now able to push pull and lift pt will increase R tricep strength equal to or greater than non affected side (18.4) in order to maximize I in self care/ IADL tasks pt will increase R ER strength equal to or greater than non affected side (18.7) in order to maximize I in self care and IADL tasks Goal Progress: Goal Met Anticipated Interventions Anticipated Interventions Anticipated Interventions: A/AAROM/PROM, Strengthening, Edema Control, Scar Care, Triggerpoint Release, Modalities, Orthoses, Joint Protection/Energy Conservation, Ergonomic Education, Education re assistive Equipment, Education re Diagnosis, Caregiver Training and Home Program Re-Evaluation Ending Re-evaluation ending: Please do not hesitate to contact me at [phone] by phone or if you have questions or concerns regarding this new plan of care! Sincerely, Francia Pruitt
--- NOTE | 2024-06-02 10:19 | HP.PT.NRP ---
Patient Information Patient Information: RAJESH FLORES was seen in my office for initial evaluation on 12/19/23. The following Plan of Care was established for this patient: POC Established Initial Frequency: 2x /Week Initial Duration: 4-6 Weeks Anticipated Interventions Patient/Client Instruction: Educate patient on: Condition For the Purpose of:: To improve ability of physical actions for home/community/work/leisure, To improve gait and locomotor functions, To improve balance and To improve safety with gait Therapeutic Exercise to Include: Strength training, Balance training and Gait and locomotor training For the Purpose of:: To improve gait and locomotor functions Last Seen Last Seen: This patient was last seen in our office 02/06/24. Pertinent comments regarding their Physical therapy will appear below: Pt seen 14 visits of POC and was at least 20% improved. he did not attend any further visits. at this point, it has been over 4 months and I will discontinue from my care. At this point I will be discontinuing this patient from physical therapy. I would be happy to see this patient again in the future if found appropriate by the physician. Thank you! Kingston Pizarro, DPT, OCS, CSCS Balance/Gait/Functional tests Balance/Special Test Scores Functional Gait Assessment Score: 22 % Disability: 26.6700 Lower Extremity Functional Score: 23 TUG Test Time Seconds: 18 Tug Test: <20 sec.=mostly independent 30 Second Chair Rise Test Seconds: 6
== END 2024-02-18 19:00 | disposition home or self-care (01) ==
LOC: OT 15:00
PROVIDERS: PCP Family Medicine; Referring Provider Family Medicine Geriatric Medicine
DX: S42.491D Other displaced fracture of lower end of right humerus, subsequent encounter for fracture with routine healing (principal); R09.02 Hypoxemia; R55 Syncope and collapse; S40.011D Contusion of right shoulder, subsequent encounter
CPT/HCPCS: 97035; 97110; 97140; 97161; 97166; 97530

== ENCOUNTER 2024-02-29 19:57 | Inpatient (IN) | payer OTHER, SELFPAY ==
[2024-02-29 19:58] VITALS: BP 190/66; BP 246/79; PULSE 109; PULSE 111; RESP 20; RESP 25; TEMP 37.2; O2SAT 95
[2024-02-29 20:01] VITALS: BP 190/66; PULSE 110; RESP 20; TEMP 37.7; O2SAT 91; BMI 45.7
--- NOTE | 2024-02-29 20:16 | EDS_ITS ---
HPI History of Present Illness Chief Complaint: Nausea/Vomiting Detail of Chief Complaint: Fever and nausea and vomiting Informant: patient Narrative Narrative: Patient presents emergency department with complaint of not feeling well since yesterday. Patient has had fever and chills yesterday and fatigue. Today he started having nausea and vomited about 3 times. Denies diarrhea. Denies abdominal pain. Patient concerned because he was recently treated for UTI a week ago. He has had prior admission for UTI and sepsis. Patient has history of diabetes and hypertension and high cholesterol. Patient denies cough. Denies abdominal pain. [facility] Medical History Fracture of glenoid cavity of right scapula Hill-Sachs fracture of right humerus Dislocation of right shoulder joint Diabetes Hyperglycemia MARK ANTHONY (obstructive sleep apnea) Morbid obesity Hyperlipidemia Benign essential hypertension Home Medications ?Medication ?Instructions ?Recorded ?Last Taken ?Type gabapentin 400 mg capsule 400 mg PO BID NEUROPATHY 12/17/16 12/05/23 History metoprolol tartrate 25 mg tablet 25 mg PO BID HTN 12/17/16 12/05/23 History insulin aspart U-100 100 unit/mL 26 units SQ TIDCM DIABETES 03/12/18 12/05/23 History (3 mL) subcutaneous pen insulin glargine 100 unit/mL (3 85 units SQ BID DIABETES 03/12/18 12/05/23 History mL) subcutaneous pen metformin 850 mg tablet 850 mg PO BIDCM DIABETES 03/12/18 Unknown History aspirin 81 mg tablet,delayed 81 mg PO DAILY [facility] 02/02/19 12/01/23 History release (Adult Aspirin Regimen) cilostazol 100 mg tablet 100 mg PO BID [facility] 02/02/19 Unknown History pravastatin 40 mg tablet 40 mg PO DAILY cholesterol 02/02/19 12/04/23 History ropinirole 1 mg tablet 1 mg PO QHS involuntary movements 11/29/23 12/04/23 History tramadol 50 mg tablet 50 mg PO Q6H PRN PRN pain 11/29/23 Unknown History temazepam 15 mg capsule 30 mg (2 x 15 mg) PO HS PRN 12/05/23 Unknown Rx Insomnia #0 caps acetaminophen 500 mg tablet 1,000 mg (2 x 500 mg) PO Q6H PRN 12/11/23 Unknown Rx PRN Pain Score 1-5 #0 tabs ascorbic acid (vitamin C) 500 mg 500 mg PO 1000 30 days #30 tabs 12/11/23 Unknown Rx tablet ascorbic acid (vitamin C) 500 mg 500 mg PO DAILY #30 tabs 12/11/23 Unknown Rx tablet (Vitamin C) pantoprazole 40 mg tablet,delayed 40 mg PO DAILY 30 days #30 tabs 12/11/23 Unknown Rx release polysaccharide iron complex 150 mg 150 mg PO DAILY 30 days #30 caps 12/11/23 Unknown Rx iron capsule (Ferrex) semaglutide 1 mg/dose (4 mg/3 mL) 1 mg (0.75 mL) SQ Sa@1000 #0 mL 12/11/23 Unknown Rx subcutaneous pen injector (Ozempic) cephalexin 500 mg capsule 500 mg PO Q6 #40 CAPSULES 01/08/24 Unknown Rx Allergy/AdvReac Type Severity Reaction Status Date / Time No Known Allergies Allergy Verified 02/29/24 19:58 Family History Father High cholesterol Sister High cholesterol Sister High cholesterol Surgical History History of colonoscopy (~2011) History of carpal tunnel surgery History of amputation of right great toe History of cholecystectomy Social History household members: spouse Smoking Status: Never smoker alcohol intake: never substance use type: does not use ROS ROS ED Review of Systems ROS Unobtainable: other Constitutional Constitutional ED: Reports chills, fever(s) and lethargy; Denies sweats or weight loss Eyes Eyes: Denies blurry vision, change in vision or diplopia ENT ENT ED: Denies rhinorrhea or sore throat Cardiovascular Cardiovascular: Denies chest pain, orthopnea or racing heartbeat Respiratory/Chest Respiratory/Chest: Denies cough, dyspnea, dyspnea on exertion, orthopnea or sputum Gastrointestinal Gastrointestinal: Reports nausea and vomiting; Denies abdominal pain or diarrhea Genitourinary Genitourinary ED: Denies dysuria, hematuria or urinary frequency Musculoskeletal Musculoskeletal: Denies arthralgias, back pain, myalgias or neck pain Integumentary Denies abscess, Abrasions or rash Neurologic Neurologic: Denies headache(s) or weakness Psychiatric Psychiatric: Denies anxiety, depression or suicidal thoughts Endocrine Endocrinology: Denies polydipsia, polyphagia or polyuria Hematologic/Lymphatic Hematologic/Lymphatic: Denies easy bleeding, easy bruising or lymphadenopathy Allergic/Immunologic Allergic/Immunologic ED: Denies mouth swelling, tongue swelling or urticaria EXAM Physical Exam Const Vital Signs: 02/29/24 19:58 02/29/24 19:58 02/29/24 20:01 Temperature 98.9 F 99.8 F H Temperature Source Temporal Temporal Pulse Rate 109 H 111 H 110 H Respiratory Rate 25 H 20 H 20 H Blood Pressure 246/79 H 190/66 H 190/66 H Blood Pressure Mean 134 107 107 Pulse Ox 95 95 91 Oxygen Delivery Method Room Air Room Air Room Air Positive well nourished and well developed General Appearance ED: well developed and NAD HEENT Reports TM's clear and moist mucous membranes normocephalic and atraumatic; Negative for trauma or tenderness Tympanic Membrane ED: Yes TM's clear Eyes PERRL and EOMs intact bilaterally General Eye ED: Negative for pale conjunctiva or scleral icterus Neck no lymphadenopathy, supple and no JVD General: Negative for tenderness Chest Wall inspection of chest normal and palpation of chest normal Chest: Negative for tenderness Resp normal respiratory effort and clear to auscultation bilaterally Effort and Inspection: Negative for respiratory distress or pain with movement Auscultation: Negative for rhonchi, wheezes or diminished lung sounds Cardio regular rate, regular rhythm, S1 normal heart sound, S2 normal heart sound and no murmurs Peripheral Pulses: pulses 2+ throughout GI normal to inspection, nondistended, normoactive bowel sounds, soft to palpation, non-tender, non-distended and no masses Back/Spine no CVA tenderness and no thoracic nor lumbar tenderness Extremity normal to inspection General Extremety ED: Negative for edema General Extremity: Negative for edema Neuro oriented x3, CN's II-XII intact bilaterally, no sensory deficits noted and gait normal Sensorium / Orientation: awake, alert, oriented to person, oriented to place and oriented to time Motor Exam: strength 5/5 throughout and strength abnormal Psych mental status grossly normal Skin no rashes or lesions noted and no wounds MDM MDM MDM Narrative Medical decision making narrative: Patient presents to the emergency department with complaint of fever and chills and nausea and vomiting. History of UTI and urosepsis. IV line established. Blood cultures ordered as well as urine and urine culture. CBC with differential white count 11.5 with hemoglobin 10.2 and platelet count of 234. Chemistries unremarkable. Lactate elevated 2.2. Urinalysis positive for UTI with greater than 100 WBCs and positive for nitrites and +3 bacteria. Patient started on Rocephin 1 g IV. Case will be discussed with hospitalist to evaluate patient for admission. Lab Data Attestation: I reviewed the patient's lab results. Labs: Laboratory Results - last 24 hr 02/29/24 02/29/24 20:30 20:50 WBC 11.5 H RBC 3.70 L Hgb 10.2 L Hct 32.6 L MCV 88.1 MCH 27.6 MCHC 31.3 L RDW Std Deviation 55.0 H RDW Coeff of Eyal 17.0 H Plt Count 234 MPV 9.1 Immature Gran % (Auto) 0.400 Neut % (Auto) 69.2 Lymph % (Auto) 16.7 L [place] % (Auto) 11.2 H Eos % (Auto) 2.2 Baso % (Auto) 0.3 Absolute Neuts (auto) 8.0 H Absolute Lymphs (auto) 1.92 Nucleated RBC % 0 Sodium 136 Potassium 4.5 Chloride 103 Carbon Dioxide 27.0 Anion Gap 6 BUN 18 Creatinine 1.33 H Est GFR (MDRD) Af Amer 70 Est GFR (MDRD) Non-Af 58 L BUN/Creatinine Ratio 13.5 Glucose 110 H Lactic Acid 2.2 H* Calcium 8.9 Urine Color Yellow Urine Clarity Cloudy Urine pH 6.0 Ur Specific [place] 1.015 Urine Protein 30 H Urine Glucose (UA) Normal Urine Ketones Negative Urine Occult Blood 25 H Urine Nitrite Positive H Urine Bilirubin Negative Urine Urobilinogen Normal Ur Leukocyte Esterase 500 H Urine RBC 5-10 SEEN Urine WBC >100 SEEN Ur Squamous Epith Cells 0-5 SEEN Amorphous Sediment 1+ URATE Urine Bacteria 3+ Urine Mucus 0 SEEN Radiography Diagnostic Testing: Clinical Impression(s) from Imaging Studies Chest X-Ray 02/29/24 21:00 IMPRESSION: No acute findings in the chest. Electronically Signed: Santiago Yung MD at 21:39 EDT , 1 view chest x-ray obtained interpreted by myself as no evidence of infiltrate or pneumothorax or acute disease process. Radiology in agreement. Discharge Plan Triage Chief Complaint: Nausea/Vomiting ED Provider: Shakir Andrea Dx/Rx/DC Orders Clinical Impression: Acute UTI, Leukocytosis, Acidosis, lactic Prescriptions: No Action cilostazol 100 mg tablet 100 mg PO BID aspirin [Adult Aspirin Regimen] 81 mg tablet,delayed release (DR/EC) 81 mg PO DAILY pravastatin 40 mg tablet 40 mg PO DAILY metoprolol tartrate 25 MG tablet 25 mg PO BID Patient Comments: BLOOD PRESSURE gabapentin 400 MG capsule 400 mg PO BID Patient Comments: NERVE PAIN metformin 850 MG tablet 850 mg PO BIDCM insulin aspart U-100 100 UNITS/ML insulin pen 26 units SQ TIDCM insulin glargine 100 UNITS/ML insulin pen 85 units SQ BID ropinirole 1 mg tablet 1 mg PO QHS tramadol 50 mg tablet 50 mg PO Q6H PRN PRN (Reason: pain) temazepam 15 mg Capsule 30 mg PO HS PRN (Reason: Insomnia) Qty: 0 0RF acetaminophen 500 mg Tablet 1,000 mg PO Q6H PRN PRN (Reason: Pain Score 1-5) Qty: 0 0RF ascorbic acid (vitamin C) 500 mg Tablet 500 mg PO 1000 30 Days Qty: 30 0RF pantoprazole 40 mg Tablet,Delayed Release (Dr/Ec) 40 mg PO DAILY 30 Days Qty: 30 0RF polysaccharide iron complex [Ferrex 150] 150 mg iron Capsule 150 mg PO DAILY 30 Days Qty: 30 0RF Ozempic 1 mg/dose (4 mg/3 mL) Pen Injector 1 mg SQ Sa@1000 Qty: 0 0RF ascorbic acid (vitamin C) [Vitamin C] 500 mg tablet 500 mg PO DAILY Qty: 30 0RF Rx Instructions: Take with Ferrex. cephalexin 500 mg capsule 500 mg PO Q6 Qty: 40 0RF Primary Care Provider: Drew Schwartz Referrals: Drew Schwartz MD [Primary Care Provider] - Print Language: Icelandic Disposition Disposition: Acute Care [facility]
[2024-02-29] MEDS: Ondansetron 4 MG/2 ML Vial IV (20:27)
[2024-02-29 20:43] LABS: Absolute Lymphocyte Count 1.92 X10^3/uL (0.83-4.51); Basophil# 0.03 X10^3/uL; Basophil% 0.3 % (0-1); Eosinophil# 0.25 X10^3/uL; Eosinophils% 2.2 % (0-5); Hematocrit 32.6 % (40-54); Hemoglobin 10.2 g/dL (13.0-16.5); Lymphocyte # 1.92 X10^3/ul (0.83-4.51); Lymphocyte % 16.7 % (19-41); Mean Corp Hgb Conc 31.3 g/dL (32-36); Mean Corpuscular Hgb 27.6 pg (27.0-32.0); Mean Corpuscular Volume 88.1 fL (80-94); Mean Platelet Vol. 9.1 fl (6.2-12.0); Monocyte# 1.29 X10^3/uL; Monocyte% 11.2 % (0-10); NRBC Flagged by Analyzer 0 % (0-5); Neutrophil # 7.96 X10^3/uL (2.7-7.7); Neutrophil % 69.2 % (47-70); Platelet Count 234 K/mm3 (150-450); White Blood Count 11.5 K/mm3 (4.4-11.0)
[2024-02-29] MEDS: 0.9% Normal Saline (1000mL) 1,000 ML 150 ML IV (20:48)
[2024-02-29 20:57] LABS: Anion Gap 6 (5-15); BUN 18 mg/dL (7-18); BUN/Creat Ratio 13.5 RATIO (10-20); Calcium,Total 8.9 mg/dL (8.5-10.1); Chloride 103 mmol/L (98-107); Creatinine, Serum 1.33 mg/dL (0.70-1.30); EST Glomerular Filtration Rate 58 mL/min (>60); Est Glom Filt Rate - Afr Amer 70 mL/min (>60); Glucose 110 mg/dL (74-106); Potassium 4.5 mmol/L (3.5-5.1); Sodium Level 136 mmol/L (136-145)
[2024-02-29 20:57] LABS: Mucous, Urine 0 SEEN /hpf (<or=2+)
[2024-02-29 20:59] LABS: Color, Urine Yellow (Yellow); Glucose, Dipstick Normal (Normal); Ketone-Dipstick Negative (Negative); Leukocyte Esterase-Dipstick 500 /ul (Negative); Nitrite-Dipstick Positive (Negative); Occult Blood-Urine 25 /ul (Negative); Protein-Dipstick 30 mg/dl (Negative); Specific Gravity, Urine 1.015 (1.002-1.030); Urine Bilirubin Dipstick Negative (Negative); Urine Clarity Cloudy (Clear); Urine Urobilinogen Normal (Normal)
--- NOTE | 2024-02-29 21:00 | RAD_ITS ---
EXAM: XR CHEST, 1 VIEW CLINICAL INDICATION: fever TECHNIQUE: Frontal view of the chest. COMPARISON: 12/01/2023 FINDINGS: LUNGS AND PLEURAL SPACES: Unremarkable. No consolidation or edema. No pneumothorax. No effusion. HEART: Enlarged heart. MEDIASTINUM: Central airways and mediastinal contour are unremarkable. BONES/JOINTS: Unremarkable. No acute fracture. SOFT TISSUES: Unremarkable. RAD/Chest 1 View (Portable) IMPRESSION: No acute findings in the chest. Electronically Signed: Santiago Yung MD at 21:39 EDT ,
[2024-02-29 21:07] LABS: Lactic Acid 2.2 mmol/L (0.4-1.9)
[2024-02-29 21:08] LABS: Amorphous Sediment 1+ URATE; Bacteria 3+ /hpf (None Seen); Red Blood Cells-Urine 5-10 SEEN /hpf (0-5); Squamous Epithelial Cells - UA 0-5 SEEN /hpf (0-5); White Blood Cells >100 SEEN /hpf (0-5)
[2024-02-29 22:47] VITALS: BP 113/49; PULSE 112; RESP 17; TEMP 38.8; O2SAT 90
[2024-02-29] MEDS: Ceftriaxone 1 GM/50 ML BAG IV (22:52)
[2024-02-29 22:53] VITALS: PULSE 109; RESP 19; O2SAT 95
--- NOTE | 2024-02-29 23:08 | HP.PCM.HOS_ITS ---
HPI - General General Date of Admission: 02/29/24 Date of Service: 02/29/24 Chief Complaint: Fever, chills, N/V, increased urinary frequency. HPI Narrative The patient is a 64 y/o M w/ PMHx: Morbid obesity, MARK ANTHONY on CPAP, IDDM with chronic neuropathy, PAOD, HTN, HLD, Chronic anemia/Fe deficiency anemia, CKD stage III unclear subtype who presents to the [facility] ED on 02/29/24 with history of significant fatigue, malaise worsening since day prior with now onset of fever and chills as well as nausea and a bout of emesis x 3 with decreased appetite with increased urinary frequency but no specific dysuria or markedly foul smell but history of previous UTIs and felt this was similar to his previous presentation prompting eventual ED evaluation to be cautious. Patient denies any recent URI type symptoms. His who is present has not been ill. Workup in the ED included T99.9, heart rate 109, BP 246/79 initially, respiratory rate 25, 95% on room air, Tmax in the ED 101.9, CBC with WC 11.5, human 10.2, MCV 88.1, platelet 234 with left shift, BMP with BUN/creatinine 18/1.33, GFR 58, glucose 110, lactic acid 2.2, urinalysis remarkable for possible UTI with pending urine culture, rapid SARS COVID/influenza/RSV PCR negative, chest x-ray with no acute cardiopulmonary findings. In the ED patient administered Zofran 4 mg IV x 1 and Rocephin 1 g IV x 1. [facility] Medical History Fracture of glenoid cavity of right scapula Hill-Sachs fracture of right humerus Dislocation of right shoulder joint Diabetes Hyperglycemia MARK ANTHONY (obstructive sleep apnea) Morbid obesity Hyperlipidemia Benign essential hypertension Home Medications ?Medication ?Instructions ?Recorded ?Last Taken ?Type gabapentin 400 mg capsule 400 mg PO BID NEUROPATHY 12/17/16 12/05/23 History metoprolol tartrate 25 mg tablet 25 mg PO BID HTN 12/17/16 12/05/23 History insulin aspart U-100 100 unit/mL 26 units SQ TIDCM DIABETES 03/12/18 12/05/23 History (3 mL) subcutaneous pen insulin glargine 100 unit/mL (3 85 units SQ BID DIABETES 03/12/18 12/05/23 History mL) subcutaneous pen metformin 850 mg tablet 850 mg PO BIDCM DIABETES 03/12/18 Unknown History aspirin 81 mg tablet,delayed 81 mg PO DAILY heart health 02/02/19 12/01/23 History release (Adult Aspirin Regimen) cilostazol 100 mg tablet 100 mg PO BID heart health 02/02/19 Unknown History pravastatin 40 mg tablet 40 mg PO DAILY cholesterol 02/02/19 12/04/23 History ropinirole 1 mg tablet 1 mg PO QHS involuntary movements 11/29/23 12/04/23 History temazepam 15 mg capsule 30 mg (2 x 15 mg) PO HS PRN 12/05/23 Unknown Rx Insomnia #0 caps acetaminophen 500 mg tablet 1,000 mg (2 x 500 mg) PO Q6H PRN 12/11/23 Unknown Rx PRN Pain Score 1-5 #0 tabs ascorbic acid (vitamin C) 500 mg 500 mg PO 1000 30 days #30 tabs 12/11/23 Unknown Rx tablet ascorbic acid (vitamin C) 500 mg 500 mg PO DAILY #30 tabs 12/11/23 Unknown Rx tablet (Vitamin C) pantoprazole 40 mg tablet,delayed 40 mg PO DAILY 30 days #30 tabs 12/11/23 Unknown Rx release polysaccharide iron complex 150 mg 150 mg PO DAILY 30 days #30 caps 12/11/23 Unknown Rx iron capsule (Ferrex) semaglutide 1 mg/dose (4 mg/3 mL) 1 mg (0.75 mL) SQ Sa@1000 #0 mL 12/11/23 Unknown Rx subcutaneous pen injector (Ozempic) Allergy/AdvReac Type Severity Reaction Status Date / Time No Known Allergies Allergy Verified 02/29/24 19:58 Family History Father High cholesterol Sister High cholesterol Sister High cholesterol other (Patient does not know his maternal family history.) Surgical History History of colonoscopy (~2011) History of carpal tunnel surgery History of amputation of right great toe History of cholecystectomy Social History household members: spouse Smoking Status: Never smoker alcohol intake: never substance use type: does not use ROS ROS Narrative Admission Review of Systems: CONSTITUTIONAL: No weight loss, + fever, chills, weakness or fatigue. HEENT: Eyes: No visual loss, blurred vision, double vision or yellow sclerae. Ears, Nose, Throat: No hearing loss, sneezing, congestion, runny nose or sore throat. SKIN: No rash or itching, lesions, wounds. CARDIOVASCULAR: No chest pain, chest pressure or chest discomfort, palpitations, edema, orthopnea, syncopal events. RESPIRATORY: No shortness of breath, cough or sputum, wheezing, hemoptysis. GASTROINTESTINAL: + Anorexia, nausea, vomiting. No diarrhea, abdominal pain, melena, BRBPR. GENITOURINARY: + Increased urinary frequency. No dysuria or retention. NEUROLOGICAL: No headache, dizziness, syncope, paralysis, ataxia, numbness or tingling in the extremities, focal weakness, change in bowel or bladder control, seizure. MUSCULOSKELETAL: + muscle, back pain, joint pain or stiffness. HEMATOLOGIC: + Chronic anemia, easy bleeding/bruising. LYMPHATICS: No enlarged nodes. No history of splenectomy. PSYCHIATRIC: No history of depression or anxiety. ENDOCRINOLOGIC: + reports of sweating, cold or heat intolerance. No polyuria or polydipsia. ALLERGIES: No history of asthma, hives, eczema or rhinitis. Vital Signs Vital Signs Vital Signs: 02/29/24 19:58 02/29/24 19:58 02/29/24 20:01 Temperature 98.9 F 99.8 F H Temperature Source Temporal Temporal Pulse Rate 109 H 111 H 110 H Respiratory Rate 25 H 20 H 20 H Blood Pressure 246/79 H 190/66 H 190/66 H Blood Pressure Mean 134 107 107 Pulse Ox 95 95 91 Oxygen Delivery Method Room Air Room Air Room Air Oxygen Flow Rate (L/min) 02/29/24 22:47 02/29/24 22:53 Temperature 101.9 F H Temperature Source Pulse Rate 112 H 109 H Respiratory Rate 17 19 H Blood Pressure 113/49 L Blood Pressure Mean 70 Pulse Ox 90 95 Oxygen Delivery Method Nasal Cannula Oxygen Flow Rate (L/min) 2 Weight Weight: 356 lb 0.745 oz Body Mass Index (BMI) 45.7 Physical Exam Narrative Physical Examination: General: Awake, alert, oriented x 3 and cooperative, laying in the ED bed, fatigued, mildly flushed. Skin: Normal color aside from flushed appearance, normal turgor, no icterus, no cyanosis except mild bilateral lower extremity venous stasis changes. HEENT: AT/NC, EOMI, PERRLA, moderately dry MM, no carotid bruits or JVD noted; however thickened neck makes evaluation difficult. Lungs: Distant breath sounds likely secondary to habitus, diminished more so bases, appropriate effort, no rales, ronchi or wheezing. Heart: Mildly tachycardic with regular rhythm; no gallop, rub audible. Abdomen: Soft, morbidly obese, NTTP, no suprapubic discomfort to palpation, distant bowel sounds, difficult to discern distention and HSM given habitus. Extremities: No cyanosis, no clubbing, bilateral ankle chronic edema present. Neurological: Patient awake, alert, oriented as noted, cognitive function intact; pupils equally reactive to light and accommodation, cranial nerves grossly normal, moving all 4 extremities, no focal deficits, strength moderately to severely globally decreased secondary to acute presentation complaints. Psychiatric: Affect appears flat, fatigued, ill-appearing, no acute evidence of depressive or anxiety feelings. Results Lab / Micro Data 02/29/24 20:30 02/29/24 20:30 Labs: Laboratory Results - last 24 hr 02/29/24 20:30: WBC 11.5 H, RBC 3.70 L, Hgb 10.2 L, Hct 32.6 L, MCV 88.1, MCH 27.6, MCHC 31.3 L, RDW Std Deviation 55.0 H, RDW Coeff of Eyal 17.0 H, Plt Count 234, MPV 9.1, Immature Gran % (Auto) 0.400, Neut % (Auto) 69.2, Lymph % (Auto) 16.7 L, [place] % (Auto) 11.2 H, Eos % (Auto) 2.2, Baso % (Auto) 0.3, Absolute Neuts (auto) 8.0 H, Absolute Lymphs (auto) 1.92, Nucleated RBC % 0, Sodium 136, Potassium 4.5, Chloride 103, Carbon Dioxide 27.0, Anion Gap 6, BUN 18, C reatinine 1.33 H, Est GFR (MDRD) Af Amer 70, Est GFR (MDRD) Non-Af 58 L, BUN/Creatinine Ratio 13.5, Glucose 110 H, Lactic Acid 2.2 H*, Calcium 8.9 02/29/24 20:50: Urine Color Yellow, Urine Clarity Cloudy, Urine pH 6.0, Ur Specific [place] 1.015, Urine Protein 30 H, Urine Glucose (UA) Normal, Urine Ketones Negative, Urine Occult Blood 25 H, Urine Nitrite Positive H, Urine Bilirubin Negative, Urine Urobilinogen Normal, Ur Leukocyte Esterase 500 H, Urine RBC 5-10 SEEN, Urine WBC >100 SEEN, Ur Squamous Epith Cells 0-5 SEEN, Amorphous Sediment 1+ URATE, Urine Bacteria 3+, Urine Mucus 0 SEEN Micro: Microbiology 02/29/24 20:50 Mucosa - Nose SARS-CoV-2, Influenza & RSV (PCR) - Final Imaging Radiology Impression Chest X-Ray 02/29/24 21:00 IMPRESSION: No acute findings in the chest. Electronically Signed: Santiago Yung MD at 21:39 EDT Reading Location ID and State: [facility] / [place] , Service support , Assessment & Plan Assessment/Plan (1) Acute UTI: PLAN: Plan The patient is a 64 y/o M w/ PMHx: Morbid obesity, MARK ANTHONY on CPAP, IDDM with chronic neuropathy, PAOD, HTN, HLD, Chronic anemia/Fe deficiency anemia, CKD stage III unclear subtype who presents to the [facility] ED on 02/29/24 with history of significant fatigue, malaise worsening since day prior with now onset of fever and chills as well as nausea and a bout of emesis x 3 with decreased appetite with increased urinary frequency but no specific dysuria or markedly foul smell but history of previous UTIs and felt this was similar to his previous presentation prompting eventual ED evaluation to be cautious. #1. Acute Complicated Urinary Tract Infection with associated mild lactic acidosis: Will admit to PCU given initial tachycardia and mild lactic acidosis however would de-escalate off of telemetry in the next 12 to 24 hours if improving, UA upon ED evaluation remarkable, pending UCx, continue IVFs, monitor I/Os, continue IV Rocephin given review of previous cultures with snowden sensitivity w/ transition as able pending sensitivities and speciation. #2. Chronic normocytic anemia/iron deficiency anemia: Admission hemoglobin 10.2, MCV 88.1, baseline hemoglobin 9-10 more recently, stable, continue to trend, continue iron supplementation. #3. Chronic Kidney Disease Stage III, unclear subtype: Admission BUN/Cr 18/1.33, GFR 58, baseline renal function primarily 1.2-1.4, repeat BMP in AM. #4. Diabetes mellitus type II: Hold oral home regimen, continue home insulin regimen, ADA diet, accu checks w/ ISS. #5. PAOD: We will continue patient aspirin, cilostazol, statin therapy, hypertensive regimen and diabetic regimen as noted. #6. Restless leg syndrome: We will continue patient on Requip regimen. #7. Hypertension: Continue home regimen including metoprolol, PRN hydralazine. #8. Morbid Obesity: Weight loss and lifestyle changes encouraged. #9. Hyperlipidemia: We will continue patient on statin therapy. #10. GERD: We will continue patient on PPI. #11. MARK ANTHONY: CPAP nightly. #12. DVT prophylaxis: Lovenox. #13. CODE status: Patient HCPOA and living will are not in place but his he notes would be his decision-maker if necessary. Full Code status. Charges/Coding Visit Charges Inpatient E&M: 16950 Init Hosp L3
[2024-03-01] VITALS (10 sets, daily range): BP systolic 116–139; BP diastolic 40–54; PULSE 85–106; RESP 12–20; TEMP 36.8–38.3; O2SAT 92–98; BMI 45.2; BMI 46.2
[2024-03-01] MEDS: Metoprolol Tartrate 25 MG Tablet PO ×3 (00:26→20:58)
[2024-03-01] MEDS: 0.9% Normal Saline (1000mL) 1,000 ML 100 ML IV ×2 (00:26→15:51)
[2024-03-01] MEDS: Acetaminophen 325 MG Tablet 650 MG PO ×5 (00:26→22:02)
[2024-03-01] MEDS: Pramipexole Di-HCl 0.5 MG Tablet PO ×2 (00:27→20:58)
[2024-03-01 00:34] LABS: Reflex Lactate? Y
[2024-03-01] MEDS: Gabapentin 400 MG Capsule PO ×3 (00:36→20:58)
[2024-03-01 00:42] LABS: Bedside Glucose 80 mg/dL (74-106)
[2024-03-01 02:35] LABS: Lactic Acid 1.7 mmol/L (0.4-1.9)
[2024-03-01 05:49] LABS: Absolute Lymphocyte Count 1.71 X10^3/uL (0.83-4.51); Absolute Neutrophil Count 9.5 X10^3/uL (2.0-7.7); Basophil# 0.02 X10^3/uL; Basophil% 0.2 % (0-1); Eosinophil# 0.08 X10^3/uL; Eosinophils% 0.6 % (0-5); Hematocrit 27.8 % (40-54); Hemoglobin 8.9 g/dL (13.0-16.5); Lymphocyte # 1.71 X10^3/ul (0.83-4.51); Lymphocyte % 13.5 % (19-41); Mean Corpuscular Hgb 28.5 pg (27.0-32.0); Mean Corpuscular Volume 89.1 fL (80-94); Mean Platelet Vol. 9.2 fl (6.2-12.0); Monocyte# 1.34 X10^3/uL; Monocyte% 10.6 % (0-10); NRBC Flagged by Analyzer 0 % (0-5); Neutrophil # 9.45 X10^3/uL (2.7-7.7); Neutrophil % 74.5 % (47-70); Platelet Count 204 K/mm3 (150-450); RBC Distribution Width CV 17.2 % (11.6-14.6); RBC Distribution Width SD 55.9 fl (35.1-43.9); Red Blood Count 3.12 M/mm3 (4.6-6.2); White Blood Count 12.7 K/mm3 (4.4-11.0)
[2024-03-01 06:18] LABS: ALB/GLOB Ratio 0.7 RATIO (0.9-2.4); AST(SGOT) 13 U/L (15-37); Alanine Aminotransfer ALT/SGPT 15 U/L (16-61); Albumin, Serum 2.7 g/dL (3.2-5.0); Alkaline Phosphatase 72 U/L (45-117); Anion Gap 5 (5-15); BUN 20 mg/dL (7-18); BUN/Creat Ratio 14.1 RATIO (10-20); Calcium,Total 8.3 mg/dL (8.5-10.1); Chloride 103 mmol/L (98-107); Creatinine, Serum 1.42 mg/dL (0.70-1.30); EST Glomerular Filtration Rate 54 mL/min (>60); Est Glom Filt Rate - Afr Amer 65 mL/min (>60); Estimated Creatinine Clearance 82.97 ml/min; Globulin 3.8 g/dL (2.2-4.2); Glucose 139 mg/dL (74-106); Potassium 4.7 mmol/L (3.5-5.1); Protein, Total 6.5 g/dL (6.4-8.2); Sodium Level 135 mmol/L (136-145)
[2024-03-01 08:21] LABS: Bedside Glucose 132 mg/dL (74-106)
[2024-03-01] MEDS: Insulin Lispro 100 UNIT/ML INSULN.PEN 26 UNIT SC (08:59)
[2024-03-01] MEDS: Aspirin E.C. 81 MG Tablet PO (12:05)
[2024-03-01] MEDS: Iron Polysaccharide Complex 150 MG CAPSULE PO (12:06)
[2024-03-01] MEDS: Enoxaparin 40 MG/0.4 ML Syringe SC ×2 (12:07→20:58)
[2024-03-01] MEDS: Cilostazol 50 MG Tablet 100 MG PO ×2 (12:08→20:58)
[2024-03-01 12:09] LABS: Bedside Glucose 132 mg/dL (74-106)
[2024-03-01] MEDS: Pantoprazole Sodium 40 MG Tablet PO (12:09)
[2024-03-01] MEDS: Ascorbic Acid 500 MG Tablet PO (12:09)
[2024-03-01] MEDS: Insulin Glargine-YFGN 100 UNIT/ML Pen 80 UNIT SC ×2 (12:10→21:01)
[2024-03-01] MEDS: Insulin Lispro 100 UNIT/ML INSULN.PEN 20 UNIT SC ×2 (12:34→17:23)
--- NOTE | 2024-03-01 15:33 | PN.HOSP_ITS ---
Reason for Visit Reason for Visit: Diagnoses Urinary tract infection, site not specified (02/29/24) Subjective Subjective Patient was seen and examined today, his white blood cell count was elevated today at 12.7. His creatinine was elevated at 1.42. Objective Data Objective Data Vital Signs: Vital Signs Temp Pulse Resp BP Pulse Ox O2 Del Method O2 Flow Rate 98.9 F 89 18 139/53 H 98 CPAP 2 03/01/24 14:45 03/01/24 14:45 03/01/24 14:45 03/01/24 14:45 03/01/24 14:45 03/01/24 14:47 02/29/24 22:53 Oxygen Flow Rate (L/min) 2 Oxygen Delivery Method CPAP Weight: 155.582 kg Body Mass Index (BMI) 45.2 Intake & Output: Intake and Output for Last 24 Hours 02/28/24 02/29/24 03/01/24 23:59 23:59 23:59 Intake Total 50 / 50 2480 / 2480 Output Total 400 / 400 Balance 50 / 50 2080 / 2080 Lab / Micro Data 03/01/24 05:00 03/01/24 05:00 Labs: Laboratory Results - last 24 hr 02/29/24 20:30: WBC 11.5 H, RBC 3.70 L, Hgb 10.2 L, Hct 32.6 L, MCV 88.1, MCH 27.6, MCHC 31.3 L, RDW Std Deviation 55.0 H, RDW Coeff of Eyal 17.0 H, Plt Count 234, MPV 9.1, Immature Gran % (Auto) 0.400, Neut % (Auto) 69.2, Lymph % (Auto) 16.7 L, [place] % (Auto) 11.2 H, Eos % (Auto) 2.2, Baso % (Auto) 0.3, Absolute Neuts (auto) 8.0 H, Absolute Lymphs (auto) 1.92, Nucleated RBC % 0, Sodium 136, Potassium 4.5, Chloride 103, Carbon Dioxide 27.0, Anion Gap 6, BUN 18, C reatinine 1.33 H, Est GFR (MDRD) Af Amer 70, Est GFR (MDRD) Non-Af 58 L, BUN/Creatinine Ratio 13.5, Glucose 110 H, Lactic Acid 2.2 H*, Calcium 8.9 02/29/24 20:50: Urine Color Yellow, Urine Clarity Cloudy, Urine pH 6.0, Ur Specific [place] 1.015, Urine Protein 30 H, Urine Glucose (UA) Normal, Urine Ketones Negative, Urine Occult Blood 25 H, Urine Nitrite Positive H, Urine Bilirubin Negative, Urine Urobilinogen Normal, Ur Leukocyte Esterase 500 H, Urine RBC 5-10 SEEN, Urine WBC >100 SEEN, Ur Squamous Epith Cells 0-5 SEEN, Amorphous Sediment 1+ URATE, Urine Bacteria 3+, Urine Mucus 0 SEEN 03/01/24 00:24: POC Glucose 80 03/01/24 01:15: Lactic Acid 1.7 03/01/24 05:00: WBC 12.7 H, RBC 3.12 L, Hgb 8.9 L, Hct 27.8 L, MCV 89.1, MCH 28.5, MCHC 32.0, RDW Std Deviation 55.9 H, RDW Coeff of Eyal 17.2 H, Plt Count 204, MPV 9.2, Immature Gran % (Auto) 0.600, Neut % (Auto) 74.5 H, Lymph % (Auto) 13.5 L, [place] % (Auto) 10.6 H, Eos % (Auto) 0.6, Baso % (Auto) 0.2, Absolute Neuts (auto) 9.5 H, Absolute Lymphs (auto) 1.71, Nucleated RBC % 0, Sodium 135 L , Potassium 4.7, Chloride 103, Carbon Dioxide 27.0, Anion Gap 5, BUN 20 H, C reatinine 1.42 H, Estim Creat Clear Calc 82.97, Est GFR (MDRD) Af Amer 65, Est GFR (MDRD) Non-Af 54 L, BUN/Creatinine Ratio 14.1, Glucose 139 H, Calcium 8.3 L, Total Bilirubin 0.60, AST 13 L, ALT 15 L, Alkaline Phosphatase 72, Total Protein 6.5, Albumin 2.7 L, Globulin 3.8, Albumin/Globulin Ratio 0.7 L 03/01/24 07:59: POC Glucose 132 H 03/01/24 11:44: POC Glucose 132 H Micro: Microbiology 02/29/24 20:50 Urine, Clean Catch Urine 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 Electronically Signed: Santiago Yung MD at 21:39 EDT Reading Location ID and State: [facility] / [place] , Service support , Physical Exam Const alert, oriented x3 and no apparent distress Constitutional Narrative: Patient is morbidly obese General Appearance: cooperative, well kempt and well developed Orientation / Consciousness: awake, oriented to person, oriented to place and oriented to time HEENT normocephalic, head/scalp atraumatic and moist oral mucous membranes Eyes PERRL, EOMs intact bilaterally and conjunctivae normal Neck supple, no JVD, thyroid normal and no carotid bruits General: trachea midline Resp normal respiratory effort, no retractions, no use of accessory muscles and clear to auscultation bilaterally Auscultation: Negative for rales, rhonchi or wheezes Cardio regular rate, regular rhythm, S1 normal heart sound, S2 normal heart sound, no murmurs, no rub and no gallops GI normal to inspection, nondistended, normoactive bowel sounds, soft to palpation, non-tender and non-distended Extremity no clubbing, cyanosis or edema Skin no rashes or lesions noted General Skin Exam: no breakdown Neuro oriented x3, CN's II-XII intact bilaterally, no focal motor deficits and no sensory deficits noted Sensorium / Orientation: awake and alert Speech: speech normal Psych affect normal Assessment & Plan Assessment/Plan (1) Acute UTI: PLAN: Plan 1. Acute cystitis-cultures are pending at this time, he will remain on his present antibiotics #2 type 2 diabetes-patient's home insulin will be continued, fingerstick blood sugars will be performed and he will be given sliding scale insulin as needed #3 essential hypertension-patient will remain on his home medications #4 morbid obesity-complicates care, management, recovery, and prognosis #5 chronic iron deficiency anemia-continue oral iron supplement #6 dehydration-patient will be placed on IV fluids at 100 cc/h, labs will be rechecked tomorrow Total clinical time spent by myself addressing the patient's medical issues, reviewing all of his data, and collaborating with patient's care team: 35 minutes Charges/Coding Visit Charges Inpatient E&M: 48772 Subs Hosp L2
[2024-03-01 16:31] LABS: Bedside Glucose 121 mg/dL (74-106)
[2024-03-01] MEDS: Ceftriaxone 1 GM/50 ML BAG IV (20:59)
[2024-03-01] MEDS: Pravastatin 40 MG Tablet PO (21:03)
[2024-03-01 22:17] LABS: Bedside Glucose 139 mg/dL (74-106)
[2024-03-02] MEDS: 0.9% Normal Saline (1000mL) 1,000 ML 100 ML IV (02:45)
[2024-03-02 04:03] VITALS: BP 107/49; PULSE 97; RESP 20; TEMP 36.3; O2SAT 92
[2024-03-02 06:29] LABS: Anion Gap 5 (5-15); BUN 19 mg/dL (7-18); Calcium,Total 8.4 mg/dL (8.5-10.1); Chloride 103 mmol/L (98-107); Creatinine, Serum 1.12 mg/dL (0.70-1.30); EST Glomerular Filtration Rate 70 mL/min (>60); Est Glom Filt Rate - Afr Amer 85 mL/min (>60); Estimated Creatinine Clearance 106.24 ml/min; Glucose 117 mg/dL (74-106); Sodium Level 134 mmol/L (136-145)
[2024-03-02 07:09] LABS: Bedside Glucose 106 mg/dL (74-106)
[2024-03-02 08:13] VITALS: O2SAT 94
[2024-03-02 08:30] VITALS: BP 124/56; PULSE 96; RESP 18; TEMP 36.5; O2SAT 94
[2024-03-02] MEDS: Gabapentin 400 MG Capsule PO (08:48)
[2024-03-02 08:49] VITALS: PULSE 94
[2024-03-02] MEDS: Insulin Glargine-YFGN 100 UNIT/ML Pen 80 UNIT SC (08:49)
[2024-03-02] MEDS: Enoxaparin 40 MG/0.4 ML Syringe SC (08:49)
[2024-03-02] MEDS: Aspirin E.C. 81 MG Tablet PO (08:49)
[2024-03-02] MEDS: Metoprolol Tartrate 25 MG Tablet PO (08:49)
[2024-03-02] MEDS: Ascorbic Acid 500 MG Tablet PO (08:50)
[2024-03-02] MEDS: Pantoprazole Sodium 40 MG Tablet PO (08:50)
[2024-03-02] MEDS: Cilostazol 50 MG Tablet 100 MG PO (08:50)
[2024-03-02] MEDS: Insulin Lispro 100 UNIT/ML INSULN.PEN 20 UNIT SC ×2 (08:51→11:33)
[2024-03-02] MEDS: Iron Polysaccharide Complex 150 MG CAPSULE PO (08:51)
--- NOTE | 2024-03-02 10:30 | CASEMGMT ---
DENG CLEVELAND Assessment: Face to Face with pt for initial transition planning/care coordination assessment. DENG CLEVELAND introduced self and role at [facility], pt voices understanding and consents to assessment. Pt is A&O x4 and answers all questions appropriately at this time. Pt sitting up in chair in no distress. Care providers, pharmacy, and demographics verified/updated. Admitting Dx: Accute complicated UTI PCP: Efren Specialists: Denies Preferred Pharmacy: [facility] Insurance: [employer] Prescription Benefit: yes LNOK: Living Arrangements: Pt lives with , son, MIL in ranch house with 2 steps and rails to enter. ADLs: Pt states I at home with ADLs and IADLs. Transportation: Pt drives self and denies concerns with transportation. DME: CPAP, cane, walker, grab bars, shower bench. Pt states takes insulin for diabetes but denies having a glucometer and testing supplies at home. HHC/SNF: Previously in TCU, denies HHC. Pt states no concerns with going home at time of dc. Pt states no further concerns/needs. CM to follow. Advised pt to ask CM if any further question/concerns/needs arise, voices understanding. Pt Goal: Home Plan: Home, will follow therapy and plan of care. Lilian VILCHIS CM
[2024-03-02] MEDS: Insulin Lispro 100 UNIT/ML INSULN.PEN SC (11:32)
[2024-03-02 11:54] LABS: Bedside Glucose 155 mg/dL (74-106)
--- NOTE | 2024-03-02 12:32 | DCINST_ITS ---
Discharge Instructions Diet Discharge Diet: 1800 Calorie Control Diet Activity Discharge Activity: Return to Normal Activity Weight Bearing Status: Full weight bearing Follow Up Care Test Results: Test results from this visit will be discussed in further detail at your follow- up appointment, if applicable. Discharge Plan Admission Admit Date/Time: 02/29/24 23:09 Primary Reason for Your Visit: cystitis Attending Provider: Sergio Gonzales Primary Care Provider: Drew Schwartz Consulting Providers: Lashae Worthy Discharge Orders/Prescriptions Prescriptions: New ciprofloxacin HCl [Cipro] 500 mg tablet 500 mg PO BID Qty: 14 0RF Rx Instructions: start on 03/03/24 tamsulosin [Flomax] 0.4 mg capsule 0.8 mg PO QHS Qty: 60 0RF Continued cilostazol 100 mg tablet 100 mg PO BID aspirin [Adult Aspirin Regimen] 81 mg tablet,delayed release (DR/EC) 81 mg PO DAILY pravastatin 40 mg tablet 40 mg PO DAILY metoprolol tartrate 25 MG tablet 25 mg PO BID Patient Comments: BLOOD PRESSURE gabapentin 400 MG capsule 400 mg PO BID Patient Comments: NERVE PAIN metformin 850 MG tablet 850 mg PO BIDCM insulin aspart U-100 100 UNITS/ML insulin pen 26 units SQ TIDCM insulin glargine 100 UNITS/ML insulin pen 85 units SQ BID ropinirole 1 mg tablet 1 mg PO QHS temazepam 15 mg Capsule 30 mg PO HS PRN (Reason: Insomnia) Qty: 0 0RF acetaminophen 500 mg Tablet 1,000 mg PO Q6H PRN PRN (Reason: Pain Score 1-5) Qty: 0 0RF ascorbic acid (vitamin C) 500 mg Tablet 500 mg PO 1000 30 Days Qty: 30 0RF pantoprazole 40 mg Tablet,Delayed Release (Dr/Ec) 40 mg PO DAILY 30 Days Qty: 30 0RF polysaccharide iron complex [Ferrex 150] 150 mg iron Capsule 150 mg PO DAILY 30 Days Qty: 30 0RF Ozempic 1 mg/dose (4 mg/3 mL) Pen Injector 1 mg SQ Sa@1000 Qty: 0 0RF ascorbic acid (vitamin C) [Vitamin C] 500 mg tablet 500 mg PO DAILY Qty: 30 0RF Rx Instructions: Take with Ferrex. Referrals / Follow Up: Drew Schwartz MD [Primary Care Provider] - Within 2 Weeks Holland Duron MD [Med Staff - Active Staff] - See Referral Note (Call his office to make an appointment or have Dr. Schwartz refer you there) Disposition Disposition (needs filled in before D/C Order can be placed): Home, Self Care
[2024-03-02] MEDS: Ceftriaxone 1 GM/50 ML BAG IV (13:32)
--- NOTE | 2024-03-02 15:32 | PCM.DC.SUM ---
Providers Date of Admission: 02/29/24 Date of Discharge: 03/02/24 Primary Care Physician: Dr. Drew Schwartz MD Reason For Visit: ACUTE COMPLICATED UTI Diagnosis Discharge Diagnosis (1) Acute UTI: Status: Acute Code(s): N39.0 - Urinary tract infection, site not specified Plan 1. Acute cystitis-cultures are pending at this time, he will remain on his present antibiotics #2 type 2 diabetes-patient's home insulin will be continued, fingerstick blood sugars will be performed and he will be given sliding scale insulin as needed #3 essential hypertension-patient will remain on his home medications #4 morbid obesity-complicates care, management, recovery, and prognosis #5 chronic iron deficiency anemia-continue oral iron supplement #6 dehydration-patient will be placed on IV fluids at 100 cc/h, labs will be rechecked tomorrow Total clinical time spent by myself addressing the patient's medical issues, reviewing all of his data, and collaborating with patient's care team: 35 minutes Medications at Discharge Home Medications gabapentin 400 mg capsule 400 mg PO BID NEUROPATHY 12/17/16 metoprolol tartrate 25 mg tablet 25 mg PO BID HTN 12/17/16 insulin aspart U-100 100 unit/mL (3 mL) subcutaneous pen 26 units SQ TIDCM DIABETES 03/12/18 insulin glargine 100 unit/mL (3 mL) subcutaneous pen 85 units SQ BID DIABETES 03/12/18 metformin 850 mg tablet 850 mg PO BIDCM DIABETES 03/12/18 aspirin 81 mg tablet,delayed release (Adult Aspirin Regimen) 81 mg PO DAILY heart health 02/02/19 cilostazol 100 mg tablet 100 mg PO BID heart health 02/02/19 pravastatin 40 mg tablet 40 mg PO DAILY cholesterol 02/02/19 ropinirole 1 mg tablet 1 mg PO QHS involuntary movements 11/29/23 temazepam 15 mg capsule 30 mg (2 x 15 mg) PO HS PRN Insomnia #0 caps 12/05/23 acetaminophen 500 mg tablet 1,000 mg (2 x 500 mg) PO Q6H PRN PRN Pain Score 1-5 #0 tabs 12/11/23 ascorbic acid (vitamin C) 500 mg tablet 500 mg PO 1000 supplement 30 days #30 tabs 12/11/23 ascorbic acid (vitamin C) 500 mg tablet (Vitamin C) 500 mg PO DAILY #30 tabs 12/11/23 pantoprazole 40 mg tablet,delayed release 40 mg PO DAILY GERD 30 days #30 tabs 12/11/23 polysaccharide iron complex 150 mg iron capsule (Ferrex) 150 mg PO DAILY supplements 30 days #30 caps 12/11/23 semaglutide 1 mg/dose (4 mg/3 mL) subcutaneous pen injector (Ozempic) 1 mg (0.75 mL) SQ Sa@1000 diabetes #0 mL 12/11/23 ciprofloxacin HCl 500 mg tablet (Cipro) 500 mg PO BID #14 tabs 03/02/24 tamsulosin 0.4 mg capsule (Flomax) 0.8 mg (2 x 0.4 mg) PO QHS #60 caps 03/02/24 Hospital Course Operations None Procedures None Summary of Care Provided Minutes Spent on Discharge: 31 Hospital Course: 64-year-old white male was seen in the emergency room at [facility] with a chief complaint of feeling unwell, he also complained of fevers and chills the day before and fatigue. Patient complained that he had nausea and vomiting 3 times before coming to the emergency room. Patient states he was treated for urinary tract infection approximately a week ago. Workup in the emergency room included a CBC which showed an elevated white blood cell count at 11.5, hemoglobin was 10.2, chemistry profile was remarkable for creatinine 1.33, lactic acid was elevated at 2.2, urinalysis showed positive nitrites, more than 100 WBCs, +3 bacteria. Chest x-ray showed no acute findings. Patient was admitted to PCU for acute cystitis, blood sugars were monitored and he was given sliding scale insulin, he was seen by PT and OT, and he was given IV fluids for dehydration. Patient's urine culture grew out E. coli which was pansensitive, I talked with the patient's and advised her to make an appointment with Dr. Duron for workup as to why the patient has frequent cystitis. On 03/02/2024, patient was seen and examined: On examination he appeared in good health and spirits. Vital signs as documented. Skin warm and dry and without overt rashes. Neck without JVD, neck was supple, trachea midline, thyroid was normal. Lungs clear bilaterally, normal air movement was noted. Heart exam notable for regular rhythm, normal sounds and absence of murmurs, rubs or gallops. Abdomen unremarkable and without evidence of organomegaly, masses, or abdominal aortic enlargement. Bowel sounds are present, abdomen is not distended. Extremities nonedematous, no cyanosis was noted, no clubbing was noted. Neuro: Cranial nerves II through XII are grossly intact, no focal motor deficits were noted, sensation to light touch and pinprick intact, motor exam 5/5 throughout. Psych: Patient is alert and oriented x3, he does not appear anxious or depressed, he does not appear agitated. Patient appears stable for discharge home on 03/02/2024. Weight / BMI Weight Weight: 158.304 kg Body Mass Index (BMI) 46.2 ABG / Lab / Microbiology Data 03/01/24 05:00 03/02/24 05:34 Laboratory: Laboratory Results - last 24 hr 03/01/24 16:00: POC Glucose 121 H 03/01/24 21:01: POC Glucose 139 H 03/02/24 05:34: Sodium 134 L, Potassium 4.0, Chloride 103, Carbon Dioxide 26.0, Anion Gap 5, BUN 19 H, Creatinine 1.12, Estim Creat Clear Calc 106.24, Est GFR (MDRD) Af Amer 85, Est GFR (MDRD) Non-Af 70, BUN/Creatinine Ratio 17.0, Glucose 117 H, Calcium 8.4 L 03/02/24 06:50: POC Glucose 106 03/02/24 11:31: POC Glucose 155 H Microbiology: Microbiology 02/29/24 20:50 Urine, Clean Catch Urine Culture - Final Escherichia coli 02/29/24 20:50 Mucosa - Nose SARS-CoV-2, Influenza & RSV (PCR) - Final D/C Instructions Discharge Diet: 1800 Calorie Control Diet Weight Bearing Status: Full weight bearing Meaningful Use Info Meaningful Use Meaningful Use Diagnoses (Choose all that apply): None applicable Ischemic Stroke Statin Dosing Therapy Reference: STATIN DOSE THERAPY REFERENCE: * Patients > 75 years receive moderate or high dose statin therapy. * Patients 75 years or YOUNGER should receive HIGH intensity statin dose unless contraindicated. You will be required to document reason for non-treatment if statin daily dose does not meet guidelines. HIGH DOSE STATIN THERAPY DAILY Atorvastatin > than or = to 40 mg Rosuvastatin > than or = to 20 mg Amlodipine + Atorvastatin > than or = to 2.5/40 mg Ezetimibe + Simvastatin 10/80 mg Simvastatin 80mg Discharge Plan Admission Admit Date/Time: 02/29/24 23:09 Primary Reason for Your Visit: cystitis Attending Provider: Sergio Gonzales Primary Care Provider: Drew Schwartz Consulting Providers: Lashae Worthy Discharge Orders/Prescriptions Prescriptions: New ciprofloxacin HCl [Cipro] 500 mg tablet 500 mg PO BID Qty: 14 0RF Rx Instructions: start on 03/03/24 tamsulosin [Flomax] 0.4 mg capsule 0.8 mg PO QHS Qty: 60 0RF Continued cilostazol 100 mg tablet 100 mg PO BID aspirin [Adult Aspirin Regimen] 81 mg tablet,delayed release (DR/EC) 81 mg PO DAILY pravastatin 40 mg tablet 40 mg PO DAILY metoprolol tartrate 25 MG tablet 25 mg PO BID Patient Comments: BLOOD PRESSURE gabapentin 400 MG capsule 400 mg PO BID Patient Comments: NERVE PAIN metformin 850 MG tablet 850 mg PO BIDCM insulin aspart U-100 100 UNITS/ML insulin pen 26 units SQ TIDCM insulin glargine 100 UNITS/ML insulin pen 85 units SQ BID ropinirole 1 mg tablet 1 mg PO QHS temazepam 15 mg Capsule 30 mg PO HS PRN (Reason: Insomnia) Qty: 0 0RF acetaminophen 500 mg Tablet 1,000 mg PO Q6H PRN PRN (Reason: Pain Score 1-5) Qty: 0 0RF ascorbic acid (vitamin C) 500 mg Tablet 500 mg PO 1000 30 Days Qty: 30 0RF pantoprazole 40 mg Tablet,Delayed Release (Dr/Ec) 40 mg PO DAILY 30 Days Qty: 30 0RF polysaccharide iron complex [Ferrex 150] 150 mg iron Capsule 150 mg PO DAILY 30 Days Qty: 30 0RF Ozempic 1 mg/dose (4 mg/3 mL) Pen Injector 1 mg SQ Sa@1000 Qty: 0 0RF ascorbic acid (vitamin C) [Vitamin C] 500 mg tablet 500 mg PO DAILY Qty: 30 0RF Rx Instructions: Take with Ferrex. Referrals / Follow Up: Drew Schwartz MD [Primary Care Provider] - Within 2 Weeks Holland Duron MD [Med Staff - Active Staff] - See Referral Note (Call his office to make an appointment or have Dr. Schwartz refer you there) Disposition Disposition (needs filled in before D/C Order can be placed): Home, Self Care Charges/Coding Visit Charges Inpatient E&M: 76138 Disch Hosp >30min
--- NOTE | 2024-03-02 15:41 | CASEMGMT ---
Patient has order for discharge. RN CRISTOFER received script for glucometer and placed with discharge instructions. DENG CLEVELAND in to update leonor, on speaker phone. Patient denied further needs, states he has 2 more additional outpatient therapy appts to attend. and patient had no further questions or conerns.
--- NOTE | 2024-03-02 16:13 | CHAPLAIN ---
Type of Pastoral Visit _x__ Initial Visit ___ Follow-up Visit ___ On-call Visit ___ General Patient Visit ___ Spiritual Assessment ___ Family Conference ___ Bereavement ___ Rapid Response ___ Code Blue ___ Other (describe below) Pastoral Care Referral From _x__ Patient ___ Family ___ Nurse ___ Physician ___ Staff Auditor ___ Oral Surgeon ___ Other (describe below) Sacrament/Intervention _x__ Active listening ___ Anointing ___ Hindu ___ Bereavement ___ Communion _x__ Deloris exploration ___ _x__ Life review _x__ Prayer ___ Reconciliation ___ Sacrament of Sick ___ Supportive presence ___ Wedding ___ Other (describe below) Pastoral Comments patient expressed desire for a prayer about his health and getting this ongoing issue resolved; pt also admits that he has concerns because he has had to miss work due to ongoing health issues; pt talks about his life, heritage, and deloris affiliations; pt welcoming and thankful for support
== END 2024-03-02 16:59 | disposition home or self-care (01) | DRG 690 ==
LOC: ED 22:42 → PCU 23:15
PROVIDERS: Admitting Provider Family Medicine; Emergency Provider Emergency Medicine; PCP Family Medicine; Visit Provider Internal Medicine
DX: N30.00 Acute cystitis without hematuria (principal); E87.20 Acidosis, unspecified; Z68.42 Body mass index [BMI] 45.0-49.9, adult; D63.1 Anemia in chronic kidney disease; E11.22 Type 2 diabetes mellitus with diabetic chronic kidney disease; D50.9 Iron deficiency anemia, unspecified; B96.20 Unspecified Escherichia coli [E. coli] as the cause of diseases classified elsewhere; N18.30 Chronic kidney disease, stage 3 unspecified; E11.40 Type 2 diabetes mellitus with diabetic neuropathy, unspecified; E66.01 Morbid (severe) obesity due to excess calories; Z79.4 Long term (current) use of insulin; G25.81 Restless legs syndrome; I12.9 Hypertensive chronic kidney disease with stage 1 through stage 4 chronic kidney disease, or unspecified chronic kidney disease; K21.9 Gastro-esophageal reflux disease without esophagitis; E78.00 Pure hypercholesterolemia, unspecified; G47.33 Obstructive sleep apnea (adult) (pediatric); Z79.85 Long-term (current) use of injectable non-insulin antidiabetic drugs; Z79.82 Long term (current) use of aspirin; Z79.02 Long term (current) use of antithrombotics/antiplatelets; Z87.440 Personal history of urinary (tract) infections
CPT/HCPCS: 36415; 71045; 80048; 80053; 81001; 82962; 83605; 85025; 87077; 87086; 87088; 87186; 87631; 97162; 97166; 99284; J7030; J7050; P9612; A4216; J2405

== ENCOUNTER → 2024-04-01 | Outpatient (CLI) | payer OTHER, SELFPAY ==
--- NOTE | 2024-04-01 08:03 | CT_ITS ---
INDICATION: ACUTE CYSTITIS WITHOUT HEMATURIA EXAMINATION: CT ABDOMEN AND PELVIS WITH AND WITHOUT CONTRAST - CT Abdomen And Pelvis WO/W Contrast Injection TECHNIQUE: Helically acquired images were obtained of the abdomen and pelvis both before and after IV contrast. The protocol utilizes one or more of the following dose reduction techniques: automated exposure control, adjustment of mA and/or kV according to patient size,and/or use of iterative reconstruction technique. IV Contrast dosage and agent: 100 cc of Isovue-370 Oral contrast: None. RADIATION DOSAGE (If Supplied By Facility): CTDIvol = ( 40.79 ) mGy, DLP = ( 4953.39 ) mGycm COMPARISON: Prior study dated: 11/30/2023 FINDINGS: LOWER CHEST: Lung bases are clear. No cardiomegaly or pericardial effusion. LIVER: Homogeneous. No focal mass. GALLBLADDER AND BILIARY TREE: Status post cholecystectomy. No intra- or extrahepatic biliary ductal dilation. PANCREAS: No focal cystic or solid mass. SPLEEN: Normal size without focal cystic or solid mass. ADRENAL GLANDS: No nodules. KIDNEYS AND URETERS: Normal renal size and position. No hydronephrosis. PERITONEUM: No ascites or free air. No other fluid collection. BOWEL: No evidence of acute appendicitis. No stomach or bowel distension. No focal inflammatory change. The left lateral abdominal wall is not entirely included on this examination due to patient''s body habitus. LYMPH NODES: No enlarged mesenteric or retroperitoneal lymph nodes. VESSELS: No evidence of abdominal aortic aneurysm. Calcifications of the celiac axis branches and the origin of the SMA. URINARY BLADDER: Circumferential thickening of the bladder wall could be due to underdistention. Cystitis cannot be excluded. REPRODUCTIVE ORGANS: No pelvic masses. ABDOMINAL WALL: No discrete abdominal or pelvic wall hernia. BONES: Mild compression fracture of T12 vertebra unchanged since prior examination. CT/CT Abd/Pelvis W/WO Contrast IMPRESSION: 1. Diffuse thickening of the bladder wall could be due to underdistention. Cystitis cannot be excluded. 2. No evidence of urinary tract stones or hydronephrosis. 3. No focal acute inflammatory process. Electronically Signed: Joe Boone MD at 16:00 EDT ,
== END | disposition home or self-care (01) ==
LOC: CT 08:01
PROVIDERS: PCP Family Medicine; Referring Provider Urology; Visit Provider Urology
DX: N30.00 Acute cystitis without hematuria (principal); Z87.440 Personal history of urinary (tract) infections
CPT/HCPCS: 74178; Q9967

== ENCOUNTER → 2024-12-28 | Outpatient (CLI) | payer OTHER, SELFPAY ==
[2024-12-28 18:09] LABS: Hemoglobin 10.2 g/dL (13.0-16.5); Mean Corp Hgb Conc 31.9 g/dL (32-36); Mean Corpuscular Hgb 29.1 pg (27.0-32.0); Mean Corpuscular Volume 91.4 fL (80-94); Mean Platelet Vol. 9.8 fl (6.2-12.0); Platelet Count 250 K/mm3 (150-450); RBC Distribution Width CV 14.7 % (11.6-14.6); RBC Distribution Width SD 49.5 fl (35.1-43.9); RET-HE 32.3 pg (30-35); Reticulocyte Count 2.43 % (0.5-1.5); White Blood Count 7.7 K/mm3 (4.4-11.0)
[2024-12-28 19:13] LABS: ALB/GLOB Ratio 1.2 RATIO (0.9-2.4); AST(SGOT) 16 U/L (<=37); Alanine Aminotransfer ALT/SGPT 13 U/L (<=46); Albumin, Serum 3.8 g/dL (3.4-4.8); Alkaline Phosphatase 74 U/L (40-129); Anion Gap 12 (5-15); BUN 15 mg/dL (4-19); BUN/Creat Ratio 12.9 RATIO (10-20); Calcium,Total 9.4 mg/dL (7.6-11.0); Carbon Dioxide 24.5 mmol/L (21.0-32.0); Chloride 102 mmol/L (98-108); Cholesterol 102 mg/dL (<=200); Creatinine, Serum 1.12 mg/dL (0.70-1.20); EST Glomerular Filtration Rate 74 (>60); Globulin 3.1 g/dL (2.2-4.2); Glucose 80 mg/dL (70-99); High Density Lipoprotein 30 mg/dL; Low Density Lipoprotein Calc. 48 mg/dL; Potassium 4.6 mmol/L (3.3-5.1); Protein, Total 6.9 g/dL (5.9-8.4); Sodium Level 138 mmol/L (133-145); Total Bilirubin 0.32 mg/dL (0.00-1.30); Triglycerides 121 mg/dL; Very Low Density Lipoprotein 24 mg/dL (5-40)
[2024-12-28 20:02] LABS: Iron 40 ug/dL (65-175); Magnesium 1.6 mg/dL (1.5-2.2)
[2024-12-28 20:06] LABS: Ferritin 65 ng/mL (37-417); Vitamin B12 1049 pg/mL (180-914); Vitamin D,25 Hydroxy 27.4 ng/mL (30-100)
== END | disposition home or self-care (01) ==
LOC: MFPLAB 14:31
PROVIDERS: PCP Family Medicine; Referring Provider Family Medicine; Visit Provider Family Medicine
DX: E11.8 Type 2 diabetes mellitus with unspecified complications (principal); D53.9 Nutritional anemia, unspecified; R79.0 Abnormal level of blood mineral
CPT/HCPCS: 36415; 80053; 80061; 82306; 82607; 82728; 83540; 83735; 84443; 85027; 85045